=== PATIENT | female | born 1970 | race Caucasian/White ===

== ENCOUNTER → 2016-04-10 | Outpatient (REF) | payer OTHER ==
[~2016-04-10] MED LIST: ASPI81TA85 PO; BYETTA; BYSTOLIC; CELE40TA PO; GLUC1000 PO; HEARTBURN MED; IBUP600T26 PO; JANU100T PO; LISI20TA PO; LISI40TA; LORATIDINE PO; PERCOCET FT; PRAV10TA2; PRIL20TA2 PO; PRILOSEC; SYNT125T; TYLE325T5 PO; TYLENOL #3; ZETI10TA21 PO; ZOLO50TA
[2016-04-10 13:26] LABS: BASO # 0.1 K/mm3 (0.0-0.2); BASO % 0.7 % (0.0-1.0); EOS # 0.3 K/mm3 (0.0-0.50); EOS % 3.5 % (0.0-3.0); LARGE UNSTAINED CELL # 0.2 K/mm3 (0.0-0.4); LARGE UNSTAINED CELL % 1.8 % (0.0-4.0); LYMPH # 1.9 K/mm3 (1.5-4.5); LYMPH % 17.6 % (24.0-44.0); MEAN CORPUSCULAR HEMOGLOBIN 23.3 pg (27.0-33.0); MEAN CORPUSCULAR HGB CONC 31.5 g/dl (32.0-36.5); MEAN CORPUSCULAR VOLUME 73.8 fl (80.0-96.0); MONO # 0.5 K/mm3 (0.0-0.8); MONO % 5.4 % (0.0-5.0); NEUTROPHILS % 71.1 % (36.0-66.0); PLATELET COUNT, AUTOMATED 373 k/mm3 (150-450); RED CELL DISTRIBUTION WIDTH 15.5 % (11.5-14.5); WHITE BLOOD COUNT 9.8 K/mm3 (4.0-10.0)
[2016-04-10 13:52] LABS: ALBUMIN 3.5 GM/DL (3.2-5.2); ALBUMIN/GLOBULIN RATIO 0.97 (1.00-1.93); ALKALINE PHOSPHATASE 80 U/L (45-117); ALT/SGPT 24 U/L (12-78); ANION GAP 10 MEQ/L (8-16); AST/SGOT 21 U/L (15-37); BILIRUBIN,TOTAL 0.5 MG/DL (0.2-1.0); BLOOD UREA NITROGEN 15 MG/DL (7-18); CALCIUM LEVEL 9.2 MG/DL (8.5-10.1); CARBON DIOXIDE LEVEL 31 MEQ/L (21-32); CHLORIDE LEVEL 99 MEQ/L (98-107); CHOLESTEROL LEVEL 120 MG/DL (<200); CREATININE FOR GFR 0.66 MG/DL (0.55-1.02); FERRITIN 8 NG/ML (8-252); GLOMERULAR FILTRATION RATE > 60.0 (>58); GLUCOSE, FASTING 109 MG/DL (70-105); PERCENT SATURATION 9.5 % (13.2-37.4); POTASSIUM SERUM 3.6 MEQ/L (3.5-5.1); SODIUM LEVEL 140 MEQ/L (136-145); TOTAL IRON BINDING CAPACITY 401 UG/DL (250-450); TOTAL PROTEIN 7.1 GM/DL (6.4-8.2); TRIGLYCERIDES LEVEL 142 MG/DL (<150)
[2016-04-10 13:55] LABS: VITAMIN B12 LEVEL 473 PG/ML (247-911)
== END ==
LOC: M SFHCPLAZ 10:52
PROVIDERS: ATTEND Physician Assistant
DX: D50.9 Iron deficiency anemia, unspecified (principal); E11.9 Type 2 diabetes mellitus without complications; E78.4 Other hyperlipidemia; E03.9 Hypothyroidism, unspecified; E53.8 Deficiency of other specified B group vitamins

== ENCOUNTER → 2016-08-09 | Outpatient (CLI) | payer BC ==
[2016-08-09 12:13] LABS: ALBUMIN 3.5 GM/DL (3.2-5.2); ALBUMIN/GLOBULIN RATIO 0.95 (1.00-1.93); ALKALINE PHOSPHATASE 87 U/L (45-117); ALT/SGPT 31 U/L (12-78); ANION GAP 10 MEQ/L (8-16); AST/SGOT 21 U/L (15-37); BILIRUBIN,TOTAL 0.4 MG/DL (0.2-1.0); BLOOD UREA NITROGEN 17 MG/DL (7-18); CALCIUM LEVEL 9.3 MG/DL (8.5-10.1); CARBON DIOXIDE LEVEL 28 MEQ/L (21-32); CHLORIDE LEVEL 100 MEQ/L (98-107); CREATININE FOR GFR 0.78 MG/DL (0.55-1.02); GLOMERULAR FILTRATION RATE > 60.0 (>58); GLUCOSE, FASTING 238 MG/DL (70-105); POTASSIUM SERUM 3.9 MEQ/L (3.5-5.1); SODIUM LEVEL 138 MEQ/L (136-145); TOTAL PROTEIN 7.2 GM/DL (6.4-8.2)
== END ==
LOC: M WUC 08:33
PROVIDERS: ATTEND Physician Assistant
DX: E55.9 Vitamin D deficiency, unspecified (principal); E11.9 Type 2 diabetes mellitus without complications

== ENCOUNTER → 2017-02-10 | Outpatient (REF) | payer BC | LOC: M SFHCPLAZ 12:03 | PROVIDERS: ATTEND Physician Assistant Medical | DX: E11.9 Type 2 diabetes mellitus without complications (principal); D50.9 Iron deficiency anemia, unspecified; Z53.9 Procedure and treatment not carried out, unspecified reason ==

== ENCOUNTER → 2017-05-01 | Outpatient (CLI) | payer BC ==
[2017-05-01 08:48] LABS: BASO # 0.1 10^3/uL (0.0-0.2); BASO % 0.9 % (0.0-1.0); EOS # 0.3 10^3/uL (0.0-0.50); EOS % 2.7 % (0.0-3.0); HEMOGLOBIN 13.7 g/dl (12.0-16.0); IMMATURE GRANULOCYTE % 0.6 % (0-3.0); LYMPH # 2.5 10^3/uL (1.5-4.5); LYMPH % 20.9 % (24.0-44.0); MEAN CORPUSCULAR HEMOGLOBIN 26.2 pg (27.0-33.0); MEAN CORPUSCULAR HGB CONC 31.9 g/dl (32.0-36.5); MEAN CORPUSCULAR VOLUME 82.2 fl (80.0-96.0); MONO # 0.6 10^3/uL (0.0-0.8); MONO % 5.1 % (0.0-5.0); NEUTROPHILS # 8.3 10^3/uL (1.8-7.7); NEUTROPHILS % 69.8 % (36.0-66.0); PLATELET COUNT, AUTOMATED 328 10^3/uL (150-450); RED BLOOD COUNT 5.23 10^6/uL (4.00-5.40); RED CELL DISTRIBUTION WIDTH 14.6 % (11.5-14.5); WHITE BLOOD COUNT 11.8 10^3/uL (4.0-10.0)
[2017-05-01 09:23] LABS: ALKALINE PHOSPHATASE 88 U/L (45-117); ALT/SGPT 25 U/L (12-78); ANION GAP 10 MEQ/L (8-16); AST/SGOT 20 U/L (7-37); BILIRUBIN,TOTAL 0.4 MG/DL (0.2-1.0); BLOOD UREA NITROGEN 17 MG/DL (7-18); CALCIUM LEVEL 8.7 MG/DL (8.5-10.1); CARBON DIOXIDE LEVEL 26 MEQ/L (21-32); CHLORIDE LEVEL 106 MEQ/L (98-107); CHOLESTEROL LEVEL 124 MG/DL (<200); CREATININE FOR GFR 0.67 MG/DL (0.55-1.30); GLOMERULAR FILTRATION RATE > 60.0 (>58); GLUCOSE, FASTING 135 MG/DL (70-100); HDL CHOLESTEROL 50 MG/DL (>40); LDL CHOLESTEROL 51.4 MG/DL (<100); NON-HDL-C 74 MG/DL; SODIUM LEVEL 142 MEQ/L (136-145); TRIGLYCERIDES LEVEL 113 MG/DL (<150)
[2017-05-01 09:24] LABS: ALBUMIN 3.6 GM/DL (3.2-5.2); FERRITIN 20 NG/ML (8-252); FREE T4 1.23 NG/DL (0.76-1.46); IRON (FE) 84 UG/DL (50-170); PERCENT SATURATION 24.3 % (13.2-45.0); THYROID STIMULATING HORMONE 0.667 uIU/ML (0.358-3.740); TOTAL IRON BINDING CAPACITY 346 UG/DL (250-450); TOTAL PROTEIN 7.2 GM/DL (6.4-8.2)
[2017-05-01 09:25] LABS: CREATININE, URINE 88.5 MG/DL; MAU/CREAT RATIO 116.3 MCG/MG (0.0-30.0)
[2017-05-01 09:31] LABS: ESTIMATED AVERAGE GLUCOSE 212 MG/DL (60-110)
== END ==
LOC: M WUC 08:05
DX: E03.9 Hypothyroidism, unspecified (principal); D50.9 Iron deficiency anemia, unspecified; E11.22 Type 2 diabetes mellitus with diabetic chronic kidney disease; I10 Essential (primary) hypertension; E78.5 Hyperlipidemia, unspecified
CPT/HCPCS: 83550

== ENCOUNTER → 2017-05-21 | Outpatient (REF) | payer BC ==
[2017-05-21 15:19] LABS: CHLAMYDIA DNA AMPLIFICATION NEGATIVE (NEGATIVE); GC DNA AMPLIFICATION NEGATIVE (NEGATIVE)
== END ==
LOC: M LAB REF 13:03
DX: Z12.4 Encounter for screening for malignant neoplasm of cervix (principal)
CPT/HCPCS: 87186

== ENCOUNTER → 2017-05-21 | Outpatient (REF) | payer BC ==
[2017-05-26 14:13] LABS: HPV HYBRID CAPTURE II Negative (Negative)
== END ==
LOC: M LAB REF 13:33
DX: Z12.4 Encounter for screening for malignant neoplasm of cervix (principal)
CPT/HCPCS: G0123

== ENCOUNTER → 2017-09-26 | Outpatient (CLI) | payer BC ==
[2017-09-26 13:29] LABS: ANION GAP 11 MEQ/L (8-16); BLOOD UREA NITROGEN 14 MG/DL (7-18); CALCIUM LEVEL 8.7 MG/DL (8.5-10.1); CARBON DIOXIDE LEVEL 22 MEQ/L (21-32); CHLORIDE LEVEL 109 MEQ/L (98-107); CREATININE FOR GFR 0.65 MG/DL (0.55-1.30); GLOMERULAR FILTRATION RATE > 60.0 (>58); GLUCOSE, FASTING 159 MG/DL (70-100); POTASSIUM SERUM 4.2 MEQ/L (3.5-5.1); SODIUM LEVEL 142 MEQ/L (136-145)
[2017-09-26 13:39] LABS: ESTIMATED AVERAGE GLUCOSE 194 MG/DL (60-110); HEMOGLOBIN A1c 8.4 %
== END ==
LOC: M WUC 08:31
DX: E11.22 Type 2 diabetes mellitus with diabetic chronic kidney disease (principal)
CPT/HCPCS: 83036

== ENCOUNTER → 2018-05-14 | Outpatient (CLI) | payer BC ==
--- NOTE | 2018-05-18 19:52 | SLEEPHOME ---
DATE OF PROCEDURE: 05/14/2016 ORDERED BY: Carla Rosenberg Diagnostic home sleep testing was performed due to concern for the obstructive sleep apnea syndrome. For testing a nocturnal T3 respiratory monitoring device was used. Continuous record was made of pulse, oxygen saturation, airflow, chest and abdominal strain and body position. 9 hours and 59 minutes of data were reviewed. There were 7 hours and 48 minutes marked as time in bed. During the interval marked time in bed there were 178 respiratory events identified of 10 seconds in duration or greater for respiratory event index of 23.9. The events were primarily obstructive. Baseline pulse rate 70 beats per minute, pulse rate ranged 54-96. Baseline saturation 91%. Sats fell as low as 77%. Testing was performed in both the supine and nonsupine positions. IMPRESSION: Abnormal home sleep testing with repetitive respiratory events and oxygen desaturations to 77% with a respiratory event index 23.9 is consistent with the obstructive sleep apnea syndrome. RECOMMENDATIONS: The patient should be encouraged to undergo formal sleep evaluation and in laboratory pressure titration.
== END ==
LOC: M SLEEP HO 04-26 14:28
PROVIDERS: ATTEND Nurse Practitioner Family
DX: R06.83 Snoring (principal); R40.0 Somnolence

== ENCOUNTER → 2018-07-10 | Outpatient (CLI) | payer BC ==
[~2018-07-10] MED LIST changes: +OXYC1TAB23 FT; -PERCOCET FT
[2018-07-10 11:19] LABS: BLOOD UREA NITROGEN 20 MG/DL (7-18); CALCIUM LEVEL 9.8 MG/DL (8.5-10.1); CARBON DIOXIDE LEVEL 28 MEQ/L (21-32); CHLORIDE LEVEL 105 MEQ/L (98-107); CHOLESTEROL LEVEL 207 MG/DL (<200); CHOLESTEROL RISK RATIO 4.404 (<5); FREE T4 1.06 NG/DL (0.76-1.46); GLOMERULAR FILTRATION RATE > 60.0 (>58); GLUCOSE, FASTING 198 MG/DL (70-100); HDL CHOLESTEROL 47 MG/DL (>40); LDL CHOLESTEROL 116 MG/DL (<100); NON-HDL-C 160 MG/DL; POTASSIUM SERUM 4.5 MEQ/L (3.5-5.1); SODIUM LEVEL 140 MEQ/L (136-145); TRIGLYCERIDES LEVEL 218 MG/DL (<150)
[2018-07-10 11:27] LABS: HEMOGLOBIN A1c 8.2 %
[2018-07-10 11:38] LABS: MAU/CREAT RATIO 378.7 MCG/MG (0.0-30.0)
== END ==
LOC: M WUC 08:34
PROVIDERS: ATTEND Physician Assistant Medical
DX: E11.22 Type 2 diabetes mellitus with diabetic chronic kidney disease (principal); E03.9 Hypothyroidism, unspecified; E78.5 Hyperlipidemia, unspecified

== ENCOUNTER → 2019-01-15 | Outpatient (CLI) | payer OTHER ==
[2019-01-15 12:13] LABS: ALBUMIN 3.2 GM/DL (3.2-5.2); ALT/SGPT 41 U/L (12-78); BILIRUBIN,TOTAL 0.6 MG/DL (0.2-1.0); BLOOD UREA NITROGEN 21 MG/DL (7-18); CALCIUM LEVEL 8.8 MG/DL (8.5-10.1); CARBON DIOXIDE LEVEL 30 MEQ/L (21-32); CHLORIDE LEVEL 104 MEQ/L (98-107); CHOLESTEROL LEVEL 103 MG/DL (<200); CHOLESTEROL RISK RATIO 2.019 (<5); GLOMERULAR FILTRATION RATE > 60.0 (>58); GLUCOSE, FASTING 165 MG/DL (70-100); HDL CHOLESTEROL 51 MG/DL (>40); LDL CHOLESTEROL 37 MG/DL (<100); NON-HDL-C 52 MG/DL; POTASSIUM SERUM 4.2 MEQ/L (3.5-5.1); SODIUM LEVEL 140 MEQ/L (136-145); TOTAL PROTEIN 6.6 GM/DL (6.4-8.2); TRIGLYCERIDES LEVEL 75 MG/DL (<150)
[2019-01-15 12:29] LABS: HEMOGLOBIN A1c 8.1 %
[2019-01-15 12:37] LABS: MALB URINE SIEMENS 26.6 MG/L; MAU/CREAT RATIO 23.5 MCG/MG (0.0-30.0)
== END ==
LOC: M WUC 08:20
PROVIDERS: ATTEND Physician Assistant
DX: E11.22 Type 2 diabetes mellitus with diabetic chronic kidney disease (principal); I10 Essential (primary) hypertension

== ENCOUNTER → 2019-06-24 | Outpatient (CLI) | payer OTHER ==
[2019-06-24 13:43] LABS: HEMOGLOBIN A1c 8.5 %
== END ==
LOC: M WUC 09:27
PROVIDERS: ATTEND Physician Assistant Medical
DX: E11.22 Type 2 diabetes mellitus with diabetic chronic kidney disease (principal)

== ENCOUNTER → 2020-03-02 | Outpatient (CLI) | payer OTHER ==
[~2020-03-02] MED LIST changes: +ALBU8.5H; +ATOR40TA75; +CITA40TA4; +EUTH125T; +JENC0.35; +LORA-674; +LOSA50TA88; +METF-838; +OMEP-218; +TRUL10IN
[2020-03-02 12:04] LABS: HEMOGLOBIN A1c 6.9 %
[2020-03-02 12:32] LABS: MAU/CREAT RATIO 55.4 MCG/MG (0.0-30.0)
[2020-03-02 12:37] LABS: ALBUMIN 3.8 GM/DL (3.2-5.2); ALT/SGPT 23 U/L (12-78); BILIRUBIN,TOTAL 0.7 MG/DL (0.2-1.0); BLOOD UREA NITROGEN 13 MG/DL (7-18); CALCIUM LEVEL 9.3 MG/DL (8.5-10.1); CARBON DIOXIDE LEVEL 28 MEQ/L (21-32); CHLORIDE LEVEL 105 MEQ/L (98-107); CHOLESTEROL LEVEL 107 MG/DL (<200); CHOLESTEROL RISK RATIO 1.671 (<5); CREATININE FOR GFR 0.72 MG/DL (0.55-1.30); GLOMERULAR FILTRATION RATE > 60.0 (>51); GLUCOSE, FASTING 174 MG/DL (70-100); HDL CHOLESTEROL 64 MG/DL (>40); LDL CHOLESTEROL 26 MG/DL (<100); NON-HDL-C 43 MG/DL; POTASSIUM SERUM 4.1 MEQ/L (3.5-5.1); SODIUM LEVEL 140 MEQ/L (136-145); THYROID STIMULATING HORMONE 0.173 uIU/ML (0.358-3.740); TOTAL PROTEIN 6.9 GM/DL (6.4-8.2); TRIGLYCERIDES LEVEL 86 MG/DL (<150)
== END ==
LOC: M WUC 08:49
PROVIDERS: ATTEND Physician Assistant Medical
DX: E11.22 Type 2 diabetes mellitus with diabetic chronic kidney disease (principal); I12.9 Hypertensive chronic kidney disease with stage 1 through stage 4 chronic kidney disease, or unspecified chronic kidney disease; N18.9 Chronic kidney disease, unspecified

== ENCOUNTER 2020-03-17 06:36 | Emergency (ER) | payer OTHER ==
[~2020-03-17] VITALS: Ht 162.6 cm; Wt 86.4 kg
[~2020-03-17 06:36] MED LIST changes: -ALBU8.5H; -ATOR40TA75; -CITA40TA4; -EUTH125T; -JENC0.35; -LORA-674; -LOSA50TA88; -METF-838; -OMEP-218; -TRUL10IN
--- OUTSIDE RECORDS SUMMARY | 2020-03-17 06:41 | CCD | Continuity of Care Document ---
Author Author Jane ALCALA PA Organization Unknown Address [address] [place] [address] Phone [phone] Care Team Providers Care Stockroom Attendant Name Role Phone Shruthi Warren MD AUTM [phone] Alea Marin MD AUTM [phone] [facility] Surgery Practice - Surgery AUTM [phone] Problems Description No Information Available Social History Type Date Description Comments Sex Unknown Tobacco Use Start: Unknown Never Used Smokeless Tobacco ETOH Use Rarely consumes alcohol Tobacco Use Start: 02/16/86 End: 02/16/87 Patient is a forme r smoker 1 pack per week Recreational Drug Use Denies Drug Use Smoking Status Reviewed: 11/23/19 Patient is a former smoker 1 pack per week Exercise Type/Frequency Exercises regularly Tattoo/Piercing Tattoo 5 Tattoo/Piercing Pierced ears Sun Exposure Minimum amount of sun exposure Sun Exposure Uses sunscreen Sun Exposure Does not use tanning beds Sun Exposure Has experienced blistering from sunburns Sun Exposure History of sunburn Seat Belt/Car Seat Always uses seat belt Bike Helmet does not ride Smoke Alarms Yes Smoke Alarms Carbon Monoxide Detector: Yes Allergies, Adverse Reactions, Alerts Active Allergies Reaction Severity Comments Date Penicillin hives Moderate 03/25/2017 Medications Active Medications SIG Qnty Indications Ordering Provide r Date Basaglar Kwikpen 100 Unit/ML Solution Pen-Inject 8 Units sub qu twice a day Unknown 1 Jencycla 0.35mg Tablets 1 by mouth every day in the morning Unknown 12/03/2019 Metformin HCL ER (Mod) 500mg Tablets ER 24HR 2 tabs by mouth twice a day with with largest meals 360tabs Sharon Hearn M.D. 12/03/2019 Trulicity 0.75mg/0.5 ML Solution Pen-Inject inject 0.75 mg ( 0.5 milliliters ) sc once a week on thursday 2ml Sharon Hearn M.D. 12/03/2019 Bariatric Fusion Chewtabs 2 chew tabs twice a day Unknown 12/03/2019 Albuterol Sulfate HFA 108(90Base) mcg/Act Aerosol inhale 1 puff 30 minutes prior to exerci se may repeat every 4 to 6 hours as needed 17units R05 Sharon Hearn M.D. 020 Onetouch Ultra Strips use 1 strip to test BS 4 times a day , e 11.65 300units Sharon Hearn M .D. 06/30/2019 Onetouch Delica Plus Lancets Extra Fine 33G Plus 33G Misc Use To Check Glucose 4 Times Daily 100units Tammy Barraza, NAM 02/15/2019 Blood Glucose Test Strips to be used with blood glucose monitoring kit, Dx cod: ee11.65 180units E11.22 Sharon Hearn M.D. 01/04/2019 Lancets Misc to be used with glucose monitoring device, dx code e11.65 90units Brie Hearn M.D. 01/04/2019 Blood Glucose Monitoring System W/Device Kit monitor with strips and lancets use to check your bloo d sugar dx code: e11.65 1Meter E11.22 Sharon Hearn M.D. 01/04/2019 Relion Pen Needle [id number] Mis 32G X 4 mm Use With Levemir Injection Twice Daily as Directed 200units Ana Amos RPA-C 05/01/2018 Pen [place] 32G X 4 mm Misc to use with levemir injection twice a day as directed 180units Sharon Aguirre ms, M.D. 05/21/[address] 1 by mouth every day 90caps Sharon Hearn M.D. 000 Atorvastatin Calcium 40mg Tablets take 1 tablet by mouth once daily for cholesterol 30tabs Sharon Rivas ams, M.D. Citalopram Hydrobromide 40mg Table ts take 1 tablet by mouth once daily 90taSharon Leblanc M.D. Losartan Potassium 50mg Tablets take 1 tablet by mouth once daily in the morning for blood pressure 30taSharon Leblanc M.D. Levothyroxine Sodium 125mcg Tablet s take 1 tablet by mouth once daily 30tabs Sharon Hearn M .D. Loratadine 10mg Tablets take 1 tablet by mouth once daily for allergy symptoms 90tabs Sharon Hearn M.D. Multi-Vitamin Daily Tablets 1 by mouth every day Unknown Immunizations CPT Code Status Date Vaccine Lot # [id number] Given 11/23/2019 Influenza Virus Vaccine, Quadrivalent,age 3 and up,multidose vial [id number] Given 11/06/2017 Influenza Virus Vaccine, Quadrivalent,age 3 and up,multidose vial [id number] Vital Signs Date Vital Result Comment 11/23/2019 2:21pm BP Systolic 148 mmHg BP Diastolic 89 mmHg BP Systolic Recheck 145 mmHg BP Diastolic Recheck 77 mmHg Heart Rate 85 /min Body Temperature 97.8 F Respiratory Rate 18 /min Height 65 inches 5'5" Weight 180.25 lb O2 % BldC Oximetry 100 % Peak Expiratory Flow Rate 364 Estimated Peak Flow Rate [place] Body Weight 125 lb BMI (Body Mass Index) 30.0 kg/m2 08/26/2019 7:24am BP Systolic 168 mmHg BP Diastolic 111 mmHg BP Systolic Recheck 149 mmHg BP Diastolic Recheck 95 mmHg Heart Rate 83 /min Body Temperature 98.0 F Respiratory Rate 18 /min Height 65 inches 5'5" Weight 189.50 lb O2 % BldC Oximetry 99 % Peak Expiratory Flow Rate 364 Estimated Peak Flow Rate [place] Body Weight 125 lb BMI (Body Mass Index) 31.5 kg/m2 Results Description No Information Available Procedures Date Code Description Status 08/26/2019 [id number] Diabetic Foot Exam Completed Medical Devices Description No Information Available Encounters Type Date Location Provider Dx Diagnosis Office Visit 02/01/2020 3:00p Main Office Nishi Alcala PA J06.9 Acute upper respiratory infection, unspecified Office Visit 11/23/2019 2:30p Main Office Nishi Alcala PA J30.9 Allergic rhinitis, unspecified R05 Cough R59.0 Localized enlarged lymph nod es Z23 Encounter for immunization Office Visit 08/26/2019 7:10a Main Office Tammy Barraza PA-C Z00.0 0 Encntr for general adult medical exam w/o abnormal findings E11.22 Type 2 diabetes mellitus 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 iabetic chronic kidney disease Z98.84 Bariatric surgery status I10 Essential (primary) hyperten david Assessments Date Code Description Provider 02/01/2020 J06.9 Acute upper respiratory infectio n, unspecified Nishi Alcala PA 11/23/2019 J30.9 Allergic rhinitis, unspecified P homestNishi coronado PA 11/23/2019 R05 Cough Inge Alcala cia, PA 11/23/2019 R59.0 Localized enlarged lymph nodes P Nishi erickson PA 11/23/2019 Z23 Encounter for immunization Nishi Hopkins PA 08/26/2019 Z00.00 Encounter for genera l adult medical examination without abnormal findings Tammy Barraza PA-C 08/26/2019 E11.22 Type 2 diabetes mellitus with di abetic chronic kidney diseas Tammy Barraza PA-C 08/26/2019 Z98.84 Bariatric surgery status Tammy Barraza PA-C 08/26/2019 I10 Essential (primary) hypertension Tammy Barraza PA-C Plan of Treatment Future Appointment(s):* 02/29/2020 2:00 pm - Nishi Alcala PA at Main Office 02/01/2020 - Nishi Alcala PA* J06.9 Acute upper respiratory infection, unspecified* Comments:* likely viral but encouraged to seek testing for COVID 19 given community spreadyMucinex, salt water gargles, albuterol prn Functional Status Functional Condition Comment Date Status Bifocal glasses Active Independent with all ADL's Activ e Independent with all IADL's Acti ve Cpap Machine uses at least 6 hours per ni ght, wakes feeling rested, no day time fatigue Active Mental Status Mental Condition Comment Date Status None Active Can Understand Information Activ e Referrals Refer to Dr Reason for Referral Status Appt Date [facility] General Surgery Practice pt is due for screening c olonoscopy Scheduled 09/05/2019 [address] [facility], [address] [place], [place] [id number] [phone] Shruthi Warren MD needs consult regarding desiree ia repair which is reducible, but causing her some pain Closed 10/03/2019 [address], [place] [id number] [phone] Alea Marin MD uncontrolled DM Closed 09/06/2019 [facility] [address] [facility] [address] [phone]
--- OUTSIDE RECORDS SUMMARY | 2020-03-17 06:41 | CCD | Continuity of Care Document ---
Author Author Jane GIRALDO SURGICAL GARMENT FITTER Organization Unknown Address [address] [place] [address] [place] [address] Phone [phone] Care Team Providers Care First Calender Worker Name Role Phone [facility] AUTM [phone] [facility] AUTM [phone] Problems Description No Information Available Social History Type Date Description Comments Sex Unknown ETOH Use Occasionally consumes alcohol Tobacco Use Start: Unknown Patient has never smoked Smoking Status Reviewed: 02/02/20 Patient has never smoked Allergies, Adverse Reactions, Alerts Active Allergies Reaction Severity Comments Date Penicillin 02/06/2017 Medications Active Medications SIG Qnty Indications Ordering Provide r Date Doxycycline Monohydrate 100mg Caps ules 1 tab by mouth twice a day as directed for 10 days 20caps J20.9 Lalit Troy JR., M.D. 02/02/2020 Prednisone 20mg Tablets 1 tab twice a day for 4 days 8tabs J20.9 Lalit Troy JR., M.D. Albuterol Sulfate HFA 108(90Base) mcg/Act Aerosol 1-2 puffs every 4-6 hours as needed for shortness of breath 8.500gm J20.9 Lalit Troy JR., M.D. 02/02/2020 Levemir 100Unit/ML Solution Unknown Metformin HCL 1000mg Tablets Unknown Celexa Unknown Hydrochlorothiazide 25mg Tablets 1 by mouth every day Unknown Atorvastatin Calcium Unknown 00/0 Prilosec Unknown Trulicity Unknown Immunizations Description No Information Available Vital Signs Date Vital Result Comment 02/02/2020 8:16am BP Systolic 126 mmHg BP Diastolic 76 mmHg Heart Rate 92 /min Respiratory Rate 13 /min O2 % BldC Oximetry 98 % Body Temperature 98.4 F Weight 190.00 lb Height 64 inches 5'4" BMI (Body Mass Index) 32.6 kg/m2 Pain Level 3 02/06/2017 9:53am BP Systolic 132 mmHg BP Diastolic 79 mmHg Heart Rate 75 /min Respiratory Rate 15 /min O2 % BldC Oximetry 97 % Body Temperature 99.0 F Weight 230.00 lb Height 64 inches 5'4" BMI (Body Mass Index) 39.5 kg/m2 Pain Level 4 Results Description No Information Available Procedures Description No Information Available Medical Devices Description No Information Available Encounters Type Date Location Provider Dx Diagnosis Office Visit 02/02/2020 8:00a Main Office Palmira Giraldo NP J20. 9 Acute bronchitis, unspecified Z20.828 Contact w and exposure to ot h viral communicable diseases Assessments Date Code Description Provider 02/02/2020 J20.9 Acute bronchitis, unspecified Se lucille Giraldo NP 02/02/2020 Z20.828 Contact with and (wood spected) exposure to other viral communicable diseases Palmira Giraldo NP Plan of Treatment No Information Available Functional Status Description No Information Available Mental Status Description No Information Available Referrals Description No Information Available
--- OUTSIDE RECORDS SUMMARY | 2020-03-17 06:41 | CCD | Continuity of Care Document ---
Author Author Jane ALCALA PA Organization Unknown Address [address] [place] [address] Phone [phone] Care Team Providers Care Paintless Dent Repair Technician Name Role Phone Shruthi Warren MD AUTM [phone] Alea Marin MD AUTM [phone] [facility] Surgery Practice - Surgery AUTM [phone] Problems Description No Information Available Social History Type Date Description Comments Sex Unknown Tobacco Use Start: Unknown Never Used Smokeless Tobacco ETOH Use Rarely consumes alcohol Tobacco Use Start: 02/16/86 End: 02/16/87 Patient is a forme r smoker 1 pack per week Recreational Drug Use Denies Drug Use Smoking Status Reviewed: 03/01/20 Patient is a former smoker 1 pack [...] SIG Qnty Indications Ordering Provide r Date Jencycla 0.35mg Tablets 1 by mouth every day in the morning Unknown 12/03/2019 Metformin HCL ER (Mod) 500mg Tablets ER 24HR 2 tabs by mouth twice a day with with largest meals 360tabs Sharon Hearn M.D. 12/03/2019 Trulicity 0.75mg/0.5 ML Solution Pen-Inject inject 0.75 mg ( 0.5 milliliters ) sc once a week on thursday 2ml Shaorn Hearn M.D. 12/03/2019 Albuterol Sulfate HFA 108(90Base) mcg/Act Aerosol [...] Check Glucose 4 Times Daily 100units Tammy Barraza PA-C 02/15/2019 Blood Glucose Monitoring System W/Device Kit monitor with strips and lancets use to check your bloo d sugar dx code: e11.65 1Meter E11.22 Sharon Hearn M.D. 01/04/2019 Lancets Misc to be used with glucose monitoring device, dx code e11.65 90units Brie Hearn M.D. 01/04/2019 Blood Glucose Test Strips to be used with blood glucose monitoring kit, Dx cod: ee11.65 180units E11.22 Sharon Hearn M.D. 01/04/2019 Relion Pen Needle [id number] Mis 32G X 4 mm Use With Levemir Injection Twice Daily as Directed 200units Ana Amos RPA-C 05/01/2018 Pen [place] 32G X 4 mm Misc to use [...] take 1 tablet by mouth once daily 90tabs Sharon Hearn M.D. Losartan Potassium 50mg Tablets take 1 tablet by mouth once daily in the morning for blood pressure 30taSharon Leblanc M.D. Levothyroxine Sodium 125mcg Tablet s take 1 tablet by mouth once daily 30taSharon Leblanc M .D. Loratadine 10mg Tablets take 1 tablet by mouth once daily for allergy symptoms 90tabs Sharon Hearn M.D. Multi-Vitamin Daily Tablets 1 by mouth every day Unknown History Medications Basaglar Kwikpen 100 Unit/ML Solution Pen-Inject 8 Units sub qu twice a day Unknown 1 - 02/09/2020 Bariatric Fusion Chewtabs 2 chew tabs twice a day Unknown 12/03/2019 - Immunizations CPT Code Status Date Vaccine Lot # [id number] Given 03/01/2020 Pneumococcal Vaccine [id number] Given 11/23/2019 Influenza Virus Vaccine, Quadrivalent,age 3 and up,multidose vial [id number] Given 11/06/2017 Influenza Virus Vaccine, Quadrivalent,age 3 and up,multidose vial [id number] Vital Signs Date Vital Result Comment 03/01/2020 2:25pm BP Systolic 151 mmHg BP Diastolic 100 mmHg BP Systolic Recheck 137 mmHg BP Diastolic Recheck 95 mmHg Heart Rate 95 /min Body Temperature 97.4 F Respiratory Rate 16 /min Height 65 inches 5'5" Weight 193.25 lb O2 % BldC Oximetry 98 % Peak Expiratory Flow Rate 364 Estimated Peak Flow Rate [place] Body Weight 125 lb BMI (Body Mass Index) 32.2 kg/m2 02/09/2020 8:32am BP Systolic 136 mmHg BP Diastolic 81 mmHg Heart Rate 75 /min Body Temperature 96.6 F Respiratory Rate 18 /min Height 65 inches 5'5" Weight 189.50 lb O2 % BldC Oximetry 98 % Peak Expiratory Flow Rate 364 Estimated Peak Flow Rate [place] Body Weight 125 lb BMI (Body Mass Index) 31.5 kg/m2 Results Test Acquired Date Facility Test Result H/L Range Note Comprehensive Metabolic Profil 03/02/2020 [facility] [phone] Glucose, Fasting 174 mg/dL High 70-100 Blood Urea Nitrogen 13 mg/dL Normal 7-18 Creatinine For GFR 0.72 mg/dL Normal 0.55-1.30 Glomerular Filtration Rate > 60.0 Normal >51 1 Sodium Level 140 mEq/L Normal 136-145 Potassium Serum 4.1 mEq/L Normal 3.5-5.1 Chloride Level 105 mEq/L Normal 98-107 Carbon Dioxide Level 28 mEq/L Normal 21-32 Anion Gap 7 mEq/L Low 8-16 Calcium Level 9.3 mg/dL Normal 8.5-10.1 Ast/Sgot 11 U/L Normal 7-37 Alt/SGPT 23 U/L Normal 12-78 Alkaline Phosphatase 72 U/L Normal 45-117 Bilirubin,Total 0.7 mg/dL Normal 0.2-1.0 Total Protein 6.9 GM/DL Normal 6.4-8.2 Albumin 3.8 GM/DL Normal 3.2-5.2 Albumin/Globulin Ratio 1.2 Normal 1.2-2.2 Hemoglobin A1c 03/02/2020 [facility] [phone] Hemoglobin A1c 6.9 % Normal 2 Estimated Average Glucose 151 mg/dL High 60-110 Microalbumin [facility] [phone] Creatinine, Urine 220.0 mg/dL Normal Malb Urine Siemens 122.0 mg/L Normal [place]/Creat Ratio 55.4 MCG/MG High 0.0-30.0 3 Lipid Panel 03/02/2020 [facility] [phone] Triglycerides Level 86 mg/dL Normal <150 Cholesterol Level 107 mg/dL Normal <200 HDL Cholesterol 64 mg/dL Normal >40 LDL Cholesterol 26 mg/dL Normal <100 Non-HDL-C 43 mg/dL Normal Cholesterol Risk Ratio 1.671 Normal <5 Laboratory test finding 03/02/2020 [facility] [phone] Thyroid Stimulating Hormone 0.173 uIU/ML Low 0. 358-3.740 1 Units are mL/min/1.73 m2 Chronic Kidney Disease Staging per NKF: Stage I & II GFR >=60 Normal to Mildly Decreased Stage III GFR 30-59 Moderately Decreased Stage IV GFR 15-29 Severely Decreased Stage V GFR <15 Very Little GFR Left ESRD GFR <15 on FORENSIC PSYCHOLOGIST 2 REFERENCE RANGES: <=5.6% NORMAL 5.7-6.4% SUGGESTS IMPAIRED GLUCOSE META BOLISM/PREDIABETIC >= 6.5% ABNORMAL 3 THE [place] ATION STATES THAT MICROALBUMINURIA IS PRESENT IF THE MICROALBUMIN/CREATININE RATIO EXCEEDS 30 MCG/MG. THE THRESHOLD FOR CLINICAL ALBUMINURIA IS REACHED AT 300 MCG/MG. THE CLASSIFICATION OF A PATIENT SHOULD BE BASED UPON AT LEAST 2 OF 3 ABNORMAL RESULTS ON SPECIMENS COLLECTED WITHIN A 3 TO 6 MONTH TIME FRAME. Procedures Date Code Description Status 08/26/2019 [id number] Diabetic Foot Exam Completed Medical Devices Description No Information Available Encounters Type Date Location Provider Dx Diagnosis Office Visit 03/01/2020 2:15p Main Office Nishi Alcala PA E11.22 Type 2 diabetes mellitus w diabetic chronic kidney disease I10 Essential (primary) hyperten david E03.9 Hypothyroidism, unspecified F43.23 Adjustment disorder with mix ed anxiety and depressed mood Office Visit 02/09/2020 8:30a Main Office Carol Chapa FNP Z71.1 Person w feared hlth complaint in whom no diagnosis is made Office Visit 02/01/2020 3:00p Main Office Nishi Alcala PA J06.9 Acute upper respiratory infection, unspecified Office Visit 11/23/2019 2:30p Main Office Nishi Alcala PA J30.9 Allergic rhinitis, unspecified R05 Cough R59.0 Localized enlarged lymph nod es Z23 Encounter for immunization Assessments Date Code Description Provider 03/01/2020 E11.22 Type 2 diabetes mellitus with di abetic chronic kidney diseas Nishi Alcala PA 03/01/2020 I10 Essential (primary) hypertension Nishi Alcala PA 03/01/2020 E03.9 Hypothyroidism Inge Alcala cia, PA 03/01/2020 F43.23 Adjustment disorder with mixed a nxiety and depressed mood Nishi Alcala PA 02/09/2020 Z71.1 Person with feared h ealth complaint in whom no diagnosis is made Carol Chapa FNP 02/01/2020 J06.9 Acute upper respiratory infectio n, unspecified Nishi Alcala PA 11/23/2019 J30.9 Allergic rhinitis, unspecified P Nishi erickson PA 11/23/2019 R05 Cough Inge Alcala cia, PA 11/23/2019 R59.0 Localized enlarged lymph nodes P Nishi erickson PA 11/23/2019 Z23 Encounter for immunization Nishi Hopkins PA Plan of Treatment Future Appointment(s):* 09/03/2020 8:15 am - Nishi Alcala PA at Main Office Functional Status Functional Condition Comment Date Status Bifocal glasses Active Independent with all ADL's Activ e Independent with all IADL's Acti ve Cpap Machine uses at least 6 hours per ni ght, wakes feeling rested, no day time fatigue Active Mental Status Mental Condition Comment Date Status None Active Can Understand Information Activ e Referrals Refer to Reason for Referral Status Appt Date [facility] General Surgery Practice pt is due for screening c olonoscopy Scheduled 03/08/[address] [place] [address], [address] [place] [address] [phone]
--- OUTSIDE RECORDS SUMMARY | 2020-03-17 06:41 | CCD | Continuity of Care Document ---
Author Author Jane [facility] Organization Unknown Address [address] [place] [address] Phone [phone] Care Team Providers Care Gear Lapper Name Role Phone Shruthi Warren MD AUTM [phone] Alea Marin MD AUTM [phone] [facility] Surgery Practice - Surgery AUTM [phone] Problems Description No Information Available Social History Type Date Description Comments Sex Unknown Tobacco Use Start: Unknown Never Used Smokeless Tobacco ETOH Use Rarely consumes alcohol Tobacco Use Start: 02/16/86 End: 02/16/87 Patient is a forme r smoker 1 pack per week Recreational Drug Use Denies Drug Use Smoking Status Reviewed: 02/09/20 Patient is a former smoker 1 pack [...] Sharon Hearn M.D. 01/04/2019 Relion Pen Needle [id number] Mis 32G X 4 mm Use With Levemir Injection Twice Daily as Directed 200units Ana Amos RPA-C 05/01/2018 Pen [place] 32G X 4 mm Misc to use [...] tablet by mouth once daily 90tabs Sharon Hearn., M.D. Losartan Potassium 50mg Tablets take 1 tablet by mouth once daily in the morning for blood pressure 30Sharon Leblanc M.D. Levothyroxine Sodium 125mcg Tablet s take 1 tablet by mouth once daily 30Sharon Leblanc M .D. Loratadine 10mg Tablets take 1 tablet by mouth once daily for allergy symptoms 90taSharon Leblanc M.D. Multi-Vitamin Daily Tablets 1 by mouth every day Unknown History Medications Basaglar Kwikpen 100 Unit/ML Solution Pen-Inject 8 Units sub qu twice a day Unknown 1 - 02/09/2020 Immunizations CPT Code Status Date Vaccine Lot # [id number] Given 11/23/2019 Influenza Virus Vaccine, Quadrivalent,age 3 and up,multidose vial [id number] Given 11/06/2017 Influenza Virus Vaccine, Quadrivalent,age 3 and up,multidose vial [id number] Vital Signs Date Vital Result Comment 02/09/2020 8:32am BP Systolic 136 mmHg BP Diastolic 81 mmHg Heart Rate 75 /min Body Temperature 96.6 F Respiratory Rate 18 /min Height 65 inches 5'5" Weight 189.50 lb O2 % BldC Oximetry 98 % Peak Expiratory Flow Rate 364 Estimated Peak Flow Rate [place] Body Weight 125 lb BMI (Body Mass Index) 31.5 kg/m2 11/23/2019 2:21pm BP Systolic 148 mmHg BP Diastolic 89 mmHg BP Systolic Recheck 145 mmHg BP Diastolic Recheck 77 mmHg Heart Rate 85 /min Body Temperature 97.8 F Respiratory Rate 18 /min Height 65 inches 5'5" Weight 180.25 lb O2 % BldC Oximetry 100 % Peak Expiratory Flow Rate 364 Estimated Peak Flow Rate [place] Body Weight 125 lb BMI (Body Mass Index) 30.0 kg/m2 Results Description No Information Available Procedures Date Code Description Status 08/26/2019 [id number] Diabetic Foot Exam Completed Medical Devices Description No Information Available Encounters Type Date Location Provider Dx Diagnosis Office Visit 02/09/2020 8:30a Main Office Carol Chapa FNP Z71.1 Person w feared hlth complaint in whom no diagnosis is made Office Visit 02/01/2020 3:00p Main Office Nishi Palacios PA J06.9 Acute upper respiratory infection, unspecified Office Visit 11/23/2019 2:30p Main Office Nishi Palacios PA J30.9 Allergic rhinitis, unspecified R05 Cough R59.0 Localized enlarged lymph nod es Z23 Encounter for immunization Office Visit 08/26/2019 7:10a Main Office Tammy Barraza PA-C Z00.0 0 Encntr for general adult medical exam w/o abnormal findings E11.22 Type 2 diabetes mellitus w d iabetic chronic kidney disease Z98.84 Bariatric surgery status I10 Essential (primary) hyperten david Assessments Date Code Description Provider 02/09/2020 Z71.1 Person with feared h ealth complaint in whom no diagnosis is made Carol Chapa FNP 02/01/2020 J06.9 Acute upper respiratory infectio n, unspecified KathrynostaNishi PA 11/23/2019 J30.9 Allergic rhinitis, unspecified P etrancosta, Nishi Peralta, PA 11/23/2019 R05 Cough Tonyancostcliff Sta rojas Peralta, PA 11/23/2019 R59.0 Localized enlarged lymph nodes P etrancostaNishi, PA 11/23/2019 Z23 Encounter for immunization Kiara ncostaNishi, PA 08/26/2019 Z00.00 Encounter for genera l adult medical examination without abnormal findings Tammy Barraza PA-C 08/26/2019 E11.22 Type 2 diabetes mellitus with di abetic chronic kidney diseas Tammy Barraza PA-C 08/26/2019 Z98.84 Bariatric surgery status Tammy Barraza PA-C 08/26/2019 I10 Essential (primary) hypertension Tammy Barraza PA-C Plan of Treatment Future Appointment(s):* 02/29/2020 2:00 pm - Nishi Palacios PA at Main Office 02/09/2020 - Carol Chapa FNP* Z71.1 Person with feared health complaint in whom no diagnosis is made* Comments:* patient is likely feeling adhesions, incision was made over prior incision and so scarring is likely prevalent. Advised patient that if swelling becomes worse or pain increases or changes she should return Functional Status Functional Condition Comment Date Status Bifocal glasses Active Independent with all ADL's Activ e Independent with all IADL's Acti ve Cpap Machine uses at least 6 hours per ni ght, wakes feeling rested, no day time fatigue Active Mental Status Mental Condition Comment Date Status None Active Can Understand Information Activ e Referrals Refer to Reason for Referral Status Appt Date Shruthi Warren MD needs consult regarding desiree ia repair which is reducible, but causing her some pain Closed 10/03/2019 [address] [place] [address] [phone] Alea Marin MD uncontrolled DM Closed 09/06/2019 [facility] [address] [facility] [address] [phone] [facility] General Surgery Practice pt is due for screening colon oscopy Closed 09/05/2019 [address] [facility], [address] [place] [address] [phone]
--- OUTSIDE RECORDS SUMMARY | 2020-03-17 06:41 | CCD | Continuity of Care Document ---
Author Author Jane ALCALA PA Organization Unknown Address [address] [place] [address] Phone [phone] Care Team Providers Care Road Supervisor Of Engines Name Role Phone Shruthi Warren MD AUTM [phone] Alea Marin MD AUTM [phone] [facility] Surgery Practice - Surgery AUTM [phone] Problems Description No Information Available Social History [...] on thursday 2ml Sharon Hearn M.D. 12/03/2019 Albuterol Sulfate HFA 108(90Base) [...] Sharon Hearn M.D. 01/04/2019 Relion Pen Needle [id number] Mis 32G X 4 mm Use With Levemir Injection Twice Daily as Directed 200units Ana Amos RPA-C 05/01/2018 Pen [place] 32G X 4 mm Misc to use [...] CPT Code Status Date Vaccine Lot # [id number] Given 03/01/2020 Pneumococcal Vaccine [id number] Given 11/23/2019 Influenza Virus Vaccine, Quadrivalent,age 3 and up,multidose vial [id number] 88400 Given 11/06/2017 Influenza Virus Vaccine, Quadrivalent,age 3 and up,multidose vial [id number] Vital Signs Date Vital Result Comment 03/01/2020 2:25pm BP Systolic 151 mmHg BP Diastolic 100 mmHg BP Systolic Recheck 137 mmHg BP Diastolic Recheck 95 mmHg Heart Rate 95 /min Body Temperature 97.4 F Respiratory Rate 16 /min Height 65 inches 5'5" Weight 193.25 lb O2 % BldC Oximetry 98 % Peak Expiratory Flow Rate 364 Estimated Peak Flow Rate [place] Body Weight 125 lb BMI (Body Mass Index) 32.2 kg/m2 02/09/2020 8:32am BP Systolic 136 mmHg BP Diastolic 81 mmHg Heart Rate 75 /min Body Temperature 96.6 F Respiratory Rate 18 /min Height 65 inches 5'5" Weight 189.50 lb O2 % BldC Oximetry 98 % Peak Expiratory Flow Rate 364 Estimated Peak Flow Rate [place] Body Weight 125 lb BMI (Body Mass Index) 31.5 kg/m2 Results Test Acquired Date Facility Test Result H/L Range Note Comprehensive Metabolic Profil 03/02/2020 [facility] [phone] Glucose, Fasting 174 mg/dL High 70-100 Blood [...] Ratio 1.2 Normal 1.2-2.2 Hemoglobin A1c 03/02/2020 [facility] [phone] Hemoglobin A1c 6.9 % Normal 2 Estimated Average Glucose 151 mg/dL High 60-110 Microalbumin Random 03[facility] [phone] Creatinine, Urine 220.0 mg/dL Normal Malb Urine Siemens 122.0 mg/L Normal [place]/Creat Ratio 55.4 MCG/MG High 0.0-30.0 3 Lipid Panel 03/02/2020 [facility] [phone] Triglycerides Level 86 mg/dL Normal <150 Cholesterol Level 107 mg/dL Normal <200 HDL Cholesterol 64 mg/dL Normal >40 LDL Cholesterol 26 mg/dL Normal <100 Non-HDL-C 43 mg/dL Normal Cholesterol Risk Ratio 1.671 Normal <5 Laboratory test finding 03/02/2020 [facility] [phone] Thyroid Stimulating Hormone 0.173 uIU/ML Low 0. 358-3.740 1 Units are mL/min/1.73 m2 Chronic Kidney Disease Staging per NKF: Stage I & II GFR >=60 Normal to Mildly Decreased Stage III GFR 30-59 Moderately Decreased Stage IV GFR 15-29 Severely Decreased Stage V GFR <15 Very Little GFR Left ESRD GFR <15 on SKIVING MACHINE OPERATOR 2 REFERENCE RANGES: <=5.6% NORMAL 5.7-6.4% SUGGESTS IMPAIRED GLUCOSE META BOLISM/PREDIABETIC >= 6.5% ABNORMAL 3 THE CITIZ[place] [employer] ATION STATES THAT MICROALBUMINURIA IS PRESENT IF THE MICROALBUMIN/CREATININE RATIO EXCEEDS 30 MCG/MG. THE THRESHOLD FOR CLINICAL ALBUMINURIA IS REACHED AT 300 MCG/MG. THE CLASSIFICATION OF A PATIENT SHOULD BE BASED UPON AT LEAST 2 OF 3 ABNORMAL RESULTS ON SPECIMENS COLLECTED WITHIN A 3 TO 6 MONTH TIME FRAME. Procedures Date Code Description Status 08/26/2019 [id number] Diabetic Foot Exam Completed Medical Devices Description No Information Available Encounters Type Date Location Provider Dx Diagnosis Office Visit 03/01/2020 2:15p Main Office Nishi Alcala PA E11.22 Type 2 diabetes mellitus w diabetic chronic kidney disease I10 Essential (primary) hyperten david E03.9 Hypothyroidism, unspecified F43.23 Adjustment disorder with mix ed anxiety and depressed mood Z23 Encounter for immunization Office Visit 02/09/2020 8:30a Main Office Carol [...] Alcala PA 03/01/2020 E03.9 Hypothyroidism Inge Alcala cia PA 03/01/2020 F43.23 Adjustment disorder with mixed a nxiety and depressed mood Nishi Alcala PA 03/01/2020 Z23 Encounter for immunization Nishi Hopkins PA 02/09/2020 Z71.1 Person with feared h [...] to Reason for Referral Status Appt Date [facility] General Surgery Practice pt is due for screening c olonoscopy Scheduled 03/08/[address] [place] [address], [address] [place] [address] [phone]
--- OUTSIDE RECORDS SUMMARY | 2020-03-17 06:41 | CCD | Continuity of Care Document ---
Author Author Jane ALCALA PA Organization Unknown Address [address] [place] [address] Phone [phone] Care Team Providers Care Land Acquisition Manager Name Role Phone Shruthi Warren MD AUTM [phone] Alea Marin MD AUTM [phone] [facility] Surgery Practice - Surgery AUTM [phone] Problems Description No Information Available Social History [...] glucose monitoring device, dx code e11.65 90units Bire Heanr M.D. 01/04/2019 Blood Glucose Monitoring System W/Device Kit monitor with strips and lancets use to check your bloo d sugar dx code: e11.65 1Meter E11.22 Sharon Hearn M.D. 01/04/2019 Relion Pen Needle [id number] Mis 32G X 4 mm Use With Levemir Injection Twice Daily as Directed 200units Ana Amos RPA-C 05/01/2018 Pen [place] 32G X 4 mm Misc to use [...] CPT Code Status Date Vaccine Lot # [id number] Given 11/23/2019 Influenza Virus Vaccine, Quadrivalent,age 3 and up,multidose vial [id number] Given 11/06/2017 Influenza Virus Vaccine, Quadrivalent,age 3 and up,multidose vial [id number] Vital Signs Date Vital Result Comment 11/23/2019 2:21pm BP Systolic 148 mmHg BP Diastolic 89 mmHg BP Systolic Recheck 145 mmHg BP Diastolic Recheck 77 mmHg Heart Rate 85 /min Body Temperature 97.8 F Respiratory Rate 18 /min Height 65 inches 5'5" Weight 180.25 lb O2 % BldC Oximetry 100 % Peak Expiratory Flow Rate 364 Estimated Peak Flow Rate [place] Body Weight 125 lb BMI (Body Mass [...] Flow Rate 364 Estimated Peak Flow Rate [place] Body Weight 125 lb BMI (Body Mass Index) 31.5 kg/m2 Results Description No Information Available Procedures Date Code Description Status 08/26/2019 [id number] Diabetic Foot Exam Completed Medical Devices Description [...] Dr Reason for Referral Status Appt Date [facility] General Surgery Practice pt is due for screening c olonoscopy Scheduled 09/05/2019 [address] [facility], [address] [place], [place] [address] [phone] Shruthi Warren MD needs consult regarding desiree ia repair which is reducible, but causing her some pain Closed 10/03/2019 [address] [place], [place] [address] [phone] Alea Marin MD uncontrolled DM Closed 09/06/2019 [facility] [address] [facility] [address] [phone]
--- OUTSIDE RECORDS SUMMARY | 2020-03-17 06:41 | CCD ---
Continuity of Care Document (CCD) Created on: 02/09/2020 Jane Freeman External Reference #: [id number] : [id number] Sex: Female Author Author Jane [facility] Organization Unknown Address [address] [place] [address] Phone [phone] Care Team Providers Care Fire Chief Name Role Phone Srhuthi Warren MD AUTM [phone] Alea Marin MD AUTM [phone] [facility] Surgery Practice - Surgery AUTM [phone] Problems Description No Information Available Social History [...] Sharon Hearn M.D. 01/04/2019 Relion Pen Needle [id number] Mis 32G X 4 mm Use With Levemir Injection Twice Daily as Directed 200units Ana Amos RPA-C 05/01/2018 Pen [place] 32G X 4 mm Misc to use [...] CPT Code Status Date Vaccine Lot # [id number] Given 11/23/2019 Influenza Virus Vaccine, Quadrivalent,age 3 and up,multidose vial [id number] 03665 Given 11/06/2017 Influenza Virus Vaccine, Quadrivalent,age 3 and up,multidose vial [id number] Vital Signs Date Vital Result Comment 02/09/2020 8:32am BP Systolic 136 mmHg BP Diastolic 81 mmHg Heart Rate 75 /min Body Temperature 96.6 F Respiratory Rate 18 /min Height 65 inches 5'5" Weight 189.50 lb O2 % BldC Oximetry 98 % Peak Expiratory Flow Rate 364 Estimated Peak Flow Rate [place] Body Weight 125 lb BMI (Body Mass [...] Flow Rate 364 Estimated Peak Flow Rate [place] Body Weight 125 lb BMI (Body Mass Index) 30.0 kg/m2 Results Description No Information Available Procedures Date Code Description Status 08/26/2019 [id number] Diabetic Foot Exam Completed Medical Devices Description [...] Acute upper respiratory infectio n, unspecified Nishi Palacios PA 11/23/2019 J30.9 Allergic rhinitis, unspecified P etrancostNishi coronado PA 11/23/2019 R05 Cough Inge Palacios cia PA 11/23/2019 R59.0 Localized enlarged lymph nodes P etrancostNishi coronado PA 11/23/2019 Z23 Encounter for immunization Kiara ncostNishi coronado PA 08/26/2019 Z00.00 Encounter for genera l adult medical examination without abnormal findings Tammy Barraza PA-C 08/26/2019 E11.22 Type 2 diabetes mellitus with di abetic chronic kidney diseas Tammy Barraza PA-C 08/26/2019 Z98.84 Bariatric surgery status Tammy Barraza PA-C 08/26/2019 I10 Essential (primary) hypertension Tammy Barraza PA-C Plan of Treatment Future Appointment(s):* 02/29/2020 2:00 pm - Nishi Palacios PA at Main Office Functional Status Functional [...] but causing her some pain Closed 10/03/[address] [place] [address] [phone] Alea Marin MD uncontrolled DM Closed 09/06/2019 [facility] [address] [facility] [address] [address] [phone] [facility] General Surgery Practice pt is due for screening colon oscopy Closed 09/05/2019 [address] [facility], [address] [place], [place] [address] [phone]
--- OUTSIDE RECORDS SUMMARY | 2020-03-17 06:41 | CCD ---
Continuity of Care Document (CCD) Created on: 02/02/2020 Jane Freeman External Reference #: [id number] : [id number] Sex: Female Author Author Jane GIRALDO GRINDING MACHINE OPERATOR [employer] Organization Unknown Address [address] [place] [address] [place] [address] Phone [phone] Care Team Providers Care Retail Store Assistant Name Role Phone [facility] - Family Medicine AUTM [phone] [facility] AUTM [phone] Problems Description No Information Available Social History [...] diseases Palmira Giraldo NP Plan of Treatment 02/02/2020 - Palmira Giraldo NP* J20.9 Acute bronchitis, unspecified* New Medication:* Doxycycline Monohydrate 100 mg - 1 tab by mouth twice a day as directed for 10 days * Prednisone 20 mg - 1 tab twice a day for 4 days * Albuterol Sulfate HFA 108(90 Base) mcg/Act - 1-2 puffs every 4-6 hours as needed for shortness of breath * Comments:* rest/time/fluidstylenol/motrin PRN for pain/feverabx as directedf/u PRN or with PCPpatient v/u & agrees to plan * Z20.828 Contact with and (suspected) exposure to other viral communicable diseases Functional Status Description No Information Available Mental Status Description No Information Available Referrals Description No Information Available
--- OUTSIDE RECORDS SUMMARY | 2020-03-17 06:41 | CCD | Continuity of Care Document ---
Author Author Jane CAT MD Organization Unknown Address [address] [facility] [address] [place] [address] Phone [phone] Care Team Providers Care Burnisher And Bumper Name Role Phone Afia Nina MD AUTM [phone] Nishi Palacios AUTM Problems Active Problems Provider Date Type 2 diabetes mellitus Festus Cat MD Onset: 09/17 Essential hypertension Festus Cat MD Onset: 012 Social History Type Date Description Comments Sex Unknown ETOH Use Occasionally consumes wine Tobacco Use Start: Unknown End: Unknown Patient is a former smoker Tobacco Use Start: Unknown Quit 30 YRS AGO Smoking Status Reviewed: 08/03/18 Quit 30 YRS AGO Allergies, Adverse Reactions, Alerts Active Allergies Reaction Severity Comments Date Penicillin HIVES 09/18/2011 Medications Active Medications SIG Qnty Indications Ordering Provide r Date Celexa 40mg Tablets 1 by mouth every day Unknown Synthroid 125mcg Tablets 1 by mouth every day Unknown Metformin HCL 1000mg Tablets 1 by mouth twice a day 60tabs Unknown Prilosec 20mg Capsules DR 1 by mouth every day 30caps Unknown Loratadine 10mg Tablets 1 by mouth every day Unknown Losartan Potassium 50mg Tablets 1 by mouth every day Unknown Trulicity 0.75mg/0.5 ML Solution Pen-Inject 1 injection every week Unknown Atorvastatin Calcium 40mg Tablets Take 1 Tablet By Mouth Once Daily For Cholesterol Unkno wn Ortho Micronor 0.35mg Tablets every day Unknown Immunizations Description No Information Available Vital Signs Date Vital Result Comment 03/08/2020 1:16pm BP Systolic 113 mmHg BP Diastolic 73 mmHg Height 64 inches 5'4" Weight 197.00 lb BMI (Body Mass Index) 33.8 kg/m2 [place] Body Weight 120 lb Weight 89.359 kg BSA (Body Surface Area) 1.94 m2 08/03/2018 3:26pm BP Systolic 123 mmHg BP Diastolic 80 mmHg Heart Rate 80 /min O2 % BldC Oximetry 98 % Height 65 inches 5'5" Weight 222.50 lb BMI (Body Mass Index) 37.0 kg/m2 [place] Body Weight 125 lb Weight 100.926 kg BSA (Body Surface Area) 2.07 m2 Results Description No Information Available Procedures Description No Information Available Medical Devices Description No Information Available Encounters Description No Information Available Assessments Description No Information Available Plan of Treatment 08/03/2018 - Carla Rosenberg, N.P.* G47.33 Obstructive sleep apnea (adult) (pediatric) * * Comments:* 1. No changes were made to the CPAP pressure at today's visit. 2. The patient is aware to call with any problems related to CPAP use, snoring through the mask, or return of daytime sleepiness. * Follow up:* 1. Follow up in three months to reassess CPAP compliance, or sooner should problems develop. Functional Status Functional Condition Comment Date Status Independent with all ADL's Activ e Independent with all IADL's Acti ve Mental Status Mental Condition Comment Date Status Cognitive ability not impaired A ctive Referrals Description No Information Available
--- OUTSIDE RECORDS SUMMARY | 2020-03-17 06:42 | CCD | Summary of Care ---
Author Author [facility] Address Unknown Phone Unavailable Care Team Providers Care Foreign Policy Officer Name Role Phone Ana Amos PCP Reason for Visit * Reason Comments Post-op post op right flank hernia Encounter Details Care Team Description Date Type Department Leodan Warren MD [address] [place], [place] [id number] S/P abdominal surgery, follow-up exam (P rimary Dx) 01/20/2020 Office Visit [facility] [address] [place] [phone] Allergies Comments Active Allergy Reactions Severity Noted Date Keflex is okay Penicillins Hives Medium 05/19/2017 documented as of this encounter (statuses as of 01/20/2020) Medications End Date Status Medication Sig Dispensed Refills Start Date Active omeprazole (PRILOSEC) 20 Take 20 mg by 0 MG capsule mouth every morning Active citalopram (CELEXA) 40 MG Take 40 mg by 0 tablet mouth every morning Active losartan (COZAAR) 50 MG Take 50 mg by 0 tabletIndications: mouth every Hypertension morning Indications: High Blood Pressure Disorder Active levothyroxine (SYNTHROID, Take 125 mcg 0 LEVOTHROID) 125 MCG by mouth tablet Daily Active loratadine (CLARITIN) 10 Take 10 mg by 0 MG tablet mouth every morning Active atorvastatin (LIPITOR) 40 Take 40 mg by 0 MG tablet mouth every morning Active Lancets (FREESTYLE) Use as 0 lancets directed. 9 Active RELION PEN NEEDLES 32G X TO USE WITH 3 11/08 4 MM MISC LEVEMIR 9 INJECTION TWICE DAILY DIRECTED Active Multiple Take 2 0 Vitamins-Minerals tablets by (BARIATRIC FUSION PO) mouth Two Times Daily Active Basaglar KwikPen 100 Inject 8 0 UNIT/ML Subcutaneous Units into 9 Solution Pen-injector the skin Two Times Daily Active metFORMIN HCl ER 500 MG Take 1,000 mg 0 Oral Tablet Extended by mouth Two 0 Release 24 Hour Times Daily (GLUCOPHAGE-XR) Active Jencycla 0.35 MG Oral Take 1 tablet 0 07/18/19 2 Tablet by mouth 0 every morning Active MULTIPLE VITAMIN PO Take 1 tablet 0 by mouth every morning Active Trulicity 0.75 MG/0.5ML Inject 0.75 0 Subcutaneous Solution mg into the Pen-injector skin once a (dulaglutide) week On Tuesdays Active Albuterol Sulfate HFA 108 Inhale 2 0 (90 Base) MCG/ACT puffs into Inhalation Aerosol the lungs Solution (Ventolin HFA) every 6 (six) hours as needed for Wheezing Active Caffeine 200 MG Oral Take 1 tablet 150 tablet 0 Tablet by mouth 0 every 4 (four) hours Additional Information Patient not taking. Reported on 01/20/2020 9:41 AM 12/02/2020 Active Magnesium Oxide 400 Take 1 tablet 30 tablet 11 11/16 (241.3 Mg) MG Oral Tablet by mouth 0 (MAG-OX) daily Additional Information Patient not taking. Reported on 01/20/2020 9:41 AM Active Cetirizine HCl 10 MG Oral Take 10 mg by 0 Tablet (ZYRTEC) mouth daily documented as of this encounter (statuses as of 01/20/2020) Active Problems Problem Noted Date Flank hernia 10/03/2019 Overview: Added automatically from request for nina floyd [id number] Renal artery aneurysm 12/23/2017 High cholesterol 12/01/2017 Overview: Added automatically from request for nina fernandezery [id number] Diabetes mellitus type 2 in obese 12/01/2017 Overview: Added automatically from request for wood rgery [id number] Preop testing 12/01/2017 Overview: Added automatically from request for nina fernandezery [id number] Gastroesophageal reflux disease 12/01/2017 Overview: Added automatically from request for nina fernandezery [id number] Morbid obesity 11/27/2017 Essential hypertension 11/27/2017 Body mass index 38.0-38.9, adult 11/27/2017 Incisional hernia 11/27/2017 Type 2 diabetes mellitus without complication 2017 Other specified hypothyroidism 11/27/2017 documented as of this encounter (statuses as of 01/20/2020) Resolved Problems Problem Noted Date Resolved Date Incisional hernia 11/27/2017 11/27/2017 documented as of this encounter (statuses as of 01/20/2020) Social History Date Tobacco Use Types Packs/Day Years Used 1986 - 1987 Former Smoker Cigarettes 0.1 1 Smokeless Tobacco: Never Used Drinks/Week oz/Week Comments Alcohol Use rarely No Sex Assigned at Date Recorded Not on file Date Recorded COVID-19 Exposure Response 01/20/2020 9:33 AM EST In the last month, have you been in contact with No / Unsure someone who was confirmed or suspected to have Coronavirus / COVID-19? documented as of this encounter Last Filed Vital Signs Reading Time Taken Comments Vital Sign 143/81 01/20/2020 9:40 AM EST Blood Pressure 90 01/20/2020 9:40 AM EST Pulse 36.7 C (98.1 F) 01/20/2020 9:40 AM EST Temperature 18 01/20/2020 9:40 AM EST Respiratory Rate 99% 01/20/2020 9:40 AM EST Oxygen Saturation - - Inhaled Oxygen Concentration 89.8 kg (198 lb) 01/20/2020 9:40 AM EST Weight 162.6 cm (5' 4") 01/20/2020 9:40 AM EST Height 33.99 01/20/2020 9:40 AM EST Body Mass Index documented in this encounter Patient Instructions * Patient Instructions* Zakiya Salazar RN - 01/20/2020 9:45 AM EST Follow up one year from surgery Please call the [facility] direct patient line at [phone] with any questions or concerns regarding todays visit. Hernia & Abdominal Wall Reconstruction Program We participate with the [facility] (ACHQC) data base. If you wish for your surgical information to not be included or have any q uestions regarding this, please notify our office at the above number. documented in this encounter Progress Notes * Leodan Warren MD - 01/20/2020 9:45 AM EST Subjective: Jane Freeman presents to the clinic 8 weeks following repair of a massive rig ht flank hernia with mesh. She has no complaints. Eating a regular diet without difficulty. Bowel movements are Normal. The patient is not having any pain.. Objective: Visit Vitals BP 143/81 (BP Location: Right arm, Patient Position: Sitting, Cuff size: Regular ) Pulse 90 Temp 36.7 C (98.1 F) (Tympanic) Resp 18 Ht 1.626 m Wt 89.8 kg (198 lb) SpO2 99% BMI 33.99 kg/m General: alert, appears stated age and cooperative Abdomen: soft, bowel sounds active, non-tender, no hernias Incision: healing well, no drainage, no erythema, no hernia, no seroma, no swe lling, no dehiscence, incision well approximated Assessment: Doing well postoperatively. Plan: 1. Continue any current medications. 2. Wound care discussed. 3. Pt is to increase activities as tolerated. 4. Follow up: 1 year. documented in this encounter Plan of Treatment Health Maintenance Due Date Last Done Comments Lipid Disorder Screening 1969 MMR Vaccines (1 of - 1970 Standard series) Varicella Vaccines (1 of 1970 2 - 2-dose childhood series) Pneumococcal Vaccine: 06/02/1975 Pediatrics (0 to 5 Years) and At-Risk Patients (6 to 64 Years) (1 of 1 - PPSV23) DTaP,Tdap,and Td Vaccines 1976 (1 - Tdap) HIV Screening 1982 Diabetic Foot Exam 06/02/1987 Dilated Retinal Exam 06/02/1987 Urine Microalbumin 06/02/1987 Hepatitis B Vaccines (1 1988 of 3 - Risk 3-dose series) Cervical Cancer Screening 1990 5 years Hemoglobin A1c 03/19/2019 09/16/2018, 03/26/2018, 03/26/2018 Breast Cancer Screening 2 06/02/2019 years Colon Cancer Screening 10 06/02/2019 yrs Pneumococcal Vaccine: 65+ 2034 Years (1 of 1 - PPSV23) Influenza Vaccine Completed 11/23/2019, 12/13/2018, 12/23/2016 HIB Vaccines Aged Out No longer eligible based on patient's age to complete this topic Hepatitis A Vaccines Aged Out No longer eligibl e based on patient's age to complete this topic IPV Vaccines Aged Out No longer eligible based on patient's age to complete this topic documented as of this encounter Implants Device Identifier Shelf Expiration Date Model / Serial / L ot Implanted Type Area Manufactur er 03/18/2021 [id number] / / [id number] Stapler Seamguard [place] 60 - GORE, [id number] KATHE Cooper Implanted: Qty: 6 on 09/15/2018 by + Afia Nina MD at [facility] 05/13/2021 [id number] / / [id number] M[address] [id number]. - Right: Back [employer] [id number] Implanted: Qty: 1 on 11/30/2019 by Leodan Warren MD at [facility] documented as of this encounter Results Not on filedocumented in this encounter Visit Diagnoses Diagnosis S/P abdominal surgery, follow-up exam - Primary Follow-up examination, following other surgery documented in this encounter
--- OUTSIDE RECORDS SUMMARY | 2020-03-17 06:42 | CCD ---
Author Author [facility] Organization [facility] Address Unknown Phone Unavailable Care Team Providers Care Supervisor [employer] Name Role Phone ZEINAB OLSEN MOUSTAFA Unavailable Unavailable Jo CARMONA Unavailable Unavailable Scordo, M Tammy PA Unavailable Unavailable Scordo, M Tammy PA Unavailable Unavailable Scordo, M Tammy PA Unavailable Unavailable Scordo, M Tammy PA Unavailable Unavailable Scordo, M Tammy PA Unavailable Unavailable Scordo, M Tammy PA Unavailable Unavailable Scordo, M Tammy PA Unavailable Unavailable Scordo, M Tammy PA Unavailable Unavailable Scordo, M Tammy PA Unavailable Unavailable Scordo, M Tammy PA Unavailable Unavailable Scordo, M Tammy PA Unavailable Unavailable Scordo, M Tammy PA Unavailable Unavailable Scordo, M Tammy PA Unavailable Unavailable Scordo, M Tammy PA Unavailable Unavailable Scordo, M Tammy PA Unavailable Unavailable Scordo, M Tammy PA Unavailable Unavailable Scordo, M Tammy PA Unavailable Unavailable Scordo, M Tammy PA Unavailable Unavailable Scordo, M Tammy PA Unavailable Unavailable Scordo, M Tammy PA Unavailable Unavailable Scordo, M Tammy PA Unavailable Unavailable Scordo, M Tammy PA Unavailable Unavailable Scordo, M Tammy PA Unavailable Unavailable Scordo, M Tammy PA Unavailable Unavailable Scordo, M Tammy PA Unavailable Unavailable Scordo, M Tammy PA Unavailable Unavailable Scordo, M Tammy PA Unavailable Unavailable Scordo, M Tammy PA Unavailable Unavailable Scordo, M Tammy PA Unavailable Unavailable Scordo, M Tammy PA Unavailable Unavailable Scordo, M Tammy PA Unavailable Unavailable Scordo, M Tammy PA Unavailable Unavailable Scordo, M Tammy PA Unavailable Unavailable Scordo, M Tammy PA Unavailable Unavailable Scordo, M Tammy PA Unavailable Unavailable Scordo, M Tammy PA Unavailable Unavailable Scordo, M Tammy PA Unavailable Unavailable Scordo, M Tammy PA Unavailable Unavailable Scordo, M Tammy PA Unavailable Unavailable Scordo, M Tammy PA Unavailable Unavailable Scordo, M Tammy PA Unavailable Unavailable Scordo, M Tammy PA Unavailable Unavailable ALIASES , DEFAULT / GENERIC / UNKNOWN PROVIDER * Unavailable Unavailable ALIASES , DEFAULT / GENERIC / UNKNOWN PROVIDER * Unavailable Unavailable ALIASES , DEFAULT / GENERIC / UNKNOWN PROVIDER * Unavailable Unavailable ALIASES , DEFAULT / GENERIC / UNKNOWN PROVIDER * Unavailable Unavailable ALIASES , DEFAULT / GENERIC / UNKNOWN PROVIDER * Unavailable Unavailable ALIASES , DEFAULT / GENERIC / UNKNOWN PROVIDER * Unavailable Unavailable ALIASES , DEFAULT / GENERIC / UNKNOWN PROVIDER * Unavailable Unavailable ALIASES , DEFAULT / GENERIC / UNKNOWN PROVIDER * Unavailable Unavailable ALIASES , DEFAULT / GENERIC / UNKNOWN PROVIDER * Unavailable Unavailable ALIASES , DEFAULT / GENERIC / UNKNOWN PROVIDER * Unavailable Unavailable ALIASES , DEFAULT / GENERIC / UNKNOWN PROVIDER * Unavailable Unavailable ALIASES , DEFAULT / GENERIC / UNKNOWN PROVIDER * Unavailable Unavailable ALIASES , DEFAULT / GENERIC / UNKNOWN PROVIDER * Unavailable Unavailable ALIASES , DEFAULT / GENERIC / UNKNOWN PROVIDER * Unavailable Unavailable ALIASES , DEFAULT / GENERIC / UNKNOWN PROVIDER * Unavailable Unavailable ALIASES , DEFAULT / GENERIC / UNKNOWN PROVIDER * Unavailable Unavailable ALIASES , DEFAULT / GENERIC / UNKNOWN PROVIDER * Unavailable Unavailable ALIASES , DEFAULT / GENERIC / UNKNOWN PROVIDER * Unavailable Unavailable ALIASES , DEFAULT / GENERIC / UNKNOWN PROVIDER * Unavailable Unavailable ALIASES , DEFAULT / GENERIC / UNKNOWN PROVIDER * Unavailable Unavailable ALIASES , DEFAULT / GENERIC / UNKNOWN PROVIDER * Unavailable Unavailable ALIASES , DEFAULT / GENERIC / UNKNOWN PROVIDER * Unavailable Unavailable ALIASES , DEFAULT / GENERIC / UNKNOWN PROVIDER * Unavailable Unavailable ALIASES , DEFAULT / GENERIC / UNKNOWN PROVIDER * Unavailable Unavailable ALIASES , DEFAULT / GENERIC / UNKNOWN PROVIDER * Unavailable Unavailable ALIASES , DEFAULT / GENERIC / UNKNOWN PROVIDER * Unavailable Unavailable ALIASES , DEFAULT / GENERIC / UNKNOWN PROVIDER * Unavailable Unavailable ALIASES , DEFAULT / GENERIC / UNKNOWN PROVIDER * Unavailable Unavailable ALIASES , DEFAULT / GENERIC / UNKNOWN PROVIDER * Unavailable Unavailable ALIASES , DEFAULT / GENERIC / UNKNOWN PROVIDER * Unavailable Unavailable ALIASES , DEFAULT / GENERIC / UNKNOWN PROVIDER * Unavailable Unavailable ALIASES , DEFAULT / GENERIC / UNKNOWN PROVIDER * Unavailable Unavailable ALIASES , DEFAULT / GENERIC / UNKNOWN PROVIDER * Unavailable Unavailable ALIASES , DEFAULT / GENERIC / UNKNOWN PROVIDER * Unavailable Unavailable ALIASES , DEFAULT / GENERIC / UNKNOWN PROVIDER * Unavailable Unavailable ALIASES , DEFAULT / GENERIC / UNKNOWN PROVIDER * Unavailable Unavailable ALIASES , DEFAULT / GENERIC / UNKNOWN PROVIDER * Unavailable Unavailable ALIASES , DEFAULT / GENERIC / UNKNOWN PROVIDER * Unavailable Unavailable ALIASES , DEFAULT / GENERIC / UNKNOWN PROVIDER * Unavailable Unavailable ALIASES , DEFAULT / GENERIC / UNKNOWN PROVIDER * Unavailable Unavailable ALIASES , DEFAULT / GENERIC / UNKNOWN PROVIDER * Unavailable Unavailable ALIASES , DEFAULT / GENERIC / UNKNOWN PROVIDER * Unavailable Unavailable ALIASES , DEFAULT / GENERIC / UNKNOWN PROVIDER * Unavailable Unavailable Verdin, Johnna Yazmin PA-C Unavailable Unavailable Verdin, A Yazmin PA-C Unavailable Unavailable Verdin, A Yazmin PA-C Unavailable Unavailable COOK, B DOM FINISHED CLOTH EXAMINER Unavailable Unavailable COOK, B DOM FINISHED CLOTH EXAMINER Unavailable Unavailable COOK, B DOM FINISHED CLOTH EXAMINER Unavailable Unavailable COOK, B DOM FINISHED CLOTH EXAMINER Unavailable Unavailable COOK, B DOM FINISHED CLOTH EXAMINER Unavailable Unavailable COOK, B DOM FINISHED CLOTH EXAMINER Unavailable Unavailable COOK, B DOM FINISHED CLOTH EXAMINER Unavailable Unavailable COOK, B DOM FINISHED CLOTH EXAMINER Unavailable Unavailable COOK, B DOM FINISHED CLOTH EXAMINER Unavailable Unavailable COOK, B DOM FINISHED CLOTH EXAMINER Unavailable Unavailable COOK, B DOM FINISHED CLOTH EXAMINER Unavailable Unavailable COOK, B DOM FINISHED CLOTH EXAMINER Unavailable Unavailable COOK, B DOM FINISHED CLOTH EXAMINER Unavailable Unavailable COOK, B DOM FINISHED CLOTH EXAMINER Unavailable Unavailable COOK, B DOM FINISHED CLOTH EXAMINER Unavailable Unavailable COOK, B DOM FINISHED CLOTH EXAMINER Unavailable Unavailable COOK, B DOM FINISHED CLOTH EXAMINER Unavailable Unavailable COOK, B DOM FINISHED CLOTH EXAMINER Unavailable Unavailable COOK, B DOM FINISHED CLOTH EXAMINER Unavailable Unavailable COOK, B DOM FINISHED CLOTH EXAMINER Unavailable Unavailable COOK, B DOM FINISHED CLOTH EXAMINER Unavailable Unavailable COOK, B DOM FINISHED CLOTH EXAMINER Unavailable Unavailable COOK, B DOM FINISHED CLOTH EXAMINER Unavailable Unavailable COOK, B DOM FINISHED CLOTH EXAMINER Unavailable Unavailable COOK, B DOM FINISHED CLOTH EXAMINER Unavailable Unavailable COOK, B DOM FINISHED CLOTH EXAMINER Unavailable Unavailable COOK, B DOM FINISHED CLOTH EXAMINER Unavailable Unavailable COOK, B DOM FINISHED CLOTH EXAMINER Unavailable Unavailable COOK, B DOM FINISHED CLOTH EXAMINER Unavailable Unavailable COOK, B DOM FINISHED CLOTH EXAMINER Unavailable Unavailable COOK, B DOM FINISHED CLOTH EXAMINER Unavailable Unavailable COOK, B DOM FINISHED CLOTH EXAMINER Unavailable Unavailable COOK, B DOM FINISHED CLOTH EXAMINER Unavailable Unavailable COOK, B DOM FINISHED CLOTH EXAMINER Unavailable Unavailable COOK, B DOM FINISHED CLOTH EXAMINER Unavailable Unavailable COOK, B DOM FINISHED CLOTH EXAMINER Unavailable Unavailable COOK, B DOM FINISHED CLOTH EXAMINER Unavailable Unavailable COOK, B DOM FINISHED CLOTH EXAMINER Unavailable Unavailable COOK, B DOM FINISHED CLOTH EXAMINER Unavailable Unavailable COOK, B DOM FINISHED CLOTH EXAMINER Unavailable Unavailable COOK, B DOM FINISHED CLOTH EXAMINER Unavailable Unavailable COOK, B DOM FINISHED CLOTH EXAMINER Unavailable Unavailable COOK, B DOM FINISHED CLOTH EXAMINER Unavailable Unavailable COOK, B DOM FINISHED CLOTH EXAMINER Unavailable Unavailable COOK, B DOM FINISHED CLOTH EXAMINER Unavailable Unavailable COOK, B DOM FINISHED CLOTH EXAMINER Unavailable Unavailable COOK, B DMO FINISHED CLOTH EXAMINER Unavailable Unavailable COOK, B DOM FINISHED CLOTH EXAMINER Unavailable Unavailable COOK, B DOM FINISHED CLOTH EXAMINER Unavailable Unavailable COOK, B DOM FINISHED CLOTH EXAMINER Unavailable Unavailable COOK, B DOM FINISHED CLOTH EXAMINER Unavailable Unavailable COOK, B DOM FINISHED CLOTH EXAMINER Unavailable Unavailable COOK, B DOM FINISHED CLOTH EXAMINER Unavailable Unavailable COOK, B DOM FINISHED CLOTH EXAMINER Unavailable Unavailable COOK, B DOM FINISHED CLOTH EXAMINER Unavailable Unavailable COOK, B DOM FINISHED CLOTH EXAMINER Unavailable Unavailable COOK, B DOM FINISHED CLOTH EXAMINER Unavailable Unavailable COOK, B DOM FINISHED CLOTH EXAMINER Unavailable Unavailable COOK, B DOM FINISHED CLOTH EXAMINER Unavailable Unavailable COOK, B DOM FINISHED CLOTH EXAMINER Unavailable Unavailable COOK, B DOM FINISHED CLOTH EXAMINER Unavailable Unavailable COOK, B DOM FINISHED CLOTH EXAMINER Unavailable Unavailable COOK, B DOM FINISHED CLOTH EXAMINER Unavailable Unavailable COOK, B DOM FINISHED CLOTH EXAMINER Unavailable Unavailable Dalton, Palmira FINISHED CLOTH EXAMINER Unavailable Unavailable Dalton, Palmira FINISHED CLOTH EXAMINER Unavailable Unavailable Dalton, Palmira FINISHED CLOTH EXAMINER Unavailable Unavailable Dalton, Palmira FINISHED CLOTH EXAMINER Unavailable Unavailable Dalton, Palmira FINISHED CLOTH EXAMINER Unavailable Unavailable Dalton, Palmira FINISHED CLOTH EXAMINER Unavailable Unavailable Dalton, Palmira FINISHED CLOTH EXAMINER Unavailable Unavailable Dalton, Palmira FINISHED CLOTH EXAMINER Unavailable Unavailable Dalton, Palmira FINISHED CLOTH EXAMINER Unavailable Unavailable Dalton, Palmira FINISHED CLOTH EXAMINER Unavailable Unavailable Dalton, Palmira FINISHED CLOTH EXAMINER Unavailable Unavailable Lupillo Kearney PA Unavailable Unavailable Lupillo Kearney PA Unavailable Unavailable Lupillo Kearney PA Unavailable Unavailable Lupillo Kearney PA Unavailable Unavailable Lupillo Kearney PA Unavailable Unavailable Lupillo Kearney PA Unavailable Unavailable Lupillo Kearney PA Unavailable Unavailable Lupillo Kearney PA Unavailable Unavailable Lupillo Kearney PA Unavailable Unavailable [place], J Angela PA Unavailable Unavailable [place], J Angela PA Unavailable Unavailable [place], J Angela PA Unavailable Unavailable [place], J Angela PA Unavailable Unavailable [place], J Angela PA Unavailable Unavailable [place], J Angela PA Unavailable Unavailable [place], J Angela PA Unavailable Unavailable [place], J Angela PA Unavailable Unavailable [place], J Angela PA Unavailable Unavailable [place], J Angela PA Unavailable Unavailable [place], J Angela PA Unavailable Unavailable [place], J Angela PA Unavailable Unavailable [place], J Angela PA Unavailable Unavailable Dhiraj, A Sharon ROTH Unavailable Unavailable Dhiraj, A Sharon ROTH Unavailable Unavailable Dhiraj, A Sharon ROTH Unavailable Unavailable Dhiraj, A Sharon ROTH Unavailable Unavailable Dhiraj, A Sharon ROTH Unavailable Unavailable Dhiraj, A Sharon ROTH Unavailable Unavailable Dhiraj, A Sharon ROTH Unavailable Unavailable Dhiraj, A Sharon ROTH Unavailable Unavailable Dhiraj, A Sharon ROTH Unavailable Unavailable Dhiraj, A Sharon ROTH Unavailable Unavailable Dhiraj, A Sharon ROTH Unavailable Unavailable Dhiraj, A Sharon ROTH Unavailable Unavailable Dhiraj, A Sharon ROTH Unavailable Unavailable Dhiraj, A Sharon ROTH Unavailable Unavailable Dhiraj, A Sharon ROTH Unavailable Unavailable Dhiraj, A Sharon ROTH Unavailable Unavailable Dhiraj, A Sharon ROTH Unavailable Unavailable Dhiraj, A Sharon ROTH Unavailable Unavailable Dhiraj, A Sharon ROTH Unavailable Unavailable Dhiraj, A Sharon ROTH Unavailable Unavailable Dhiraj, A Sharon ROTH Unavailable Unavailable Dhiraj, A Sharon ROTH Unavailable Unavailable Dhiraj, A Sharon ROTH Unavailable Unavailable Dhiraj, A Sharon ROTH Unavailable Unavailable Dhriaj, A Sharon ROTH Unavailable Unavailable Dhiraj, A Sharon ROTH Unavailable Unavailable Dhiraj, A Sharon ROTH Unavailable Unavailable Dhiraj, A Sharon ROTH Unavailable Unavailable Dhiraj, A Sharon ROTH Unavailable Unavailable Dhiraj, A Sharon ROTH Unavailable Unavailable Dhiraj, A Sharon ROTH Unavailable Unavailable Dhiraj, A Sharon ROTH Unavailable Unavailable Dhiraj, A Sharon ROTH Unavailable Unavailable Dhiraj, A Sharon ROTH Unavailable Unavailable Dhiraj, A Sharon ROTH Unavailable Unavailable Dhiraj, A Sharon ROTH Unavailable Unavailable Dhiraj, A Sharon ROTH Unavailable Unavailable Dhiraj, A Sharon ROTH Unavailable Unavailable Dhiraj, A Sharon ROTH Unavailable Unavailable Dhiraj, A Sharon ROTH Unavailable Unavailable Dhiraj, A Sharon ROTH Unavailable Unavailable Dhiraj, A Sharon ROTH Unavailable Unavailable Dhiraj, A Sharon ROTH Unavailable Unavailable Dhiraj, A Sharon ROTH Unavailable Unavailable Dhiraj, A Sharon ROTH Unavailable Unavailable Dhiraj, A Sharon ROTH Unavailable Unavailable Dhiraj, A Sharon ROTH Unavailable Unavailable Dhiraj, A Sharon ROTH Unavailable Unavailable Dhiraj, A Sharon MD Unavailable Unavailable Dhiraj, A Sharon ROTH Unavailable Unavailable Dhiraj, A Sharon MD Unavailable Unavailable Dhiraj, A Sharon MD Unavailable Unavailable Dhiraj, A Sharon MD Unavailable Unavailable Dhiraj, A Sharon MD Unavailable Unavailable Dhiraj, A Sharon MD Unavailable Unavailable Dhiraj, A Sharon MD Unavailable Unavailable Dhiraj, A Sharon MD Unavailable Unavailable Dhiraj, A Sharon MD Unavailable Unavailable Dhiraj, A Sharon MD Unavailable Unavailable Dhiraj, A Sharon MD Unavailable Unavailable Dhiraj, A Sharon MD Unavailable Unavailable Dhiraj, A Sharon MD Unavailable Unavailable Dhiraj, A Sharon MD Unavailable Unavailable Dhiraj, A Sharon MD Unavailable Unavailable Dhiraj, A Sharon MD Unavailable Unavailable Dhiraj, A Sharon MD Unavailable Unavailable Dhiraj, A Sharon MD Unavailable Unavailable Dhiraj, A Sharon MD Unavailable Unavailable Dhiraj, A Sharon MD Unavailable Unavailable Dhiraj, A Sharon MD Unavailable Unavailable Dhiraj, A Sharon MD Unavailable Unavailable Dhiraj, A Sharon MD Unavailable Unavailable Dhiraj, A Sharon MD Unavailable Unavailable Dhiraj, A Sharon MD Unavailable Unavailable Dhiraj, A Sharon MD Unavailable Unavailable Pleskach, Carol BLOW OFF WORKER Unavailable Unavailable Pleskach, Carol BLOW OFF WORKER Unavailable Unavailable Pleskach, Carol BLOW OFF WORKER Unavailable Unavailable Pleskach, Carol BLOW OFF WORKER Unavailable Unavailable Pleskach, Carol BLOW OFF WORKER Unavailable Unavailable Pleskach, Carol BLOW OFF WORKER Unavailable Unavailable Pleskach, Carol BLOW OFF WORKER Unavailable Unavailable Pleskach, Carol BLOW OFF WORKER Unavailable Unavailable Pleskach, Carol BLOW OFF WORKER Unavailable Unavailable Pleskach, Carol BLOW OFF WORKER Unavailable Unavailable Pleskach, Carol BLOW OFF WORKER Unavailable Unavailable Pleskach, Carol BLOW OFF WORKER Unavailable Unavailable Pleskach, Carol BLOW OFF WORKER Unavailable Unavailable Pleskach, Carol BLOW OFF WORKER Unavailable Unavailable Pleskach, Carol BLOW OFF WORKER Unavailable Unavailable Pleskach, Carol BLOW OFF WORKER Unavailable Unavailable Pleskach, Carol BLOW OFF WORKER Unavailable Unavailable Pleskach, Carol BLOW OFF WORKER Unavailable Unavailable Pleskach, Carol BLOW OFF WORKER Unavailable Unavailable Pleskach, Carol BLOW OFF WORKER Unavailable Unavailable Pleskach, Carol BLOW OFF WORKER Unavailable Unavailable Pleskach, Craol BLOW OFF WORKER Unavailable Unavailable Pleskach, Carol BLOW OFF WORKER Unavailable Unavailable Pleskach, Carol BLOW OFF WORKER Unavailable Unavailable Pleskach, Carol BLOW OFF WORKER Unavailable Unavailable Pleskach, Carol BLOW OFF WORKER Unavailable Unavailable Pleskach, Carol BLOW OFF WORKER Unavailable Unavailable Pleskach, Carol BLOW OFF WORKER Unavailable Unavailable Pleskach, Carol BLOW OFF WORKER Unavailable Unavailable Petrancosta, Fulton Nishi PA-C Unavailable Unavailabl e Petrancosta, Fulton Nishi PA-C Unavailable Unavailabl e Petrancosta, Fulton Nishi PA-C Unavailable Unavailabl e Petrancosta, Fulton Nishi PA-C Unavailable Unavailabl e Petrancosta, Fulton Nishi PA-C Unavailable Unavailabl e Petrancosta, Fulton Nishi PA-C Unavailable Unavailabl e Petrancosta, Fulton Nishi PA-C Unavailable Unavailabl e Petrancosta, Fulton Nishi PA-C Unavailable Unavailabl e Petrancosta, Fulton Nishi PA-C Unavailable Unavailabl e Petrancosta, Fulton Nishi PA-C Unavailable Unavailabl e Petrancosta, Fulton Nishi PA-C Unavailable Unavailabl e Petrancosta, Fulton Nishi PA-C Unavailable Unavailabl e Petrancosta, Fulton Nishi PA-C Unavailable Unavailabl e Petrancosta, Fulton Nishi PA-C Unavailable Unavailabl e Petrancosta, Fulton Nishi PA-C Unavailable Unavailabl e Petrancosta, Fulton Nishi PA-C Unavailable Unavailabl e Petrancosta, Fulton Nishi PA-C Unavailable Unavailabl e Petrancosta, Fulton Nishi PA-C Unavailable Unavailabl e Petrancosta, Fulton Nishi PA-C Unavailable Unavailabl e Petrancosta, Fulton Nishi PA-C Unavailable Unavailabl e Petrancosta, Fulton Nishi PA-C Unavailable Unavailabl e Petrancosta, Fulton Nishi PA-C Unavailable Unavailabl e Petrancosta, Fulton Nishi PA-C Unavailable Unavailabl e NEHEMIAH, A JENNY Unavailable Unavailable Kenneth COOK Unavailable Unavailable Kenneth Ross MD Unavailable Unavailable Kenneth Ross MD Unavailable Unavailable Kenneth Ross MD Unavailable Unavailable Kenneth Ross MD Unavailable Unavailable Kenneth Ross MD Unavailable Unavailable Kenneth Ross MD Unavailable Unavailable Kennteh Ross MD Unavailable Unavailable Kenneth Ross MD Unavailable Unavailable Kenneth Ross MD Unavailable Unavailable Kenneth Ross MD Unavailable Unavailable Kenneth Ross MD Unavailable Unavailable Puentes, Lauren Unavailable Unavailable Puentes, Lauren Unavailable Unavailable Puentes, Lauren Unavailable Unavailable Puentes, Lauren Unavailable Unavailable Puentes, Lauren Unavailable Unavailable Puentes, Lauren Unavailable Unavailable Puentes, Lauren Unavailable Unavailable Puentes, Lauren Unavailable Unavailable Puentes, Lauren Unavailable Unavailable Puentes, Lauren Unavailable Unavailable Puentes, Lauren Unavailable Unavailable Puentes, Lauren Unavailable Unavailable Puentes, Lauren Unavailable Unavailable Puentes, Lauren Unavailable Unavailable Puentes, Lauren Unavailable Unavailable Puentes, Lauren Unavailable Unavailable Puentes, Lauren Unavailable Unavailable Puentes, Lauren Unavailable Unavailable Puentes, Lauren Unavailable Unavailable Puentes, Lauren Unavailable Unavailable Puentes, Aluren Unavailable Unavailable Puentes, Lauren Unavailable Unavailable Puentes, Lauren Unavailable Unavailable Puentes, Lauren Unavailable Unavailable Puentes, Lauren Unavailable Unavailable Puentes, Lauren Unavailable Unavailable Puentes, Lauren Unavailable Unavailable Puentes, Lauren Unavailable Unavailable Puentes, Lauren Unavailable Unavailable Puentes, Lauren Unavailable Unavailable Puentes, Lauren Unavailable Unavailable Puentes, Lauren Unavailable Unavailable Puentes, Lauren Unavailable Unavailable Zaki-Escalante, Eloina CNM Unavailable Unavailab le Zaki-Escalante, Eloina CNM Unavailable Unavailab le Hymera-Escalante, Eloina CNM Unavailable Unavailab le Hymera-Escalante, Eloina CNM Unavailable Unavailab le Hymera-Escalante, Eloina CNM Unavailable Unavailab le Zaki-Escalante, Eloina CNM Unavailable Unavailab le Re-disclosure Warning The records that you are about to access may contain information from federally-assisted alcohol or drug abuse programs. If such information is present, then the following federally mandated warning applies: This information has been disclosed to you from records protected by federal confidentiality rules (42 CFR part 2). The federal rules prohibit you from making any further disclosure of this information unless further disclosure is expressly permitted by the written consent of the person to whom it pertains or as otherwise permitted by 42 CFR part 2. A general authorization for the release of medical or other information is NOT sufficient for this purpose. The Federal rules restrict any use of the information to criminally investigate or prosecute any alcohol or drug abuse patient.The records that you are about to access may contain highly sensitive health information, the redisclosure of which is protected by Article 27-F of the [facility] Public Health law. If you continue you may have access to information: Regarding HIV / AIDS; Provided by facilities licensed or operated by the [facility] Office of Mental Health; or Provided by the [facility] Office for People With Developmental Disabilities. If such information is present, then the following [facility] mandated warning applies: This information has been disclosed to you from confidential records which are protected by state law. State law prohibits you from making any further disclosure of this information without the specific written consent of the person to whom it pertains, or as otherwise permitted by law. Any unauthorized further disclosure in violation of state law may result in a fine or detention sentence or both. A general authorization for the release of medical or other information is NOT sufficient authorization for further disc losure. Allergies and Adverse Reactions Type Description Substance Reaction Status Data Source(s ) No known allergies (situation) Substance with penicill in structure and antibacterial mechanism of action (substance) Penicillins Ac tive [facility] ([facility]) Family History Family Member Name Family Member Gender Family Member Status Date o f Status Description Data Source(s) Unknown Male Problem [facility] ([facility] Unknown Unknown Problem [facility] ([facility], [facility]) Encounters Encounter Providers Location Date Indications Data Source(s ) Outpatient Attender: SARAHI OLSEN 01/18/2021 12:00:00 A [facility] Outpatient Attender: Nishi Palacios PA-C Main Office 03/01/2020 01:15:00 PM EST [facility] ([facility] Outpatient Attender: Carol Chapa [facility] Main Office 02/09/2020 0 7:30:00 AM EST [facility] ([facility] Outpatient Attender: Palmira wooten 02/02/2020 07:00:00 AM EST [facility] ([facility], [facility]) Outpatient Attender: Nishi Palacios PA-C Main Office 02/01/2020 02:00:00 PM EST [facility] ([facility] Outpatient Attender: SARAHI OLSEN [address] [place], [place] [address]SUR 01/20/2020 12:00:00 AM [facility] Outpatient Attender: KEYONAJohnna OLSEN 01/06/2020 12:00:00 A [facility] Outpatient Attender: KEYONAJohnna RAÚL 01/02/2020 12:00:00 A [facility] Outpatient Attender: SARAHI OLSEN 12/26/2019 12:00:00 A [facility] Outpatient Attender: EPIFANIO COOKAttender: GEORGEALICEFER OLSEN [id number] 12/07/2019 12:00:00 AM EDT - 12/07/2019 12:49:23 PM EDT Encounter for follow-up examination after completed treatment for conditions other than malignant neoplasm [facility] Encounter for follow-up examination afte r completed treatment for conditions other than malignant neoplasm Outpatient Attender: SARAHI OLSEN 12/06/2019 12:00:[address] [facility] Outpatient Attender: SARAHI MCCARTYdmitter: SARAHI PAGE [id number] 11/30/2019 12:00:00 AM EDT - 12/03/2019 12:00:00 AM EDT Other specified abdominal hernia without obstruction or gangrene [facility] Other specified abdominal hernia without obstruction or gangrene Patient discharged. Outpatient Attender: Candace Junior nder: Yazmin BRITTCReferrer: SARAHI OLSEN [id number] 11/29/2019 12:00:00 AM EDT pretest [facility] pretest Outpatient Attender: DEFAULT / GENE JOANN / UNKNOWN PROVIDER ALIASES Referrer: SARAHI OLSEN 11/25/2019 12:00:00 AM ED T - 11/26/2019 12:00:00 AM EDT [facility] Outpatient Attender: Nishi Palacios PA-C Main Office 11/23/2019 02:30:00 PM EDT [facility] ([facility] Attender: Eloina Dougherty CNM [facility] [facility] 11/02/2019 01:50:00 PM EDT - 11/02/2019 01:50:00 PM EDT [facility] ([facility] Outpatient Attender: SARAHI OLSEN [id number] 10/03/2019 12:0 0:00 AM EDT Other specified abdominal hernia without obstruction or gangrene [facility] Other specified abdominal hernia without obstruction or gangrene Outpatient 008 09/17/2019 03:42:00 PM EDT - 09/17/2019 03:42:00 PM EDT Lab test [facility] Lab test Attender: Sharon Main 10:33:00 AM EDT - 09/08/2019 10:33:00 AM EDT [facility] ([facility]) Outpatient Attender: DOM MATTHEWS NP Physical Therapy 09/06/2019 1 0:00:00 AM EDT [facility] ([facility]) Outpatient Attender: Lauren Puentes 09/02/2019 12:00:00 AM ED T [facility] Outpatient Attender: JENNY CERNA 09/02/2019 12:00:00 AM EDT [facility] Outpatient Attender: ADRIANNE CARMONA 09/02/2019 12:00:00 AM EDT [facility] Outpatient Attender: Tammy PARRA Main Office 08/26/2019 07:10:00 AM EDT [facility] ([facility] Outpatient Attender: Lauren Puentes 05/31/2019 12:00:00 AM ED T [facility] Outpatient Attender: ADRIANNE CARMONA 05/31/2019 12:00:00 AM EDT [facility] OutpatientPREV VISIT, NEW, AGE [id number] Attender: Angela Main 05/04/2019 04:15:00 PM EDT - 05/04/2019 04:15:00 PM ED T Body mass index (BMI) 30.0-30.9, adultEncounter for oth screening for malignant neoplasm of breastEncntr for director imaging exam (general) (routine) w/o abn findingsEncounter for initial prescription of contraceptive pillsEncounter for oth general cnsl and advice on contraceptionOther sex counselingHigh risk heterosexual behaviorEncntr screen for infections w sexl mode of transmissEncounter for screening for human immunodeficiency virusHuman immunodeficiency virus [HIV] counseling [facility] ([facility]) Body mass index (BMI) 30.0-30.9, adult Encounter for oth screening for malignan t neoplasm of breast Encntr for director imaging exam (general) (routine) w/o abn findings Encounter for initial prescription of co ntraceptive pills Encounter for oth general cnsl and advic e on contraception Other sex counseling High risk heterosexual behavior Encntr screen for infections w sexl mode of transmiss Encounter for screening for human immuno deficiency virus Human immunodeficiency virus [HIV] couns eli Outpatient Attender: ADRIANNE CARMONA 04/15/2019 12:00:00 AM [facility] Outpatient Attender: Lauren Puentes 04/15/2019 12:00:00 AM [facility] Outpatient Attender: Lauren Puentes [id number] 03/08/2019 12:00:00 AM EST - 03/08/2019 11:43:[address] [facility] Overweight Outpatient Attender: Nishi Palacios PA-C Main Office 01/20/2019 10:15:00 AM EST [facility] ([facility] Immunizations Vaccine Date Status Description Data Source(s) pneumococcal polysaccharide PPV23 03/01/2020 01:33:00 PM EST comple laurie [facility] ([facility] New in 2012. IIV4 11/23/2019 02:26:00 PM EDT completed [facility] ([facility] Medications Medication Brand Name Start Date Product Form Dose Route Admi nistrative Instructions Pharmacy Instructions Status Indications Reaction Description Data Source(s) 60 ACTUAT Albuterol 0.09 MG/ACTUAT Metered Dose Inhaler Albu terol Sulfate HFA 02/02/2020 12:00:00 AM EST RESPIRATORY active [facility] ([facility]) Prednisone 20 MG Oral Tablet Prednisone 02/02/2020 12:00:00 AM EST active [facility] ([facility]) Doxycycline Monohydrate 100 MG Oral Capsule Doxycycline [place] hydrate 02/02/2020 12:00:00 AM EST ORAL active M [facility] ([facility]) Magnesium Oxide 400 MG Oral Tablet Magne sium Oxide 400 (241.3 Mg) MG Oral Tablet (MAG-OX) Magnesium Oxide 400 (241.3 Mg) MG Oral Tablet (MAG-OX) 12/04/2019 12:00:00 AM EDT 400 mg Oral active Take 1 t ablet by mouth daily [facility] Caffeine 200 MG Oral Tablet caffeine tablet 200 mg caffeine tablet 200 mg 12/03/2019 09:30:00 AM EDT 200 mg Oral active 200 mg, Oral, Every 4 hours, First dose on 12/03/19 at 0930, For 5 days [facility] Medication administered onsite Caffeine 200 MG Oral Tablet Caffeine 200 MG Oral Tablet 11/16 12:00:00 AM EDT 200 mg Oral active Take 1 tablet by mouth every 4 (four) hours [facility] Bariatric Fusion 12/03/2019 12:00:00 AM EDT c ompleted [facility] ([facility] Jencycla Jencycla 12/03/2019 12:00:00 AM EDT ORAL activ e [facility] ([facility] Metformin HCL ER (Mod) Metformin HCL ER (Mod) 12/03/2019 12:00:00 AM EDT ORAL active [facility] ([facility] Ibuprofen 200 MG Oral Tablet Ibuprofen 200 MG Oral Tab let (Motrin IB) Ibuprofen 200 MG Oral Tablet (Motrin IB) 12/03/2019 12:00:00 AM EDT 200 mg Or al active Take 1 tablet by mouth every 6 ( six) hours for 10 days [facility] 0.5 ML dulaglutide 1.5 MG/ML Auto-Injector [Trulicity] [facility] 12/03/2019 12:00:00 AM EDT active M [facility] ([facility] Basaglar Kwikpen Basaglar Kwikpen 12/03/2019 12:00:00 AM EDT completed [facility] ([facility] Acetaminophen 325 MG Oral Tablet Acetaminophen 325 MG Oral T ablet 12/03/2019 12:00:00 AM EDT 650 mg Oral active Take 2 tablets by mouth every 6 (six) hours for 10 days [facility] Oxycodone Hydrochloride 5 MG Oral Tablet oxyCODONE HCl 5 MG Oral Tablet (ROXICODONE) oxyCODONE HCl 5 MG Oral Tablet (ROXICODONE) 12/03/2019 12:00:00 AM EDT 5 mg Oral active Take 1 t ablet by mouth every 4 (four) hours as needed for Pain for up to 3 days, Max Daily Dose: 30 mg [facility] 0.4 ML Enoxaparin sodium 100 MG/ML Prefi lled Syringe enoxaparin sodium (LOVENOX) injection 40 mg enoxaparin sodium (LOVENOX) injection 40 mg 12/02/2019 09:00:00 PM EDT 40 mg Subcutaneous active 40 mg, Subcutaneous, Daily Standard, First dose on Thu12/02/19 at 2100, For 30 days [facility] Medication administered onsite magnesium sulfate in dextrose 5 % infusion (premix) 1 g [id number] -[id number] 12/02/2019 08:30:00 AM EDT 1 g Intravenous completed 1 g, Intravenous, Administer over 60 Minutes, Every 1 hour, First dose on Thu12/02/19 at 0830, For 3 doses [facility] Medication administered onsite Oxycodone Hydrochloride 5 MG Oral Tablet oxyCODONE (ROXICODONE) immediate release tablet 10 mg oxyCODONE (ROXICODONE) immediate release tablet 10 mg 12/02/2019 08:11:30 AM EDT 10 mg Oral active 10 mg, Oral, Every 6 hours PRN, Severe Pain (Pain Scale Score 7-10), Starting Thu12/02/19 at 0811, For 3 days
Oxycodone immediate release is limited to 10 mg per dose. Higher doses ( only) require Pain Service consultation and approval.
[facility] Medication administered onsite Oxycodone Hydrochloride 5 MG Oral Tablet oxyCODONE (ROXICODONE) immediate release tablet 5 mg oxyCODONE (ROXICODONE) immediate release tablet 5 mg 12/02/2019 07:31:27 AM EDT 5 mg Oral active 5 mg, Oral, Every 6 hours PRN, Moderate Pain (Pain Scale Score 4-6), Starting Thu12/02/19 at 0731, For 3 days
Oxycodone immediate release is limited to 10 mg per dose. Higher doses ( only) require Pain Service consultation and approval.
[facility] Medication administered onsite magnesium sulfate in dextrose 5 % infusion (premix) 1 g [id number] -[id number] 12/01/2019 01:15:00 PM EDT 1 g Intravenous completed 1 g, Intravenous, Administer over 60 Minutes, Every 1 hour, First dose on Stacey 12/01/19 at 1315, For 3 doses [facility] Medication administered onsite potassium phosphate 155 MG / Sodium Phos phate, Dibasic 852 MG / Sodium Phosphate, Monobasic 130 MG Oral Tablet phosphorus (K PHOS NEUTRAL) tablet 250 mg phosphorus (K PHOS NEUTRAL) tablet 250 mg 12/01/2019 09:15:00 AM EDT 250 mg Oral active 250 mg, Or al, 2 Times Daily, First dose on Stacey 12/01/19 at 0915, For 9 doses
Each 250 mg tablet contains: elemental phosphorous 250 mg (8 mmol), sodium 298 mg (12.9 mEq), and potassium 45 mg (1.1 mEq)
[facility] Medication administered onsite Magnesium Oxide 400 MG Oral Tablet Magnesium Oxide (MA G-OX) tablet 400 mg Magnesium Oxide (MAG-OX) tablet 400 mg 12/01/2019 09:15:00 AM EDT 4 00 mg Oral active 400 mg, Oral, D aily Standard, First dose on Stacey 12/01/19 at 0915, For 5 doses [facility] Medication administered onsite potassium chloride (K-DUR) dissolvable tablet 20 mEq [id number] 12/01/2019 09:15:00 AM EDT 20 meq Oral active 20 mEq, Oral, 2 Times Daily, First dose on Stacey 12/01/19 at 0915, For 3 days
May be dissolved in water for patients with a G-Tube or unable to swallow. If concern for clogging G-Tube, may contact Pharmacy to switch formulation to a powder packet.
[facility] Medication administered onsite 0.4 ML Enoxaparin sodium 100 MG/ML Prefi lled Syringe enoxaparin sodium (LOVENOX) injection 40 mg enoxaparin sodium (LOVENOX) injection 40 mg 12/01/2019 09:00:00 AM EDT 40 mg Subcutaneous aborted 40 mg, Subcutaneous, Daily Standard, First dose on Stacey 12/01/19 at 0900, For 30 days
Non Patients: body weight < 150 kg, CrCl > 30 mL/min. Guidelines for Lovenox:MUST wait 24 hours before starting Enoxaparin if patient has epidural catheter.D/C Enoxaparin 10-12 hours prior to removing epidural catheter.
[facility] Medication administered onsite Loratadine 10 MG Oral Tablet loratadine (CLARITIN) tab let 10 mg loratadine (CLARITIN) tablet 10 mg 12/01/2019 09:00:00 AM EDT 10 mg Oral active 10 mg, Oral, Every morning, First dose on Stacey 12/01/19 at 0900, For 30 days [facility] Medication administered onsite Losartan Potassium 50 MG Oral Tablet losartan (COZAAR) tablet 50 mg losartan (COZAAR) tablet 50 mg 12/01/2019 09:00:00 AM EDT 50 mg Oral active Hypertension 50 mg, Oral, Every morning, First dose on Stacey 12/01/19 at 0900, For 30 days
Check vital signs before administering
[facility] Hypertension Medication administered onsite pantoprazole 40 MG Delayed Release Oral Tablet pantoprazole (PROTONIX) EC tablet 40 mg pantoprazole (PROTONIX) EC tablet 40 mg 12/01/2019 09:00:00 AM E DT 40 mg Oral active 40 mg, Ora l, Daily Standard, First dose on Stacey 12/01/19 at 0900, For 30 days
Do not crush or chew
[facility] Medication administered onsite atorvastatin 40 MG Oral Tablet atorvastatin (LIPITOR) tablet 40 mg atorvastatin (LIPITOR) tablet 40 mg 12/01/2019 09:00:00 AM EDT 40 mg Oral active 40 mg, Oral, Every morning, First dose on Stacey 12/01/19 at 0900, For 30 days [facility] Medication administered onsite Citalopram 20 MG Oral Tablet citalopram (CELEXA) table t 40 mg citalopram (CELEXA) tablet 40 mg 12/01/2019 09:00:00 AM EDT 40 mg Oral active 40 mg, Oral, Every morning, First dose on Stacey 12/01/19 at 0900, For 30 days [facility] Medication administered onsite Levothyroxine Sodium 0.125 MG Oral Table t levothyroxine (SYNTHROID) tablet 125 mcg levothyroxine (SYNTHROID) tablet 125 mcg 12/01/2019 06:00:00 AM EDT 125 ug Oral active 125 mcg, O ral, Daily at 0600, First dose on Thu12/01/19 at 0600, For 30 days [facility] Medication administered onsite Calcium Chloride 0.0014 MEQ/ML / Potassi um Chloride 0.004 MEQ/ML / Sodium Chloride 0.103 MEQ/ML / Sodium Lactate 0.028 MEQ/ML Injectable Solution lactated ringers infusion lactated ringers infusion 12/01/2019 01:45:00 AM EDT 75 mL/h Intravenous aborted at 75 mL /hr, Intravenous, Continuous, Starting Thu12/01/19 at 0145, For 30 days [facility] Medication administered onsite Acetaminophen 325 MG Oral Tablet acetaminophen (TYLENO L) tablet 650 mg acetaminophen (TYLENOL) tablet 650 mg 11/30/2019 06:45:00 PM EDT 65 0 mg Oral active 650 mg, Oral, E very 6 hours, First dose on Thu11/30/19 at 1845, For 30 days
Maximum daily dose of acetaminophen is 3,000 mg from all sources in 24 hours.
[facility] Medication administered onsite ondansetron (ZOFRAN) injection 4 mg [id number] 11/30/2019 06:32:3 9 PM EDT 4 mg Intravenous active 4 mg, In travenous, Every 8 hours PRN, Nausea, Vomiting, Starting Thu11/30/19 at 1832, For 30 days [facility] Medication administered onsite albuterol (PROVENTIL HFA) inhaler 2 puff [id number] 11/30/2019 06:32:39 PM EDT 2 {puff} Inhalation active 2 pu ff, Inhalation, Every 6 hours PRN, Wheezing, Starting Thu11/30/19 at 1832, For 4 days
Shake the inhaler well before each spray.
[facility] Medication administered onsite insulin lispro (HumaLOG) injection MEDIU M DOSE EATING INSULIN patients 1-16 Units [id number] 11/30/2019 06:00:00 PM EDT U Subcutaneous active 1-16 Units, Subcutaneous, Three Times Daily-With Meals, First dose on Thu11/30/19 at 1800, For 30 days
Nursing MUST open the 'SQ Insulin Dosing Charts' Sidebar Report, or, the Patient Summary or Summary Report within the ED.
[facility] Medication administered onsite Acetaminophen 10 MG/ML Injectable Soluti on acetaminophen (OFIRMEV) infusion 1,000 mg acetaminophen (OFIRMEV) infusion 1,000 mg 11/30/2019 03:00:00 PM EDT 1000 mg Intravenous completed 1,000 mg , Intravenous, Once, Thu11/30/19 at 1500, For 1 dose
If NPO and has not yet received an acetaminophen product in prior 4 hours.
[facility] Medication administered onsite dextrose 5 %-0.9 % sodium chloride infusion [id number] 11/30/2019 03:00:00 PM EDT Intravenous aborted at 7 5 mL/hr, Intravenous, Continuous, Starting Thu11/30/19 at 1500, For 30 days [facility] Medication administered onsite HYDROmorphone PF (DILAUDID) 10 mcg/mL, b upivacaine (PF) 0.125 % in sodium chloride 0.9 % 250 mL epidural infusion 11/30/2019 03:00:00 PM EDT Epidural aborted at 6 mL/hr, Ep idural, Continuous, Starting Thu11/30/19 at 1500, For 7 days [facility] Medication administered onsite fentaNYL (SUBLIMAZE) (PF) injection 25 mcg [id number] 11/30/2019 02:48:40 PM EDT 25 ug Intravenous aborted 25 m cg, Intravenous, Every 5 min PRN, Severe Pain (Pain Scale Score 7-10), Starting Thu11/30/19 at 1448, For 10 doses, Recovery [facility] Medication administered onsite Glucose 0.417 MG/MG Oral Gel glucose (GLUTOSE) 40 % or al gel 15 g glucose (GLUTOSE) 40 % oral gel 15 g 11/30/2019 02:35:32 PM EDT 15 g Oral active 15 g, Oral, PRN, Low blood s ugar, for gluose 55-69 mg/dl and able to take PO, Starting Thu11/30/19 at 1435, For 30 days [facility] Medication administered onsite Glucagon 1 MG Injection glucagon (human recombinant) ( GLUCAGEN) injection 1 mg glucagon (human recombinant) (GLUCAGEN) injection 1 mg 11/30/2019 02:35:32 PM EDT 1 mg Intramuscular active 1 mg, Intramuscular, PRN, for glucose <55 without IV access, Starting Thu11/30/19 at 1435, For 30 days [facility] Medication administered onsite dextrose 50 % IV solution 25 mL [id number] 11/30/2019 02:35:32 PM E DT 25 mL Intravenous active 25 mL, Intrav enous, PRN, Other, blood glucose <55, Starting Thu11/30/19 at 1435, For 30 days
Not for midline administration.
[facility] Medication administered onsite 60 ACTUAT Albuterol 0.09 MG/ACTUAT Metered Dose Inhaler Albu terol Sulfate HFA 11/23/2019 12:00:00 AM EDT RESPIRATORY active [facility] ([facility] 24 HR Metformin hydrochloride 500 MG Extended Release Oral Tablet Metformin HCL ER 09/07/2019 12:00:00 AM EDT ORAL active [facility] ([facility]) 0.5 ML dulaglutide 1.5 MG/ML Auto-Injector [Trulicity] [facility] 09/07/2019 12:00:00 AM EDT active M [facility]ENT ([facility]) 24 HR Metformin hydrochloride 500 MG Ext ended Release Oral Tablet metFORMIN HCl ER 500 MG Oral Tablet Extended Release 24 Hour (GLUCOPHAGE-XR) metFORMIN HCl ER 500 MG Oral Tablet Extended Release 24 Hour (GLUCOPHAGE-XR) 09/07/2019 12:00:00 AM EDT 1000 mg Oral active Take 1,000 mg by mouth Two Times Daily [facility] Norethindrone 0.35 MG Oral Tablet Jencycla 0.35 MG Ora l Tablet Jencycla 0.35 MG Oral Tablet 07/18/2019 12:00:00 AM EDT 1 {tbl} Oral activ e Take 1 tablet by mouth every morning [facility] Onetouch Ultra 06/30/2019 12:00:00 AM EDT act ping [facility] ([facility] Ortho Micronor 0.35 mg tablet {28 (norethindrone 0.35 MG Ora l Tablet) } Pack 05/04/2019 12:00:00 AM EDT active Ortho Micronor 28 Day Pack [facility] ([facility]) Onetouch Delica Plus Lancets Extra Fine 33G 02/15/2019 12:00 :00 AM EST active [facility] ([facility] Onetouch Ultra Blue 02/15/2019 12:00:00 AM EST active [facility] ([facility] Docusate Sodium 100 MG Oral Capsule [DOK] DOK 100 MG capsule DOK 100 MG capsule 12/03/2018 12:00:00 AM EDT 100 mg Oral aborted Take 100 mg by mouth daily with breakfast [facility] Nystatin 100 UNT/MG Topical Powder nystatin (MYCOSTATI N) powder nystatin (MYCOSTATIN) powder 10/11/2018 12:00:00 AM EDT aborted Apply to affected area three times daily as needed. [facility] 3 ML insulin detemir 100 UNT/ML Pen Inje ctor [Levemir] LEVEMIR FLEXTOUCH 100 UNIT/ML pen LEVEMIR FLEXTOUCH 100 UNIT/ML pen 09/17/2018 12:00:00 AM EDT 8 U Subcutaneous aborted Inject 8 Uni ts into the skin Two Times Daily Indications: has at home [facility] tizanidine 4 MG Oral Capsule tizanidine (ZANAFLEX) 4 M G capsule tizanidine (ZANAFLEX) 4 MG capsule 09/17/2018 12:00:00 AM EDT 4 mg Oral aborted Take 4 mg by mouth daily [facility] Insurance Providers Payer name Policy type / Coverage type Policy ID Covered libertarian ID Covered libertarian's relationship to dowd Policy Dowd Plan Information FORMERLY [facility], [facility] COMMUNITY PLAN [facility] [id number] SP [id number] [facility] I [id number] Self [id number] [facility] I [id number] Self [id number] EXCELLUS C [id number] Self [id number] BS Of Merged With [facility] Maintenance Organization ([facility] [id number] Self [id number] BCBS [facility] [id number] SP [id number] BS Of Merged [facility] Maintenance Organization (O) [id number] Self [id number] BCBS [place] P[place] 302/307 [id number] SP [id number] [place] PPO 302/307 [id number] SP [id number] BS Of [facility] Organization ([facility] [id number] Self [id number] BS Of [facility] Organization ([facility] [id number] Self [id number] BS Of [facility] Organization ([facility] [id number] Self [id number] EXCELLUS BCBS B [id number] S [id number] BS Of [facility] Organization ([facility] [id number] Self [id number] [place] [place] O [id number] S [id number] BCBS/[employer] Commercial [id number] Self [id number] BCBS [place] PPO 302/307 [id number] SP [id number] ANIRUDH [id number] SP [id number] ANIRUDH [id number] SP [id number] [place] [facility] Commercial Self FORMERLY [facility], [facility] COMMUNITY PLAN [facility] [id number] SP [id number] [employer] SP BL[employer] [id number] SP [id number] EX[employer]LL[employer] BCBS P [id number] S [id number] [facility] BLUE [id number] SP [id number] Problems, Conditions, and Diagnoses Code Display Name Description Problem Type Effective Dates Data Source(s) 22443355 Essential hypertension Essential hypertension Problem 09/02/2019 12:00:00 AM EDT [facility] ([facility] [id number] Pure hypercholesterolemia Pure hypercholesterolemia Pr oblem 09/02/2019 12:00:00 AM EDT [facility] ([facility] ) [id number] Type 2 diabetes mellitus Type 2 diabetes mellitus Prob kris 09/02/2019 12:00:00 AM EDT [facility] ([facility] ) Z09 Encounter for follow-up exam ination after completed treatment for conditions other than malignant neoplasm Encounter for follow-up examination afte r completed treatment for conditions other than malignant neoplasm Diagnosis 12/07/2019 12:19:15 PM [facility] K45.8 Other specified abdominal hernia without obstruction or gangrene Other specified abdominal hernia without obstruction or gangrene Diagnosis 11/30/2019 09:24:00 AM [facility] Flank hernia Flank hernia Diagnosis 11/30/2019 09:24:00 A M [facility] right flank incisional hernia right flank incisional h ernia Diagnosis 11/30/2019 09:24:00 AM [facility] pretest pretest Diagnosis 11/29/2019 02:49:46 PM [facility] fol fol Diagnosis 10/03/2019 02:36:19 PM [facility] Z5189 Encounter for other specified aftercare Encounter for other specified aftercare Diagnosis 09/17/2019 03:42:00 PM [facility] E66.3 Overweight Overweight Diagnosis 03/08/2019 10:40:35 AM [facility] Surgeries/Procedures Procedure Description Date Indications Data Source(s) POCT GLUCOSE, DOCKED POCT GLUCOSE, DOCKED Routine 12/03/2019 11:48 AM EDT 12/03/2019 11:48:00 AM [facility] POCT GLUCOSE, DOCKED POCT GLUCOSE, DOCKED Routine 12/03/2019 7:36 AM EDT 12/03/2019 07:36:00 AM [facility] BLOOD COUNT COMPLETE AUTOMATED CBC Routine 12/03/2019 5:06 A M EDT 12/03/2019 05:06:00 AM [facility] PHOSPHORUS INORGANIC PHOSPHORUS LEVEL Routine 12/03/2019 5:06 AM E DT 12/03/2019 05:06:00 AM [facility] MAGNESIUM MAGNESIUM LEVEL Routine 12/03/2019 5:06 AM EDT 12/03/2019 05:06:00 AM [facility] BASIC METABOLIC PANEL CALCIUM TOTAL BASIC METABOLIC PANEL Routi ne 12/03/2019 5:06 AM EDT 12/03/2019 05:06:00 AM EDT U [facility] GLUCOSE QUANTITATIVE BLOOD XCPT REAGENT STRIP POCT GLUCOSE, DOC KED Routine 12/02/2019 8:10 PM EDT 12/02/2019 08:10:00 PM [facility] GLUCOSE QUANTITATIVE BLOOD XCPT REAGENT STRIP POCT GLUCOSE, EVIN MORENO Routine 12/02/2019 5:39 PM EDT 12/02/2019 05:39:00 PM [facility] GLUCOSE QUANTITATIVE BLOOD XCPT REAGENT STRIP POCT GLUCOSE, EVIN MORENO Routine 12/02/2019 11:53 AM EDT 12/02/2019 11:53:00 AM [facility] GLUCOSE QUANTITATIVE BLOOD XCPT REAGENT STRIP POCT GLUCOSE, EVIN MORENO Routine 12/02/2019 7:43 AM EDT 12/02/2019 07:43:00 AM [facility] BLOOD COUNT COMPLETE AUTOMATED CBC Routine 12/02/2019 4:13 A M EDT 12/02/2019 04:13:00 AM [facility] PHOSPHORUS INORGANIC PHOSPHORUS LEVEL Routine 12/02/2019 4:13 AM E DT 12/02/2019 04:13:00 AM [facility] MAGNESIUM MAGNESIUM LEVEL Routine 12/02/2019 4:13 AM EDT 12/02/2019 04:13:00 AM [facility] BASIC METABOLIC PANEL CALCIUM TOTAL BASIC METABOLIC PANEL Routi ne 12/02/2019 4:13 AM EDT 12/02/2019 04:13:00 AM [facility] GLUCOSE QUANTITATIVE BLOOD XCPT REAGENT STRIP POCT GLUCOSE, EVIN MORENO Routine 12/02/2019 12:22 AM EDT 12/02/2019 12:22:00 AM [facility] GLUCOSE QUANTITATIVE BLOOD XCPT REAGENT STRIP POCT GLUCOSE, EVIN MORENO Routine 12/01/2019 4:40 PM EDT 12/01/2019 04:40:00 PM [facility] GLUCOSE QUANTITATIVE BLOOD XCPT REAGENT STRIP POCT GLUCOSE, EVIN MORENO Routine 12/01/2019 11:51 AM EDT 12/01/2019 11:51:00 AM [facility] GLUCOSE QUANTITATIVE BLOOD XCPT REAGENT STRIP POCT GLUCOSE, EVIN MORENO Routine 12/01/2019 7:44 AM EDT 12/01/2019 07:44:00 AM [facility] BLOOD COUNT COMPLETE AUTOMATED CBC Routine 12/01/2019 4:51 A M EDT 12/01/2019 04:51:00 AM [facility] PHOSPHORUS INORGANIC PHOSPHORUS LEVEL Routine 12/01/2019 4:51 AM E DT 12/01/2019 04:51:00 AM [facility] MAGNESIUM MAGNESIUM LEVEL Routine 12/01/2019 4:51 AM EDT 12/01/2019 04:51:00 AM EDT [facility] BASIC METABOLIC PANEL CALCIUM TOTAL BASIC METABOLIC PANEL Routi ne 12/01/2019 4:51 AM EDT 12/01/2019 04:51:00 AM EDT [facility] GLUCOSE QUANTITATIVE BLOOD XCPT REAGENT STRIP POCT GLUCOSE, DOC FLEXD Routine 11/30/2019 9:31 PM EDT 11/30/2019 09:31:00 PM EDT [facility] GLUCOSE QUANTITATIVE BLOOD XCPT REAGENT STRIP POCT GLUCOSE, DOC FLEXD Routine 11/30/2019 6:08 PM EDT 11/30/2019 06:08:00 PM EDT [facility] GLUCOSE QUANTITATIVE BLOOD XCPT REAGENT STRIP POCT GLUCOSE, DOC FLEXD Routine 11/30/2019 3:46 PM EDT 11/30/2019 03:46:00 PM T [facility] BLOOD TYPING ABO TYPE AND SCREEN Routine 11/30/2019 12:58 PM EDT 11/30/2019 12:58:00 PM T [facility] REPAIR, INITIAL INCISIONAL/VENTRAL HERNIA REDUCIBLE R EPAIR, INITIAL INCISIONAL/VENTRAL HERNIA REDUCIBLE 11/30/2019 12:07 PM EDT Flank hernia 11/30/2019 12:07:00 PM EDT - 11/30/2019 02:56:00 PM EDT Flank hernia [facility] Flank hernia GLUCOSE QUANTITATIVE BLOOD XCPT REAGENT STRIP POCT GLUCOSE, DOC FLEXD Routine 11/30/2019 9:56 AM EDT 11/30/2019 09:56:00 AM EDT [facility] BLOOD COUNT COMPLETE AUTOMATED CBC Routine 0 3:19 PM EDT Preop testing 11/29/2019 03:19:00 PM EDT Preop testing [facility] Preop testing BASIC METABOLIC PANEL CALCIUM TOTAL BASIC METABOLIC PANEL Routi ne 11/29/2019 3:19 PM EDT Preop testing 11/29/2019 03:19:00 PM EDT Preop testing [facility] Preop testing EKG 12-LEAD - CMAXX REPORT EKG 12-LEAD - CMAXX REPORT 11/29/2019 2:26 PM EDT 11/29/2019 02:26:29 PM EDT [facility] EKG 12-LEAD EKG 12-LEAD Routine 11/29/2019 2:26 PM EDT 11/29/2019 02:26:29 PM EDT [facility] EKG 12-LEAD EKG 12-LEAD Routine 11/29/2019 2:26 PM EDT Preop testing 11/29/2019 02:26:29 PM EDT Preop testing [facility] Preop testing Diabetic Foot Exam 09/06/2019 12:00:00 AM EDT [facility] ([facility]) Diabetic Foot Exam 08/26/2019 12:00:00 AM EDT [facility] ([facility] Diabetic Foot Exam 08/26/2019 12:00:00 AM EDT [facility] ([facility] Ana, 2017 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 STI / H 05/04/2019 12:00:00 AM EDT - 05/04/2019 12:00:00 AM EDT [facility] ([facility]) [facility] Other 05/04/2019 12:00:00 AM EDT - 2019 12:00:00 AM EDT [facility] ([facility]) [facility] [employer] Contraceptive 05/04/2019 12 :00:00 AM EDT - 05/04/2019 12:00:00 AM EDT [facility] ([facility]) CVR Med.Svc. Height/Weight 05/04/2019 12 :00:00 AM EDT - 05/04/2019 12:00:00 AM EDT [facility] ([facility]) CVR Blood Pressure 05/04/2019 12:00:00 AM EDT - 2019 12:00:00 AM EDT [facility] ([facility]) CVR Med.Svc. Other 05/04/2019 12:00:00 AM EDT - 2019 12:00:00 AM EDT [facility] ([facility]) HCS Without Test 05/04/2019 12:00:00 AM EDT - 05/04/19 20 12:00:00 AM EDT [facility] ([facility]) CYTOPATH, C/V, THIN LAYER 05/04/2019 12: 00:00 AM EDT - 05/04/2019 12:00:00 AM EDT [facility] ([facility]) PREV VISIT, NEW, AGE 40-64 05/04/2019 12 :00:00 AM EDT - 05/04/2019 12:00:00 AM EDT [facility] ([facility]) N.GONORRHOEAE, Pharyngeal 05/04/2019 12: 00:00 AM EDT - 05/04/2019 12:00:00 AM EDT [facility] ([facility]) CHYLMD TRACH, Pharyngeal 05/04/2019 12:0 0:00 AM EDT - 05/04/2019 12:00:00 AM EDT [facility] ([facility]) SYPHILLIS BLOOD SEROLOGY, QUALITATIVE 12:00:00 AM EDT - 05/04/2019 12:00:00 AM EDT [facility] ([facility]) HTLV/HIV CONFIRMATORY TEST 05/04/2019 12 :00:00 AM EDT - 05/04/2019 12:00:00 AM EDT [facility] ([facility]) HEPATITIS C AB TEST 05/04/2019 12:00:00 AM EDT - 05/03 12:00:00 AM EDT [facility] ([facility]) N.GONORRHOEAE, SWAB 05/04/2019 12:00:00 AM EDT - 05/03 12:00:00 AM EDT [facility] ([facility]) CHYLMD TRACH, SWAB 05/04/2019 12:00:00 AM EDT - 2019 12:00:00 AM EDT [facility] ([facility]) ROUTINE VENIPUNCTURE 05/04/2019 12:00:00 AM EDT - 05/04/2019 12:00:00 AM EDT [facility] ([facility]) Results ID Date Data Source [id number] 03/02/2020 08:51:00 AM EST [facility] ([facility] Name Value Range Interpretation Code Description Data Roxy rce(s) Supporting Document(s) Thyrotropin [Units/volume] in Serum or Plasma 0.173 uIU/ML 0.358-3.74 0 [facility] ([facility] ID Date Data Source [id number] 03/02/2020 08:51:00 AM EST [facility] ([facility] Name Value Range Interpretation Code Description Data Roxy rce(s) Supporting Document(s) Cholesterol Level 107 mg/dL [facility] ([facility] HDL Cholesterol 64 mg/dL [facility] ([facility] Triglycerides Level 86 mg/dL [facility] ([facility] LDL Cholesterol 26 mg/dL [facility] ([facility] Non-HDL-C 43 mg/dL [facility] Cholesterol Risk Ratio 1.671 [facility] ([facility] ID Date Data Source [id number] 03/02/2020 08:51:00 AM EST [facility] ([facility] Name Value Range Interpretation Code Description Data [facility](s) Supporting Document(s) Creatinine, Urine 220.0 mg/dL [facility] ([facility] Edilson/Creat Ratio 55.4 MCG/MG 0.0-30.0 [facility] ([facility] THE [employer] STATES THAT MICROALBUMINURIA IS PRESENT IF THE MICROALBUMIN/CREATININE RATIO EXCEEDS 30 MCG/MG. THE THRESHOLD FOR CLINICAL ALBUMINURIA IS REACHED AT 300 MCG/MG. THE CLASSIFICATION OF A PATIENT SHOULD BE BASED UPON AT LEAST 2 OF 3 ABNORMAL RESULTS ON SPECIMENS COLLECTED WITHIN A 3 TO 6 MONTH TIME FRAME. Malb Urine Siemens 122.0 mg/L [facility] ([facility] ID Date Data Source [id number] 03/02/2020 08:51:00 AM EST [facility] ([facility] Name Value Range Interpretation Code Description Data [facility](s) Supporting Document(s) Estimated Average Glucose 151 mg/dL 60-110 [facility] ([facility] Hemoglobin A1c/Hemoglobin.total in Blood 6.9 % [facility] ([facility] <content>REFERENCE RANGES:</content><br/ ><content></content>
<content><=5.6% NORMAL</content>
<content>5.7-6.4% SUGGESTS IMPAIRED GLUCOSE METABOLISM/PREDIABETIC</content>
<content>>= 6.5% ABNORMAL</content>
<content></content> ID Date Data Source [id number] 03/02/2020 08:51:00 AM EST [facility] ([facility] Name Value Range Interpretation Code Description Data [facility](s) Supporting Document(s) Blood Urea Nitrogen 13 mg/dL 7-18 [facility] ([facility] Glucose, Fasting 174 mg/dL 70-100 [facility] ([facility] Creatinine For GFR 0.72 mg/dL 0.55-1.30 [facility] ([facility] Glomerular Filtration Rate Laboratory test result [facility] ([facility] <content>Units are mL/min/1.73 m2</content>
<content></content>
<content>Chronic Kidney Disease Staging per NKF:</content>
<content></content>
<content>Stage I & II GFR >=60 Normal to Mildly Decreased</content>
<content>Stage III GFR 30- 59 Moderately Decreased</content>
<content>Stage IV GFR 15-29 Severely Decreased</content>
<content>Stage V GFR <15 Very Little GFR Left</content>
<content>ESRD GFR <15 on MESSAGING ARCHITECT</content>
<content></content> Sodium Level 140 meq/L 136-145 [facility] ([facility] Potassium Serum 4.1 meq/L 3.5-5.1 [facility] ([facility] Chloride Level 105 meq/L 98-107 [facility] Anion Gap 7 meq/L 8-16 [facility] Carbon Dioxide Level 28 meq/L 21-32 [facility] ([facility] Alt/SGPT 23 U/L 12-78 [facility] Ast/Sgot 11 U/L 7-37 [facility] Calcium Level 9.3 mg/dL 8.5-10.1 [facility] ([facility] Bilirubin,Total 0.7 mg/dL 0.2-1.0 [facility] ([facility] Alkaline Phosphatase 72 U/L 45-117 [facility] ([facility] Total Protein 6.9 GM/DL 6.4-8.2 [facility] ([facility] Albumin/Globulin Ratio 1.2 1.2-2.2 [facility] ([facility] Albumin 3.8 GM/DL 3.2-5.2 [facility] ID Date Data Source [id number] 02/02/2020 12:00:00 AM EST [facility] Name Value Range Interpretation Code Description Data Roxy rce(s) Supporting Document(s) SARS coronavirus 2 Ag [facility] This lab was ordered by [facility] and reported by [facility]. ID Date Data Source [id number] 01/20/2020 10:21:25 AM EST [facility] Name Value Range Interpretation Code Description Data Roxy rce(s) Supporting Document(s) Progress Note [facility] CZURIw6xLbOFXeKg82/RXTxbZHUib6OmOAxiLJt0BRqlQBSiT4PdALA0qY2lBTQ1JBqNUrJfQrLqSvZ5 lbm [file] AgICAgICAgICAgICAgICAgICAgICAgICAgICAgICAgICAgICAgICAgICAgICAgICAgICAgICAgICAgIC QwVCBpJXVxGMWfMADkPUDvDFJzCY3LIUVyKVQgQYLsWJDtJJJsRTOwICStZIWpGAQnOECoIQMhVBEdHS AgICAgICAgICAgICAgICAgICAgICAgICAgICAgICAg QTBsWZUrMTJpFCCnHBAoRCTeOSAoAOSmTBLdPHIjZZ5ZHADsWUHdYVGeOGNoZCJjKEOnITDmAOQxDWYp ICAgICAgICAgICAgICAgICAgICAgICAgICAgICAgICAgICAgICAgICAgICAgICAgICAgICAgICAgICAg IYAkVONbPJKpJSQkUP4RSMNzNNTvDTXtUGKgXINeTZ AgICAgICAgICAgICAgICAgICAgICAgICAgICAgICAgICAgICAgICAgICAgICAgICAgICAgICAgICAgIC WoFXAzXDEtGAJgVIHeTGZvOJOkUAZsBM6ESYPvIEUsLWSjHPJdGIAtEYLzYWQvTATiKNQsVVZxIMEuJN AgICAgICAgICAgICAgICAgICAgICAgICAgICAgICAg XSUnIXAzLWTeKAInDJHtZBLzSWRbUUVlKJMxWIIrHATwWI5MQTVxNZWuATCuJGOtMVPzPUXvZWCbAXXv ICAgICAgICAgICAgICAgICAgICAgICAgICAgICAgICAgICAgICAgICAgICAgICAgICAgICAgICAgICAg JQRrPGIzTUTkZYFvAIYkDP4VNNUcHXLyUDNwVRMxNK AgICAgICAgICAgICAgICAgICAgICAgICAgICAgICAgICAgICAgICAgICAgICAgICAgICAgICAgICAgIC AbAKIcYPZbWYUrWLQyGZKdKAZrIIZiXMQzWS9LGIRqGZRtLZPrFQCnKRAwWYZcYJDaPFVwKOHfOXBdIC AgICAgICAgICAgICAgICAgICAgICAgICAgICAgICAg GGUdHCXsITJnVLWvCXZsSTRbPJLoUTXzCZOuJCLdZBGeOATaNV2HFCKiUWRaXVUbQEMsMYDyCOHvSUJg ICAgICAgICAgICAgICAgICAgICAgICAgICAgICAgICAgICAgICAgICAgICAgICAgICAgICAgICAgICAg RRTzVONeVJDyACCyIGAtYQCiXL4VYYNkSRJzDUTrVH AgICAgICAgICAgICAgICAgICAgICAgICAgICAgICAgICAgICAgICAgICAgICAgICAgICAgICAgICAgIC YhVSWdSQCwUZElLYScGURqJZLuEWPlYPUpYQEsJX3BBL32tAOkt8L0CLFjXV4jjtl/Wu4CGCbrucTrnX WoKW6RInIgBG3ixg9ZQdMzAD4kme1ZXUnFNzMgE7O9 xKQoJYNsAKLAJbVkW22fTXuiGr59TYkkGADiZpHuTGb2Li6ZKeSsV5owICKiBvN2HXIcPaPoJExwTJ8G q9UlcONwUCf+Rj8MZH2du6KzSYkzXkEwYI0lax2LLKdSQwMvU4RsldI2HKIpYNCqEv0MHIPuFBTwlRCl CjCbPYIRXcBcN6NghQ67UDBWDq7+DQplbmRvYmoNCj GgBFDqi7KtODh1ML2YVBTsIZu5tYDeXVKtE5Kea2VzYd70QOGgLrmbNM91a1StDkAnOJ5wKVqws5Qokd gqFFMjAIKfETZlYV1gZZSjNNR5MmE5KCGYPH1GOLFuQXZngEVgVTPvSYVYKV7MDMnzSFZ8JLYmmyTybR TyVOhaXK2SUFMiilSfZtKzEUJFUKm+Vi6WSD1vn1Mw UVptUVWcJD1cis1GNVqSJtKfC3C8zCKjK1T6RZpiDb9KGVVvDQVgQoViHFHIRJuvKO9LGS5tmgA6ZS5I cTVhDMYhVARfvCEgEHh1P13hcGFeNLsmEF4AGCE+Elisabeth+Vw2UZDXjNFHbHOCmSdRvFCYKVkGwF5XhM9OP v8WtL4RvAT57zIscyxQuUSggAX5HWO1uTYOpHJLLIC 9HjGGlsK9tzmGqCrKsSPVPPdEmA36eiPThMNXvCKBgOEXyLs7MOMSwB7AmoaNimDvkvxUzPLAqIDTSSZ 7OQAknfoMusBTdeVghGI88bYctYN1OVp3HDcBwVV9dsx0XjOQnEd6OXQYoGF2GTAObKMBqOTSxKBK7JT RyKoIwBEvwGCLvEXKpMQB0JXGbOZSwQM0WBsUnNHHs GYe6JIifYKMcKPIwjk8KCKPsTHYfJFC3LrHlZNNnABVdJJsxOOOlBJRjSCW2OUHlGHJtBV3ZKfTjGAZc GZN4QfThIMLuOFOdzs6EMOIxUQKzOyA0YzCsABRhDGKaQCipBFLbTVK9OOY4PDTrZFTzIQ6WFnSvFMOq GKIpDzJuHETbFUEzal0HYFWaTLLbLNBvKMReTVDiNM KrGQtkWELbWFK1IFQ7PNLdMVJrUL4RUsVsPYYzFES0AeKlCZIwJJTenz5BELPsPZHfFQx0LSLkICPgBB XvQRatXEKxKNQ8MjCkAFQfNAJuIF3GQqDrOFRwVPz1NahsIAKgMGPxpo4SYYUhWEYiVrqtXGWyLAMkSA EkAEugGMIqRMA1UWc5NGHhPFLaVH4VUsLhWSJqOAbs NbRrPBHaGXXfxs1QOIUmYGQpKBE0FyEdUGGqGVHpLQseCYPpWOZ1WaV2PUDzMWSxIO8DRzFuXELrAUe0 NxCxSQWhMJHcto6ISZCpQCHoMMz9EhBuRXItXYYvIFdvRHHkGBDnFkoyNZXzGOXzED2TDyViLVInPsWh WeVwOHFqOLTdmx8TYIYhLDMgTIJdJJLfVZFpXWEmQQ f8gdYgsJNbGMs6VW2QK5AtzhTrOfUJPb7Km028UML3UXNdMe8UC2grBb4jQRFtCFBTTb6YWZc4CwEzCo D6VlVmUKi5GkD6VWK4PIHlUFOpOGK5MTF5S9H+UDh0PIFmWDz7KRO2YGKcLqh4GPIrWoLiPzVgOrK8AB fhQH3nNEVQNq1+GPstnDKarJgzJXIGUfCtJmJ1OMbzWAZXLm4V ID Date Data Source [id number] 12/07/2019 04:23:10 PM EDT [facility] Name Value Range Interpretation Code Description Data Roxy rce(s) Supporting Document(s) Progress Note [facility] JYAIUd8sRfLHXhCv39/PEAlbLGSrj0JuOGqyEHt6VAvvCZAgS1WxQJW8bV9zQBR6PGfDNkUoEzNiHADr lbm [file] ICAgICAgICAgICAgICAgICAgICAgICAgICAgICAgICAgICAgICAgICAgICAgICAgICAgICAgICAgICAg ICAgICAgICAgICAgICANCiAgICAgICAgICAgICAgICAgICAgICAgICAgICAgICAgICAgICAgICAgICAg ICAgICAgICAgICAgICAgICAgICAgICAgICAgICAgIC AgICAgICAgICAgICAgICAgICAgICAgICANCiAgICAgICAgICAgICAgICAgICAgICAgICAgICAgICAgIC AgICAgICAgICAgICAgICAgICAgICAgICAgICAgICAgICAgICAgICAgICAgICAgICAgICAgICAgICAgIC AgICAgICANCiAgICAgICAgICAgICAgICAgICAgICAg ICAgICAgICAgICAgICAgICAgICAgICAgICAgICAgICAgICAgICAgICAgICAgICAgICAgICAgICAgICAg ICAgICAgICAgICAgICAgICANCiAgICAgICAgICAgICAgICAgICAgICAgICAgICAgICAgICAgICAgICAg ICAgICAgICAgICAgICAgICAgICAgICAgICAgICAgIC AgICAgICAgICAgICAgICAgICAgICAgICAgICANCiAgICAgICAgICAgICAgICAgICAgICAgICAgICAgIC AgICAgICAgICAgICAgICAgICAgICAgICAgICAgICAgICAgICAgICAgICAgICAgICAgICAgICAgICAgIC AgICAgICAgICANCiAgICAgICAgICAgICAgICAgICAg ICAgICAgICAgICAgICAgICAgICAgICAgICAgICAgICAgICAgICAgICAgICAgICAgICAgICAgICAgICAg ICAgICAgICAgICAgICAgICAgICANCiAgICAgICAgICAgICAgICAgICAgICAgICAgICAgICAgICAgICAg ICAgICAgICAgICAgICAgICAgICAgICAgICAgICAgIC AgICAgICAgICAgICAgICAgICAgICAgICAgICAgICANCiAgICAgICAgICAgICAgICAgICAgICAgICAgIC AgICAgICAgICAgICAgICAgICAgICAgICAgICAgICAgICAgICAgICAgICAgICAgICAgICAgICAgICAgIC AgICAgICAgICAgICANCiAgICAgICAgICAgICAgICAg ICAgICAgICAgICAgICAgICAgICAgICAgICAgICAgICAgICAgICAgICAgICAgICAgICAgICAgICAgICAg ICAgICAgICAgICAgICAgICAgICAgICANCjw/qDPpX0tepCBhadQ9Q4qdCa5TFa3DCB2th9XoHNLiOCes miFfWbsWKhYsOBHwJjtUCcu1ZHuuRQ1UuFEnG0ZuP8 RfPHvoGC4SFCByRCTkpBOwSJSiDMLhMoE3DYFcGJwxME4TzQYhGUnqZGWjBBJlNO8NYGJuZ654zkIlGU 7OOx7MVuKgIB8ruo2CIYiuHWSqXemPKgi2SRqiVF8AkUJxfKIkIZMwXWKDQsKlK2ham1UxXkUgXZAPGR znGX6Re5SbjJTnKYx+Sn7HSP1yc8SuFCddDSQpHJ4f lo7FFDmBAjDnA2NrgQcvIHOkh9zzHDVeNY0afNAuVUC6YAUwDNdaKBGJLVmcpDJuGTGTHaYdvDBoYL1g VY0xOECbLZSfTlGiYYFLZG7SVNAwRWJbnSZtIICaONVOJS5ZDGbbPAA9EUVjfyEcjVAbMAywGZ3TUCUc bnQgMTkgMCBSDQo+Sj6UTT1gh9UwSVwwDLLhJY0jkj 8DCQlKMrLbS0G2wFAgO6B6VPvwQp2GHPYuZRVfDUbwEIQGOPdtGE9CYN6teyF8II2YyDXkVLGvSBXwrF OrSAg9P45bfYXaRNzsDO9JDFU+Elisabeth+Mj4ODIMlYHHvFGHaUePqEARKRdQiW8JoA5CXv5AwM2CsCW69tZ aifdUnENxlIU6NJG2pYDKySWTOUB8YdOCheB9wodUy ZILmMHKFPgZdW24uaTTtGZOlNFE6FFQkWl8YVALvN5DokgUqqPtmqwQhCAQxMXKETC1OZIwrvcVwgVBy tOvkYZ93bPhdWD3EFz3WZkEkOK0pnk2SpFWxAh2VDEHhZv6UYSMqBHAhYOSrLYY3NRXkEeAfTWgvXQRl LRBaRTG3TTTxVBFtWJ1EZwOqKDTxMBh5QMlmKLCyMY Agcr8XTBRfDNKtUCFlNaPnHIZuRQUpWInoMBMoPINfNAN4FHEgUDXkZN4AObIgRSVrGOYhVgRlKAEfCY Jkng4YWPBnBCHtKeIqGJStPPRdWESgNYucOJYrWZMmWLu1MDMaECMhWL4NQvDjPUJgRYB6TJXwHXGaVN Phnc4ZWJJqEAZdCdz8DqEyEFJmELEtTIooLWHqOFC0 BRShRYIjGFZgKD8OXeYwPBGqPYDfExXwRKYgWTDgfs2NCSXoLOCpEAArKTAzBBDdIIXqOClyBZZnFUH6 CKM1VYLkUKNzJX6CMsCbIYHqROE8FNWnIBNhCPDlbu3KYPTkZGYfUyD9KAKvCMJuSPZoZDngVTFmBEP2 FnJzOWYkZHRtEX6RToCeAOLcVEa4XtStOVBkDSCcfa 9KIXCgMOTjEed4KwUtGIJvVJLuACspBXNhJBW3HuN2UCYxAYOgNK8WJbKdUQOsRAbzEXQwSRRdWDFayf 5TVFYwTLGcUUGqCVFyNTWsNUUxWGy8yoYvqNIqROa4HX6FO8HuviAbAcBRNe9Td061KDMeUCWtLn2MZ6 xvQq9aLOBhMSTOTi4ZSIb5Y9L9GtV4RWh4ROMeRhJ2 DmCqOxG3EMQ6VEV4MwuyIBt+PLyrHkAaEiF9EAbwTTTfEchfMPYtXPPjHMQxLQAtCCQ2Kr9bRRDWXk6+ ANknzDJneNwqRHRJRbE4Mri7AKsjSNMFWp0H ID Date Data Source [id number] 12/03/2019 08:43:53 PM EDT [facility] Name Value Range Interpretation Code Description Data Roxy rce(s) Supporting Document(s) Discharge Summary [facility] VYUYNt4rOkHMOmHj20/PEMudLMLdr5LhBIteZOr3VIfbBGHgL8RoXRK7aS0xUAW3PTbVPhXpUuXyEEM1 lbm [file] AgICAgICAgICAgICAgICAgICAgICAgICAgICAgICAg ICAgICAgICAgICAgICAgICAgICAgICAgICAgICAgICAgICAgICAgICAgICAgICAgICAgICAgICAgICAg ICAgICAgDQogICAgICAgICAgICAgICAgICAgICAgICAgICAgICAgICAgICAgICAgICAgICAgICAgICAg ICAgICAgICAgICAgICAgICAgICAgICAgICAgICAgIC AgICAgICAgICAgICAgICAgDQogICAgICAgICAgICAgICAgICAgICAgICAgICAgICAgICAgICAgICAgIC AgICAgICAgICAgICAgICAgICAgICAgICAgICAgICAgICAgICAgICAgICAgICAgICAgICAgICAgICAgDQ ogICAgICAgICAgICAgICAgICAgICAgICAgICAgICAg ICAgICAgICAgICAgICAgICAgICAgICAgICAgICAgICAgICAgICAgICAgICAgICAgICAgICAgICAgICAg ICAgICAgICAgDQogICAgICAgICAgICAgICAgICAgICAgICAgICAgICAgICAgICAgICAgICAgICAgICAg ICAgICAgICAgICAgICAgICAgICAgICAgICAgICAgIC AgICAgICAgICAgICAgICAgICAgDQogICAgICAgICAgICAgICAgICAgICAgICAgICAgICAgICAgICAgIC AgICAgICAgICAgICAgICAgICAgICAgICAgICAgICAgICAgICAgICAgICAgICAgICAgICAgICAgICAgIC AgDQogICAgICAgICAgICAgICAgICAgICAgICAgICAg ICAgICAgICAgICAgICAgICAgICAgICAgICAgICAgICAgICAgICAgICAgICAgICAgICAgICAgICAgICAg ICAgICAgICAgICAgDQogICAgICAgICAgICAgICAgICAgICAgICAgICAgICAgICAgICAgICAgICAgICAg ICAgICAgICAgICAgICAgICAgICAgICAgICAgICAgIC AgICAgICAgICAgICAgICAgICAgICAgDQogICAgICAgICAgICAgICAgICAgICAgICAgICAgICAgICAgIC AgICAgICAgICAgICAgICAgICAgICAgICAgICAgICAgICAgICAgICAgICAgICAgICAgICAgICAgICAgIC AgICAgDQogICAgICAgICAgICAgICAgICAgICAgICAg ICAgICAgICAgICAgICAgICAgICAgICAgICAgICAgICAgICAgICAgICAgICAgICAgICAgICAgICAgICAg IUEzACZaLCKjDJLqVQHwRRg8G1stGBNgDGJoFD7nHDo1Pj3+SWgGUtEgIDO5wlNviM4NXB1oh5PjGIsw OTOke4DaDUb4AD6BEAMqBBteTW4RRLypqw5JGXSkFF LxcOYTj7esOeXnOEM3PZJzWfioTS8AQNFfF1uxzcScVQGySOPOQVdxEMJCDKikNXOUMZ7EGfMvB0PdgP 94RSHNQu9+DUnemgGrCwoUUcO9IRXpe2RbUKk7YF6AETNyIagkm6QrSlAqFJLVGDxvXD9TAWE6OMZqTK WxBc9WIHAkI277oyNdGB4SCg8NTuViBF7hhb2JXcWf DPBvSfhDLeq6FBmaGE9OfBSiDZzMaOYcnRNjY0XqQ5BjfQOalRAobNTGkSPjSJGrvwB3QZGrCU9RFUV8 ONApLfJ9GxUvWxLkJCH9OYkoHQ8pGCzzPX7PHMZ4QXwoSJXiOZZrO5qNXsNtBGQwUOVagOnlAE4KNvPj H5CwogZfqNTcWJMvHNLZBs0+DQplbmRvYmoNCjMxID Kle6MrKBy2MC5SYMRrJNtnSS4WCNVfiK8tEKpfCO9UYgPhXoLeRWKFLwXfO43rsVNaYCi4R2SqPxUuJG VkRmlsZXMgPDwvTmFtZXMgWyBdDQogID4+ID4+UCjbBL1DIOllahMuLXCfGn8KFXUeIRDfDF4iTHCwJK OrG6B0dQtaUBNSUqSyC9gxackvDH2aEITuG923rYvq ziYfPZR9DGNbYb4DDZOtBOD4QOPpsYMxQnquBJGATLhjVK3DkKFgGGW0xU4lLUtqFLQlRZQnH5vVHtBk pVdyBU26pQpszuCvbEPxOCw+Vk6DTU4wl7CwIGq9pbKiROsoJMNhNArwEBVlTPXtRWDjGPX1IZK3UVKX MtUmMPAyZHIyNFcbMGPrGANons2NGWFvMAZnSNp5WS JqDLIcPZYtUDsbQEPvBEKrLsCjXGEiRZEyVV1FYsLgQXEiXDPbWTfmVLOwKNVoxk1QVXJsRFIaWoDnMc TjPZNyXPPgHIvnCUTtTGAaEMY7MIOcIWAlTT6ERrWaFXLmPHnyUPWkQQFiCDYulu1DBFZjCYLcOfA4BB ZxXNSeIIEpDDhaWOQnRZHdCUE4BODjNYWdXH9XOcLj OHBcUQHcDPKbLCKySMRkco1LLEInPWLqNfJ4UbHiPBMcJSJiUPljVSQqRSGdKLgjMXPxZGWsRP3VYzAo HPKxGPT9ZHBmHWDgGIWezq5OQXSkGHZxRvPhEyFqTTFyJWOzHXkzYKCyBFCzWFM0UZQfIOPjFE6OXmEy DHXuFAOcULObCNOnSJQnbt7IRBRiOGJvOQs9ZkTaCT WdEWBvIZyvAAIuDEW0HMC6WMVaMHDvIW4VZqBdNZVpFULwREXnIHQkTXKacp1WLHIuZMMzIzkrOfJqYV XeMGEpKDvfQJXbBMY6KDG9FRBhBNNjOS9LFyVsAYIjLghgDGCpNXKpKRPqtc7RGTYpKUJeVoN6FjYuYB MkPYKaRBuaYCDkENV9FaI6YQYfLYIrHV5JUkIqRNAt Qfe6UGGhIACdFDRlbd7GAVHbCMGtDQj2WDYlTYWcRNPuZHelBKCcPRA5VJR5NHTvDPQdQR1QJvLcHNMn KcnuOVUcCBSxNBWkud6SVCRsRUBtRStrSgYbFLQyOZDwHYbuFKKlKAVqLXBjFOHwCQTfFI5ZGlMnDDPs HiSaSLPyUDWlEPQxkd6XuTVnjDtsyz7IERzEGa2UpU eaXCFiFCmaFx1niLKyNRFuOQERLw3RjfFmKGQzWFZRWBaeLODiNYA4TXg2ZDO0JFDlURqyMdYmWbLqQV A7NtBqSZd4NVOhFdF6HtN9UWb7XKd7FLOsGQNuHiFyTRBsYMLpC3W1MRv9NtQ+GQ2cVJg+Tw8Lc6Dbmo O3sxThUVpkIUV8MJ2JWPVSC8EKEr== ID Date Data Source [id number] [facility] Interpretation Code Description Data Roxy rce(s) Supporting Document(s) Glucose [Mass/volume] in Capillary blood by Glucometer 133 mg/dL 70- 140 [facility] ID Date Data Source [id number] 12/03/2019 07:55:15 AM [facility] Value Range Interpretation Code Description Data Roxy rce(s) Supporting Document(s) Glucose [Mass/volume] in Capillary blood by Glucometer 127 mg/dL 70- 140 [facility] ID Date Data Source [id number] 12/03/2019 06:28:42 AM [facility] Value Range Interpretation Code Description Data Roxy rce(s) Supporting Document(s) Leukocytes [#/volume] in Blood by Automated count 8.5 10*3/uL 4-10 [facility] Erythrocytes [#/volume] in Blood by Automated count 3.82 10*6/uL 4.1- 5.3 L [facility] Hemoglobin [Mass/volume] in Blood 8.5 g/dL 11.5-15.5 L [facility] Hematocrit [Volume Fraction] of Blood by Automated count 26.7 % 3 6-45 L [facility] Erythrocyte mean corpuscular volume [Entitic volume] by Auto mated count 70.1 fL 80-96 L [facility] Erythrocyte mean corpuscular hemoglobin [Entitic mass] by Automated count 22.1 pg 27-33 L [facility] Erythrocyte mean corpuscular hemoglobin concentration [Mass/volume] by Automated count 31.6 g/dL [facility].0-[facility] width [Ratio] by Automated count 16.7 % 11.5-14.5 H [facility] Platelets [#/volume] in Blood by Automated count 361 10*3/uL 150-400 [facility] ID Date Data Source [id number] 12/03/2019 06:46:28 AM EDT [facility] Name Value Range Interpretation Code Description Data Roxy rce(s) Supporting Document(s) Bicarbonate [Moles/volume] in Serum 27 mmol/L 22-29 [facility] Chloride [Moles/volume] in Serum or Plasma 103 mmol/L 98-107 [facility] Creatinine [Mass/volume] in Serum or Plasma 0.48 mg/dL 0.50-0.90 [facility] Glucose [Mass/volume] in Serum or Plasma 118 mg/dL 70-140 [facility] Potassium [Moles/volume] in Serum or Plasma 4.6 mmol/L 3.4-5.1 [facility] Sodium [Moles/volume] in Serum or Plasma 137 mmol/L 136-145 [facility] Urea nitrogen [Mass/volume] in Serum or Plasma 6 mg/dL 6-20 [facility] Anion gap 3 in Serum or Plasma 7 mmol/L 8-15 [facility] Osmolality of Serum or Plasma by calculation 283 mosm/kg 275-300 [facility] Creatinine/Urea nitrogen [Mass Ratio] in Serum or Plasma 13 [facility] Calcium [Mass/volume] in Serum or Plasma 8.5 mg/dL 8.6-10.0 [facility] Glomerular filtration rate/1.73 sq M pre dicted among non-blacks [Volume Rate/Area] in Serum or Plasma by Creatinine-based formula (MDRD) >6 0 [facility] Glomerular filtration rate/1.73 sq M pre dicted among blacks [Volume Rate/Area] in Serum or Plasma by Creatinine-based formula (MDRD) >60 [facility] ID Date Data Source [id number] 12/03/2019 06:46:28 AM [facility] Value Range Interpretation Code Description Data Roxy rce(s) Supporting Document(s) Magnesium [Mass/volume] in Serum or Plasma 1.6 mg/dL 1.6-2.6 [facility] ID Date Data Source [id number] 12/03/2019 06:46:28 AM [facility] Value Range Interpretation Code Description Data Roxy rce(s) Supporting Document(s) Phosphate [Mass/volume] in Serum or Plasma 3.4 mg/dL 2.5-4.5 [facility] ID Date Data Source [id number] 12/02/2019 08:28:12 PM [facility] Value Range Interpretation Code Description Data Roxy rce(s) Supporting Document(s) Glucose [Mass/volume] in Capillary blood by Glucometer 173 mg/dL 70- 140 H [facility] ID Date Data Source [id number] 12/02/2019 05:41:47 PM [facility] Value Range Interpretation Code Description Data Roxy rce(s) Supporting Document(s) Glucose [Mass/volume] in Capillary blood by Glucometer 179 mg/dL 70- 140 H [facility] ID Date Data Source [id number] 12/02/2019 12:05:42 PM [facility] Value Range Interpretation Code Description Data Roxy rce(s) Supporting Document(s) Glucose [Mass/volume] in Capillary blood by Glucometer 151 mg/dL 70- 140 H [facility] ID Date Data Source [id number] 12/02/2019 07:53:56 AM [facility] Value Range Interpretation Code Description Data Roxy rce(s) Supporting Document(s) Glucose [Mass/volume] in Capillary blood by Glucometer 112 mg/dL 70- 140 [facility] ID Date Data Source [id number] 12/02/2019 05:27:51 AM [facility] Value Range Interpretation Code Description Data Roxy rce(s) Supporting Document(s) Bicarbonate [Moles/volume] in Serum 25 mmol/L 22-29 [facility] Chloride [Moles/volume] in Serum or Plasma 105 mmol/L 98-107 [facility] Creatinine [Mass/volume] in Serum or Plasma 0.53 mg/dL 0.50-0.90 [facility] Glucose [Mass/volume] in Serum or Plasma 139 mg/dL 70-140 [facility] Potassium [Moles/volume] in Serum or Plasma 4.1 mmol/L 3.4-5.1 [facility] Sodium [Moles/volume] in Serum or Plasma 135 mmol/L 136-145 L [facility] Urea nitrogen [Mass/volume] in Serum or Plasma 7 mg/dL 6-20 [facility] Anion gap 3 in Serum or Plasma 5 mmol/L 8-15 L [facility] Osmolality of Serum or Plasma by calculation 280 mosm/kg 275-300 [facility] Creatinine/Urea nitrogen [Mass Ratio] in Serum or Plasma 13 [facility] Calcium [Mass/volume] in Serum or Plasma 7.9 mg/dL 8.6-10.0 L [facility] Glomerular filtration rate/1.73 sq M pre dicted among non-blacks [Volume Rate/Area] in Serum or Plasma by Creatinine-based formula (MDRD) >6 0 [facility] Glomerular filtration rate/1.73 sq M pre dicted among blacks [Volume Rate/Area] in Serum or Plasma by Creatinine-based formula (MDRD) >60 [facility] ID Date Data Source [id number] 12/02/2019 05:27:[address] [facility] Name Value Range Interpretation Code Description Data Roxy rce(s) Supporting Document(s) Magnesium [Mass/volume] in Serum or Plasma 1.5 mg/dL 1.6-2.6 [facility] ID Date Data Source [id number] 12/02/2019 05:27:[address] [facility] Name Value Range Interpretation Code Description Data Roxy rce(s) Supporting Document(s) Phosphate [Mass/volume] in Serum or Plasma 3.1 mg/dL 2.5-4.5 [facility] ID Date Data Source [id number] 12/02/2019 05:37:[address] [facility] Name Value Range Interpretation Code Description Data Roxy rce(s) Supporting Document(s) Leukocytes [#/volume] in Blood by Automated count 8.7 10*3/uL 4-10 [facility] Erythrocytes [#/volume] in Blood by Automated count 3.53 10*6/uL 4.1- 5.3 [facility] Hemoglobin [Mass/volume] in Blood 7.9 g/dL 11.5-15.5 [facility] Hematocrit [Volume Fraction] of Blood by Automated count 24.8 % 3 6-45 [facility] Erythrocyte mean corpuscular volume [Entitic volume] by Auto mated count 70.4 fL 80-96 [facility] Erythrocyte mean corpuscular hemoglobin [Entitic mass] by Automated count 22.4 pg 27-33 [facility] Erythrocyte mean corpuscular hemoglobin concentration [Mass/volume] by Automated count 31.9 g/dL 32.0-[facility] width [Ratio] by Automated count 17.0 % 11.5-14.5 [facility] Platelets [#/volume] in Blood by Automated count 312 10*3/uL 150-400 [facility] ID Date Data Source [id number] 12/02/2019 12:23:44 AM [facility] Value Range Interpretation Code Description Data Roxy rce(s) Supporting Document(s) Glucose [Mass/volume] in Capillary blood by Glucometer 144 mg/dL 70- 140 [facility] ID Date Data Source [id number] 12/01/2019 04:42:08 PM [facility] Value Range Interpretation Code Description Data Roxy rce(s) Supporting Document(s) Glucose [Mass/volume] in Capillary blood by Glucometer 109 mg/dL 70- 140 [facility] ID Date Data Source [id number] 12/01/2019 11:57:59 AM [facility] Value Range Interpretation Code Description Data Roxy rce(s) Supporting Document(s) Glucose [Mass/volume] in Capillary blood by Glucometer 162 mg/dL 70- 140 [facility] ID Date Data Source [id number] 12/01/2019 07:55:25 AM [facility] Value Range Interpretation Code Description Data Roxy rce(s) Supporting Document(s) Glucose [Mass/volume] in Capillary blood by Glucometer 159 mg/dL 70- 140 [facility] ID Date Data Source [id number] 12/01/2019 06:14:54 AM EDT [facility] Name Value Range Interpretation Code Description Data Roxy rce(s) Supporting Document(s) Leukocytes [#/volume] in Blood by Automated count 12.6 10*3/uL 4-10 H [facility] Erythrocytes [#/volume] in Blood by Automated count 3.78 10*6/uL 4.1- 5.3 L [facility] Hemoglobin [Mass/volume] in Blood 8.3 g/dL 11.5-15.5 [facility] Hematocrit [Volume Fraction] of Blood by Automated count 26.5 % 3 6-45 L [facility] Erythrocyte mean corpuscular volume [Entitic volume] by Auto mated count 70.0 fL 80-96 [facility] Erythrocyte mean corpuscular hemoglobin [Entitic mass] by Automated count 21.9 pg 27-33 [facility] Erythrocyte mean corpuscular hemoglobin concentration [Mass/volume] by Automated count 31.2 g/dL 32.0-[facility] width [Ratio] by Automated count 16.6 % 11.5-14.5 H [facility] Platelets [#/volume] in Blood by Automated count 364 10*3/uL 150-400 [facility] ID Date Data Source [id number] 12/01/2019 06:34:[address] [facility] Name Value Range Interpretation Code Description Data Roxy rce(s) Supporting Document(s) Bicarbonate [Moles/volume] in Serum 26 mmol/L 22-29 [facility] Chloride [Moles/volume] in Serum or Plasma 105 mmol/L 98-107 [facility] Creatinine [Mass/volume] in Serum or Plasma 0.55 mg/dL 0.50-0.90 [facility] Glucose [Mass/volume] in Serum or Plasma 173 mg/dL 70-140 H [facility] Potassium [Moles/volume] in Serum or Plasma 3.8 mmol/L 3.4-5.1 [facility] Sodium [Moles/volume] in Serum or Plasma 137 mmol/L 136-145 [facility] Urea nitrogen [Mass/volume] in Serum or Plasma 10 mg/dL 6-20 [facility] Anion gap 3 in Serum or Plasma 6 mmol/L 8-15 L [facility] Osmolality of Serum or Plasma by calculation 287 mosm/kg 275-300 [facility] Creatinine/Urea nitrogen [Mass Ratio] in Serum or Plasma 18 [facility] Calcium [Mass/volume] in Serum or Plasma 7.9 mg/dL 8.6-10.0 L [facility] Glomerular filtration rate/1.73 sq M pre dicted among non-blacks [Volume Rate/Area] in Serum or Plasma by Creatinine-based formula (MDRD) >6 0 [facility] Glomerular filtration rate/1.73 sq M pre dicted among blacks [Volume Rate/Area] in Serum or Plasma by Creatinine-based formula (MDRD) >60 [facility] ID Date Data Source [id number] 12/01/2019 06:34:45 AM [facility] Value Range Interpretation Code Description Data Roxy rce(s) Supporting Document(s) Phosphate [Mass/volume] in Serum or Plasma 2.8 mg/dL 2.5-4.5 [facility] ID Date Data Source [id number] 12/01/2019 06:34:45 AM [facility] Value Range Interpretation Code Description Data Roxy rce(s) Supporting Document(s) Magnesium [Mass/volume] in Serum or Plasma 1.4 mg/dL 1.6-2.6 [facility] ID Date Data Source [id number] 11/30/2019 09:35:26 PM [facility] Value Range Interpretation Code Description Data Roxy rce(s) Supporting Document(s) Glucose [Mass/volume] in Capillary blood by Glucometer 342 mg/dL 70- 140 H [facility] ID Date Data Source [id number] 11/30/2019 06:50:23 PM [facility] Value Range Interpretation Code Description Data Roxy rce(s) Supporting Document(s) Glucose [Mass/volume] in Capillary blood by Glucometer 195 mg/dL 70- 140 H [facility] ID Date Data Source [id number] 11/30/2019 04:06:29 PM [facility] Value Range Interpretation Code Description Data Roxy rce(s) Supporting Document(s) Glucose [Mass/volume] in Capillary blood by Glucometer 172 mg/dL 70- 140 H [facility] ID Date Data Source [id number] 11/30/2019 02:28:53 PM [facility] Value Range Interpretation Code Description Data Roxy rce(s) Supporting Document(s) Operative Note [facility] LCOVPk7pKmKSXfKa18/XVTguMKGfy7VgMUlqSCu4RMajHDRqX2ZkTIH9yF3uETF1LRtZHtGeMwBhYPP9 lbm [file] AgICAgICAgICAgICAgICAgICAgICAgICAgICAgICAgICAgICAgICAgICAgICAgICAgICAgICAgICAgIC AgICAgICAgICAgICAgICAgICAgICAgICAgICAgDQog ICAgICAgICAgICAgICAgICAgICAgICAgICAgICAgICAgICAgICAgICAgICAgICAgICAgICAgICAgICAg ICAgICAgICAgICAgICAgICAgICAgICAgICAgICAgICAgICAgICAgDQogICAgICAgICAgICAgICAgICAg ICAgICAgICAgICAgICAgICAgICAgICAgICAgICAgIC AgICAgICAgICAgICAgICAgICAgICAgICAgICAgICAgICAgICAgICAgICAgICAgICAgDQogICAgICAgIC AgICAgICAgICAgICAgICAgICAgICAgICAgICAgICAgICAgICAgICAgICAgICAgICAgICAgICAgICAgIC AgICAgICAgICAgICAgICAgICAgICAgICAgICAgICAg DQogICAgICAgICAgICAgICAgICAgICAgICAgICAgICAgICAgICAgICAgICAgICAgICAgICAgICAgICAg ICAgICAgICAgICAgICAgICAgICAgICAgICAgICAgICAgICAgICAgICAgDQogICAgICAgICAgICAgICAg ICAgICAgICAgICAgICAgICAgICAgICAgICAgICAgIC AgICAgICAgICAgICAgICAgICAgICAgICAgICAgICAgICAgICAgICAgICAgICAgICAgICAgDQogICAgIC AgICAgICAgICAgICAgICAgICAgICAgICAgICAgICAgICAgICAgICAgICAgICAgICAgICAgICAgICAgIC AgICAgICAgICAgICAgICAgICAgICAgICAgICAgICAg ICAgDQogICAgICAgICAgICAgICAgICAgICAgICAgICAgICAgICAgICAgICAgICAgICAgICAgICAgICAg ICAgICAgICAgICAgICAgICAgICAgICAgICAgICAgICAgICAgICAgICAgICAgDQogICAgICAgICAgICAg ICAgICAgICAgICAgICAgICAgICAgICAgICAgICAgIC AgICAgICAgICAgICAgICAgICAgICAgICAgICAgICAgICAgICAgICAgICAgICAgICAgICAgICAgDQogIC AgICAgICAgICAgICAgICAgICAgICAgICAgICAgICAgICAgICAgICAgICAgICAgICAgICAgICAgICAgIC AgICAgICAgICAgICAgICAgICAgICAgICAgICAgICAg KUCsKYPyPHf3I8qzRIXzUPPvDK8jEPm5Iw3+PAvQRbJhLFD1mlKcsU8BLR1gn9PgIIatRUBaa0LbUGf0 EO5XRIJuBZjrNI6BLJzqbv1GIVDhMUKncBEIf6upPmTuYLM9RLWwLxihKZ6FHMIgX7qjdiGjPQXfQVEZ ISuhBKFYDMaqJWMDGH2LCdEdC4UraF27BJHQMm7+DQ fzdkHkEtcZOmJpTNWlv5UnALu1HT6EMRVxNuztg1EpEbAaFMPLYBtxGV5AFCJ0ZPBaRLYvGn6UHXGbB7 25tsGaRU0YOd9OVrKdSI8ywi2EKfJvSYIfTacSQyx5VWaxRN0MjBHsOHcDkHKoSANfrzUiJs18YSAjgL KQi3PoqNIzNSOHz03cRUEpd6VkKCFWBUGgbHSnIP3y LM3vZHQwFMTcVaFcPFBZYY6KQBGiCAMbjGBkOPNaQVRLSH4TYPwcWAV7AEYzsuNktPEcIXvoRP8VQYRy bnQgMjEgMCBSDQo+Ux6XFI7bw4GiYFiaOrEzQP5fjr1HAUcAUhDcS8W4gQPlO2U3VUmpAo3IRZViWOMo WSzzDUOCWSrrCJ4QVK6wfcI1MM0TtNLqUBBhNQXrtQ MjCZb2O40rrIPnBAwvFU0FVEL+Elisabeth+If3SKLTpZCMcBAWjLmMqTEEWApWvJ8BjP2WHs2SvD9EqER25zU vhcxJgSUioDU4GSP9cGOUzQONZZA3LiMXvrX4jilRmGKDzSNTRWdEeG36dxBCgRWPiPCBbAWMaPv5LDV QwE0BzzeUxbZczjsEuXJWmIXDUQE6AUKplfeVnkUYn iAydSR66jYuvXA5CKr1DWiYyKU2dgv1DkYPxCh4RFENjXU8EWBPrNBKeZANqUQK2FMArYfNkZXiuVSBd TGRhKST8CSDmSOZySZ2HYeRqQQFjMNO3EkFeNXOyMTPfjx6ZEMDjAAEaQDEcAEJcYFQoZMEiTTmqFFOn XVAqWRS8YJMqHDVbPU1KZaDdQYKiQFG0NKmzIREsBF Dxvz7EEXAxGFXnIsL6KiUlCTMbFUHyZCffUPPmFHN0KnI4EDNpUHOjTH1CCpItQVYsHYk8RydpNPFdPB Sfja5DJZYsUZOoSTT3GAZfCTTqVCCxIAgpJVEbEXT7Lvl2KFLlVCQcLH6THeKwZABhKEOlAYFoAEEvSJ Awio4UDVReOPLvCPP9JPCvUUVeDJHmZIluUDDqTFBj YuE5BIGuGAPeBF1RGlBlAXArGIU2ZARfZGXbDCSbnf3WPWKxZIJgUFw6MULxPJJfJUOuTYoaZXDiAJTj QLlsFOPwFUWzHB7ZRuZnRCDfTGTuLJCsCJRfZMKohb3ZGGMhYVJiNhU9ZdZaNACyXARxNFmqFKSjPDUk JKU9IEKxITZjQF2UNwQoWCBvUYY8RpYfDYChDAJkmt 4NXUBfFIInKHTqIVPnGLKjBQUvTWffGNLaUMZ4NzwsWJTdIVIiEQ1YHgQvIPXkWNS4CkUgBNQzQKMnbc 4TrJJtuSjprn0EFJpEJc1BqUxvFLG9ULgwWz1lyEIrHyOwGSFCKa7UgpJwIFToUGBCUIdfXAUnOIRbDB W8RELfQCHvAhkmUQSnXTU0UWJrULFaO6EzYLClXyR1 EyDvFMm7JXO9CaN0Q2YxPOOnAKa5LlA7OMWaRSGkSCT+YN3rAOv+Gi7Lc9VdnbG2krJmBJauUAz1ED4V IXLTU0PMRd== ID Date Data Source [id number] 11/30/2019 01:51:16 PM EDT [facility] Name Value Range Interpretation Code Description Data Roxy rce(s) Supporting Document(s) ABO and Rh group [Type] in Blood [facility] Blood group antibody screen [Presence] in Serum or Plasma [facility] Performed at [facility] Type Confirmed ID Date Data Source [id number] 11/30/2019 10:56:24 AM EDT [facility] Name Value Range Interpretation Code Description Data Roxy rce(s) Supporting Document(s) History and Physical [facility] [place] SWAWYn4nTtMGDgEn09/BLCfyLKIty7PgWZgvPKy9VNjgKYUbP7WsOLH7oA5qAFP5PEaQEwRhQgUwTDA7 lbm [file] ICAgICAgICAgICAgICAgICAgICAgICAgICAgICAgIC AgICAgICAgICAgICANCiAgICAgICAgICAgICAgICAgICAgICAgICAgICAgICAgICAgICAgICAgICAgIC AgICAgICAgICAgICAgICAgICAgICAgICAgICAgICAgICAgICAgICAgICAgICAgICAgICAgICANCiAgIC AgICAgICAgICAgICAgICAgICAgICAgICAgICAgICAg ICAgICAgICAgICAgICAgICAgICAgICAgICAgICAgICAgICAgICAgICAgICAgICAgICAgICAgICAgICAg ICAgICANCiAgICAgICAgICAgICAgICAgICAgICAgICAgICAgICAgICAgICAgICAgICAgICAgICAgICAg ICAgICAgICAgICAgICAgICAgICAgICAgICAgICAgIC AgICAgICAgICAgICAgICANCiAgICAgICAgICAgICAgICAgICAgICAgICAgICAgICAgICAgICAgICAgIC AgICAgICAgICAgICAgICAgICAgICAgICAgICAgICAgICAgICAgICAgICAgICAgICAgICAgICAgICANCi AgICAgICAgICAgICAgICAgICAgICAgICAgICAgICAg ICAgICAgICAgICAgICAgICAgICAgICAgICAgICAgICAgICAgICAgICAgICAgICAgICAgICAgICAgICAg ICAgICAgICANCiAgICAgICAgICAgICAgICAgICAgICAgICAgICAgICAgICAgICAgICAgICAgICAgICAg ICAgICAgICAgICAgICAgICAgICAgICAgICAgICAgIC AgICAgICAgICAgICAgICAgICANCiAgICAgICAgICAgICAgICAgICAgICAgICAgICAgICAgICAgICAgIC AgICAgICAgICAgICAgICAgICAgICAgICAgICAgICAgICAgICAgICAgICAgICAgICAgICAgICAgICAgIC ANCiAgICAgICAgICAgICAgICAgICAgICAgICAgICAg ICAgICAgICAgICAgICAgICAgICAgICAgICAgICAgICAgICAgICAgICAgICAgICAgICAgICAgICAgICAg ICAgICAgICAgICANCiAgICAgICAgICAgICAgICAgICAgICAgICAgICAgICAgICAgICAgICAgICAgICAg ICAgICAgICAgICAgICAgICAgICAgICAgICAgICAgIC AgICAgICAgICAgICAgICAgICAgICANCjw/yAOuP4hbaOVzuqC7J0yvLl0VFg9NBS1ir7BaIYXpLFdcpf ThHokWBrGdVUKrEbxNEmd0VXdzND2VbABvJ0CcC0MpHGfuZK7VJNRuKHQwhNPrGFPdZMBtEkC4CZDmEY rdDH1FyZMdANslAJLkFEOiYlEpZDCpLJJvVHGkBBSz JSCQCD5HLeJoF3ZjhL05EKJULr0+OTiipvYdBsmLAaOjKDTsd9DrSAt2UD1QFREoDpcvh6GeVkTyDXEH GVxkMX3WZWO6AFT4BNGtXi2TRWRxF124pbQiNT3NDu2OAeNgXZ2yxg4BRmTyPZJbImnEHyd2MNffFQ6V tUCaWDpSHjNqZgblBP68m2WkYvGwGT3dZOpbz0Yxjt fsDXOlETPuPBGdUMYlJvQoPCHoQZp0ZQWGCRgUKmEqH5Nxg4CpJrM4LESpTxCoBVntUXKcLqS6EG55oZ qlVX6QJZVgTVIjYN06RMSxLOXlTi3FHy4XTrKjPS2byv2TNvFjXENgMsjSLmi5TFbfOO1KaMBnO0ElnH Mhz8gLWxCkU4AYGORcHKDuPu8DCURyLiJyZHIyERbt JH4iUPRdSGKFwZnzmpI6JP7OJT5zxjGzCL2YLgCuAd7lKq1LYaNlD8DwB9DoPFSbOQEOXQaiDL9XTHyx AF7vDA2Au0UZfZHthB6bkt8RZQMyHOSeGawmjh8XGjqwG9K0ySxlKUSuQlFuWNVXABvkER7HJSMcKHA7 LYSxJzLmIQXDCnIyP24yEY1DX8Jej06oJmN3PQWoRg RgEYwnBU77bZcrwfMmpQDfkBysUQ7YAn4+DQplbmRvYmoNCnhyZWYNCjAgMzYNCjAwMDAwMDAwMDAgNj W0IpOxGp7JLXGkNQEbNQYrYjKiDPReRBEgHQpiOKBzVJMvCJj1KFHlHAMsBS9BZuBqRQPqKRH0YAxoIM YhPJZopk5VGUXiDRMnUJT7LvHcDMUdWIXuASqcPAXs IZYnXIg0AATgGBXoEQ5GEdIqYLQgSPVvDLObNORrNZZlae8ZBWUjQHTtHhr8FCXuOBMeATWlPIunVVUp AZS3CTO9FKMiRWXmGN9OGhFjANHuCUVgZpEuKEBtDGFcjq7VFBWxFTImPZUgYCChFWYhZCEiAJseYCLl IMXaYQA8ORFsTSQhTN8MHiBfEMSbYTH2ALPqLJTaHN Akbv7TWCAhINFpRkP1MPRjDLWvWDAnHXoyARHeMVQjZhS0ISBxTYUjWH5TCgYxLHMqBMR9RXQbAWKnHI Fguu2TPJZdPFNmNDshVZSyYLNlRTRlUZspNHMgKZM0OQScBIMhULWmRB4PKaSfFKVoRSGmRYgmWGNuBK Purs5KJUBmNQRoPvE6QAGoPKQcLICrQJinYFPgTIE9 NKE0OPBsOBBaWF5YIiEuWYPkBDS8GvdsWQDzXHGbrf0NCOTwRDKwMHa0XTWgPYRxRHOzOBkxJSDpZZX0 YDibSIFiBOWrHZ7YJaMjHJMzMqpvKRRjCKHaZLUvme7PXDEvDPWzXGTdBKNcOFBqAFBtYErtFMIuHNT4 See2ZRNbEBSpXR7ZBqVtEALxGLBqBsAvJSZbGRAxrc 0MHBIfWJL6DHK5RpKzOZJpIFLuYCytEDBfBHUcCnlmCYDrQJRxOI8OTlOrZDOnZHP2ApRgDYIcONSbnq 8KPTWgSFF5IqE6UaSuRCQnAOAiHYkfDIYeNCBxVVY0FITmRJErMQ5AEbNuQSIlQFN5CiStRWNzLSUstf 7YRHOeWUX2ZXGvLxBhZNToFHDuYWgkCTFaFJN8UJqz HESjZZYzUV4XHgFzCUzwXONHYkh0SJvvG8w5QBVyQh4ZW6Swh6FiEbVgZIOZNSfiSZ9fvsYgCUWsPc2E D8sTDbnaTuRiEERyYSGdVCMdRqP0SDCfTKv5LQEgWzI4YIOkTz7bRJDyOmM1FBCtYoBjYXAhPCugIiC0 XZj6CsA8Nom6OIQlJnCuWI5XJt7NKsJ8YYP9kSSrAg8QIOO8XiOALzQlFP4EPTf= ID Date Data Source [id number] 11/30/2019 09:57:25 AM EDT [facility] Name Value Range Interpretation Code Description Data Roxy rce(s) Supporting Document(s) Glucose [Mass/volume] in Capillary blood by Glucometer 130 mg/dL 70- 140 [facility] ID Date Data Source [id number] 12/05/2019 04:57:00 PM EDT [facility] Surgical Pathology ReportName: Aundrea FREEMANMRN: [id number] Number: [id number] Date: 11/30/2019 00:00Received Date: 12/01/2019 09:05Physician(s): SARAHI OLSEN MD HASSAN, MOUSTAFA AOM, MDSpecimen(s) ReceivedA: Hernial sacClinical HistoryRight flank incisional hernia. DiagnosisSKIN AND SOFT TISSUE, HERNIA SAC, EXCISION: SKIN WITH UNDERLYING DENSEFIBROUS TISSUE CONSISTENT WITH HERNIA./pmw Electronically Signed By Maximiliano Walls M.D., Attending Bllmtorqhac67/19/2020 16:57:09 Unless 'gross-only' is specified, the final diagnosis is based on amicroscopic examination of door to door sales representative sections of tissue.Gross DescriptionThe specimen is received in formalin labeled with the patient's name"Johanna Freeman" and "hernia sac". It consists of a skin ellipse djtucpewj41.1 x 6.0 cm overlying 0.5 cm of fat and fibrous hernia sac. Alsoincluded in the specimen are two fragments of the fibrous hernia sactissue measuring 2.5 x 8.9 x 4.6 cm in aggregate. The hernia sac tissueis pink-white, firm and rubbery. There are no apparent lesions or defectsnoted in the specimen. Political Aide sections are submitted as follows:A1 -includes cross section of skinA2 -cross section of fibrous hernia sac tissueJB/pmwThis report may include one or more immunohistochemical stain results thatuse analyte specific reagents. All positive and negative controls havebeen reviewed by the attending pathologist and are satisfactory. The testswere developed and their performance characteristics determined by [facility] Pathology department. They have not been cleared or approved by the [facility] od and Drug Administration. The FDA has determined that such clearanceor approval is not necessary. Name Value Range Interpretation Code Description Data Roxy rce(s) Supporting Document(s) ID Date Data Source [id number] 11/29/2019 03:42:[address] [facility] Name Value Range Interpretation Code Description Data [facility](s) Supporting Document(s) [facility] KAOZDu3tHvZNFrKea6DoZpQuNUAcBM8rrln2C5Y4eXVoG7HshKNxk0lmG8NsP7XzNDRoJAFFJS7XmEYh jb2 [file] 7V9/RP4p82qpY+2hi/4Fd9G+o30YwrcdV8Ye9r16t5 qCMk5YmfmVe6Gc2rQYLiGIybC5K52oeAR6RT1y8t4e1O8s68aAL/vjdT8Yf9sjJO8D60z3+F4M6nXha/ T6yk0iv+HVI2ylw4K+87o8kOoun4EA7Pww3JSUR2O3py9KW+1/jYij6dhAB8FcxA+vVfDb3+jaHXvzFU zD1VF8Uy9nuyFevDD3n//aetr10r7p/II7y5z5fFoi p0y02w6ry/YY5n75d32RmbH3/o5ej7u4q95XkV/tzv+W3eq7MDz/x5hP/K4zdH3+d7ollQh/n7qUE8q5 x3BL/Y63p7ttXYhfuj5ll45/VBD4MldslFXxDe8kfki59/fe5YpcSi19oZzmOz5ihX7lcNC1myd0k6fW Fa9RgH5y9sQuOj3sbo6EjRH4T+Bn0N+jl1KU0V9Nl+ lc8dv+8oH+/I8mzfYG00hl776r8FmjmzE+lW36Au6qPeoTp/L5H19Pu/dGHJk2tzlq2vb/2O9+vQN/xX Z501wn+Vz3c/dDjeb/Is1safB+r1ax+rvGi6YjoUjlEUxun0q80g9i39eiDPxEmcv/xrgrucIfoCC1K/ D6kp3TtLsiOodI+D9ffsjxkp94X6xAt/E/15Qt/gV9 OtjttAq8E/Xnc/kGf86pR6L42i7MbLi7/0Hb+568ETCpzrxBMJfJ+V6xw3kG+zQ5XmfH+tz4Xyz74sid cJ/41x3lSFF/g3efuJ/t621Ki2fJTyvomZGwhA/O975Ru8xo59d5JFD/r2SI/3uf9kyBZ1qxmsr3NkgX 3QN/aLmdcW57+k0QtZTOskW0e0/Ykzx2UDJT8bS13v 8CsDvzLwKwO/AxrrOY6gt//T1J1b6AzJcnROTa4+g96v363Kf8d52KkT/6coibD0sqc+R8IclfItGBhs AaGsrnHJgvN4FdwQ6/gUkf90dbdTHrUVqsAbrJG0uQtd84m2dHrQ96zolT5WuW2QzV1DlG6U9I3syRnn SIFF0MyLmhM364UV0R5w+71Nqu2NQ5Am9vnlsQ4pr5 +G7Zjcp4ay+2zvbw6/uorPS6X2/iIoTlO3uv7h/yyyDVhX1Yh3pgt9NiNhOW/7laG5i121oLEAfOTn26 3XXLA964ihe421wBfn7Jaftf2j8kgTIz9Gn+dsZE4mK5g/7CQaLlA0/CptcvhV+XWRTL78Rn7R7ge5/B mNr3sfjYjti8Wgya9z4+5OnCNnFCUb7qeH/ivD+ +++Misha/8rgvzKcvzLD+WNSQ3P5YBztY3RjryCAY4t1qzK+CcPIVN0G39AmsmHDHokIsiNJgeEr TPdJPXa21OHj88y/qXNoAbCg2TS3D9kZ+mS3WKltKkK4nD7Lr3GRfBAk0T8c0dyA+4OG/UHD/oEtq6Qu B2i1i0OX+s8yR5Zw3ruvYo53RU60jv1pUZ/MwB8p01 73baI/S8xRvdTq4/PE/LwwPy+834X3i/1Bw/6gLfRn+W8hKZ9n966o196CvWIXZ6z22qjuFsBl5DCxF+ xD8TjjZ+pRS2s5dfzv4A/kbmDtfP90+xL+q3zuSL/+J8bKI6quF3e+/gzwaePv7qznC8hjrI6+DP+V7c ufDfuDFvzqcCTH/qDn/uA6z5c/O/cGv9efso4mxkrY 5U92iSEP4nVLz8h4jNtPA6Rn5k51ajeoB7evs+e7nudaW9sp/NNBoc2bPuCb0jKSMG+5dPz+jl/H/qDL LU1BiAEuwa9AZ4Z+An2xP+dy5O3U4+I0Vp3zKo+Jcnt2UUNgWZu+2pF+5yvXOz+7IpNauzvCpl2FQ8G+ iverC+nQV+/97buog26XK4UH0lSn2Dvp01/e0Z/Df/ U8I93w+7ve9+4Is4QOdG+Us1D+QvpG+l3/OvxXDv+Vw3/l8F/2zZlsQX1M66aB20K9U54+y7r8nNi+D3 3hv/LgVyuff+cMbHIpsF1bH+mXT/a66956+NXzbM+v6FNt6dpqZ5WL2IUP1/R19wYqK5qj59JBvAiy3J S5axbVM3XoEGaEgZ4BU+l3/KqkYx8y8igJ946Y1+3P M9Lv+ViP8+6zqeSj7I04xki26tx0w+2M8+1ho2BrMT9qmtJ83+3Br1Y+3/cV/Ql3Mluol+E62jg8sBs4 a7p341lcYtqUMd4q7FwKykEearpbuvkxe7ckClvhCEcrSVlFji4n/Mpx/spx/spx/spx/spx/srn5ZO+ Be233TgRi8VxGcd/cpy/cvArx/6gY3/Qcf7KF/TF/q Thx8KyL+gL+bR9ovG5zR/ou/D9Xfj+7ssnPfnV+L22bCTw+k01Lg1wcgkPn2riN6p8Xd6m69O8r0JL1+ 2W4N0e80tSqM385ftYsTk4P84C0/y8ge1AePr/yPf1b/jG92jf/fcmR7DznpDHgQGgZ9WCG55WDTrFWR esNMfjiSrNcXqCSt/nOJ+Edatslw2J/qvZLn+sofia/a Y20vzceKuYn+PrGkebb/hJL+PUddx7+OkzTBe6XL2fpTJKgjN+557yn3/c70X/V/Jhw0qIpXF52RU73E D04ZSB/4/eUbE/olmlMvOa9TXTSeD+hT7Sacl/sGqcU3bsO6EI4MctyHuh48fkpcD38rm6lJ8h01KD9Z odo7wN9+Azalea/1jdyijR/+FKZt5eNp/zV8b/00+wI5 [file] [facility]iMlrCdwhC7fRLmWZVHYvtwXLKf6PHhFaI6lJz0J9pI1G7dBPpcE8gzgGz3hmcHl0BJV9JUl+Fi Pir6XWZvpMvoInRnRfSQzMxUugYe5CGU+Hsk8Ezqmx 3BQO4nCo+HsEtNsjeUoAHJQ6UYsksJQaPXE6BFstnIUbTuz1OSD6QUp+Fi0+rbkNiJ1kuFGhV+Sx6OZj 5OWzeQrzO8gIzSBTCXQJVJZXz5JHYGJ1YXg+FiUfixYfS/0bhn16Gf9Cja1Om8ZKm9+oDfUTtfhYHoGI ELUlGrHSMQBOdc3rXnIGMIdJgO2FC8dHP2MBFLsEsI nUtTnzjcJj9LF2Gw6ck87MwOSXY3oSw4TdxhSC/fSzMOVXeuoscL0qecU7UkX7clxEPoZEfaA2yZNn4K wLkkI8QnOYcjRMdfzvZ19smElwF7W7H7DDwd1KioicJUlzsUmeU7iikiOUb9owPgkg6gygFVaAGxzRMl QfSwVHko/wIQE5uV3PiHnGcq85onIcph2xSLYcM8vI bkRLwLex+SzPVmtdjP03yxBrmhcLK6sZSqAtTb939Ztw2suJHaYgg23pA04F122QUuMcjmd2tG0+YqOf rUsQ7lKEL2FZUCirpvhNmA6gOxBA5Bg6bDg8HEpr2TPZq3Myr6UR+LgtD5OX+tplfN1EGtZeRQseAIrn XHduXHduXHduXHduXHduXHduXHduXHduXHcuPpYySO [file] 5LfMdzXKO1Ob3ZouEoTQUxCVXIDg0Ta294JLFuAERIRcx+WzqfpPLvjQcxSVBGByK3IGTOETEHB2N= ID Date Data Source [id number] 11/29/2019 06:55:38 PM EDT [facility] Name Value Range Interpretation Code Description Data Roxy rce(s) Supporting Document(s) Leukocytes [#/volume] in Blood by Automated count 10.7 10*3/uL 4-10 H [facility] Erythrocytes [#/volume] in Blood by Automated count 4.45 10*6/uL 4.1- 5.3 [facility] Hemoglobin [Mass/volume] in Blood 10.0 g/dL 11.5-15.5 L [facility] Hematocrit [Volume Fraction] of Blood by Automated count 31.3 % 3 6-45 L [facility] Erythrocyte mean corpuscular volume [Entitic volume] by Auto mated count 70.5 fL 80-96 L [facility] Erythrocyte mean corpuscular hemoglobin [Entitic mass] by Automated count 22.5 pg 27-33 L [facility] Erythrocyte mean corpuscular hemoglobin concentration [Mass/volume] by Automated count 31.9 g/dL [facility].0-[facility] width [Ratio] by Automated count 17.1 % 11.5-14.5 H [facility] Platelets [#/volume] in Blood by Automated count 381 10*3/uL 150-400 [facility] ID Date Data Source [id number] 11/29/2019 07:20:26 PM EDT [facility] Name Value Range Interpretation Code Description Data Roxy rce(s) Supporting Document(s) Bicarbonate [Moles/volume] in Serum 21 mmol/L 22-29 L [facility] Chloride [Moles/volume] in Serum or Plasma 105 mmol/L 98-107 [facility] Creatinine [Mass/volume] in Serum or Plasma 0.62 mg/dL 0.50-0.90 [facility] Glucose [Mass/volume] in Serum or Plasma 186 mg/dL 70-140 H [facility] Potassium [Moles/volume] in Serum or Plasma 3.7 mmol/L 3.4-5.1 [facility] Sodium [Moles/volume] in Serum or Plasma 137 mmol/L 136-145 [facility] Urea nitrogen [Mass/volume] in Serum or Plasma 12 mg/dL 6-20 [facility] Anion gap 3 in Serum or Plasma 11 mmol/L 8-15 [facility] Osmolality of Serum or Plasma by calculation 289 mosm/kg 275-300 [facility] Creatinine/Urea nitrogen [Mass Ratio] in Serum or Plasma 19 [facility] Calcium [Mass/volume] in Serum or Plasma 8.4 mg/dL 8.6-10.0 L [facility] Glomerular filtration rate/1.73 sq M pre dicted among non-blacks [Volume Rate/Area] in Serum or Plasma by Creatinine-based formula (MDRD) >6 0 [facility] Glomerular filtration rate/1.73 sq M pre dicted among blacks [Volume Rate/Area] in Serum or Plasma by Creatinine-based formula (MDRD) >60 [facility] ID Date Data Source [id number] 11/26/2019 11:08:54 AM T [facility] Name Value Range Interpretation Code Description Data Roxy rce(s) Supporting Document(s) Specimen source [Identifier] of Unspecified specimen [facility] SARS-CoV-2 RNA 2018 nCoV Real-Time RT-PCR: NOT DETECTED [facility] Assay Performed [facility] Patients first test for condition [facility] Patient employed in healthcare setting [facility] Patient has symptoms related to [facility] When did you start to experience these symptoms [Date and time] [Phen X] [facility] Patient was hospitalized because of this condition [facility] patient was admitted to ICU for condition [facility] Patient resides in a congregate care setting [facility] status [facility] ID Date Data Source [id number] 11/25/2019 03:10:00 PM EDT [facility] Name Value Range Interpretation Code Description Data Roxy rce(s) Supporting Document(s) SARS-CoV-2 RNA [facility] This lab was ordered by [facility] and reported by [facility] [facility] ID Date Data Source [id number] 10/03/2019 03:40:55 PM EDT [facility] Name Value Range Interpretation Code Description Data Roxy rce(s) Supporting Document(s) Progress Note [facility] [id number]/TQDemIQWje7VfBNhsAAa7SJlnFRFwK2CeVRE4nG4jDVX7HHuMSuUxHbWdESJ1 lbm ObZtzPSdMoKWKqHtqIGlZwBDmkJrhwsPMgED8OwHT8ACXkV37bTFQcLYKsM8AhEOX3EIF+Si5ESZUbkG YhHO6YBqeS0K7gi9nVVq5+tD9MRU78wUSjb8g5jKEJ0Xwr0KJe84P1p8f7YwMgu91vjQUfPdih9ocnlR iVZ5Ldc1rwhEWUpPG3iDoCeQ07jN0sEsf0We6PrsM6 kouf7x6t4ul8uT68Y3V6C0vShc3AlVEnsQfwizRA2E/jvv/ZScW470nVXTQ8xPzqUbdp6MSM0BYpGMe3 8nZ2c/QmxMxsv4egigUgJz3Th4BNmNa57j1DT5iSB+aKNL8oWifiUE50OfarmXsTCkIcO5sIxUzgLE0G gZFQO0oK8z031SCg8P9IgEnkJ7RptIMnn4wWBm1AlG 7SgAw60MLSuxCcR5biwzf6boSfAgNAreG+VvhCowv+GtIODPQGepP1bpk8lLhX9/ZWRsehX+OxqMJ2B1 V24Ss9MWNsOHuzJpwzZynEcXUP4YBx5vWGlC/XK4X0shJ1Ubv/1IjAJxsd8bAtFWm7NIMIBeZDajibjP Grb+vPutSvHhqjz4H2O7VJ0nhf9XYAW918W9im7u6E wDmCDczhZw1vfs9M95YDu0fo2uP7iExt4FEW+5bgqzZ7Ya6JtzPk3XLlChXJzxbhcffLgIv95VnV5EgI zq+Ipw4PWAbbxV5kIYXzN6g1L3tP5k9zL6Dtx5cwhJE5Tss8GCs/vFLwjwqNWJQIjHCAC5wYR0Hmew7E RmbHdTMl/+Chloe+c4ovafqZsZwuRQXd5X8ahAyFUjfg [file] [id number]== ID Date Data Source [id number] 09/16/2019 10:00:00 AM EDT [facility] ([facility] ) Name Value Range Interpretation Code Description Data Roxy rce(s) Supporting Document(s) Blood Urea Nitrogen Laboratory test result 7-18 [facility] ([facility] ) Glucose, Fasting Laboratory test result [facility] ([facility]) SEE SEPARATE REPORT Testing performed at reference lab . Report copy to follow on a separate form. 12/05/19 REF LAB#:[id number] Glomerular Filtration Rate Laboratory test result [facility] ([facility] ) Sodium Level Laboratory test result 136-145 [facility] ([facility] ) Creatinine For GFR Laboratory test result 0.55-1.30 [facility] ([facility] ) Potassium Serum Laboratory test result 3.5-5.1 [facility] ([facility] ) Chloride Level Laboratory test result 98-107 [facility] ([facility] ) Carbon Dioxide Level Laboratory test result 20-29 [facility] ([facility] ) Calcium Level Laboratory test result 8.5-10.1 [facility] ([facility]) Anion Gap Laboratory test result 8-16 [facility] ([facility]) Ast/Sgot Laboratory test result [facility] ([facility]) Alt/SGPT Laboratory test result 0-32 [facility] ([facility]) Alkaline Phosphatase Laboratory test result 45-117 [facility] ([facility]) Bilirubin,Total Laboratory test result 0.2-1.0 [facility] ([facility]) Albumin Laboratory test result 3.2-5.2 [facility] ([facility]) Albumin/Globulin Ratio Laboratory test result 1.2-2.2 [facility] ([facility]) Total Protein Laboratory test result 6.4-8.2 [facility] ([facility]) ID Date Data Source [id number] 09/16/2019 10:00:00 AM EDT [facility] ([facility]) Name Value Range Interpretation Code Description Data Roxy rce(s) Supporting Document(s) Triglycerides Level Laboratory test result [facility] ([facility]) LDL Cholesterol Laboratory test result [facility] ([facility]) Cholesterol Level Laboratory test result [facility] ([facility]) HDL Cholesterol [facility] Cholesterol Risk Ratio Laboratory test result [facility] Non-HDL-C Laboratory test result [facility] ([facility]) ID Date Data Source [id number] 09/16/2019 10:00:00 AM EDT [facility] Name Value Range Interpretation Code Description Data Roxy rce(s) Supporting Document(s) Cholesterol [Mass/volume] in Serum or Plasma 93 mg/dL [facility] Triglyceride [Mass/volume] in Serum or Plasma 80 mg/dL [facility] Cholesterol in HDL [Mass/volume] in Serum or Plasma 54 mg/dL [facility] Cholesterol in LDL [Mass/volume] in Serum or Plasma by calculation 23 mg/dL [facility] CHOL/HDL 1.72 [facility] l \\BLDo\\INTERPRE TATION\\BLDx\\ REFERENCE RANGES (NATIONAL CHOLESTEROL EDUCATION PROGRAM) CHOLESTEROL < 200 mg/dL DESIREABLE 200 - 239 mg/dL BORDERLINE HIGH > 240 mg/dL HIGH TRIGLYCERIDES < 150 mg/dL DESIREABLE 150 - 199 mg/dL BORDERLINE HIGH 200 - 499 mg/dL HIGH > or = 500 mg/dL VERY HIGH HDL > or = 60 mg/dL HIGH < 40 mg/dL LOW LDL < 100 mg/dL DESIREABLE 100 - 129 mg/dL LOW RISK 130 - 159 mg/dL BORDERLINE HIGH 160 - 189 mg/dL HIGH > or = 190 mg/dL VERY HIGH ID Date Data Source [id number] 09/16/2019 10:00:00 AM EDT [facility] Name Value Range Interpretation Code Description Data Roxy rce(s) Supporting Document(s) COMPREHENSIVE CHEM PROFILE i [facility] COMPREHENSIVE METABOLIC PANEL Sodium [Moles/volume] in Serum or Plasma 138 mEq/L 136 - 145 [facility] Potassium [Moles/volume] in Serum or Plasma 4.7 mEq/L 3.5 - 5.1 [facility] Chloride [Moles/volume] in Serum or Plasma 103 mEq/L 98 - 107 [facility] Carbon dioxide, total [Moles/volume] in Serum or Plasma 25.3 mEq /L 21.0 - 32.0 [facility] Glucose [Mass/volume] in Serum or Plasma 218 mg/dL 70 - 100 Above high normal [facility] Urea nitrogen [Mass/volume] in Serum or Plasma 19 mg/dL 7 - 18 Above high normal [facility] CREATININE SERUM 0.86 mg/dL 0.70 - 1.30 [facility] AGE [address] [facility] HEIGHT NA [facility] l eGFR NON-AFR AMR >60 [facility] eGFR AFR AMR >60 [facility] BUN/CREAT 22 6 - 25 [facility] Protein [Mass/volume] in Serum or Plasma 6.7 g/dL 6.0 - 8.3 [facility] Albumin [Mass/volume] in Serum or Plasma 3.6 g/dL 3.8 - 5.4 Below low normal [facility] GLOBULIN 3.1 g/dL 2.0 - 4.0 [facility] A/G RATIO 1.2 0.8 - 2.0 [facility] Calcium [Mass/volume] in Serum or Plasma 8.7 mg/dL 8.8 - 10.2 Below low normal [facility] Bilirubin.total [Mass/volume] in Serum or Plasma 0.2 mg/dL 0.2 - 1.0 [facility] Bilirubin.direct [Mass/volume] in Serum or Plasma 0.1 mg/dL 0.0 - 0. 2 [facility] INDIRECT BILI 0.1 mg/dL 0.0 - 1.1 [facility] pital ALK PHOSPHATASE 72 U/L 40 - 129 [facility]spital Aspartate aminotransferase [Enzymatic ac tivity/volume] in Serum or Plasma by With P-5'-P 13 IU/L 7 - 37 [facility] Alanine aminotransferase [Enzymatic acti vity/volume] in Serum or Plasma by With P-5'-P 11 IU/L 12 - 78 [facility] AN[facility] GAP 10 7 - 15 [facility] Estimated GFR referenc e range: >60ml/min/1.73m >18 years: Calculated using IDMS traceable Study Equation <18 years: Calculated using IDMS tracable Bedside Schartz Equation ID Date Data Source [id number] 09/06/2019 10:13:00 AM EDT [facility] ([facility]) Name Value Range Interpretation Code Description Data Roxy rce(s) Supporting Document(s) Hemoglobin A1c/Hemoglobin.total in Blood 8.0 [facility] ([facility]) Glucose [Mass/volume] in Serum or Plasma 268 [facility] ([facility]) ID Date Data Source [id number] 06/24/2019 09:30:00 AM EDT [facility] ([facility]) Name Value Range Interpretation Code Description Data Roxy rce(s) Supporting Document(s) Hemoglobin A1c/Hemoglobin.total in Blood 8.5 % [facility] ([facility]) REFERENCE RANGES: 4.5-5.6% NORMAL 5.7-6.4% SUGGESTS IMPAIRED GLUCOSE META BOLISM >= 6.5% ABNORMAL Estimated Average Glucose 197 mg/dL 60-110 [facility] ([facility]) ID Date Data Source [id number] 06/24/2019 09:30:00 AM EDT [facility] ([facility] Name Value Range Interpretation Code Description Data Roxy rce(s) Supporting Document(s) Hemoglobin A1c 8.5 % [facility] ([facility] REFERENCE RANGES: 4.5-5.6% NORMAL 5.7-6.4% SUGGESTS IMPAIRED GLUCOSE META BOLISM >= 6.5% ABNORMAL Estimated Average Glucose 197 mg/dL 60-110 [facility] ([facility] ID Date Data Source [id number] 03/18/2019 03:51:54 PM [facility] Name Value Range Interpretation Code Description Data Roxy rce(s) Supporting Document(s) Progress Note [facility] DPNYOq5xTaXHYkJj29/TDAcfGNAej1IbDHrjAYl2CVtvWSWqY2BmXJL0mF3cJDR7FDcDHoYnSfOlBKFu lbm [file] 04qX+Process Improvement [file] AgICAgICAgICAgICAgICAgICAgICAgICAgICAgICAg ICAgICAgICAgICAgICAgICAgICAgICAgICAgICAgICAgICAgICAgICAgICAgICAgICAgICAgICAgICAg ICANCiAgICAgICAgICAgICAgICAgICAgICAgICAgICAgICAgICAgICAgICAgICAgICAgICAgICAgICAg ICAgICAgICAgICAgICAgICAgICAgICAgICAgICAgIC AgICAgICAgICAgICANCiAgICAgICAgICAgICAgICAgICAgICAgICAgICAgICAgICAgICAgICAgICAgIC AgICAgICAgICAgICAgICAgICAgICAgICAgICAgICAgICAgICAgICAgICAgICAgICAgICAgICANCiAgIC AgICAgICAgICAgICAgICAgICAgICAgICAgICAgICAg ICAgICAgICAgICAgICAgICAgICAgICAgICAgICAgICAgICAgICAgICAgICAgICAgICAgICAgICAgICAg ICAgICANCiAgICAgICAgICAgICAgICAgICAgICAgICAgICAgICAgICAgICAgICAgICAgICAgICAgICAg ICAgICAgICAgICAgICAgICAgICAgICAgICAgICAgIC AgICAgICAgICAgICAgICANCiAgICAgICAgICAgICAgICAgICAgICAgICAgICAgICAgICAgICAgICAgIC AgICAgICAgICAgICAgICAgICAgICAgICAgICAgICAgICAgICAgICAgICAgICAgICAgICAgICAgICANCi AgICAgICAgICAgICAgICAgICAgICAgICAgICAgICAg ICAgICAgICAgICAgICAgICAgICAgICAgICAgICAgICAgICAgICAgICAgICAgICAgICAgICAgICAgICAg ICAgICAgICANCiAgICAgICAgICAgICAgICAgICAgICAgICAgICAgICAgICAgICAgICAgICAgICAgICAg ICAgICAgICAgICAgICAgICAgICAgICAgICAgICAgIC AgICAgICAgICAgICAgICAgICANCiAgICAgICAgICAgICAgICAgICAgICAgICAgICAgICAgICAgICAgIC AgICAgICAgICAgICAgICAgICAgICAgICAgICAgICAgICAgICAgICAgICAgICAgICAgICAgICAgICAgIC ANCiAgICAgICAgICAgICAgICAgICAgICAgICAgICAg ICAgICAgICAgICAgICAgICAgICAgICAgICAgICAgICAgICAgICAgICAgICAgICAgICAgICAgICAgICAg ICAgICAgICAgICANCjw/cPVbL9skfGDwonI4T7ozOe7ZSf6ZIT5jx6ZuUHWpDQzlhqFcFdlYLsBjBLOc ZpbSDyz1SZptRL6LlCAkS7MyH6RmBMwnWM3QVGWoHY PduBIbGXPmZZZiOaW1DXBbCMtkUJ0XkYGnSZiiSEPvVLLyZfMvTQFyLRXkQXCdXDIxOUQBNHBbAMIhYf YlFNyjUS7Vi8BybKI6MTf+Gc5NGL0xu9RbMLdpJbEpIA0gse8BITiIYkJfW5KhxsB1YEK5RATzQi0VDH HmTZUjpWEnHVQkXVQWHxFfC5RhrI72HDXJUk0+DQpl nkAjKfzBVbX6HULoh6FuRGv8FA7KTFSePJf3qRMlPSCmU9Amw2NpQe04NAFyNwzkQfnihhijXPAhE268 uxoxVERyZFCnJK1sNM3dUKGvWIHtUtVqCUYVSO6OLNMrAIDrjFRzGJGvNJECWJ8LZEczBXD6BTLhtwKz qVIeTStmWO4GRPCltfOiNzAfALOFHFz+Zd6MVU7zg4 BkOTkhXKNxBL7ssc2HDOpLXlLfE4L7uJBjR1C0EDijBx9TCBSkQROxBwEnTSPLWOvrCJ4TEH0rkwH8WJ 8HuBEuSNBaPDAkxGFxNPb4Y29vvSEmYLebYO9GUQP+Elisabeth+Rh2WXLHuAIHiSLFhFgYkPHEVHvSmU9RxO4 DZk6AmZ2DrGL34dHlxzxIvKGllOF2RZD3vSLTzHFUH GY1EoZHczM6rqxFsMgFaKNKJZkReL60wbRCiGRLsIMTbUGUyOr5SKZBbA4InjaDjvDvfrgWzXYPsXDNH TA9KDUlnqyCeoCPxpXgrNZ15bUbdKI4SFg1WSlGwKB5vtt1WaLNuQq9YRPMqHx4HAGBwEUVmCASrLMV2 VAXtUuMxOMjpHGVkMHMjOYB4KRQuGDFcES1ZYjBnFX UaBZXbHiTrDQTrNBKuvf0RUMGvTSB6Ktg8OrWdCVWpYBGoVZdvJNKgQXGtMVD1UPGdIOAhVE6DDpOdRO QnNTE8ALqeOGRmFNRmpq4LMWNmFETmLOPhUtHyNDNiUAUjTCqtJSOpQRY8MYBoPZBeESHuLC3EHfDbCA NwHAb5DZlrIZWxTSGaiq3GIHJxEWIrRWWxONWoTAIc QCSkJEclSSSbZSKjWiI9UPWrGPZlMC9XDaZlVXIyBPM1CThvXCNuGOOwvc7GDGFlLXFuJrMvErBzGVRp SHVaHDdtTTPjHNJ5Gxw0ERHjGWHjIG1YFpVuFNKvIRB0EOPyIDQpUMFbwl6DNWPvOXLbLrB7HJOyVMId TEWvTYzgAVXfQXR5LrT6OPLeAKBlHI7MKtKuXTPmMU Z2OyTcVWUkHKKony0GRWIlGNWjAsk9ODJjEYOmHCJmORrgDGFgFDB6BMntWCCdDFJfJE0MBgBsCVOtZT xaFcwyCGNfXGBdeq5DOJDvUOF7TYP1BPToFUNpOGOeCFpsDZOiTHStFTm1MDWhJDMxYU1EZpWsRBYaIF PlTGogKZRiRVXyxy8CTVYrFMU8WxQ8BBDlBNAfDSMi AFmcCNTeGPOpMoy9NRQfSCXnZC1QKqNlTPYuQKBrYKRyAEEyKQOxhd9KIRMjGKJ9ApVvAcFkXIFrMRVk COhyHBDjIHSqJloyBXZyQQZfVF2SBvCjPEBhTMV5UpjpMEHwPUZxut5UISTrCXG6WVvbHJFhTRGyAGOx TIdwXBPeAYL3EZFhWIPlRJFvHQ1EOyCeMCIkRMZ6Mu GuVINkFMOudo2LSXHvYNQ7EdiyUWUpHHRdBMWxXBbzYDFqFYD2RTapNSNrIIMgBI9GNqGqZIZiDJhkQY qcIATnZVBjxh8NiYEvqEtpbg5IEFrVDz2YzFkiYZN7GOjnVk7nvQEiTJYoFCGWRe9NvsOiFFHfLSGTJH fvCCUtKYFsWHN1FJEoUEWxHVA8PqM2AHHaCkBpRtK8 WEp2LMSaBvZ4M1StHpX5CkC8ACB1WzjwFcPdLaMfJAGsXxy6SQZ8EEA+HA6jAXd+Bd9Jw1TmcjP1daDr TXh6IdL2Ra6VEGOWJ6VQEx== Procedure Social History Code Duration Value Status Description Data Source(s ) Smoking 03/01/2020 12:00:00 AM EST - 02/16/1987 12:00:00 AM EST Patient is a former smoker completed Patient is a former smoker [facility] ([facility] Smoking 02/02/2020 12:00:00 AM EST Patient has never smoked co mpleted Patient has never smoked [facility] ([facility], [facility]) Alcohol intake 01/20/2020 12:00:00 AM EST Current non-d mary of alcohol (finding) completed Current non-drinker of alcohol (finding) [facility] Tobacco use and exposure 01/20/2020 12:00:00 AM EST Never used co mpleted Never used [facility] Cigarette pack-years 01/20/2020 12:00:00 AM EST UNK completed [facility] Cigarettes smoked current (pack per day) - Reported 01/20/20 12:00:00 AM EST UNK completed [facility] Smoking 01/20/2020 12:00:00 AM EST Former smoker completed Former smoker [facility] Alcohol intake 12/07/2019 12:00:00 AM EDT Current non-d mary of alcohol (finding) completed Current non-drinker of alcohol (finding) [facility] Alcohol intake 11/30/2019 12:00:00 AM EDT Current non-d mary of alcohol (finding) completed Current non-drinker of alcohol (finding) [facility] Alcohol intake 11/25/2019 12:00:00 AM EDT Current non-d mary of alcohol (finding) completed Current non-drinker of alcohol (finding) [facility] Alcohol intake 10/03/2019 12:00:00 AM EDT Current non-d mary of alcohol (finding) completed Current non-drinker of alcohol (finding) [facility] Smoking 09/08/2019 12:00:00 AM EDT Never smoker completed Never s moker [facility] ([facility]) Alcohol intake 03/08/2019 12:00:00 AM EST Current non-d mary of alcohol (finding) completed Current non-drinker of alcohol (finding) [facility] Cigarette pack-years 03/08/2019 12:00:00 AM EST UNK completed [facility] Cigarettes smoked current (pack per day) - Reported 03/08/19 12:00:00 AM EST UNK completed [facility] Smoking 03/08/2019 12:00:00 AM EST Former smoker completed Former smoker [facility] Vital Signs ID Date Data Source UNK Name Value Range Interpretation Code Description Data Source(s) Body surface area Derived from formula 1.94 m2 1.94 m2 [facility] ([facility]) Body weight 89.359 kg 89.359 kg [facility] [place] body weight 120 [lb_av] 120 [lb_av] [facility] T ([facility]) Body mass index (BMI) [Ratio] 33.8 kg/m2 33.8 k g/m2 [facility] ([facility]) Body weight 197.00 [lb_av] 197.00 [lb_av] [facility] ([facility]) Body height 64 [in_i] 64 [in_i] [facility] ([facility]) 5'4" Diastolic blood pressure 73 mm[Hg] 73 mm[Hg] [facility] Systolic blood pressure 113 mm[Hg] 113 mm[Hg] [facility] ([facility]) Body mass index (BMI) [Ratio] 32.2 kg/m2 32.2 k g/m2 [facility] ([facility] [place] body weight 125 [lb_av] 125 [lb_av] [facility] ([facility] Oxygen saturation in Arterial blood by Pulse oximetry 98 % 98 % [facility] ([facility] Body weight 193.25 [lb_av] 193.25 [lb_av] [facility] ([facility] Body height 65 [in_i] 65 [in_i] [facility] ([facility] 5'5" Respiratory rate 16 /min 16 /min [facility] ( [facility] Body temperature 97.4 [degF] 97.4 [degF] [facility] ([facility] Heart rate 95 /min 95 /min [facility] ([facility] Diastolic blood pressure 95 mm[Hg] 95 mm[Hg] [facility] ([facility] Systolic blood pressure 137 mm[Hg] 137 mm[Hg] [facility] ([facility] Diastolic blood pressure 100 mm[Hg] 100 mm[Hg] [facility] ([facility] Systolic blood pressure 151 mm[Hg] 151 mm[Hg] [facility] ([facility] Body mass index (BMI) [Ratio] 31.5 kg/m2 31.5 k g/m2 [facility] ([facility] [place] body weight 125 [lb_av] 125 [lb_av] [facility] ([facility] Oxygen saturation in Arterial blood by Pulse oximetry 98 % 98 % [facility] ([facility] Body weight 189.50 [lb_av] 189.50 [lb_av] [facility] ([facility] Body height 65 [in_i] 65 [in_i] [facility] ([facility] 5'5" Respiratory rate 18 /min 18 /min [facility] ( [facility] Body temperature 96.6 [degF] 96.6 [degF] [facility] ([facility] Heart rate 75 /min 75 /min [facility] ([facility] Diastolic blood pressure 81 mm[Hg] 81 mm[Hg] [facility] ([facility] Systolic blood pressure 136 mm[Hg] 136 mm[Hg] [facility] ([facility] Oxygen saturation in Arterial blood by Pulse oximetry 98 % 98 % [facility] ([facility]) Respiratory rate 13 /min 13 /min [facility] ( [facility], [facility]) Heart rate 92 /min 92 /min [facility] ([facility]) Diastolic blood pressure 76 mm[Hg] 76 mm[Hg] [facility] ([facility]) Systolic blood pressure 126 mm[Hg] 126 mm[Hg] M [facility] ([facility]) Body mass index (BMI) [Ratio] 32.6 kg/m2 32.6 k g/m2 [facility] ([facility]) Body height 64 [in_i] 64 [in_i] [facility] ([facility]) 5'4" Body weight 190.00 [lb_av] 190.00 [lb_av] [facility] ([facility]) Body temperature 98.4 [degF] 98.4 [degF] [facility] ([facility]) Body mass index (BMI) [Ratio] 30.0 kg/m2 30.0 k g/m2 [facility] ([facility] [place] body weight 125 [lb_av] 125 [lb_av] [facility] ([facility] Oxygen saturation in Arterial blood by Pulse oximetry 100 % 100 % [facility] ([facility] Body weight 180.25 [lb_av] 180.25 [lb_av] [facility] ([facility] Body height 65 [in_i] 65 [in_i] [facility] ([facility] 5'5" Respiratory rate 18 /min 18 /min [facility] ( [facility] Body temperature 97.8 [degF] 97.8 [degF] [facility] ([facility] Heart rate 85 /min 85 /min [facility] ([facility] Diastolic blood pressure 77 mm[Hg] 77 mm[Hg] [facility] ([facility] Systolic blood pressure 145 mm[Hg] 145 mm[Hg] [facility] ([facility] Diastolic blood pressure 89 mm[Hg] 89 mm[Hg] [facility] ([facility] Systolic blood pressure 148 mm[Hg] 148 mm[Hg] [facility] ([facility] Oxygen saturation in Arterial blood by Pulse oximetry 98 % 98 % [facility] ([facility]) Body mass index (BMI) [Ratio] 32.8 kg/m2 32.8 k g/m2 [facility] ([facility]) Body weight 197.12 [lb_av] 197.12 [lb_av] [facility] ([facility]) Body height 65 [in_i] 65 [in_i] [facility] ([facility]) 5'5" Heart rate 78 /min 78 /min [facility] ([facility]) Diastolic blood pressure 76 mm[Hg] 76 mm[Hg] [facility] ([facility]) Systolic blood pressure 122 mm[Hg] 122 mm[Hg] [facility] ([facility]) Body mass index (BMI) [Ratio] 31.5 kg/m2 31.5 k g/m2 [facility] ([facility] [place] body weight 125 [lb_av] 125 [lb_av] [facility] ([facility] Oxygen saturation in Arterial blood by Pulse oximetry 99 % 99 % [facility] ([facility] Body weight 189.50 [lb_av] 189.50 [lb_av] [facility] ([facility] Body height 65 [in_i] 65 [in_i] [facility] ([facility] 5'5" Respiratory rate 18 /min 18 /min [facility] ( [facility] Body temperature 98.0 [degF] 98.0 [degF] [facility] ([facility] Heart rate 83 /min 83 /min [facility] ([facility] Diastolic blood pressure 95 mm[Hg] 95 mm[Hg] [facility] ([facility] Systolic blood pressure 149 mm[Hg] 149 mm[Hg] [facility] ([facility] Diastolic blood pressure 111 mm[Hg] 111 mm[Hg] [facility] ([facility] Systolic blood pressure 168 mm[Hg] 168 mm[Hg] [facility] ([facility] Body mass index (BMI) [Ratio] 30.38 kg/m2 Overweight 30.38 kg/m2 [facility] ([facility]) Diastolic blood pressure 85 mm[Hg] 85 mm[Hg] [facility] ([facility]) Systolic blood pressure 137 mm[Hg] 137 mm[Hg] N [facility] ([facility]) Body weight 80.286 kg 80.286 kg [facility] ([facility]) Body height 162.56 cm 162.56 cm [facility] ([facility]) Body mass index (BMI) [Ratio] 30.1 kg/m2 30.1 k g/m2 [facility] ([facility] Oxygen saturation in Arterial blood by Pulse oximetry 98 % 98 % [facility] ([facility] Body weight 181.12 [lb_av] 181.12 [lb_av] [facility] ([facility] Body height 65 [in_i] 65 [in_i] [facility] ([facility] 5'5" Respiratory rate 18 /min 18 /min [facility] ( [facility] Body temperature 98.3 [degF] 98.3 [degF] [facility] ([facility] Heart rate 62 /min 62 /min [facility] ([facility] Diastolic blood pressure 68 mm[Hg] 68 mm[Hg] [facility] ([facility] Systolic blood pressure 112 mm[Hg] 112 mm[Hg] [facility] ID Date Data Source [id number] 12/05/2019 04:58:[address] [facility] Name Value Range Interpretation Code Description Data Source(s) WEIGHT RECORDED [address] [facility] [place] Body height Measured 64 in 64 in [facility] WEIGHT RECORDED 184.[address] [facility] [place] ID Date Data Source [id number] 11/29/2019 07:20:[address] [facility] Name Value Range Interpretation Code Description Data Source(s) WEIGHT RECORDED 184.[address] [facility] [place] Body height Measured 63.39 in 63.39 in [facility] ID Date Data Source [id number] 10/03/2019 03:27:[address] [facility] Name Value Range Interpretation Code Description Data Source(s) WEIGHT RECORDED 191.[address] [facility] [place] Body height Measured 64 in 64 in [facility] ID Date Data Source [id number] 03/18/2019 03:51:54 PM [facility] Name Value Range Interpretation Code Description Data Source(s) WEIGHT RECORDED 178.[address] [facility] [place] Body height Measured 64 in 64 in [facility] Patient Treatment Plan of Care Planned Activity Planned Date Details Description Data Source (s) Magnesium Oxide 400 MG Oral Tablet 12/04/2019 12:00:00 AM [facility] Caffeine 200 MG Oral Tablet 12/03/2019 12:00:00 AM [facility] Ibuprofen 200 MG Oral Tablet 12/03/2019 12:00:00 AM [facility] Acetaminophen 325 MG Oral Tablet 12/03/2019 12:00:00 AM [facility] Oxycodone Hydrochloride 5 MG Oral Tablet 12/03/2019 12:00:00 AM [facility] albuterol (PROVENTIL HFA) inhaler 2 puff 11/30/2019 06:32:39 PM [facility] dextrose 50 % IV solution 25 mL 11/30/2019 02:35:32 PM [facility] Glucagon 1 MG Injection 11/30/2019 02:35:32 PM [facility] Glucose 0.417 MG/MG Oral Gel 11/30/2019 02:35:32 PM [facility] 24 HR Metformin hydrochloride 500 MG Extended Release Oral Tablet 09/07/2019 12:00:00 AM [facility] Norethindrone 0.35 MG Oral Tablet 07/18/2019 12:00:00 AM [facility] Ortho Micronor 0.35 mg tablet 05/04/2019 12:00:00 AM [facility] Docusate Sodium 100 MG Oral Capsule [DOK] 12/03/2018 12:00:00 AM [facility] Nystatin 100 UNT/MG Topical Powder 10/11/2018 12:00:00 AM [facility] tizanidine 4 MG Oral Capsule 09/17/2018 12:00:00 AM [facility] 3 ML insulin detemir 100 UNT/ML Pen Injector [Levemir] 09/17/2018 12:00:00 AM [facility] ospital
[2020-03-17] MEDS ORDERED: JENC0.35 (06:50)
[2020-03-17] MEDS ORDERED: CITA40TA4 (06:50)
[2020-03-17] MEDS ORDERED: ATOR40TA75 (06:50)
[2020-03-17] MEDS ORDERED: METF-838 (06:50)
[2020-03-17] MEDS ORDERED: ALBU8.5H (06:50)
[2020-03-17] MEDS ORDERED: LOSA50TA88 (06:50)
[2020-03-17] MEDS ORDERED: TRUL10IN (06:50)
[2020-03-17] MEDS ORDERED: LORA-674 (06:50)
[2020-03-17] MEDS ORDERED: OMEP-218 (06:50)
[2020-03-17] MEDS ORDERED: EUTH125T (06:50)
--- OUTSIDE RECORDS SUMMARY | 2020-03-17 07:34 | CCD ---
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 [employer] Name Role Phone ZEINAB OLSEN Unavailable Unavailable Jo CARMONA Unavailable Unavailable Scordo, [...] Verdin, Johnna Yazmin PA-C Unavailable Unavailable Verdin, Johnna Yazmin PA-C Unavailable Unavailable Verdin, A Yazmin PA-C Unavailable Unavailable COOK, B DOM LACQUER SHADER Unavailable Unavailable COOK, B DOM LACQUER SHADER Unavailable Unavailable COOK, B DOM LACQUER SHADER Unavailable Unavailable COOK, B DOM LACQUER SHADER Unavailable Unavailable COOK, B DOM LACQUER SHADER Unavailable Unavailable COOK, B DOM LACQUER SHADER Unavailable Unavailable COOK, B DOM LACQUER SHADER Unavailable Unavailable COOK, B DOM LACQUER SHADER Unavailable Unavailable COOK, B DOM LACQUER SHADER Unavailable Unavailable COOK, B DOM LACQUER SHADER Unavailable Unavailable COOK, B DOM LACQUER SHADER Unavailable Unavailable COOK, B DOM LACQUER SHADER Unavailable Unavailable COOK, B DOM LACQUER SHADER Unavailable Unavailable COOK, B DOM LACQUER SHADER Unavailable Unavailable COOK, B DOM LACQUER SHADER Unavailable Unavailable COOK, B DOM LACQUER SHADER Unavailable Unavailable COOK, B DOM LACQUER SHADER Unavailable Unavailable COOK, B DOM LACQUER SHADER Unavailable Unavailable COOK, B DOM LACQUER SHADER Unavailable Unavailable COOK, B DOM LACQUER SHADER Unavailable Unavailable COOK, B DOM LACQUER SHADER Unavailable Unavailable COOK, B DOM LACQUER SHADER Unavailable Unavailable COOK, B DOM LACQUER SHADER Unavailable Unavailable COOK, B DOM LACQUER SHADER Unavailable Unavailable COOK, B DOM LACQUER SHADER Unavailable Unavailable COOK, B DOM LACQUER SHADER Unavailable Unavailable COOK, B DOM LACQUER SHADER Unavailable Unavailable COOK, B DOM LACQUER SHADER Unavailable Unavailable COOK, B DOM LACQUER SHADER Unavailable Unavailable COOK, B DOM LACQUER SHADER Unavailable Unavailable COOK, B DOM LACQUER SHADER Unavailable Unavailable COOK, B DOM LACQUER SHADER Unavailable Unavailable COOK, B DOM LACQUER SHADER Unavailable Unavailable COOK, B DOM LACQUER SHADER Unavailable Unavailable COOK, B DOM LACQUER SHADER Unavailable Unavailable COOK, B DMO LACQUER SHADER Unavailable Unavailable COOK, B DOM LACQUER SHADER Unavailable Unavailable COOK, B DOM LACQUER SHADER Unavailable Unavailable COOK, B DOM LACQUER SHADER Unavailable Unavailable COOK, B DOM LACQUER SHADER Unavailable Unavailable COOK, B DOM LACQUER SHADER Unavailable Unavailable COOK, B DOM LACQUER SHADER Unavailable Unavailable COOK, B DOM LACQUER SHADER Unavailable Unavailable COOK, B DOM LACQUER SHADER Unavailable Unavailable COOK, B DOM LACQUER SHADER Unavailable Unavailable COOK, B DOM LACQUER SHADER Unavailable Unavailable COOK, B DOM LACQUER SHADER Unavailable Unavailable COOK, B DOM LACQUER SHADER Unavailable Unavailable COOK, B DOM LACQUER SHADER Unavailable Unavailable COOK, B DOM LACQUER SHADER Unavailable Unavailable COOK, B DOM LACQUER SHADER Unavailable Unavailable COOK, B DOM LACQUER SHADER Unavailable Unavailable COOK, B DOM LACQUER SHADER Unavailable Unavailable COOK, B DOM LACQUER SHADER Unavailable Unavailable COOK, B DOM LACQUER SHADER Unavailable Unavailable COOK, B DOM LACQUER SHADER Unavailable Unavailable COOK, B DOM LACQUER SHADER Unavailable Unavailable COOK, B DOM LACQUER SHADER Unavailable Unavailable COOK, B DOM LACQUER SHADER Unavailable Unavailable COOK, B DOM LACQUER SHADER Unavailable Unavailable COOK, B DOM LACQUER SHADER Unavailable Unavailable COOK, B DOM LACQUER SHADER Unavailable Unavailable COOK, B DOM LACQUER SHADER Unavailable Unavailable COOK, B DOM LACQUER SHADER Unavailable Unavailable Dalton, Palmira LACQUER SHADER Unavailable Unavailable Dalton, Palmira LACQUER SHADER Unavailable Unavailable Dalton, Palmira LACQUER SHADER Unavailable Unavailable Dalton, Palmira LACQUER SHADER Unavailable Unavailable Dalton, Palmira LACQUER SHADER Unavailable Unavailable Dalton, Palmira LACQUER SHADER Unavailable Unavailable Dalton, Palmira LACQUER SHADER Unavailable Unavailable Dalton, Palmira LACQUER SHADER Unavailable Unavailable Dalton, Palmira LACQUER SHADER Unavailable Unavailable Dalton, Palmira LACQUER SHADER Unavailable Unavailable Dalton, Palmira LACQUER SHADER Unavailable Unavailable Lupillo Kearney PA Unavailable Unavailable Lupillo Kearney PA Unavailable Unavailable Lupillo Kearney PA Unavailable Unavailable Lupillo Kearney PA Unavailable Unavailable Lupillo Kearney PA Unavailable Unavailable Lupillo Kearney PA Unavailable Unavailable Lupillo Kearney PA Unavailable Unavailable Firebaugh, J Angela PA Unavailable Unavailable Firebaugh, J Angela PA Unavailable Unavailable Firebaugh, J Angela PA Unavailable Unavailable Firebaugh, J Angela PA Unavailable Unavailable Firebaugh, J Angela PA Unavailable Unavailable Firebaugh, J Angela PA Unavailable Unavailable Firebaugh, J Angela PA Unavailable Unavailable Firebaugh, J Angela PA Unavailable Unavailable Firebaugh, J Angela PA Unavailable Unavailable Firebaugh, J Angela PA Unavailable Unavailable Firebaugh, J Angela PA Unavailable Unavailable Firebaugh, J Angela PA Unavailable Unavailable Firebaugh, J Angela PA Unavailable Unavailable Firebaugh, J Angela PA Unavailable Unavailable Firebaugh, J Angela PA Unavailable Unavailable Dhiraj, A Sharon MD Unavailable [...] Unavailable Dhiraj, A Sharon ROTH Unavailable Unavailable Pleskach, Carol BACTERIOLOGY PROFESSOR Unavailable Unavailable Pleskach, Carol BACTERIOLOGY PROFESSOR Unavailable Unavailable Pleskach, Carol BACTERIOLOGY PROFESSOR Unavailable Unavailable Pleskach, Carol BACTERIOLOGY PROFESSOR Unavailable Unavailable Pleskach, Carol BACTERIOLOGY PROFESSOR Unavailable Unavailable Pleskach, Carol BACTERIOLOGY PROFESSOR Unavailable Unavailable Pleskach, Carol BACTERIOLOGY PROFESSOR Unavailable Unavailable Pleskach, Carol BACTERIOLOGY PROFESSOR Unavailable Unavailable Pleskach, Carol BACTERIOLOGY PROFESSOR Unavailable Unavailable Pleskach, Carol BACTERIOLOGY PROFESSOR Unavailable Unavailable Pleskach, Carol BACTERIOLOGY PROFESSOR Unavailable Unavailable Pleskach, Carol BACTERIOLOGY PROFESSOR Unavailable Unavailable Pleskach, Carol BACTERIOLOGY PROFESSOR Unavailable Unavailable Pleskach, Carol BACTERIOLOGY PROFESSOR Unavailable Unavailable Pleskach, Carol BACTERIOLOGY PROFESSOR Unavailable Unavailable Pleskach, Carol BACTERIOLOGY PROFESSOR Unavailable Unavailable Pleskach, Carol BACTERIOLOGY PROFESSOR Unavailable Unavailable Pleskach, Carol BACTERIOLOGY PROFESSOR Unavailable Unavailable Pleskach, Carol BACTERIOLOGY PROFESSOR Unavailable Unavailable Pleskach, Carol BACTERIOLOGY PROFESSOR Unavailable Unavailable Pleskach, Carol BACTERIOLOGY PROFESSOR Unavailable Unavailable Pleskach, Carol BACTERIOLOGY PROFESSOR Unavailable Unavailable Pleskach, Carol BACTERIOLOGY PROFESSOR Unavailable Unavailable Pleskach, Carol BACTERIOLOGY PROFESSOR Unavailable Unavailable Pleskach, Carol BACTERIOLOGY PROFESSOR Unavailable Unavailable Pleskach, Carol BACTERIOLOGY PROFESSOR Unavailable Unavailable Pleskach, Carol BACTERIOLOGY PROFESSOR Unavailable Unavailable Pleskach, Carol BACTERIOLOGY PROFESSOR Unavailable Unavailable Pleskach, Carol BACTERIOLOGY PROFESSOR Unavailable Unavailable Petrancosta, Cataño Nishi PA-C Unavailable Unavailabl e Petrancosta, Cataño Nishi PA-C Unavailable Unavailabl e Petrancosta, Cataño Nishi PA-C Unavailable Unavailabl e Petrancosta, Cataño Nishi PA-C Unavailable Unavailabl e Petrancosta, Cataño Nishi PA-C Unavailable Unavailabl e Petrancosta, Cataño Nishi PA-C Unavailable Unavailabl e Petrancosta, Cataño Nishi PA-C Unavailable Unavailabl e Petrancosta, Cataño Nishi PA-C Unavailable Unavailabl e Petrancosta, Cataño Nishi PA-C Unavailable Unavailabl e Petrancosta, Cataño Nishi PA-C Unavailable Unavailabl e Petrancosta, Cataño Nishi PA-C Unavailable Unavailabl e Petrancosta, Cataño Nishi PA-C Unavailable Unavailabl e Petrancosta, Cataño Nishi PA-C Unavailable Unavailabl e Petrancosta, Cataño Nishi PA-C Unavailable Unavailabl e Petrancosta, Cataño Nishi PA-C Unavailable Unavailabl e Petrancosta, Cataño Nishi PA-C Unavailable Unavailabl e Petrancosta, Cataño Nishi PA-C Unavailable Unavailabl e Petrancosta, Cataño Nishi PA-C Unavailable Unavailabl e Petrancosta, Cataño Nishi PA-C Unavailable Unavailabl e Petrancosta, Cataño Nishi PA-C Unavailable Unavailabl e Petrancosta, Cataño Nishi PA-C Unavailable Unavailabl e Petrancosta, Cataño Nishi PA-C Unavailable Unavailabl e Petrancosta, Cataño Nishi PA-C Unavailable Unavailabl e Johnna CERNAE Unavailable Unavailable Kenneth COOK Unavailable Unavailable Kenneth Ross MD Unavailable Unavailable Kenneth Ross MD Unavailable Unavailable Kenneth Ross MD Unavailable Unavailable Kenneth Ross MD Unavailable Unavailable Kenneth Ross MD Unavailable Unavailable Kenneth Ross MD Unavailable Unavailable Kenneth Ross MD Unavailable Unavailable Kenneth Ross MD Unavailable Unavailable Kenneth Ross MD Unavailable Unavailable Kenneth Rosski MD Unavailable Unavailable Cody, Kenneth Maria MD Unavailable Unavailable Puentes, Lauren Unavailable Unavailable [...] Lauren Unavailable Unavailable Puentes, Lauren Unavailable Unavailable Punetes, Lauren Unavailable Unavailable Puentes, Lauren Unavailable Unavailable Puentes, Lauren Unavailable Unavailable Puentes, Lauren Unavailable Unavailable Puentes, Lauren Unavailable Unavailable Puentes, Lauren Unavailable Unavailable Puentes, Lauren Unavailable Unavailable Puentes, Lauren Unavailable Unavailable Puentes, Lauren Unavailable Unavailable Puentes, Lauren Unavailable Unavailable [place]-Escalante, Eloina CNM Unavailable Unavailab le [place]-Escalante, Eloina CNM Unavailable Unavailab le Zaki-Escalante, Eloina CNM Unavailable Unavailab le Zaki-Escalante, Eloina CNM Unavailable Unavailab le [place]-Escalante, Eloina CNM Unavailable Unavailab le Zaki-Escalante, Eloina [...] is protected by Article 27-F of the [facility] Public Health law. If you continue you may have access to information: Regarding HIV / AIDS; Provided by facilities licensed or operated by the [facility] Office of Mental Health; or Provided by the [facility] Office for People With Developmental Disabilities. If such information is present, then the following [facility] mandated warning applies: This information has [...] law may result in a fine or usp sentence or both. A general authorization for the release of medical or other information is NOT sufficient authorization for further disc losure. Allergies and Adverse Reactions Type Description Substance Reaction Status Data Source(s ) No known allergies (situation) Substance with penicill in structure and antibacterial mechanism of action (substance) Penicillins Ac tive [facility] ([facility]) Family History Family Member Name Family Member Gender Family Member Status Date o f Status Description Data Source(s) Unknown Male Problem [facility] ([facility] Unknown Unknown Problem [facility] ([facility], [facility]) Encounters Encounter Providers Location Date Indications Data Source(s ) Outpatient Attender: SARAHI OLSEN 01/18/2021 12:00:00 A [facility] Outpatient Attender: Nishi Palacios PA-C Main Office 03/01/2020 01:15:00 PM EST [facility] ([facility] Outpatient Attender: Carol PLATTP Main Office 02/09/2020 0 7:30:00 AM EST [facility] ([facility] Outpatient Attender: Palmira wooten 02/02/2020 07:00:00 AM EST [facility] ([facility], [facility]) Outpatient Attender: Nishi Palacios PA-C Main Office 02/01/2020 02:00:00 PM EST [facility] ([facility] Outpatient Attender: ADRIANAFER OLSEN [id number] 01/20/2020 12:00:00 AM [facility] Outpatient Attender: ADRIANAFER OLSEN 01/06/2020 12:00:00 A [facility] Outpatient Attender: SARAHI OLSEN 01/02/2020 12:00:00 A [facility] Outpatient Attender: SARAHI OLSEN 12/26/2019 12:00:00 A [facility] Outpatient Attender: EPIFANIO COOKAttender: SARAHI OLSEN [id number] 12/07/2019 12:00:00 AM EDT - 12/07/2019 12:49:23 PM EDT Encounter for follow-up examination after completed treatment for conditions other than malignant neoplasm [facility] Encounter for follow-up examination afte r completed treatment for conditions other than malignant neoplasm Outpatient Attender: SARAHI OLSEN 12/06/2019 12:00:00 A [facility] Outpatient Attender: GEORGEALICEFER LATIFKIANAdmitter: SARAHI PAGE [id number] 11/30/2019 12:00:00 AM EDT - 12/03/2019 12:00:00 AM EDT Other specified abdominal hernia without obstruction or gangrene [facility] Other specified abdominal hernia without obstruction or gangrene Patient discharged. Outpatient Attender: Candace Mauricee nder: Yazmin BRITTCReferrer: SARAHI OLSEN [id number] 11/29/2019 12:00:00 AM EDT pretest [facility] pretest Outpatient Attender: DEFAULT / GENE JOANN / UNKNOWN PROVIDER ALIASES Referrer: SARAHI OLSEN 11/25/2019 12:00:00 AM ED T - 11/26/2019 12:00:00 AM EDT [facility] Outpatient Attender: Nishi Palacios PA-C Main Office 11/23/2019 02:30:00 PM EDT [facility] ([facility] Attender: Eloina ESTEBANM PPNCNY [facility] 11/02/2019 01:50:00 PM EDT - 11/02/2019 01:50:00 PM EDT [facility] ([facility] Outpatient Attender: SARAHI OLSEN [id number] 10/03/2019 12:0 0:00 AM EDT Other specified abdominal hernia without obstruction or gangrene [facility] Other specified abdominal hernia without obstruction or gangrene Outpatient 008 09/17/2019 03:42:00 PM EDT - 09/17/2019 03:42:00 PM EDT Lab test [facility] Lab test Attender: Sharon Main 10:33:00 AM EDT - 09/08/2019 10:33:00 AM EDT [facility] ([facility]) Outpatient Attender: DOM MATTHEWS NP Physical Therapy 09/06/2019 1 0:00:00 AM EDT [facility] ([facility]) Outpatient Attender: Lauren Puentes 09/02/2019 12:00:00 AM [facility] Attender: JENNY CERNA [facility]: ADRIANNE CARMONA 09/02/2019 12:00:00 AM [facility] Outpatient Attender: Tammy PARRA Main Office 08/26/2019 07:10:00 AM EDT [facility] ([facility] Outpatient Attender: Lauren Puentes 05/31/2019 12:00:00 AM [facility] Outpatient Attender: ADRIANNE CARMONA 05/31/2019 12:00:00 AM [facility] OutpatientPREV VISIT, NEW, AGE 40-64 Attender: Angela Main 05/04/2019 04:15:00 PM EDT - 05/04/2019 04:15:00 PM ED T Body mass index (BMI) 30.0-30.9, adultEncounter for oth screening for malignant neoplasm of breastEncntr for flavorer exam (general) (routine) w/o abn findingsEncounter for initial prescription of contraceptive pillsEncounter for oth general cnsl and advice on contraceptionOther sex counselingHigh risk heterosexual behaviorEncntr screen for infections w sexl mode of transmissEncounter for screening for human immunodeficiency virusHuman immunodeficiency virus [HIV] counseling [facility] ([facility]) Body mass index (BMI) 30.0-30.9, adult Encounter for oth screening for malignan t neoplasm of breast Encntr for flavorer exam (general) (routine) w/o abn findings Encounter for initial prescription of co ntraceptive pills Encounter for oth general cnsl and advic e on contraception Other sex counseling High risk heterosexual behavior Encntr screen for infections w sexl mode of transmiss Encounter for screening for human immuno deficiency virus Human immunodeficiency virus [HIV] couns eling Outpatient Attender: ADRIANNE CARMONA 04/15/2019 12:00:00 AM [facility] Outpatient Attender: Lauren Puentes 04/15/2019 12:00:00 AM [facility] Outpatient Attender: Lauren Puentes [id number] 03/08/2019 12:00:00 AM EST - 03/08/2019 11:43:36 AM [facility] Outpatient Attender: Nishi Palacios PA-C Main Office 01/20/2019 10:15:00 AM EST [facility] ([facility] Immunizations Vaccine Date Status Description Data Source(s) pneumococcal polysaccharide PPV23 03/01/2020 01:33:00 PM EST comple laurie [facility] ([facility] New in 2012. IIV4 11/23/2019 02:26:00 PM EDT completed [facility] ([facility] Medications Medication Brand Name Start Date Product Form Dose Route Admi nistrative Instructions Pharmacy Instructions Status Indications Reaction Description Data Source(s) 60 ACTUAT Albuterol 0.09 MG/ACTUAT Metered Dose Inhaler Albu terol Sulfate HFA 02/02/2020 12:00:00 AM EST RESPIRATORY active [facility] ([facility]) Prednisone 20 MG Oral Tablet Prednisone 02/02/2020 12:00:00 AM EST active [facility] ([facility]) Doxycycline Monohydrate 100 MG Oral Capsule Doxycycline [place] hydrate 02/02/2020 12:00:00 AM EST ORAL active M [facility] ([facility], [facility]) Magnesium Oxide 400 MG Oral Tablet Magne sium Oxide 400 (241.3 Mg) MG Oral Tablet (MAG-OX) Magnesium Oxide 400 (241.3 Mg) MG Oral Tablet (MAG-OX) 12/04/2019 12:00:00 AM EDT 400 mg Oral active Take 1 t ablet by mouth daily [facility] Caffeine 200 MG Oral Tablet caffeine tablet 200 mg caffeine tablet 200 mg 12/03/2019 09:30:00 AM EDT 200 mg Oral active 200 mg, Oral, Every 4 hours, First dose on 12/03/19 at 0930, For 5 days [facility] Medication administered onsite Caffeine 200 MG Oral Tablet Caffeine 200 MG Oral Tablet 11/16 12:00:00 AM EDT 200 mg Oral active Take 1 tablet by mouth every 4 (four) hours [facility] Bariatric Fusion 12/03/2019 12:00:00 AM EDT c [...] 6 ( six) hours for 10 days [facility] 0.5 ML dulaglutide 1.5 MG/ML [facility] 12/03/2019 12:00:00 AM EDT active M [facility] ([facility] Basaglar Kwikpen Basaglar Kwikpen 12/03/2019 12:00:00 AM EDT completed [facility] ([facility] Acetaminophen 325 MG Oral Tablet Acetaminophen 325 MG Oral T ablet 12/03/2019 12:00:00 AM EDT 650 mg Oral active Take 2 tablets by mouth every 6 (six) hours for 10 days [facility] Oxycodone Hydrochloride 5 MG Oral Tablet oxyCODONE HCl 5 MG Oral Tablet (ROXICODONE) oxyCODONE HCl 5 MG Oral Tablet (ROXICODONE) 12/03/2019 12:00:00 AM EDT 5 mg Oral active Take 1 t ablet by mouth every 4 (four) hours as needed for Pain for up to 3 days, Max Daily Dose: 30 mg [facility] 0.4 ML Enoxaparin sodium 100 MG/ML Prefi lled Syringe enoxaparin sodium (LOVENOX) injection 40 mg enoxaparin sodium (LOVENOX) injection 40 mg 12/02/2019 09:00:00 PM EDT 40 mg Subcutaneous active 40 mg, Subcutaneous, Daily Standard, First dose on Thu12/02/19 at 2100, For 30 days [facility] Medication administered onsite magnesium sulfate in dextrose 5 % infusion (premix) 1 g [id number] 12/02/2019 08:30:00 AM EDT 1 g Intravenous completed 1 g, Intravenous, Administer over 60 Minutes, Every 1 hour, First dose on Thu12/02/19 at 0830, For 3 doses [facility] Medication administered onsite Oxycodone Hydrochloride 5 MG [...] only) require Pain Service consultation and approval.
[facility] Medication administered onsite Oxycodone Hydrochloride 5 MG [...] only) require Pain Service consultation and approval.
[facility] Medication administered onsite magnesium sulfate in dextrose 5 % infusion (premix) 1 g [id number] 12/01/2019 01:15:00 PM EDT 1 g Intravenous completed 1 g, Intravenous, Administer over 60 Minutes, Every 1 hour, First dose on Stacey 12/01/19 at 1315, For 3 doses [facility] Medication administered onsite potassium phosphate 155 MG [...] mEq), and potassium 45 mg (1.1 mEq)
[facility] Medication administered onsite Magnesium Oxide 400 MG Oral Tablet Magnesium Oxide (MA G-OX) tablet 400 mg Magnesium Oxide (MAG-OX) tablet 400 mg 12/01/2019 09:15:00 AM EDT 4 00 mg Oral active 400 mg, Oral, D aily Standard, First dose on Stacey 12/01/19 at 0915, For 5 doses [facility] Medication administered onsite potassium chloride (K-DUR) dissolvable tablet 20 mEq [id number] 12/01/2019 09:15:00 AM EDT 20 meq Oral active 20 mEq, Oral, 2 Times Daily, First dose on Stacey 12/01/19 at 0915, For 3 days
May be dissolved in water for patients with a G-Tube or unable to swallow. If concern for clogging G-Tube, may contact Pharmacy to switch formulation to a powder packet.
[facility] Medication administered onsite 0.4 ML Enoxaparin sodium [...] 10-12 hours prior to removing epidural catheter.
[facility] Medication administered onsite Loratadine 10 MG Oral Tablet loratadine (CLARITIN) tab let 10 mg loratadine (CLARITIN) tablet 10 mg 12/01/2019 09:00:00 AM EDT 10 mg Oral active 10 mg, Oral, Every morning, First dose on Stacey 12/01/19 at 0900, For 30 days [facility] Medication administered onsite Losartan Potassium 50 MG Oral Tablet losartan (COZAAR) tablet 50 mg losartan (COZAAR) tablet 50 mg 12/01/2019 09:00:00 AM EDT 50 mg Oral active Hypertension 50 mg, Oral, Every morning, First dose on Stacey 12/01/19 at 0900, For 30 days
Check vital signs before administering
[facility] Hypertension Medication administered onsite pantoprazole 40 MG Delayed Release Oral Tablet pantoprazole (PROTONIX) EC tablet 40 mg pantoprazole (PROTONIX) EC tablet 40 mg 12/01/2019 09:00:00 AM E DT 40 mg Oral active 40 mg, Ora l, Daily Standard, First dose on Stacey 12/01/19 at 0900, For 30 days
Do not crush or chew
[facility] Medication administered onsite atorvastatin 40 MG Oral Tablet atorvastatin (LIPITOR) tablet 40 mg atorvastatin (LIPITOR) tablet 40 mg 12/01/2019 09:00:00 AM EDT 40 mg Oral active 40 mg, Oral, Every morning, First dose on Stacey 12/01/19 at 0900, For 30 days [facility] Medication administered onsite Citalopram 20 MG Oral Tablet citalopram (CELEXA) table t 40 mg citalopram (CELEXA) tablet 40 mg 12/01/2019 09:00:00 AM EDT 40 mg Oral active 40 mg, Oral, Every morning, First dose on Thu12/01/19 at 0900, For 30 days [facility] Medication administered onsite Levothyroxine Sodium 0.125 MG Oral Table t levothyroxine (SYNTHROID) tablet 125 mcg levothyroxine (SYNTHROID) tablet 125 mcg 12/01/2019 06:00:00 AM EDT 125 ug Oral active 125 mcg, O ral, Daily at 0600, First dose on Thu12/01/19 at 0600, For 30 days [facility] Medication administered onsite Calcium Chloride 0.0014 MEQ/ML / Potassi um Chloride 0.004 MEQ/ML / Sodium Chloride 0.103 MEQ/ML / Sodium Lactate 0.028 MEQ/ML Injectable Solution lactated ringers infusion lactated ringers infusion 12/01/2019 01:45:00 AM EDT 75 mL/h Intravenous aborted at 75 mL /hr, Intravenous, Continuous, Starting Thu12/01/19 at 0145, For 30 days [facility] Medication administered onsite Acetaminophen 325 MG Oral Tablet acetaminophen (TYLENO L) tablet 650 mg acetaminophen (TYLENOL) tablet 650 mg 11/30/2019 06:45:00 PM EDT 65 0 mg Oral active 650 mg, Oral, E very 6 hours, First dose on Thu11/30/19 at 1845, For 30 days
Maximum daily dose of acetaminophen is 3,000 mg from all sources in 24 hours.
[facility] Medication administered onsite ondansetron (ZOFRAN) injection 4 mg [id number] 11/30/2019 06:32:3 9 PM EDT 4 mg Intravenous active 4 mg, In travenous, Every 8 hours PRN, Nausea, Vomiting, Starting Thu11/30/19 at 1832, For 30 days [facility] Medication administered onsite albuterol (PROVENTIL HFA) inhaler 2 puff [id number] 11/30/2019 06:32:39 PM EDT 2 {puff} Inhalation active 2 pu ff, Inhalation, Every 6 hours PRN, Wheezing, Starting Thu11/30/19 at 1832, For 4 days
Shake the inhaler well before each spray.
[facility] Medication administered onsite insulin lispro (HumaLOG) injection MEDIU M DOSE EATING INSULIN patients 1-16 Units [id number] 11/30/2019 06:00:00 PM EDT U Subcutaneous active 1-16 Units, Subcutaneous, Three Times Daily-With Meals, First dose on Thu11/30/19 at 1800, For 30 days
Nursing MUST open the 'SQ Insulin Dosing Charts' Sidebar Report, or, the Patient Summary or Summary Report within the ED.
[facility] Medication administered onsite Acetaminophen 10 MG/ML Injectable Soluti on acetaminophen (OFIRMEV) infusion 1,000 mg acetaminophen (OFIRMEV) infusion 1,000 mg 11/30/2019 03:00:00 PM EDT 1000 mg Intravenous completed 1,000 mg , Intravenous, Once, Thu11/30/19 at 1500, For 1 dose
If NPO and has not yet received an acetaminophen product in prior 4 hours.
[facility] Medication administered onsite dextrose 5 %-0.9 % sodium chloride infusion [id number] 11/30/2019 03:00:00 PM EDT Intravenous aborted at 7 5 mL/hr, Intravenous, Continuous, Starting Thu11/30/19 at 1500, For 30 days [facility] Medication administered onsite HYDROmorphone PF (DILAUDID) 10 mcg/mL, b upivacaine (PF) 0.125 % in sodium chloride 0.9 % 250 mL epidural infusion 11/30/2019 03:00:00 PM EDT Epidural aborted at 6 mL/hr, Ep idural, Continuous, Starting Thu11/30/19 at 1500, For 7 days [facility] Medication administered onsite fentaNYL (SUBLIMAZE) (PF) injection 25 mcg [id number] 11/30/2019 02:48:40 PM EDT 25 ug Intravenous aborted 25 m cg, Intravenous, Every 5 min PRN, Severe Pain (Pain Scale Score 7-10), Starting Thu11/30/19 at 1448, For 10 doses, [facility] Medication administered onsite Glucose 0.417 MG/MG Oral Gel glucose (GLUTOSE) 40 % or al gel 15 g glucose (GLUTOSE) 40 % oral gel 15 g 11/30/2019 02:35:32 PM EDT 15 g Oral active 15 g, Oral, PRN, Low blood s ugar, for gluose 55-69 mg/dl and able to take PO, Starting Thu11/30/19 at 1435, For 30 days [facility] Medication administered onsite Glucagon 1 MG Injection glucagon (human recombinant) ( GLUCAGEN) injection 1 mg glucagon (human recombinant) (GLUCAGEN) injection 1 mg 11/30/2019 02:35:32 PM EDT 1 mg Intramuscular active 1 mg, Intramuscular, PRN, for glucose <55 without IV access, Starting Thu11/30/19 at 1435, For 30 days [facility] Medication administered onsite dextrose 50 % IV solution 25 mL [id number] 11/30/2019 02:35:32 PM E DT 25 mL Intravenous active 25 mL, Intrav enous, PRN, Other, blood glucose <55, Starting Thu11/30/19 at 1435, For 30 days
Not for midline administration.
[facility] Medication administered onsite 60 ACTUAT Albuterol 0.09 MG/ACTUAT Metered Dose Inhaler Albu terol Sulfate HFA 11/23/2019 12:00:00 AM EDT RESPIRATORY active [facility] ([facility] 24 HR Metformin hydrochloride 500 MG Extended Release Oral Tablet Metformin HCL ER 09/07/2019 12:00:00 AM EDT ORAL active [facility] ([facility]) 0.5 ML dulaglutide 1.5 MG/ML Auto-Injector [Trulicity] [facility] 09/07/2019 12:00:00 AM EDT active M [facility]ENT ([facility]) 24 HR Metformin hydrochloride 500 MG Ext ended Release Oral Tablet metFORMIN HCl ER 500 MG Oral Tablet Extended Release 24 Hour (GLUCOPHAGE-XR) metFORMIN HCl ER 500 MG Oral Tablet Extended Release 24 Hour (GLUCOPHAGE-XR) 09/07/2019 12:00:00 AM EDT 1000 mg Oral active Take 1,000 mg by mouth Two Times Daily [facility] Norethindrone 0.35 MG Oral Tablet Jencycla 0.35 MG Ora l Tablet Jencycla 0.35 MG Oral Tablet 07/18/2019 12:00:00 AM EDT 1 {tbl} Oral activ e Take 1 tablet by mouth every morning [facility] Onetouch Ultra 06/30/2019 12:00:00 AM EDT act ping [facility] ([facility] Ortho Micronor 0.35 mg tablet {28 (norethindrone 0.35 MG Ora l Tablet) } Pack 05/04/2019 12:00:00 AM EDT active Ortho Micronor 28 Day Pack [facility] ([facility]) Onetouch Delica Plus Lancets Extra Fine 33G 02/15/2019 12:00 :00 AM EST active [facility] ([facility] Onetouch Ultra Blue 02/15/2019 12:00:00 AM EST active [facility] ([facility] Docusate Sodium 100 MG Oral Capsule [DOK] DOK 100 MG capsule DOK 100 MG capsule 12/03/2018 12:00:00 AM EDT 100 mg Oral aborted Take 100 mg by mouth daily with breakfast [facility] Nystatin 100 UNT/MG Topical Powder nystatin (MYCOSTATI N) powder nystatin (MYCOSTATIN) powder 10/11/2018 12:00:00 AM EDT aborted Apply to affected area three times daily as needed. [facility] 3 ML insulin detemir 100 UNT/ML Pen Inje ctor [Levemir] LEVEMIR FLEXTOUCH 100 UNIT/ML pen LEVEMIR FLEXTOUCH 100 UNIT/ML pen 09/17/2018 12:00:00 AM EDT 8 U Subcutaneous aborted Inject 8 Uni ts into the skin Two Times Daily Indications: has at home [facility] tizanidine 4 MG Oral Capsule tizanidine (ZANAFLEX) 4 M G capsule tizanidine (ZANAFLEX) 4 MG capsule 09/17/2018 12:00:00 AM EDT 4 mg Oral aborted Take 4 mg by mouth daily [facility] Insurance Providers Payer name Policy type / Coverage type Policy ID Covered alliance party ID Covered alliance party's relationship to dowd Policy Dowd Plan Information [facility] [id number] SP [id number] [facility] [id number] SP [id number] [facility] I [id number] Self [id number] [facility] I [id number] Self [id number] [facility] C [id number] Self [id number] BS Of [place] [facility] (HMO) [id number] Self [id number] BCBS PATRICE HMO [id number] SP [id number] [facility]) [id number] Self [id number] [place] 302/307 [id number] SP [id number] [place] 302/307 [id number] SP [id number] [facility] (O) [id number] Self [id number] [facility] (O) [id number] Self [id number] BS Of [facility] Organization (O) [id number] Self [id number] EXCELLUS BCBS B [id number] S [id number] BS Of [facility] Health Maintenance Organization (O) [id number] Self [id number] [place] O [id number] S [id number] BCBS/[employer]cell[employer] Commercial [id number] Self [id number] [place]BS [place] PPO 302/307 [id number] SP [id number] NAKUL [id number] SP [id number] [id number] SP [id number] [employer] Commercial Self BLUE CROSS KINNEY PLAN SP BLUE [employer] PLAN [id number] SP [id number] EXCELLUS BCBS P [id number] S VYT [facility] BLUE [id number] SP [id number] Problems, Conditions, and Diagnoses Code Display Name Description Problem Type Effective Dates Data Source(s) 15777175 Essential hypertension Essential hypertension Problem 09/02/2019 12:00:00 AM EDT [facility] ([facility]) [id number] Pure hypercholesterolemia Pure hypercholesterolemia Pr oblem 09/02/2019 12:00:00 AM EDT [facility] ([facility]) [id number] Type 2 diabetes mellitus Type 2 diabetes mellitus Prob kris 09/02/2019 12:00:00 AM EDT [facility] ([facility]) Z09 Encounter for follow-up exam ination after completed treatment for conditions other than malignant neoplasm Encounter for follow-up examination afte r completed treatment for conditions other than malignant neoplasm Diagnosis 12/07/2019 12:19:15 PM [facility] K45.8 Other specified abdominal hernia without obstruction or gangrene Other specified abdominal hernia without obstruction or gangrene Diagnosis 11/30/2019 09:24:00 AM [facility] Flank hernia Flank hernia Diagnosis 11/30/2019 09:24:00 A M [facility] right flank incisional hernia right flank incisional h ernia Diagnosis 11/30/2019 09:24:00 AM [facility] pretest pretest Diagnosis 11/29/2019 02:49:46 PM [facility] fol Diagnosis 10/03/2019 02:36:19 PM [facility] Z5189 Encounter for other specified aftercare Encounter for other specified aftercare Diagnosis 09/17/2019 03:42:00 PM EDT [facility] E66.3 Overweight Overweight Diagnosis 03/08/2019 10:40:35 AM [facility] Surgeries/Procedures Procedure Description Date Indications Data Source(s) POCT GLUCOSE, DOCKED POCT GLUCOSE, DOCKED Routine 12/03/2019 11:48 AM EDT 12/03/2019 11:48:00 AM [facility] POCT GLUCOSE, DOCKED POCT GLUCOSE, DOCKED Routine 12/03/2019 7:36 AM EDT 12/03/2019 07:36:00 AM [facility] BLOOD COUNT COMPLETE AUTOMATED CBC Routine 12/03/2019 5:06 A M EDT 12/03/2019 05:06:00 AM [facility] PHOSPHORUS INORGANIC PHOSPHORUS LEVEL Routine 12/03/2019 5:06 AM E DT 12/03/2019 05:06:00 AM [facility] MAGNESIUM MAGNESIUM LEVEL Routine 12/03/2019 5:06 AM EDT 12/03/2019 05:06:00 AM [facility] BASIC METABOLIC PANEL CALCIUM TOTAL BASIC METABOLIC PANEL Routi ne 12/03/2019 5:06 AM EDT 12/03/2019 05:06:00 AM EDT [facility] GLUCOSE QUANTITATIVE BLOOD XCPT REAGENT STRIP POCT GLUCOSE, DOC KED Routine 12/02/2019 8:10 PM EDT 12/02/2019 08:10:00 PM [facility] GLUCOSE QUANTITATIVE BLOOD XCPT REAGENT STRIP POCT GLUCOSE, EVIN MORENO Routine 12/02/2019 5:39 PM EDT 12/02/2019 05:39:00 PM [facility] GLUCOSE QUANTITATIVE BLOOD XCPT REAGENT STRIP POCT GLUCOSE, EVIN MORENO Routine 12/02/2019 11:53 AM EDT 12/02/2019 11:53:00 AM [facility] GLUCOSE QUANTITATIVE BLOOD XCPT REAGENT STRIP POCT GLUCOSE, EVIN MORENO Routine 12/02/2019 7:43 AM EDT 12/02/2019 07:43:00 AM [facility] BLOOD COUNT COMPLETE AUTOMATED CBC Routine 12/02/2019 4:13 A M EDT 12/02/2019 04:13:00 AM [facility] PHOSPHORUS INORGANIC PHOSPHORUS LEVEL Routine 12/02/2019 4:13 AM E DT 12/02/2019 04:13:00 AM [facility] MAGNESIUM MAGNESIUM LEVEL Routine 12/02/2019 4:13 AM EDT 12/02/2019 04:13:00 AM [facility] BASIC METABOLIC PANEL CALCIUM TOTAL BASIC METABOLIC PANEL Routi ne 12/02/2019 4:13 AM EDT 12/02/2019 04:13:00 AM [facility] GLUCOSE QUANTITATIVE BLOOD XCPT REAGENT STRIP POCT GLUCOSE, EVIN MORENO Routine 12/02/2019 12:22 AM EDT 12/02/2019 12:22:00 AM [facility] GLUCOSE QUANTITATIVE BLOOD XCPT REAGENT STRIP POCT GLUCOSE, EVIN MORENO Routine 12/01/2019 4:40 PM EDT 12/01/2019 04:40:00 PM [facility] GLUCOSE QUANTITATIVE BLOOD XCPT REAGENT STRIP POCT GLUCOSE, EVIN MORENO Routine 12/01/2019 11:51 AM EDT 12/01/2019 11:51:00 AM [facility] GLUCOSE QUANTITATIVE BLOOD XCPT REAGENT STRIP POCT GLUCOSE, EVIN MORENO Routine 12/01/2019 7:44 AM EDT 12/01/2019 07:44:00 AM [facility] BLOOD COUNT COMPLETE AUTOMATED CBC Routine 12/01/2019 4:51 A M EDT 12/01/2019 04:51:00 AM [facility] PHOSPHORUS INORGANIC PHOSPHORUS LEVEL Routine 12/01/2019 4:51 AM E DT 12/01/2019 04:51:00 AM EDT [facility] MAGNESIUM MAGNESIUM LEVEL Routine 12/01/2019 4:51 AM EDT 12/01/2019 04:51:00 AM EDT [facility] BASIC METABOLIC PANEL CALCIUM TOTAL BASIC METABOLIC PANEL Routi ne 12/01/2019 4:51 AM EDT 12/01/2019 04:51:[address] [facility] GLUCOSE QUANTITATIVE BLOOD XCPT REAGENT STRIP POCT GLUCOSE, DOC KED Routine 11/30/2019 9:31 PM EDT 11/30/2019 09:31:00 PM EDT [facility] GLUCOSE QUANTITATIVE BLOOD XCPT REAGENT STRIP POCT GLUCOSE, DOC KED Routine 11/30/2019 6:08 PM EDT 11/30/2019 06:08:00 PM EDT [facility] GLUCOSE QUANTITATIVE BLOOD XCPT REAGENT STRIP POCT GLUCOSE, DOC KED Routine 11/30/2019 3:46 PM EDT 11/30/2019 03:46:00 PM [facility] BLOOD TYPING ABO TYPE AND SCREEN Routine 11/30/2019 12:58 PM EDT 11/30/2019 12:58:00 PM [facility] REPAIR, INITIAL INCISIONAL/VENTRAL HERNIA REDUCIBLE R EPAIR, INITIAL INCISIONAL/VENTRAL HERNIA REDUCIBLE 11/30/2019 12:07 PM EDT Flank hernia 11/30/2019 12:07:00 PM EDT - 11/30/2019 02:56:00 PM EDT Flank hernia [facility] Flank hernia GLUCOSE QUANTITATIVE BLOOD XCPT REAGENT STRIP POCT GLUCOSE, DOC KED Routine 11/30/2019 9:56 AM EDT 11/30/2019 09:56:00 AM EDT [facility] BLOOD COUNT COMPLETE AUTOMATED CBC Routine 0 3:19 PM EDT Preop testing 11/29/2019 03:19:00 PM EDT Preop testing [facility] Preop testing BASIC METABOLIC PANEL CALCIUM TOTAL BASIC METABOLIC PANEL Routi ne 11/29/2019 3:19 PM EDT Preop testing 11/29/2019 03:19:00 PM EDT Preop testing [facility] Preop testing EKG 12-LEAD - CMAXX REPORT EKG 12-LEAD - CMAXX REPORT 11/29/2019 2:26 PM EDT 11/29/2019 02:26:[address] 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 Other 05/04/2019 12:00:00 AM EDT - 2019 12:00:00 AM EDT [facility] ([facility]) CVR Manufacturing Automation Engineer.Svc. Contraceptive 05/04/2019 12 :00:00 AM EDT - 05/04/2019 12:00:00 AM EDT [facility] ([facility]) CVR Med.Svc. Height/Weight 05/04/2019 12 :00:00 AM EDT - 05/04/2019 12:00:00 AM EDT [facility] ([facility]) CVR Blood Pressure 05/04/2019 12:00:00 AM EDT - 2019 12:00:00 AM EDT [facility] ([facility]) CVR Med.Svc. Other 05/04/2019 12:00:00 AM EDT - 2019 12:00:00 AM EDT [facility] ([facility]) HCS Without Test 05/04/2019 12:00:00 AM EDT - 05/04/19 20 12:00:00 AM EDT [facility] ([facility]) CYTOPATH, C/V, THIN LAYER 05/04/2019 12: 00:00 AM EDT - 05/04/2019 12:00:00 AM EDT [facility] ([facility]) PREV VISIT, NEW, AGE 40-64 05/04/2019 12 :00:00 AM EDT - 05/04/2019 12:00:00 AM EDT [facility] ([facility]) N.GONORRHOEAE, Pharyngeal 05/04/2019 12: 00:00 AM EDT - 05/04/2019 12:00:00 AM EDT [facility] ([facility]) CHYLMD TRACH, Pharyngeal 05/04/2019 12:0 0:00 AM EDT - 05/04/2019 12:00:00 AM EDT [facility] ([facility]) SYPHILLIS BLOOD SEROLOGY, QUALITATIVE 12:00:00 AM EDT - 05/04/2019 12:00:00 AM EDT [facility] ([facility]) HTLV/HIV CONFIRMATORY TEST 05/04/2019 12 :00:00 AM EDT - 05/04/2019 12:00:00 AM EDT [facility] ([facility]) HEPATITIS C AB TEST 05/04/2019 12:00:00 AM EDT - 05/03 12:00:00 AM EDT [facility] ([facility]) N.GONORRHOEAE, SWAB 05/04/2019 12:00:00 AM EDT - 05/03 12:00:00 AM EDT [facility] ([facility]) CHYLMD TRACH, SWAB 05/04/2019 12:00:00 AM EDT - 2019 12:00:00 AM EDT [facility] ([facility]) ROUTINE VENIPUNCTURE 05/04/2019 12:00:00 AM EDT - 05/04/2019 12:00:00 AM EDT [facility] ([facility]) Results ID Date Data Source [id number] 03/02/2020 08:51:00 AM EST [facility] ([facility] Name Value Range Interpretation Code Description Data Roxy rce(s) Supporting Document(s) Thyrotropin [Units/volume] in Serum or Plasma 0.173 uIU/ML 0.358-3.74 0 [facility] ([facility] ID Date Data Source [id number] 03/02/2020 08:51:00 AM EST [facility] ([facility] Name Value Range Interpretation Code Description Data [facility] Supporting Document(s) Cholesterol Level 107 mg/dL [facility] ([facility] HDL Cholesterol 64 mg/dL [facility] ([facility] Triglycerides Level 86 mg/dL [facility] ([facility] LDL Cholesterol 26 mg/dL [facility] Non-HDL-C 43 mg/dL [facility] ([facility] Cholesterol Risk Ratio 1.671 [facility] ([facility] ID Date Data Source [id number] 03/02/2020 08:51:00 AM EST [facility] ([facility] Name Value Range Interpretation Code Description Data [facility](s) Supporting Document(s) Creatinine, Urine 220.0 mg/dL [facility] ([facility] Edilson/Creat Ratio 55.4 MCG/MG 0.0-30.0 [facility] ([facility] [employer] STATES THAT MICROALBUMINURIA IS PRESENT [...] [facility] ID Date Data Source [id number] 03/02/2020 08:51:00 AM EST [facility] ([facility] Name Value Range Interpretation Code Description Data Roxy e(s) Supporting Document(s) Estimated Average Glucose 151 mg/dL 60-110 [facility] ([facility] Hemoglobin A1c/Hemoglobin.total in Blood 6.9 % [facility] ([facility] <content>REFERENCE RANGES:</content><br/ ><content></content>
<content><=5.6% NORMAL</content>
<content>5.7-6.4% SUGGESTS IMPAIRED GLUCOSE METABOLISM/PREDIABETIC</content>
<content>>= 6.5% ABNORMAL</content>
<content></content> ID Date Data Source [id number] 03/02/2020 08:51:00 AM EST [facility] ([facility] Name Value Range Interpretation Code Description Data [facility](s) Supporting Document(s) Blood Urea Nitrogen 13 mg/dL [...] Little GFR Left</content>
<content>ESRD GFR <15 on INFORMATICS MANAGER</content>
<content></content> Sodium Level 140 meq/L 136-145 [facility] [...] [facility] ID Date Data Source [id number] 02/02/2020 12:00:00 AM EST [facility] Name Value Range Interpretation Code Description Data Roxy rce(s) Supporting Document(s) SARS coronavirus 2 Ag [facility] This lab was ordered by [facility] and reported by [facility]. ID Date Data Source [id number] 01/20/2020 10:21:25 AM EST [facility] Name Value Range Interpretation Code Description Data Roxy rce(s) Supporting Document(s) Progress Note [facility] TAGPRz5rQuJAQiPf25/FMXrfBYWic2SyIVrbJQk4KUznTOFvQ0UiSUD2oS9jCML8NHpWLfOnLpHqYcE5 lbm AwIjsAJiXtMQDhUzlEMbPsTXaaEapadEWtMT9YbON5OBLuW96oTAMkVKNmK7EeJFN7LpT+Bh8USZWzvG EoVT2KDobRoUrhr0k03TtF/deCOQrtIU6wtZmnFRKkd8cqSUtRvt2ldBbD8eVaNtfm8+4m5/6qor+wkk qcfibg1Qkn23gUcQ7IkFkrMMAbmoi/r0BSJNJOInpk /CsrDZcJ3g5/y3eeFp8oJe+qMFUN3UbXdpNsgcLiUldhYBrmfHOK6QOqOYpxTomXcqWEL94oab/yx4en 15mZ5xrXoyqCp/ZlM3HlFvvU1Sy2ORw+mK0N9kqhNHYRDgCop1cvm7dgxnYyqGBepTQQtgKpLr/zynQY pwV4IBSwY/Tng2gD2FComyB3ZAxlckS9o/iB5HDwSA TbrzFtRwDjCiU91Sx3PWOMmpO5q3vS5MJgvVQ3aB53DnHmvs+ovLHIY7updyxFHp6FB/HTAPPZbzh0FM vYRTJNfZpaRUOqNp/fsUvRL6DbtioQa/AnvOAzbLvPx0lLj71gZwaLhU0JBrn3zs4nJdFCOseQ6nFo7c EHU+7jiSVwfPFjR9IP6t9gSqgjy8NngoQT2DDlhw [file] AgICAgICAgICAgICAgICAgICAgICAgICAgICAgICAgICAgICAgICAgICAgICAgICAgICAgICAgICAgIC WdJCXqZSGxLHDsWUUeHDWdDHEhSZ8FWWHyTOIoKPClMIAsOVQeUWVeSIGxPJIjCDYzNUNkULXlGJZdPG AgICAgICAgICAgICAgICAgICAgICAgICAgICAgICAg LCHgOICfKLBlXQCvYDLbULGrLNAhODCfROYcWWIgFI0OYMHdHIHgSOJoOZHmJLGhXSAkCEXcVEFcPHBh ICAgICAgICAgICAgICAgICAgICAgICAgICAgICAgICAgICAgICAgICAgICAgICAgICAgICAgICAgICAg BULuXTFrZBTrTDPzYD0WWVPvMBZoXPAaLHPqUIYiJN AgICAgICAgICAgICAgICAgICAgICAgICAgICAgICAgICAgICAgICAgICAgICAgICAgICAgICAgICAgIC GeWZQhYSMzRJFqNXIkGCPtBWMyREMbHA8KQFOdYKSsPNPjHBLbNDJuIJWgMYOjNYQdNMDgSEOgLIXgPS AgICAgICAgICAgICAgICAgICAgICAgICAgICAgICAg WLRaDADlDUTbOLWvQXCpQHYmNEIcJYLzDXIpPPMzIRMuSZ2BYGLzXUJlLZGdOIXoMNJmFFGlDLFeCWCz ICAgICAgICAgICAgICAgICAgICAgICAgICAgICAgICAgICAgICAgICAgICAgICAgICAgICAgICAgICAg IOIhTEMiDVKmQVIhJZYfBT5EAAYiZYPpEJBwTMNoEN AgICAgICAgICAgICAgICAgICAgICAgICAgICAgICAgICAgICAgICAgICAgICAgICAgICAgICAgICAgIC KfJASaKIRjAOLhPMDdAJCqWLXlICEaWXLmUK6CYOOcBZXoEICtKTHbQZDrQWFwOVQqWCZkWEAgBIJnOE AgICAgICAgICAgICAgICAgICAgICAgICAgICAgICAg MVBnIGSmIEPuONHkHVXjFSAcMGFbLMHxCYUxOXOhLURyCRJpCV3JICAdBVQcNEJeXWTeNRCdORKvRWZa ICAgICAgICAgICAgICAgICAgICAgICAgICAgICAgICAgICAgICAgICAgICAgICAgICAgICAgICAgICAg FKGhCEJeUBHrTMByHFXqNAOfZX4XKCDjGMVlIGAyME AgICAgICAgICAgICAgICAgICAgICAgICAgICAgICAgICAgICAgICAgICAgICAgICAgICAgICAgICAgIC VxVIKvEGZcARNdOFOzLJBqNBTvUISvXVNqHIZzXH2SZS43qZUsr3R9MQVnTG8kejn/Db9UYKtgzpUbvX SuYT5YPtTcQS1aip8AGbPkAN7rcc6TUDzIDrCzV7N5 vNTvFJHjTVKUAgSdT94cSAtlNm01IBivKELjRqEtJIn6Do8ADtIlN7fjTHEzIbV1HFOqEmDpZIviBF8W o2QhyJOgGHp+Xd7GZA7bh4RxSFlzVuKeWN4irq9YGVsLFkQaV5OskcC6VPWiDVDkQi7YBUXhRCEvmIHg CuBnVXHCEoQcI8GahD98PRRXRl5+DQplbmRvYmoNCj XnBLOir7NtUCs3BF5GEMYjTGq9eTVcOAVtN3Bvl9GiSe64VPAdByfwFT83v0VsLsIoRT1wDZxnf1Nmlq khQQRyFIJaEDHaGW8aNNIsRNQ8KoY0AXOKJJ5GNHGuOJAwzMGfSQOvUZYTIV0GMVcqUCS5WQCnfvPelD ZgPUiqHH3RYTGhwiPhLeOfMVAMVRu+Od8ZWW2hx0Su ODloFRDiHH1qzw3HJHrQPsAfJ3F8kNGbH1C5OWabIg0YTUXyDKDaAcDuFBIYCUhyIT2DQU6hslR7JX6A lPMpDMWnQPHurNYaLNj1A60kxNZwFNuqLW0NKSR+Elisabeth+Is2TDMDkHPDsAPXuTiUgCDVQNqAkI0PxL8RV g1QkP6VuRN96jSwjmtDvRRjwTK2RCB4bXUNcUMUKEN 7BpOXlcX0xcbBuUlQwUHBXJzPmE64awFZwFBOtJISoXENpPh3GXPWlW0PmkiObfPiswlVfQNGcSFPPWK 3BYMnqjvMrmBIohKzyFC96hAdiHM0MXx4NUyFtBS3puj5VdHMvTx7XBHWqSB8YWHTpZZGzPYRrJWL5YT UxLfVaOMkkUXStKEBbZVS4WQSaCMZdGV2VGmIaBTGy NWr1ZOcxIYIaCYMagd8CTRBaSTMhGMQ3UoMfMBLoJJEnRFjhZODnZBHcECT7TSItZRClPN8WCvNyZSHr PBP8FfWvTKHtIMQzct8QMWWzOBTtYxO2MbXyTQWqERWaLGrbQNPjCGN3KSH3FVYtTTBzTQ5ZJuNySVNq NKTiQlEcANVaTLPyke0PJLXsHHExBSXpDKRnBSUvNL EaYPjrVFOaVYU1RSE1KKOtQAJwXD3TZzHxFTTpNYP0KgHoHCJfZKMjxa7HNXEpSZFfHQj0LBOuMHIpQN BbGUfhEZPiIND3WcEnIBXfUAYoGN8WPxPaYLCeVFc6OarzZBXxTCHazu3XGDXnEOIdEhghGAInSSHyNB IfENvzVBPcXYG5LZj9FWNoPMSwRC4AClGnDBNnMQsr SrXlQHKjKKUfvs9XGGVqTFErKDG2XtXfLJCfCULnFGzvUSCmKTQ2OjZ8IHRhNDNnGJ7MWuUzHCDtHFn4 NyZzXYXyDDWqpv8KZUPtCQHtRMm2IxZqGEPiJMOpMDgvKLNdRQFqMitdQWBvMFGuUC1MShZzOJLdLkNr XdLvDDRdVHRqgw7HGBLvXYLdWHBrHGZdPFQaECMxPR d4dcZieJPkLZu3JH7YE9XensTeBhWNRh1Go107ALL6OSDyPq6JT0npCw8mMGQnEMFQXq6JFMi7EaRmVe K3WzXoYJo3MgR9OOH1ACKtRHEzRLE6TIU4Y0S+SMu3WVSqBLj2OCI8XCVvKhh3GUPxJrVdQcYeEwT8QK yvYY1nHHDZEy3+JYerdBNexCofHCUDLsPoDyX3LWdzWBGCQa8O ID Date Data Source [id number] 12/07/2019 04:23:10 PM EDT [facility] Name Value Range Interpretation Code Description Data Roxy rce(s) Supporting Document(s) Progress Note [facility] ZKYSRp3wHgMNJaEx05/IOYoyRNLep0ZxEEdeLEi0PNhbTHArB2SqHYZ9sU8pONM2ICrWIfWxPdNxVMVb lbm [file] ICAgICAgICAgICAgICAgICAgICAgICAgICAgICAgICAgICAgICAgICAgICAgICAgICAgICAgICAgICAg ICAgICAgICAgICAgICANCiAgICAgICAgICAgICAgICAgICAgICAgICAgICAgICAgICAgICAgICAgICAg ICAgICAgICAgICAgICAgICAgICAgICAgICAgICAgIC AgICAgICAgICAgICAgICAgICAgICAgICANCiAgICAgICAgICAgICAgICAgICAgICAgICAgICAgICAgIC AgICAgICAgICAgICAgICAgICAgICAgICAgICAgICAgICAgICAgICAgICAgICAgICAgICAgICAgICAgIC AgICAgICANCiAgICAgICAgICAgICAgICAgICAgICAg ICAgICAgICAgICAgICAgICAgICAgICAgICAgICAgICAgICAgICAgICAgICAgICAgICAgICAgICAgICAg ICAgICAgICAgICAgICAgICANCiAgICAgICAgICAgICAgICAgICAgICAgICAgICAgICAgICAgICAgICAg ICAgICAgICAgICAgICAgICAgICAgICAgICAgICAgIC AgICAgICAgICAgICAgICAgICAgICAgICAgICANCiAgICAgICAgICAgICAgICAgICAgICAgICAgICAgIC AgICAgICAgICAgICAgICAgICAgICAgICAgICAgICAgICAgICAgICAgICAgICAgICAgICAgICAgICAgIC AgICAgICAgICANCiAgICAgICAgICAgICAgICAgICAg ICAgICAgICAgICAgICAgICAgICAgICAgICAgICAgICAgICAgICAgICAgICAgICAgICAgICAgICAgICAg ICAgICAgICAgICAgICAgICAgICANCiAgICAgICAgICAgICAgICAgICAgICAgICAgICAgICAgICAgICAg ICAgICAgICAgICAgICAgICAgICAgICAgICAgICAgIC AgICAgICAgICAgICAgICAgICAgICAgICAgICAgICANCiAgICAgICAgICAgICAgICAgICAgICAgICAgIC AgICAgICAgICAgICAgICAgICAgICAgICAgICAgICAgICAgICAgICAgICAgICAgICAgICAgICAgICAgIC AgICAgICAgICAgICANCiAgICAgICAgICAgICAgICAg ICAgICAgICAgICAgICAgICAgICAgICAgICAgICAgICAgICAgICAgICAgICAgICAgICAgICAgICAgICAg ICAgICAgICAgICAgICAgICAgICAgICANCjw/zZTxM3mzuSOhhfG6W9lxPu8RSj2RNH6hz3CyXYYzLKug oaOcXsjWQyNcNIUwGzvUBwg0NEweOJ5FrHYeC9EgI3 TqHIqxOM2YVBEhHUDpoGCvPXGvXFCiQwP8QRNyCIbdQQ5JqTFgUXqdCUHrIVKeOP1GAZWrH532psQbYO 8RWu8RLkFwCY2ibe1PVUrnCKUlJpwMHww5DBmqKE3FoUHfcZUhYACqENAVGrYuX4sir2AoUhQwHTNGUG cnLC3Zv3QfzSWeINx+Uc0EGA5th5EoRIkrZZTxOQ8w ob3LCOsJYyByN2XpfWvpHTCwd6aeQSEqHJ8snPJtPCG8EOIiLAdkCJKXXGskfLDeGMDBMpOocWHuUM6t CU4rMPGwRUEaXoVwDLAKAY0BJHYaXMMsfGOeHYVeIITOZU8NTMsjQYW8EFEugrQxpCJuNEnpEI1NTVXu bnQgMTkgMCBSDQo+Ut0ZAM6pa3OoCHrbSJKbGB8stz 6LJWgAUuKpW8O4uZSiQ8K1TDvyZd8CXJSoJLGzWBliDVMKSOvoAD3YEY9srqJ4RL9MxDXpIDVsRZYxxN CdLOo0D74djQPxRBfdUY1JYRV+Elisabeth+Kz2VGOSbWLMjOHYsLbCmXMLBOdPfW3ZzE1CKx3GvX6AxOM30iV zrszEpMGrwIQ5XGC1bDSCpPTKHVH7HxQVpsS4nmeEe NRCfCBGRRfMvP84roJSjWFHzYDO3TXOjFs7IOCDiE9XwgjDbqRfbwhRsAIQtTNFAEE3HGHaspbVtmVVt jFqxIU02fGsvVQ1TPd1UXcXtQY9uuy8IqVFuCv4ITCGkTw8XBEPwZISiRHKqGKU8RBTfCmSpKRsuYCNa GOUiQPS7RXXcLNZwBH1GSuFjAPLnENy2DEcmWJZyYR Lttl8QRRKtMXQzMHCjWcFnXYHwXOUpOTabNBBwVCZdRAC0ZDTfOKBvPU7WYdXrCUUsAORmNdKsFZUhOB Rmvp0HXRSgZEGrYsNlOZWxLTFdTXAmFLlnLHTcDNCaOSg6JYLpQBHmRJ6WXxHuBZZnRKX0XIEpINOpOK Oylh7MPDZmLOPmStl2PbAkPQLpKFUrGYbrCLNkMYG9 VCXlPCBhVOKtPE9IUdEjETLzFNGwHuDaDLShNICqmh6ITCLgWXWkXDLhXTIzRAMcSLNuPLukDFVvKAS4 IMN7ZQAlBCOlYN1HOxGeLMOqGPW5ZCKeEXEsNCJgmj0VVFMmEZUaSsO9QWYvFIGlOCCiIQkiFZUrAYU9 JmVnZMOkTZAfVC6PZlOvPXGyAYf5QaTbGSWfNGNrxr 3URYTpUXCiQuf1OnZuHPGfQIZlTAruRAQoIUU0GtV4VUFuSSLsPG0PSaCeEBFdWEkmFAGlXYKhMCSkvt 2MZZFkBFMqYUSfXHXwHOEyKTWwRFq0ayMjzEQxPEv4BV7SD2KnjtVfSqUSWx1Tn558XOIqKPLbMo3PI8 woNj5mKAZqZCXHIs1FOHe5U8E7AoS7VBm0BKEwVpP9 IrMwDlC5JSC7LLW8JuhnXBc+ZGvqNqEaNhH5GYbzXBEhJcwdXYTlDKBoBQUkYEAaXPU2Kv1hQZETHg3+ GHourXQncCyjGQYPQxR6Pjj3XSitYFRLBe6D ID Date Data Source [id number] 12/03/2019 08:43:53 PM EDT [facility] Name Value Range Interpretation Code Description Data Roxy rce(s) Supporting Document(s) Discharge Summary [facility] MVHIWw2rPaTXPkAm43/SAQcqCBDob7MwFFhvAYy9LGvyTIDiX2EeVOH6gY7gJTH7ROsXGuBiKfTrGTH7 lbm [file] AgICAgICAgICAgICAgICAgICAgICAgICAgICAgICAg ICAgICAgICAgICAgICAgICAgICAgICAgICAgICAgICAgICAgICAgICAgICAgICAgICAgICAgICAgICAg ICAgICAgDQogICAgICAgICAgICAgICAgICAgICAgICAgICAgICAgICAgICAgICAgICAgICAgICAgICAg ICAgICAgICAgICAgICAgICAgICAgICAgICAgICAgIC AgICAgICAgICAgICAgICAgDQogICAgICAgICAgICAgICAgICAgICAgICAgICAgICAgICAgICAgICAgIC AgICAgICAgICAgICAgICAgICAgICAgICAgICAgICAgICAgICAgICAgICAgICAgICAgICAgICAgICAgDQ ogICAgICAgICAgICAgICAgICAgICAgICAgICAgICAg ICAgICAgICAgICAgICAgICAgICAgICAgICAgICAgICAgICAgICAgICAgICAgICAgICAgICAgICAgICAg ICAgICAgICAgDQogICAgICAgICAgICAgICAgICAgICAgICAgICAgICAgICAgICAgICAgICAgICAgICAg ICAgICAgICAgICAgICAgICAgICAgICAgICAgICAgIC AgICAgICAgICAgICAgICAgICAgDQogICAgICAgICAgICAgICAgICAgICAgICAgICAgICAgICAgICAgIC AgICAgICAgICAgICAgICAgICAgICAgICAgICAgICAgICAgICAgICAgICAgICAgICAgICAgICAgICAgIC AgDQogICAgICAgICAgICAgICAgICAgICAgICAgICAg ICAgICAgICAgICAgICAgICAgICAgICAgICAgICAgICAgICAgICAgICAgICAgICAgICAgICAgICAgICAg ICAgICAgICAgICAgDQogICAgICAgICAgICAgICAgICAgICAgICAgICAgICAgICAgICAgICAgICAgICAg ICAgICAgICAgICAgICAgICAgICAgICAgICAgICAgIC AgICAgICAgICAgICAgICAgICAgICAgDQogICAgICAgICAgICAgICAgICAgICAgICAgICAgICAgICAgIC AgICAgICAgICAgICAgICAgICAgICAgICAgICAgICAgICAgICAgICAgICAgICAgICAgICAgICAgICAgIC AgICAgDQogICAgICAgICAgICAgICAgICAgICAgICAg ICAgICAgICAgICAgICAgICAgICAgICAgICAgICAgICAgICAgICAgICAgICAgICAgICAgICAgICAgICAg MZSnMKGiAYWpURVrQOZnDJc3X9vaPZLiINIrMT6eDZg8Ki5+LYuIWeEsFAR1zuSexC8DEW9nm3SrHLnk RDXir8WvOQm1VZ8PMSKvDHzlWI3CWBhqpo8GFBAxFE VotFAFy7qdVbEoZAZ3OCPfSdauES6PTFPoZ0pgxbZvNWMpAJYDDBchUKQOQUigSGZOCY7KFrRvM1PgxT 22YCPUTs7+EMcfahIsTzbVVvE7XCXiz0AbBPu2XW5ULNZpPswhw5HcCeCjINPLDYofWD5CZKU6MKJxNF XyWh1BMUQuC728fbTnUE2MMf9YGyZkYS0evx8LNzRb GOGzNqmKWyu9VWfeDC8VlMStZXzGoALozNYlY0JzX6BbaMAjpLVlxJOHsPGzWDXozzS4CCXaCY0YVOQ3 HWZsRcC6QgQqQhVmWMG4KOuzMJ0xOLhaXJ3JHRY8MPjnTPLjZRHsG1wCZrJzJNWfJZTbaNmtVX8MNwBf J4WsghAqzQAxYTWiPVGWPy1+DQplbmRvYmoNCjMxID Gjr8ZrTDq3IT7AAHDmLFugBB4YIZMctT2hDLqzPX1RJsTwTlDbSGRPGcBrN73ryHImYWd9E2HjExJgAX VkRmlsZXMgPDwvTmFtZXMgWyBdDQogID4+ID4+WPvzFI7SXQsnscHbRUCnAr5VFEZmFRPeLW1mAHZeNP MlB4K3dLzrWNEGQyQlL6ktqbevXZ7mFBSlR634oJxu inTfTGY3NDHeNx7EUGLhKBN1TGLxmGTdElscZMGKBTzqKK3FbFYfVWA2fD4oSLpsSJReYAHhL5aRFrQw oFpgQN61vFpgekYoyFLuEVd+Ut3QJM7ng5OcILx9njHaKOfxLFBcEMhzLMFyMHFmFPPaSHB5SDZ8DXUR DmIcNYXaJRJgEKmeYKVpSBEpry0TXVOuFQSqSUy7FG CeUOLkZOPfALlcFMVsBGNwGcPyHGDfHVNlDB3UYhWaTXIePTOzIPygIPEzUHSqli4VVFPxMYLhFeMnAa LbXLXoFNTbUWyjBXXjXPYoTWI5MTAyDFRnSZ3TYrGsXYIjOHlqIFKfHOKvHJAofy5NQGVjTNJdWqU7GX YyYKEqCQHxMVlcMPQsRWGcVWS2KNLoICHbNR2BRjHe QERiKZZsHYXhOEFmUMGqqk9AVYKqFOAkEtO8UoRjVTKiUVPmKMdvXLLqLFJfMKihNXZpUEIeBK4OLsFy GASpURV1ATNwENGuGXCxqa8MIPCnQQZcBlVbFcOuLGXcKWOpUTozEOJjBQXvMEN8YXJaEYAbET4YXfWx WYNlOMUhHHOpUIRkOJYnkd1KZEYkXTNfTFk8HuRoYH TqDQJbEAfwWWUqBKB1YZN6AUAlVRZxRK4AQmRnUHUqDNCyLJSyXDLkSKKkxu9LEEEzVJNzXapsTuMiVY OqAKZuKBxxMBLnURK7XBV6VVNoVSEjFM0EVeMhHHLlZkgpCFSoZQCiMOZyks6QMIYaHHYnLaU9IeNgLZ ZvLTStLDbrVMIdBIM5UyY2WXEzFYSgPL1PWjChOETy Phw4RTRtHUDkHNFzww0CTYPbJIEfGDr1SBCwZBZsSLZpXCwoLZJfXOB7WJA5SUIzFWYgVN9BUpXbDEUo IfkvXROmARSsARPafi3UOHOfMCVlVGatDaJbCZRjJMIqAZxhTHFySLYzEFSlMYShCTYjQZ8FHjXxUESl ZzKdQQUfDLTtKJZeom1AfUKvbRhmhb8CRKrTLm5PvD jhYDHuBIzeSi9srAJhTFGbGAMBZf4KqxWqXIBqDMXRBSkxAFBbNCO1JTk8KUV1QXLhXNsyPcHzXnGhGY O1JzMbPMx7BQUfGjG6KuF3KUz2DMw5GKNbCOGrExDrMAEmNDEqW3K2VGg3LsX+UL0jKFk+Qr7Ds5Qrbb I9bpLkPZahPZQ1SD3WRGUOP2ADPp== ID Date Data Source [id number] [facility]/03[facility]2019 [facility]:10[facility] Interpretation Code Description Data Roxy rce(s) Supporting Document(s) Glucose [Mass/volume] in Capillary blood by Glucometer 133 mg/dL 70- 140 [facility] ID Date Data Source [id number] 12/03/2019 07:55:15 AM [facility] Value Range Interpretation Code Description Data Roxy rce(s) Supporting Document(s) Glucose [Mass/volume] in Capillary blood by Glucometer 127 mg/dL 70- 140 [facility] ID Date Data Source [id number] 12/03/2019 06:28:42 AM [facility] Value Range Interpretation Code Description Data Roxy rce(s) Supporting Document(s) Leukocytes [#/volume] in Blood by Automated count 8.5 10*3/uL 4-10 [facility] Erythrocytes [#/volume] in Blood by Automated count 3.82 10*6/uL 4.1- 5.3 L [facility] Hemoglobin [Mass/volume] in Blood 8.5 g/dL 11.5-15.5 L [facility] Hematocrit [Volume Fraction] of Blood by Automated count 26.7 % 3 6-45 L [facility] Erythrocyte mean corpuscular volume [Entitic volume] by Auto mated count 70.1 fL 80-96 L [facility] Erythrocyte mean corpuscular hemoglobin [Entitic mass] by Automated count 22.1 pg 27-33 L [facility] Erythrocyte mean corpuscular hemoglobin concentration [Mass/volume] by Automated count 31.6 g/dL 32.0-36.0 [facility] distribution width [Ratio] by Automated count 16.7 % 11.5-14.5 H [facility] Platelets [#/volume] in Blood by Automated count 361 10*3/uL 150-400 [facility] ID Date Data Source [id number] 12/03/2019 06:46:28 AM EDT [facility] Name Value Range Interpretation Code Description Data Roxy rce(s) Supporting Document(s) Bicarbonate [Moles/volume] in Serum 27 mmol/L 22-29 [facility] Chloride [Moles/volume] in Serum or Plasma 103 mmol/L 98-107 [facility] Creatinine [Mass/volume] in Serum or Plasma 0.48 mg/dL 0.50-0.90 [facility] Glucose [Mass/volume] in Serum or Plasma 118 mg/dL 70-140 [facility] Potassium [Moles/volume] in Serum or Plasma 4.6 mmol/L 3.4-5.1 [facility] Sodium [Moles/volume] in Serum or Plasma 137 mmol/L 136-145 [facility] Urea nitrogen [Mass/volume] in Serum or Plasma 6 mg/dL 6-20 [facility] Anion gap 3 in Serum or Plasma 7 mmol/L 8-15 [facility] Osmolality of Serum or Plasma by calculation 283 mosm/kg 275-300 [facility] Creatinine/Urea nitrogen [Mass Ratio] in Serum or Plasma 13 [facility] Calcium [Mass/volume] in Serum or Plasma 8.5 mg/dL 8.6-10.0 [facility] Glomerular filtration rate/1.73 sq M pre dicted among non-blacks [Volume Rate/Area] in Serum or Plasma by Creatinine-based formula (MDRD) >6 0 [facility] Glomerular filtration rate/1.73 sq M pre dicted among blacks [Volume Rate/Area] in Serum or Plasma by Creatinine-based formula (MDRD) >60 [facility] ID Date Data Source [id number] 12/03/2019 06:46:28 AM [facility] Value Range Interpretation Code Description Data Roxy rce(s) Supporting Document(s) Magnesium [Mass/volume] in Serum or Plasma 1.6 mg/dL 1.6-2.6 [facility] ID Date Data Source [id number] 12/03/2019 06:46:28 AM [facility] Value Range Interpretation Code Description Data Roxy rce(s) Supporting Document(s) Phosphate [Mass/volume] in Serum or Plasma 3.4 mg/dL 2.5-4.5 [facility] ID Date Data Source [id number] 12/02/2019 08:28:12 PM [facility] Value Range Interpretation Code Description Data Roxy rce(s) Supporting Document(s) Glucose [Mass/volume] in Capillary blood by Glucometer 173 mg/dL 70- 140 [facility] ID Date Data Source [id number] 12/02/2019 05:41:47 PM [facility] Value Range Interpretation Code Description Data Roxy rce(s) Supporting Document(s) Glucose [Mass/volume] in Capillary blood by Glucometer 179 mg/dL 70- 140 [facility] ID Date Data Source [id number] 12/02/2019 12:05:42 PM [facility] Value Range Interpretation Code Description Data Roxy rce(s) Supporting Document(s) Glucose [Mass/volume] in Capillary blood by Glucometer 151 mg/dL 70- 140 [facility] ID Date Data Source [id number] 12/02/2019 07:53:56 AM [facility] Value Range Interpretation Code Description Data Roxy rce(s) Supporting Document(s) Glucose [Mass/volume] in Capillary blood by Glucometer 112 mg/dL 70- 140 [facility] ID Date Data Source [id number] 12/02/2019 05:27:51 AM [facility] Value Range Interpretation Code Description Data Roxy rce(s) Supporting Document(s) Bicarbonate [Moles/volume] in Serum 25 mmol/L 22-29 [facility] Chloride [Moles/volume] in Serum or Plasma 105 mmol/L 98-107 [facility] Creatinine [Mass/volume] in Serum or Plasma 0.53 mg/dL 0.50-0.90 [facility] Glucose [Mass/volume] in Serum or Plasma 139 mg/dL 70-140 [facility] Potassium [Moles/volume] in Serum or Plasma 4.1 mmol/L 3.4-5.1 [facility] Sodium [Moles/volume] in Serum or Plasma 135 mmol/L 136-145 [facility] Urea nitrogen [Mass/volume] in Serum or Plasma 7 mg/dL 6-20 [facility] Anion gap 3 in Serum or Plasma 5 mmol/L 8-15 L [facility] Osmolality of Serum or Plasma by calculation 280 mosm/kg 275-300 [facility] Creatinine/Urea nitrogen [Mass Ratio] in Serum or Plasma 13 [facility] Calcium [Mass/volume] in Serum or Plasma 7.9 mg/dL 8.6-10.0 L [facility] Glomerular filtration rate/1.73 sq M pre dicted among non-blacks [Volume Rate/Area] in Serum or Plasma by Creatinine-based formula (MDRD) >6 0 [facility] Glomerular filtration rate/1.73 sq M pre dicted among blacks [Volume Rate/Area] in Serum or Plasma by Creatinine-based formula (MDRD) >60 [facility] ID Date Data Source [id number] 12/02/2019 05:27:51 AM [facility] Value Range Interpretation Code Description Data Roxy rce(s) Supporting Document(s) Magnesium [Mass/volume] in Serum or Plasma 1.5 mg/dL 1.6-2.6 [facility] ID Date Data Source [id number] 12/02/2019 05:27:51 AM [facility] Value Range Interpretation Code Description Data Roxy rce(s) Supporting Document(s) Phosphate [Mass/volume] in Serum or Plasma 3.1 mg/dL 2.5-4.5 [facility] ID Date Data Source [id number] 12/02/2019 05:37:06 AM [facility] Value Range Interpretation Code Description Data Roxy rce(s) Supporting Document(s) Leukocytes [#/volume] in Blood by Automated count 8.7 10*3/uL 4-10 [facility] Erythrocytes [#/volume] in Blood by Automated count 3.53 10*6/uL 4.1- 5.3 [facility] Hemoglobin [Mass/volume] in Blood 7.9 g/dL 11.5-15.5 [facility] Hematocrit [Volume Fraction] of Blood by Automated count 24.8 % 3 6-45 [facility] Erythrocyte mean corpuscular volume [Entitic volume] by Auto mated count 70.4 fL 80-96 [facility] Erythrocyte mean corpuscular hemoglobin [Entitic mass] by Automated count 22.4 pg 27-33 [facility] Erythrocyte mean corpuscular hemoglobin concentration [Mass/volume] by Automated count 31.9 g/dL 32.0-36.0 [facility] E[facility]throcyte distribution width [Ratio] by Automated count 17.0 % 11.5-14.5 [facility] Platelets [#/volume] in Blood by Automated count 312 10*3/uL 150-400 [facility] ID Date Data Source [id number] 12/02/2019 12:23:44 AM [facility] Value Range Interpretation Code Description Data Roxy rce(s) Supporting Document(s) Glucose [Mass/volume] in Capillary blood by Glucometer 144 mg/dL 70- 140 [facility] ID Date Data Source [id number] 12/01/2019 04:42:08 PM [facility] Value Range Interpretation Code Description Data Roxy rce(s) Supporting Document(s) Glucose [Mass/volume] in Capillary blood by Glucometer 109 mg/dL 70- 140 [facility] ID Date Data Source [id number] 12/01/2019 11:57:59 AM [facility] Value Range Interpretation Code Description Data Roxy rce(s) Supporting Document(s) Glucose [Mass/volume] in Capillary blood by Glucometer 162 mg/dL 70- 140 [facility] ID Date Data Source [id number] 12/01/2019 07:55:25 AM [facility] Value Range Interpretation Code Description Data Roxy rce(s) Supporting Document(s) Glucose [Mass/volume] in Capillary blood by Glucometer 159 mg/dL 70- 140 [facility] ID Date Data Source [id number] 12/01/2019 06:14:54 AM [facility] Name Value Range Interpretation Code Description Data Roxy rce(s) Supporting Document(s) Leukocytes [#/volume] in Blood by Automated count 12.6 10*3/uL 4-10 H [facility] Erythrocytes [#/volume] in Blood by Automated count 3.78 10*6/uL 4.1- 5.3 L [facility] Hemoglobin [Mass/volume] in Blood 8.3 g/dL 11.5-15.5 [facility] Hematocrit [Volume Fraction] of Blood by Automated count 26.5 % 3 6-45 L [facility] Erythrocyte mean corpuscular volume [Entitic volume] by Auto mated count 70.0 fL 80-96 [facility] Erythrocyte mean corpuscular hemoglobin [Entitic mass] by Automated count 21.9 pg 27-33 [facility] Erythrocyte mean corpuscular hemoglobin concentration [Mass/volume] by Automated count 31.2 g/dL 32.0-36.0 [facility] Erythrocyte distribution width [Ratio] by Automated count 16.6 % 11.5-14.5 H [facility] Platelets [#/volume] in Blood by Automated count 364 10*3/uL 150-400 [facility] ID Date Data Source [id number] 12/01/2019 06:34:45 AM [facility] Name Value Range Interpretation Code Description Data Roxy rce(s) Supporting Document(s) Bicarbonate [Moles/volume] in Serum 26 mmol/L 22-29 [facility] Chloride [Moles/volume] in Serum or Plasma 105 mmol/L 98-107 [facility] Creatinine [Mass/volume] in Serum or Plasma 0.55 mg/dL 0.50-0.90 [facility] Glucose [Mass/volume] in Serum or Plasma 173 mg/dL 70-140 [facility] Potassium [Moles/volume] in Serum or Plasma 3.8 mmol/L 3.4-5.1 [facility] Sodium [Moles/volume] in Serum or Plasma 137 mmol/L 136-145 [facility] Urea nitrogen [Mass/volume] in Serum or Plasma 10 mg/dL 6-20 [facility] Anion gap 3 in Serum or Plasma 6 mmol/L 8-15 L [facility] Osmolality of Serum or Plasma by calculation 287 mosm/kg 275-300 [facility] Creatinine/Urea nitrogen [Mass Ratio] in Serum or Plasma 18 [facility] Calcium [Mass/volume] in Serum or Plasma 7.9 mg/dL 8.6-10.0 L [facility] Glomerular filtration rate/1.73 sq M pre dicted among non-blacks [Volume Rate/Area] in Serum or Plasma by Creatinine-based formula (MDRD) >6 0 [facility] Glomerular filtration rate/1.73 sq M pre dicted among blacks [Volume Rate/Area] in Serum or Plasma by Creatinine-based formula (MDRD) >60 [facility] ID Date Data Source [id number] 12/01/2019 06:34:45 AM [facility] Value Range Interpretation Code Description Data Roxy rce(s) Supporting Document(s) Phosphate [Mass/volume] in Serum or Plasma 2.8 mg/dL 2.5-4.5 [facility] ID Date Data Source [id number] 12/01/2019 06:34:45 AM [facility] Value Range Interpretation Code Description Data Roxy rce(s) Supporting Document(s) Magnesium [Mass/volume] in Serum or Plasma 1.4 mg/dL 1.6-2.6 L [facility] ID Date Data Source [id number] 11/30/2019 09:35:26 PM [facility] Value Range Interpretation Code Description Data Roxy rce(s) Supporting Document(s) Glucose [Mass/volume] in Capillary blood by Glucometer 342 mg/dL 70- 140 [facility] ID Date Data Source [id number] 11/30/2019 06:50:23 PM [facility] Value Range Interpretation Code Description Data Roxy rce(s) Supporting Document(s) Glucose [Mass/volume] in Capillary blood by Glucometer 195 mg/dL 70- 140 [facility] ID Date Data Source [id number] 11/30/2019 04:06:29 PM [facility] Value Range Interpretation Code Description Data Roxy rce(s) Supporting Document(s) Glucose [Mass/volume] in Capillary blood by Glucometer 172 mg/dL 70- 140 [facility] ID Date Data Source [id number] 11/30/2019 02:28:53 PM EDT [facility] Name Value Range Interpretation Code Description Data Roxy rce(s) Supporting Document(s) Operative Note [facility] QNBDCs2vHbAKUpUb31/IJGtiXCVzu3QxFQluDLu7ASfjYDKaI4EjTTC2qO3nPCS0LYnUYkSjEiSyOIC0 lbm [file] AgICAgICAgICAgICAgICAgICAgICAgICAgICAgICAgICAgICAgICAgICAgICAgICAgICAgICAgICAgIC AgICAgICAgICAgICAgICAgICAgICAgICAgICAgDQog ICAgICAgICAgICAgICAgICAgICAgICAgICAgICAgICAgICAgICAgICAgICAgICAgICAgICAgICAgICAg ICAgICAgICAgICAgICAgICAgICAgICAgICAgICAgICAgICAgICAgDQogICAgICAgICAgICAgICAgICAg ICAgICAgICAgICAgICAgICAgICAgICAgICAgICAgIC AgICAgICAgICAgICAgICAgICAgICAgICAgICAgICAgICAgICAgICAgICAgICAgICAgDQogICAgICAgIC AgICAgICAgICAgICAgICAgICAgICAgICAgICAgICAgICAgICAgICAgICAgICAgICAgICAgICAgICAgIC AgICAgICAgICAgICAgICAgICAgICAgICAgICAgICAg DQogICAgICAgICAgICAgICAgICAgICAgICAgICAgICAgICAgICAgICAgICAgICAgICAgICAgICAgICAg ICAgICAgICAgICAgICAgICAgICAgICAgICAgICAgICAgICAgICAgICAgDQogICAgICAgICAgICAgICAg ICAgICAgICAgICAgICAgICAgICAgICAgICAgICAgIC AgICAgICAgICAgICAgICAgICAgICAgICAgICAgICAgICAgICAgICAgICAgICAgICAgICAgDQogICAgIC AgICAgICAgICAgICAgICAgICAgICAgICAgICAgICAgICAgICAgICAgICAgICAgICAgICAgICAgICAgIC AgICAgICAgICAgICAgICAgICAgICAgICAgICAgICAg ICAgDQogICAgICAgICAgICAgICAgICAgICAgICAgICAgICAgICAgICAgICAgICAgICAgICAgICAgICAg ICAgICAgICAgICAgICAgICAgICAgICAgICAgICAgICAgICAgICAgICAgICAgDQogICAgICAgICAgICAg ICAgICAgICAgICAgICAgICAgICAgICAgICAgICAgIC AgICAgICAgICAgICAgICAgICAgICAgICAgICAgICAgICAgICAgICAgICAgICAgICAgICAgICAgDQogIC AgICAgICAgICAgICAgICAgICAgICAgICAgICAgICAgICAgICAgICAgICAgICAgICAgICAgICAgICAgIC AgICAgICAgICAgICAgICAgICAgICAgICAgICAgICAg WUXxFEOiESy3K4gjZIPvROWjBI1uYAn0Rp4+MDvESbUdOTE4sdBwdB0FOV3up2XdNIrwXBAlx8OqRQx2 QI2RKOJaHFwtIH6EKGgxoi0GWSCwCDCyhIONo4ngZxGzKWQ1PKErGsuzKJ5WQGHtE9zewbYwOLLyEXUY MMxmERLYIIsfJKIPHT1XPpHlD6DcdY89BTPUBu6+DQ pwwkTrJmiXHyAuXKRfd9YlBGc9UC1JVUCpYypdc1GmCrDfWXLRMWwnGW5YCEU1YMNmURMtGf3WXVUnT5 34rsAzCJ1OMp1KJeEoAR2eyi4CSwYrCEKjHfvYEhk6QIyyXY1GoQCsRJeIxWVtDBBgddIgDz54GFDnfD EAv4AcdAUtRCBBo86zFQNbf1LrTZDBZROmzUQxWO9f WR6cZPGoKXVkEpPyGVYDUB1BZYJnUCUvsIQtCASyGZDNVH2ZGWtsZFG7WDJpaiMceYIyMOdlIH0RHBXk bnQgMjEgMCBSDQo+Lg9GZW6cn4PiZKyiGzZtAM3bmd9JTWfDHvIlM0I2iPUlQ5E8TBjsUe0LPAGsRGKs CIpgFLHJLJlyJG4AYR6dwhN1RB0PyEEpQDWnEVJwvM FnOMg6F11aaLReCSgfXI1BLUI+Elisabeth+Ia7UEOHtNYFvJZCkNbShXXOBUzJhV5NeE5ZRk0DwJ3IfGN30mK bdkwFzUUkqHH5LVJ6lUZJuVDVKTH6EaFWjqK4iqmKwIUZmZVHIPjLwX03thVAhSCNdYSNhRIOiGs7QTY SrT7YvvaUbtUfwyxLpDKQcZCZSRA9NCUhjzuCltDDp xDhwYJ01qQsrGZ5ZRh0TBiVuMG7mjk8ZzHIhNs4LLQGhVL5LKELsWKEiRNXpTMR8YHElQoBqEUxaULIw KXBsEOR0XJXgLPLrCC2MAlRkCPHzYZY8TxLeURRmURMkwv5SXZWkKSJeBEHmTJIpPMXyFBTnCYuyZTCb IKQmNIT8VMWrMSBrKU4LNrDrZPYzJRL6XXemJPLnZN Wmif8CKMCnLQEbJiA7YvVnWGDuYQXyLKqhSNHfMED0XdH4VHLbJEPrQB0QVbZfMMMrVYp2ZiozYGNsBG Zsoh1PXLMrACYnKLY1DJYgDHQrJYWgNXsfKFRaBJI2Geu1KZQuUOXyQE9HOpUhAGVgUYXhZCCeUOUaLP Otev2JNQElORYrVBK0UXPaIAVpNNHwQMctSOJbOLTk UpZ4SDHhQUIoGW6BQiLcLYBoASJ8OWSaEPSfANQkol3EVRPbZZOxDUj6SPWoNFNmLVJoVNriPAKqDCGm CTbhGBEzJZVyKS8GIeGqLTJuOOLeUTStTOKfLXEolb9QOIOcKXPyTxL4XnCdNGCePPCrCMuhRPPmUUFd WEE9HYWsMWWkZY4LBaDvEIYnWWA4MdMwRLYdZMKtpx 7AZVMkTLQoFKLyLEKtIISrLACbPPhiRRReQCB1BfrcSGTvXWWyZM2ZHoAzDIRlQZL6ZkVxASZmZZOhve 2LbMLtsNkrpy1HVKmVOf5HvErlFDL4YIpjHb3lnUNcZrQfAHZRVj3YklAdMKLlZEENPZhqJYZjYDCmOX R7XZAwUXEaEawyPEPpBKR4XPWnAFEnY4JiNCCuIfU1 KiTqWWb8QYB0QbQ1T8DkCCUjGFd7SsO9SMVkDCRvRCH+FO3pFLt+Qh8Gb7TsdzM5nrJoLNxsFWg3DH6J LSRCP3KRCi== ID Date Data Source [id number] 11/30/2019 01:51:16 PM EDT [facility] Name Value Range Interpretation Code Description Data Roxy rce(s) Supporting Document(s) ABO and Rh group [Type] in Blood [facility] Blood group antibody screen [Presence] in Serum or Plasma [facility] Performed at [facility] Type Confirmed ID Date Data Source [id number] 11/30/2019 10:56:24 AM EDT [facility] Name Value Range Interpretation Code Description Data Roxy rce(s) Supporting Document(s) History and Physical [facility] NGJNJl5dCdLIBsOj32/UCEtdGLRlu2NyNEjhXBa3EKwzJDLsI4AaCTM1nP8uLVM9AYjEJfOaYyXrZGM9 lbm [file] KAp1AqY2Gko5YJJbKwPuKB4GTt1SMbX0BTU6iGIdZj9QYCV8ZpBQJgJbEK4ETOo= ID Date Data Source [id number] 11/30/2019 09:57:25 AM EDT [facility] Name Value Range Interpretation Code Description Data Roxy rce(s) Supporting Document(s) Glucose [Mass/volume] in Capillary blood by Glucometer 130 mg/dL 70- 140 [facility] ID Date Data Source [id number] 12/05/2019 04:57:00 PM EDT [facility] Surgical Pathology ReportName: Aundrea FREEMANHebertMRN: [id number] Number: [id number] Date: 11/30/2019 00:00Received Date: 12/01/2019 09:05Physician(s): SARAHI OLSEN MD HASSAN, MOUSTAFA AOM, MDSpecimen(s) ReceivedA: Hernial sacClinical HistoryRight flank incisional hernia. DiagnosisSKIN AND SOFT TISSUE, HERNIA SAC, EXCISION: SKIN WITH UNDERLYING DENSEFIBROUS TISSUE CONSISTENT WITH HERNIA./pmw Electronically Signed By Maximiliano Walls M.D., Attending Kzokmurcqny38/19/2020 16:57:09 Unless 'gross-only' is specified, the final diagnosis is based on amicroscopic examination of sales service representative sections of tissue.Gross DescriptionThe specimen is received in formalin labeled with the patient's name"Johanna Freeman" and "hernia sac". It consists of a skin ellipse .1 x 6.0 cm overlying 0.5 cm of fat and fibrous hernia sac. Alsoincluded in the specimen are two fragments of the fibrous hernia sactissue measuring 2.5 x 8.9 x 4.6 cm in aggregate. The hernia sac tissueis pink-white, firm and rubbery. There are no apparent lesions or defectsnoted in the specimen. Circuit Clerk sections are submitted as follows:A1 -includes cross section of skinA2 -cross section of fibrous hernia sac tissueJB/pmwThis report may include one or more immunohistochemical stain results thatuse analyte specific reagents. All positive and negative controls havebeen reviewed by the attending pathologist and are satisfactory. The testswere developed and their performance characteristics determined by [facility] Pathology department. They have not been cleared or approved by the [facility] od and Drug Administration. The FDA has determined that such clearanceor approval is not necessary. Name Value Range Interpretation Code Description Data Roxy rce(s) Supporting Document(s) ID Date Data Source [id number] 11/29/2019 03:42:18 PM [facility] Name Value Range Interpretation Code Description Data [facility] Supporting Document(s) [facility] RSPPKa6bUhLZKbRlm7FpOeSfCVEfVY4aliz1A3C7aXJlJ1WkcHNyy5aoI4IaB8NbTKGxLKVEDM6ZoINw jb2 [file] 7V9/XU8w69hnU+2hi/4Fd9G+a14HeqtnA2Qg9n65w9 zFEz3FptmJz6Mk9nILBmKTsnL0Q84peJA3FZ2w2z5e6T8m34lNO/oyeS1Kf5kxAF1W13v6+R7J5nIxh/ N6br0cn+CGY3uyd8X+65m2rEkea6LE8Vta5QEWD1S6hx0TT+1/zBmi5qgXE4PppJ+vVfDb3+jaHXvzFU pQ3KR5Br5sizFwvUK7h//rtug21q0g/AX6a3f6fDuy x0o30t6rw/OX3e76z21YfjL6/a6cw7g5p92UbP/tzv+R7fo2VAk/x5hP/K4zdH3+x7stoAr/u0tAO5z3 x3BL/D03k2diMBuipa1jl51/TYE8NvvwkGTcAc2cyde60/zg4AbyCm99rPnwSx4ntA8smBS3wly7c1iA Sr1AdI0i5fWrPm3ynq6TuIR1E+Bn0N+rz5II3W6Mn+ lc8dv+8oH+/W8vaqWF33yn621f6PfkmwY+pE57Nu8wXzjAm/W9F26Fu/zSLFb6yoov2st/2O9+vQN/xX Z501wn+Vz3c/dDjeb/Mk3gjtJ+r1ax+rpMt7WyfQmkIHqwe8v30s4y87dkDIwTysi/qxmzczBlcFE2U/ D7pt7DkChbPsjG+E5acbatgh64A5fNl/E/15Qt/gV9 OparfDa9E/Xnc/gJv54nS1X37o0QqOc2/0Hb+568ETCpzrxBMJfJ+Y3sa5xV+pV6RzlJ+uz9Wnu81jwc cJ/82n2dGIW/g3efuJ/g670Xq3eBDwavdNXwnO/P301Gn4pk93b5KLE/r2SI/7et6xzBN8ckqpl4DseA 3QN/yRdypO37+q0GoJAMomB4a1/Ftjh9BWNI4qC79x 8CsDvzLwKwO/QmroIW1ec//Z4Z1k6VkAxwYHFa1+h37x269Dx9r16BgI/0kelzC4iky+N8CvfmUpQUol WoTdpkIVgtC6YwmB9/pLnm65nfrFQfAIawSihZO1iPtu39o4mGtM54cglN0EvW0AaI0GoV8N3R4mmMkx DEXL9WjBpnA229HQ0J1w+10Yfh8YE3Hj4xcaxV3ky4 +Y9Yiow3pp+2zvbw6/gcaZH1U3/vGiQuO1rc5t/eneINtJ2Qm8gpl9CeZrMC/1jxS1l926nVEZcWGt77 1NZYM452haa405jSwv8Jxrux8s0ckXDb7Wm+laPT0uC8k/8VGbJcR0/CptcvhV+CUPOB30Pz7N3sl4/B wEz5wslDerl6Xvpp8w0+5XcJPvNGUx8ckQ/ivD+ +++Misha/8rgvzKcvzLD+ICRN6E2WCyxH0GgjvZVS2y4aiW+ImSXIR3X97LzxxWRPynPbvTCifQh LUzIZXu26FQn50r/gCUwCjHu6UG1D6uH+bO4XWmmDnL0pB7Zf1UHtIDl4Q6z2zdZ+4OG/UHD/vMao7Ut O9z0f9FI+f1gH8Gs8jjsMe46VZ47ex1mNZ/RlW5r16 73baI/P2cBldSz9/PE/LwwPy+834X3i/1Bw/6gLfRn+H0yOU8b918y508FzORLJ8m61uklXxGs5TDtO+ gG9TcfY+lSL1r2czht1L/lngTmbI14+xL+q3zuSL/+K3rAX6kqJ7m+/hxvggEm8wkbW6momE3+DP+V7c ufDfuDFvzqcCTH/qDn/uA6z5c/O/tLo7okay6rlsfK 9H49xRDW0iVGd2k3vDwZP1Zw5d60bgevH8czg+o3xhedA5vj/KTDtd6yTtJo7kJUQP+5dPz+jl/H/qDL OO7HeNJyya3RN1U+An2xP+cj6K0H1+W8Vm9bXq+Wqsa2GEOaIJw+2pF+5yvXOz+1MqZqfokJmt7DD3N+ iverC+nQV+/33zhxb71VU8OD2uMt4Fet99/e0Z/Df/ U8I93w+7ve9+2Ap6YOvH+Us1D+QvpG+l3/OvxXDv+Vw3/l8F/7rOjjWX5K68gP37H1B07+d8g2wIq+D3 3hv/LgVyuff+sSrNQsfK6lG+mXT/x77714+NXzbM+n8NZc6zjbT0WD3YMT0/W02eWgJ8iv57ZWhUal0M D5antBY8XzTAqJuK2LN+l3/CmuAy3x9zbI411I6+3P M9Lv+ViP8+4kgvAh9I61wxf35bi8f+2M8+3mv6DkZL2yldQ79+3Br1Y+3/cV/Ni4Ohsde+H61ll1kIv2 y1x855hqKgpCEp0z7VbQduUytbaqmxufb8mmGxncWIwyCGnEdf6f/Mpx/spx/spx/spx/spx/srn5ZO+ Pr337NcUy0DyXng/cpy/cvArx/6gY3/Qcf7KF/TF/q Cjp7ZnO+gL+iE7riJ3jT/ou/D9Xfj+7ssnPfnV+V39lJKl+k38Pj0eyhtSr8zkL3c7Nl4j66P2d6AA3+ 9I3O0r93lTmY888twLkIo7F89I0/o7vq5PbWm/yPf1b/jG92jf/hjjB3CpftHOeTUoJ5YUM89XNXbGKI esNMfjiSrNcXqCSt/nOJ+Urripkz7E/qvZLn+sofia/a X85xtvvQxIi+PrGkebb/hJL+PUddx7+EvvQAj6GH3vqJVMxfZ+557yn3/c70X/V/Hgj6dEcCP68DR27F D04ZSB/4/eUbE/mqriEgLo6VHIIoU+mR0Qzai/cRxlR5mhX7EN6NzxsDxx77ewpgX91py4cA3y43HU9V wdn1fP9+Azalea/1jdyijR/+NNQo7mLr/zV8b/00+wI5 [file] [facility]/aIpiChdjU1jKLvNMPRLcczLMNr5VBxLsZ3vBh4V8bD6C1dBYlaI8pkpOl2aeeQz4RQV3WRo+Fi Qsz5OVOzkNoyIlSaHhWZdQwKlhXt6WZN+Tsw5Aewen 3AEZ0fGz+GzTjUcsxLgMBYW2CUmsnBEbKYD8EBeklAAcDer9LXX5KVy+Fi0+zbyMoP9blHHrO+Sx6OZj 0KOnsMocP6qRsCAITFVCVYUEk1UEZUR8USi+FiUfixYfS/5fjj69Ye1Caj6Ia4JZj1+oDfUTtfhYHoGI LCJdBfCLPFLEwb1oBoOHDTiCwB5QQ7sDY5KFXMfDkD aYfRhbqzRi6UE3Ub6ab51RzAMHM5lMy4IxubXW/dOeBDPQxohjsV8wcbI6GeS0bknPZxFXeuH9aJDj4L yBfqZ8XzRIstKKoecgA61ppTmwZ6Y1R8WHzn6LuczyHZtnnMpwF0attfNJn2rgJzuu5fqyVMcNFudUTj QfSwVHko/oAWQ7hQ3DyJgXmf46ueDrkt6oLYHqA0dK bkRLwLex+JmUXeaaaK44sjVccphHV0tQJsWeJl090Esa5wcIHnIjj48aU27K097RSyKynhj9vT1+YqOf nKxV9hNSC8TTIQqifbzFxZ7vHvFA0Uk1dDg2HXpw9NJAm2Axe4CF+QdxR0QA+wbaaK5XQiMvQXsvSTaw XHduXHduXHduXHduXHduXHduXHduXHduXHcuPpYySO [file] 4VvJmjCZZ9Nc6ZrdRrBYXmJWENIa3Cc041VURtMAHVIja+PicupRPxqAijKRCISfH8DQBSMDYVN6K= ID Date Data Source [id number] 11/29/2019 06:55:38 PM EDT [facility] Name Value Range Interpretation Code Description Data Roxy e(s) Supporting Document(s) Leukocytes [#/volume] in Blood by Automated count 10.7 10*3/uL 4-10 H [facility] Erythrocytes [#/volume] in Blood by Automated count 4.45 10*6/uL 4.1- 5.3 [facility] Hemoglobin [Mass/volume] in Blood 10.0 g/dL 11.5-15.5 L [facility] Hematocrit [Volume Fraction] of Blood by Automated count 31.3 % 3 6-45 L [facility] Erythrocyte mean corpuscular volume [Entitic volume] by Auto mated count 70.5 fL 80-96 L [facility] Erythrocyte mean corpuscular hemoglobin [Entitic mass] by Automated count 22.5 pg 27-33 L [facility] Erythrocyte mean corpuscular hemoglobin concentration [Mass/volume] by Automated count 31.9 g/dL 32.0-36.0 [facility] distribution width [Ratio] by Automated count 17.1 % 11.5-14.5 H [facility] Platelets [#/volume] in Blood by Automated count 381 10*3/uL 150-400 [facility] ID Date Data Source [id number] 11/29/2019 07:20:26 PM EDT [facility] Name Value Range Interpretation Code Description Data Roxy rce(s) Supporting Document(s) Bicarbonate [Moles/volume] in Serum 21 mmol/L 22-29 L [facility] Chloride [Moles/volume] in Serum or Plasma 105 mmol/L 98-107 [facility] Creatinine [Mass/volume] in Serum or Plasma 0.62 mg/dL 0.50-0.90 [facility] Glucose [Mass/volume] in Serum or Plasma 186 mg/dL 70-140 H [facility] Potassium [Moles/volume] in Serum or Plasma 3.7 mmol/L 3.4-5.1 [facility] Sodium [Moles/volume] in Serum or Plasma 137 mmol/L 136-145 [facility] Urea nitrogen [Mass/volume] in Serum or Plasma 12 mg/dL 6-20 [facility] Anion gap 3 in Serum or Plasma 11 mmol/L 8-15 [facility] Osmolality of Serum or Plasma by calculation 289 mosm/kg 275-300 [facility] Creatinine/Urea nitrogen [Mass Ratio] in Serum or Plasma 19 [facility] Calcium [Mass/volume] in Serum or Plasma 8.4 mg/dL 8.6-10.0 L [facility] Glomerular filtration rate/1.73 sq M pre dicted among non-blacks [Volume Rate/Area] in Serum or Plasma by Creatinine-based formula (MDRD) >6 0 [facility] Glomerular filtration rate/1.73 sq M pre dicted among blacks [Volume Rate/Area] in Serum or Plasma by Creatinine-based formula (MDRD) >60 [facility] ID Date Data Source [id number] 11/26/2019 11:08:54 AM EDT [facility] Name Value Range Interpretation Code Description Data Roxy rce(s) Supporting Document(s) Specimen source [Identifier] of Unspecified specimen [facility] SARS-CoV-2 RNA 2019 nCoV Real-Time RT-PCR: NOT DETECTED [facility] Assay Performed [facility] Patients first test for [facility] Patient employed in healthcare setting [facility] Patient has symptoms related to condition [facility] When did you start to experience these symptoms [Date and time] [Phen X] [facility] Patient was hospitalized because of this condition [facility] patient was admitted to ICU for condition [facility] Patient resides in a congregate care setting [facility] status [facility] ID Date Data Source [id number] 11/25/2019 03:10:00 PM EDT [facility] Name Value Range Interpretation Code Description Data Roxy rce(s) Supporting Document(s) SARS-CoV-2 RNA [facility] This lab was ordered by [facility] and reported by [facility]. ID Date Data Source [id number] 10/03/2019 03:40:55 PM EDT [facility] Name Value Range Interpretation Code Description Data Roxy rce(s) Supporting Document(s) Progress Note [facility] BIMNFv0nXoDKAlGo27/ZAYfcWCXjh6XjUKoqCVb0HLzpPRHaO5YaVNC5sC6fYVV6RTnBKmEyWaItFJD4 lbm BbKqwRDlNjJAExBomPKbZrQMfnLssdjLRkQI6SpNY7LZYoH43nOHDmUKJwX6QhFNG5RYS+Ut1KCZBngU VdPC8SImiE7W5nc5eRHc6+eB8OED07cLXkb7w0lWON1Xho1OUy73V6x0l8AkUjg61wyOWeIkry1nfefF mAY2Lsg7ilfIMIxBE0sBgZuM81qT3hEtb4Qd2TmsM7 njns5h3m9dy5mS75X0K0W5iZsv9PbAEjmDfyieXD5S/jvv/RWgL975hBSQT7dHkwRcfb1WWF3RSkORu2 8nZ2c/YhnXtdj0lfnqRlJc6Tt6VMhYx43k3FO5dEV+vDZA1yVopbKU69SuyycMeIYxLtN7qVmGlzVK9D tBBRX3aC5u288FDf4C2KuZnnL1HhfADpn1cEPh8EeZ 1KiVc74LVQemSsU8ozlec6stPbOoCOztL+VvhCowv+BhDBBAUEvlS0mck0gOxP4/ZWRsehX+IfbVE6V5 M27Zc9IIFkXCrnJgdoHeaFtYVS2BDx8pECkT/BI7U3veW1Rxn/5FuRBlef6rHsBXm2IMVGEeZEpbujwJ Grb+bBqmHvUcwky5Y9D8ED7bys7APPV436V5jh3f8M iUpWTyfkOg5dxf1B71ZXb2jj4wM4rCgz9XNM+0mqjoY8Ub2ZfsPj5QYeBtLByvcxxkyKfZr34LmS8NgP zq+Vtx2OKIxveC7rXSZlQ5h5A0vM4q3bV4Vcq3kclYS1Gqh2THl/wNTnrdaVSYMDzHGYR3gDZ7Ptck6Y RmbHdTMl/+Chloe+c1iqjbfTaAcsNVBd6S0yrZlSOckh [file] 7BHCEVZ3YIKf== ID Date Data Source [id number] 09/16/2019 10:00:00 AM EDT [facility] ([facility] ) Name Value Range Interpretation Code Description Data Roxy rce(s) Supporting Document(s) Blood Urea Nitrogen Laboratory test result 7-18 [facility] ([facility] ) Glucose, Fasting Laboratory test result [facility] ([facility]) SEE SEPARATE REPORT Testing performed at reference lab . Report copy to follow on a separate form. 12/05/19 REF LAB#:[id number] Glomerular Filtration Rate Laboratory test result [facility] ([facility] ) Sodium Level Laboratory test result 136-145 [facility] ([facility] ) Creatinine For GFR Laboratory test result 0.55-1.30 [facility] ([facility]) Potassium Serum Laboratory test result 3.5-5.1 [facility] ([facility] ) Chloride Level Laboratory test result 98-107 [facility] ([facility] ) Carbon Dioxide Level Laboratory test result 20-29 [facility] ([facility]) Calcium Level Laboratory test result 8.5-10.1 [facility] ([facility]) Anion Gap Laboratory test result 8-16 [facility] ([facility]) Ast/Sgot Laboratory test result [facility] ([facility]) Alt/SGPT Laboratory test result 0-32 [facility] ([facility]) Alkaline Phosphatase Laboratory test result 45-117 [facility] ([facility]) Bilirubin,Total Laboratory test result 0.2-1.0 [facility] ([facility]) Albumin Laboratory test result 3.2-5.2 [facility] ([facility]) Albumin/Globulin Ratio Laboratory test result 1.2-2.2 [facility] ([facility]) Total Protein Laboratory test result 6.4-8.2 [facility] ([facility]) ID Date Data Source [id number] 09/16/2019 10:00:00 AM EDT [facility] ([facility]) Name Value Range Interpretation Code Description Data Roxy rce(s) Supporting Document(s) Triglycerides Level Laboratory test result [facility] ([facility]) LDL Cholesterol Laboratory test result [facility] ([facility]) Cholesterol Level Laboratory test result [facility] ([facility]) HDL Ch[facility] Cholesterol Risk Ratio Laboratory test result [facility] ([facility]) Non-HDL-C Laboratory test result [facility] ([facility]) ID Date Data Source [id number] 09/16/2019 10:00:00 AM EDT [facility] Name Value Range Interpretation Code Description Data Roxy rce(s) Supporting Document(s) Cholesterol [Mass/volume] in Serum or Plasma 93 mg/dL [facility] Triglyceride [Mass/volume] in Serum or Plasma 80 mg/dL [facility] Cholesterol in HDL [Mass/volume] in Serum or Plasma 54 mg/dL [facility] Cholesterol in LDL [Mass/volume] in Serum or Plasma by calculation 23 mg/dL [facility] CHOL/HDL 1.72 [facility] l \\BLDo\\INTERPRE TATION\\BLDx\\ REFERENCE RANGES [...] mg/dL VERY HIGH ID Date Data Source [id number] 09/16/2019 10:00:00 AM EDT [facility] Name Value Range Interpretation Code Description Data Roxy rce(s) Supporting Document(s) COMPREHENSIVE CHEM PROFILE i [facility] COMPREHENSIVE METABOLIC PANEL Sodium [Moles/volume] in Serum or Plasma 138 mEq/L 136 - 145 [facility] Potassium [Moles/volume] in Serum or Plasma 4.7 mEq/L 3.5 - 5.1 [facility] Chloride [Moles/volume] in Serum or Plasma 103 mEq/L 98 - 107 [facility] Carbon dioxide, total [Moles/volume] in Serum or Plasma 25.3 mEq /L 21.0 - 32.0 [facility] Glucose [Mass/volume] in Serum or Plasma 218 mg/dL 70 - 100 Above high normal [facility] Urea nitrogen [Mass/volume] in Serum or Plasma 19 mg/dL 7 - 18 Above high normal [facility] CREATININE SERUM 0.86 mg/dL 0.70 - 1.30 [facility] AGE [address] [facility] HEIGHT NA [facility] eGFR NON-AFR AMR >60 [facility] eGFR AFR AMR >60 [facility] BUN/CREAT 22 6 - 25 [facility] Protein [Mass/volume] in Serum or Plasma 6.7 g/dL 6.0 - 8.3 [facility] Albumin [Mass/volume] in Serum or Plasma 3.6 g/dL 3.8 - 5.4 Below low normal [facility] GLOBULIN 3.1 g/dL 2.0 - 4.0 [facility] A/G RATIO 1.2 0.8 - 2.0 [facility] Calcium [Mass/volume] in Serum or Plasma 8.7 mg/dL 8.8 - 10.2 Below low normal [facility] Bilirubin.total [Mass/volume] in Serum or Plasma 0.2 mg/dL 0.2 - 1.0 [facility] Bilirubin.direct [Mass/volume] in Serum or Plasma 0.1 mg/dL 0.0 - 0. 2 [facility] INDIRECT BILI 0.1 mg/dL 0.0 - 1.1 [facility] pital ALK PHOSPHATASE 72 U/L 40 - 129 [facility] ospital Aspartate aminotransferase [Enzymatic ac tivity/volume] in Serum or Plasma by With P-5'-P 13 IU/L 7 - 37 [facility] Alanine aminotransferase [Enzymatic acti vity/volume] in Serum or Plasma by With P-5'-P 11 IU/L 12 - 78 [facility] low [facility] ANION GAP 10 7 - 15 [facility] Estimated GFR referenc e range: >60ml/min/1.73m >18 years: Calculated using IDMS traceable Study Equation <18 years: Calculated using IDMS tracable Bedside Schartz Equation ID Date Data Source [id number] 09/06/2019 10:13:00 AM EDT [facility] ([facility]) Name Value Range Interpretation Code Description Data Roxy rce(s) Supporting Document(s) Hemoglobin A1c/Hemoglobin.total in Blood 8.0 [facility] ([facility]) Glucose [Mass/volume] in Serum or Plasma 268 [facility] ([facility]) ID Date Data Source [id number] 06/24/2019 09:30:00 AM EDT [facility] ([facility]) Name Value Range Interpretation Code Description Data Roxy rce(s) Supporting Document(s) Hemoglobin A1c/Hemoglobin.total in Blood 8.5 % [facility] ([facility]) REFERENCE RANGES: 4.5-5.6% NORMAL 5.7-6.4% SUGGESTS IMPAIRED GLUCOSE META BOLISM >= 6.5% ABNORMAL Estimated Average Glucose 197 mg/dL 60-110 [facility] ([facility]) ID Date Data Source [id number] 06/24/2019 09:30:00 AM EDT [facility] ([facility] Name Value Range Interpretation Code Description Data Roxy rce(s) Supporting Document(s) Hemoglobin A1c 8.5 % [facility] ([facility] REFERENCE RANGES: 4.5-5.6% NORMAL 5.7-6.4% SUGGESTS IMPAIRED GLUCOSE META BOLISM >= 6.5% ABNORMAL Estimated Average Glucose 197 mg/dL 60-110 [facility] ([facility] ID Date Data Source [id number] 03/18/2019 03:51:54 PM [facility] Name Value Range Interpretation Code Description Data Roxy rce(s) Supporting Document(s) Progress Note [facility] BSNOUr8cNsZICqKq42/FWSgmFDXvq9EmMNzbXAa6KNfyMKUbZ5DfNUA1mX7tSVZ4SHhXTnGwXcWaRHLj lbm [file] 04qX+Hand Rigger/DXbjujF87q3rahJOtOjbH8bxWd23h+6jmoPgmgL3AKj6Rakg5u3vhrvuhJfKR5l2MpV7PAR [file] AgICAgICAgICAgICAgICAgICAgICAgICAgICAgICAg ICAgICAgICAgICAgICAgICAgICAgICAgICAgICAgICAgICAgICAgICAgICAgICAgICAgICAgICAgICAg ICANCiAgICAgICAgICAgICAgICAgICAgICAgICAgICAgICAgICAgICAgICAgICAgICAgICAgICAgICAg ICAgICAgICAgICAgICAgICAgICAgICAgICAgICAgIC AgICAgICAgICAgICANCiAgICAgICAgICAgICAgICAgICAgICAgICAgICAgICAgICAgICAgICAgICAgIC AgICAgICAgICAgICAgICAgICAgICAgICAgICAgICAgICAgICAgICAgICAgICAgICAgICAgICANCiAgIC AgICAgICAgICAgICAgICAgICAgICAgICAgICAgICAg ICAgICAgICAgICAgICAgICAgICAgICAgICAgICAgICAgICAgICAgICAgICAgICAgICAgICAgICAgICAg ICAgICANCiAgICAgICAgICAgICAgICAgICAgICAgICAgICAgICAgICAgICAgICAgICAgICAgICAgICAg ICAgICAgICAgICAgICAgICAgICAgICAgICAgICAgIC AgICAgICAgICAgICAgICANCiAgICAgICAgICAgICAgICAgICAgICAgICAgICAgICAgICAgICAgICAgIC AgICAgICAgICAgICAgICAgICAgICAgICAgICAgICAgICAgICAgICAgICAgICAgICAgICAgICAgICANCi AgICAgICAgICAgICAgICAgICAgICAgICAgICAgICAg ICAgICAgICAgICAgICAgICAgICAgICAgICAgICAgICAgICAgICAgICAgICAgICAgICAgICAgICAgICAg ICAgICAgICANCiAgICAgICAgICAgICAgICAgICAgICAgICAgICAgICAgICAgICAgICAgICAgICAgICAg ICAgICAgICAgICAgICAgICAgICAgICAgICAgICAgIC AgICAgICAgICAgICAgICAgICANCiAgICAgICAgICAgICAgICAgICAgICAgICAgICAgICAgICAgICAgIC AgICAgICAgICAgICAgICAgICAgICAgICAgICAgICAgICAgICAgICAgICAgICAgICAgICAgICAgICAgIC ANCiAgICAgICAgICAgICAgICAgICAgICAgICAgICAg ICAgICAgICAgICAgICAgICAgICAgICAgICAgICAgICAgICAgICAgICAgICAgICAgICAgICAgICAgICAg ICAgICAgICAgICANCjw/ePEdX9jfcZPcoyI4S0ugGw1LLh6HTP6il9FcAPAnCWgngaQjGxePDmIrAREw WmlPVdq2OUrfNA0MgXFrM4LqP2HmCAnfRH0ZWCIoIE XfxHScPGPbUVTaCqK7TUCkDXzbON3IeUPjQWocWHAeGWTaUjTtTGFsCFIuRFMzQJCpWANDLEQmSTRoCl BxBGtxYS3Zq8TnfFV9MJw+Hl8GFQ0jw1NuRVquMzCwLJ1try5MNLcLWzKmI6GekrO8LHY5SHCjQm5DWX WdUOFbvFClIABfCZFOToGkS9VqfA17EHETRt2+DQpl hfAyItyLIgE3OJGei6CjJQc8OJ3PEZMiSUn8eEPoPBFlM0Olm2QhUm57UAGeOtsuWermmqknXEBiG927 hcroTKWbLYEiVH1tSC2bQYJcSWBkNpNgABAGDQ1LKUVzLBLlbUYiKXGgPHJIET4ZIOmkLVV7LASjdvXh wQKcSRtpZE5ECKXdlvXeRcNpENEYQXa+Xt2ZWY5sl0 DxYMugSGLnUB7fst2FXKuEBzVoO1I1iTMnF6I2SHjmFy8MOXVgHDGeRuBuTGJVIFnvOD4SZI2bkpK3IF 2ZxOOrAMExBMIutGAdONe3V20saTEiCFlhYM3MXSR+Elisabeth+Qu2TSIMdCXPyLDHoWtKdCWFPYjAgN7LpQ4 UBn5WwT8QzEA60tGprqfBeLXxjXX9FSN2eVUEwLTMP GD2KgXLhzP1omkXcPyIfGXQQXaCfI79jvJBvNESbHSErPHDbGa2BVZYrP6RynxSutOvwspJjFCXaHGKY JX3CDAjlkfMekVItuZbuXA53oXikKP8YLm2TCzSxCG5rku7MpRRaOk3BKAGvFk0NTDEaRLKxSDYsAJN7 MHTlNeOaGRfkEZQmSXLuCKD9EYKcLEWyAD0NOzJkYH ZzQVKlZhXaTEOtRNMmrn7SBDZqBPS5Cdt5WwBbWAJjRGVvXOasPYRqNOTeIWT3LNObPLVoSY0VMeIlRM QyTCI9CQyiNMToJPOgzu3KUCDcMURcKJXvIpFgPQHcEBXmLZqlUNUnHWP6KAYkHAScPCUnNX3PJjNiDP BsICs2YGceWFUjKRXkqp9VXAXfMRXlXEPyBCEkZLEl JTLnXHugLVTfRHAbNvT2YPRbSXAxBE7LTeIoRYTxDGO1STdhUTElSUQhyn2ZCFGiBQRiQgJsUlKiVCJu AZQtGHztHOCqBZR1Poi9OOXaKPIoQT7DDoJlDGLrFKC5MZItAFCqJIMwzs6FJXWtVETrAvO2GNZtISNm LNSlHXgcKXXuICO6PuV8HHQiZVTvZH3ZQfFmONPsCS R1StJlXQVuKCJxll3YDHHwNJBjShg9XPTbSFRzURXkUJncIFSwNGR8EPvmAIPjWPTsEG3BPkLbACBlRN yvHeyaYMXvOPLson6CZHWyPEH3PDH3HCInMDRlUCEpZIwzBWHdLDRpUFc3RZCkWSUeLN2JQuTpPNWcOU BtKNkaAXZfFTWnun2ILSSkCPO4PqS7YIJbDMVoNGPt RMxtOCGoUPSvXaw4NOHbDXQfBR0ZZpTuWHCqVDJfYWTqQAJjINHfun8MIKLaYUC4HfMlGlUgIQOzIDNm VYkfPUXnSATqFepyEDKmTHHhQM9MKpMwQTHgYUQ2XqboQTIlCLRbem2KNVMqEUN2XOvmQRBkGNAsWRFk AQypGSMhPTV2TZSgNSTkXZHwKG2VReAaZMYgXHA9Hk MkVSXuTMEnjp4DGPVwDJJ5PznsMZLoFXFxPJMcBGzpDZBwAFH0FXeaKYSrQDOuRP0ZYjRvKFStRYpgLW fmNVVmPZPhsj1RdULvhYprse0ZZRgSJy7ZuLjaSEX8RMngEk0ehBSzKPQgLWTKDq1PxsXmTQBuZBVMKX aiWWGlXVAvFUH4RKJjASGwIZG1JpP3LFXkObKxLdR2 STs3KRDiUwU2L6EuCjK7YiL2XNT6XwdwKcDrRoGxQSSpLnd9QAT1BVX+FW2dSJa+Iq3Hd5XpdaK5ftOy APb3XoT3Xf3YXFBDX6NPCf== Procedure Social History Code Duration Value Status Description Data Source(s ) Smoking 03/01/2020 12:00:00 AM EST - 02/16/1987 12:00:00 AM EST Patient is a former smoker completed Patient is a former smoker [facility] ([facility] Smoking 02/02/2020 12:00:00 AM EST Patient has never smoked co mpleted Patient has never smoked [facility] ([facility], [facility]) Alcohol intake 01/20/2020 12:00:00 AM EST Current non-d mary of alcohol (finding) completed Current non-drinker of alcohol (finding) [facility] Tobacco use and exposure 01/20/2020 12:00:00 AM EST Never used co mpleted Never used [facility] Cigarette pack-years 01/20/2020 12:00:00 AM EST UNK completed [facility] Cigarettes smoked current (pack per day) - Reported 01/20/20 12:00:00 AM EST UNK completed [facility] Smoking 01/20/2020 12:00:00 AM EST Former smoker completed Former smoker [facility] Alcohol intake 12/07/2019 12:00:00 AM EDT Current non-d mary of alcohol (finding) completed Current non-drinker of alcohol (finding) [facility] Alcohol intake 11/30/2019 12:00:00 AM EDT Current non-d mary of alcohol (finding) completed Current non-drinker of alcohol (finding) [facility] Alcohol intake 11/25/2019 12:00:00 AM EDT Current non-d mary of alcohol (finding) completed Current non-drinker of alcohol (finding) [facility] Alcohol intake 10/03/2019 12:00:00 AM EDT Current non-d mary of alcohol (finding) completed Current non-drinker of alcohol (finding) [facility] Smoking 09/08/2019 12:00:00 AM EDT Never smoker completed Never s moker [facility] ([facility]) Alcohol intake 03/08/2019 12:00:00 AM EST Current non-d mary of alcohol (finding) completed Current non-drinker of alcohol (finding) [facility] Cigarette pack-years 03/08/2019 12:00:00 AM EST UNK completed [facility] Cigarettes smoked current (pack per day) - Reported 03/08/19 12:00:00 AM EST UNK completed [facility] Smoking 03/08/2019 12:00:00 AM EST Former smoker completed Former smoker [facility] Vital Signs ID Date Data Source UNK Name Value Range Interpretation Code Description Data Source(s) Body surface area Derived from formula 1.94 m2 1.94 m2 [facility] ([facility]) Body weight 89.359 kg 89.359 kg [facility] [place] body weight 120 [lb_av] 120 [lb_av] [facility] T ([facility]) Body mass index (BMI) [Ratio] 33.8 kg/m2 33.8 k g/m2 [facility] ([facility]) Body weight 197.00 [lb_av] 197.00 [lb_av] [facility] ([facility]) Body height 64 [in_i] 64 [in_i] [facility] ([facility]) 5'4" Diastolic blood pressure 73 mm[Hg] 73 mm[Hg] [facility] ([facility]) Systolic blood pressure 113 mm[Hg] 113 mm[Hg] [facility] ([facility]) Body mass index (BMI) [Ratio] 32.2 kg/m2 32.2 k g/m2 [facility] ([facility] [place] body weight 125 [lb_av] 125 [lb_av] [facility] [...] k g/m2 [facility] ([facility] [place] body weight 125 [lb_av] 125 [lb_av] [facility] [...] Pulse oximetry 98 % 98 % [facility] ([facility]) Respiratory rate 13 /min 13 /min [facility] ( [facility]) Heart rate 92 /min 92 /min [facility] ([facility]) Diastolic blood pressure 76 mm[Hg] 76 mm[Hg] [facility] [place] [facility] [place] Systolic blood pressure 126 mm[Hg] 126 mm[Hg] M EDENT ([facility] Body mass index (BMI) [Ratio] 32.6 kg/m2 32.6 k g/m2 MEDENT ([facility] Body height 64 [in_i] 64 [in_i] MEDENT ([facility]) 5'4" Body weight 190.00 [lb_av] 190.00 [lb_av] MEDEN T ([facility] Body temperature 98.4 [degF] 98.4 [degF] MEDENT ([facility] Body mass index (BMI) [Ratio] 30.0 kg/m2 30.0 k g/m2 MEDENT ([facility] [place] body weight 125 [lb_av] 125 [lb_av] MEDEN [...] Pulse oximetry 98 % 98 % MEDENT ([facility]) Body mass index (BMI) [Ratio] 32.8 kg/m2 32.8 k g/m2 MEDENT ([facility]) Body weight 197.12 [lb_av] 197.12 [lb_av] MEDEN T ([facility]) Body height 65 [in_i] 65 [in_i] MEDENT ([facility]) 5'5" Heart rate 78 /min 78 /min MEDENT ([facility]) Diastolic blood pressure 76 mm[Hg] 76 mm[Hg] MEDENT ([facility]) Systolic blood pressure 122 mm[Hg] 122 mm[Hg] M EDENT ([facility]) Body mass index (BMI) [Ratio] 31.5 kg/m2 31.5 k g/m2 MEDENT ([facility] [place] body weight 125 [lb_av] 125 [lb_av] MEDEN [...] 30.38 kg/m2 NextGen ([facility]) Diastolic blood pressure 85 mm[Hg] 85 mm[Hg] NextGen ([facility]) Systolic blood pressure 137 mm[Hg] 137 mm[Hg] N extGen ([facility]) Body weight 80.286 kg 80.286 kg [facility] ([facility]) Body height 162.56 cm 162.56 cm [facility] ([facility]) Body mass index (BMI) [Ratio] 30.1 [...] blood pressure 112 mm[Hg] 112 mm[Hg] M EDENT ([facility] ID Date Data Source [id number] 12/05/2019 04:58:58 PM [facility] Name Value Range Interpretation Code Description Data Source(s) WEIGHT RECORDED 184 lb 184 lb [facility] Body height Measured 64 in 64 in [facility] WEIGHT RECORDED 184.56 lb 184.56 lb [facility] ID Date Data Source [id number] 11/29/2019 07:20:34 PM [facility] Name Value Range Interpretation Code Description Data Source(s) WEIGHT RECORDED 184.08 lb 184.08 lb [facility] Body height Measured 63.39 in 63.39 in [facility] ID Date Data Source [id number] 10/03/2019 03:27:38 PM [facility] Name Value Range Interpretation Code Description Data Source(s) WEIGHT RECORDED 191.8 lb 191.8 lb [facility] Body height Measured 64 in 64 in [facility] ID Date Data Source [id number] 03/18/2019 03:51:54 PM [facility] Name Value Range Interpretation Code Description Data Source(s) WEIGHT RECORDED 178.1 lb 178.1 lb [facility] Body height Measured 64 in 64 in [facility] Patient Treatment Plan of Care Planned Activity Planned Date Details Description Data Source (s) Magnesium Oxide 400 MG Oral Tablet 12/04/2019 12:00:00 AM [facility] Caffeine 200 MG Oral Tablet 12/03/2019 12:00:00 AM [facility] Ibuprofen 200 MG Oral Tablet 12/03/2019 12:00:00 AM [facility] Acetaminophen 325 MG Oral Tablet 12/03/2019 12:00:00 AM [facility] Oxycodone Hydrochloride 5 MG Oral Tablet 12/03/2019 12:00:00 AM [facility] albuterol (PROVENTIL HFA) inhaler 2 puff 11/30/2019 06:32:39 PM [facility] dextrose 50 % IV solution 25 mL 11/30/2019 02:35:32 PM [facility] Glucagon 1 MG Injection 11/30/2019 02:35:32 PM [facility] Glucose 0.417 MG/MG Oral Gel 11/30/2019 02:35:32 PM [facility] 24 HR Metformin hydrochloride 500 MG Extended Release Oral Tablet 09/07/2019 12:00:00 AM [facility] ospital Norethindrone 0.35 MG Oral Tablet 07/18/2019 12:00:00 AM [facility] Ortho Micronor 0.35 mg tablet 05/04/2019 12:00:[address] [facility] ([facility]) Docusate Sodium 100 MG Oral Capsule [DOK] 12/03/2018 12:00:00 AM [facility] Nystatin 100 UNT/MG Topical Powder 10/11/2018 12:00:00 AM [facility] tizanidine 4 MG Oral Capsule 09/17/2018 12:00:00 AM [facility] 3 ML insulin detemir 100 UNT/ML Pen Injector [Levemir] 09/17/2018 12:00:00 AM [facility] ospital
[2020-03-17 07:50] LABS: BASO # 0.1 10^3/uL (0.0-0.2); EOS # 0.4 10^3/uL (0.0-0.5); EOS % 9.5 % (0.0-3.0); HEMATOCRIT 40.6 % (36.0-47.0); HEMOGLOBIN 12.3 g/dl (12.0-15.5); LYMPH # 0.9 10^3/uL (1.5-5.0); LYMPH % 23.8 % (24.0-44.0); MEAN CORPUSCULAR HEMOGLOBIN 23.4 pg (27.0-33.0); MEAN CORPUSCULAR HGB CONC 30.3 g/dl (32.0-36.5); MEAN CORPUSCULAR VOLUME 77.2 fl (80.0-96.0); MONO # 0.4 10^3/uL (0.0-0.8); NEUTROPHILS # 2.1 10^3/uL (1.5-8.5); NEUTROPHILS % 54.4 % (36.0-66.0); PLATELET COUNT, AUTOMATED 219 10^3/uL (150-450); RED BLOOD COUNT 5.26 10^6/uL (4.00-5.40); WHITE BLOOD COUNT 3.9 10^3/uL (4.0-10.0)
[2020-03-17 08:01] LABS: BLOOD UREA NITROGEN 17 MG/DL (7-18); C REACTIVE PROTEIN QUANTITATIV 3.96 MG/DL (0.00-0.30); CALCIUM LEVEL 9.2 MG/DL (8.5-10.1); CARBON DIOXIDE LEVEL 23 MEQ/L (21-32); CHLORIDE LEVEL 104 MEQ/L (98-107); CREATININE FOR GFR 0.82 MG/DL (0.55-1.30); GLOMERULAR FILTRATION RATE > 60.0 (>51); GLUCOSE, FASTING 234 MG/DL (70-100); POTASSIUM SERUM 3.9 MEQ/L (3.5-5.1); RHEUMATOID FACTOR QUANT < 10.0 IU/ML (<15.0); SODIUM LEVEL 137 MEQ/L (136-145)
[2020-03-17 08:15] LABS: RSV AMPLIFICATION NEGATIVE (NEGATIVE)
[2020-03-17 08:23] LABS: ERYTHROCYTE SEDIMENTATION RATE 28 mm/hr (0-30)
[2020-03-17 08:25] VITALS: BP 171/87
== END 2020-03-17 08:27 | disposition home or self-care (01) ==
LOC: M ED 06:36
DX: M25.50 Pain in unspecified joint (principal); E11.9 Type 2 diabetes mellitus without complications; I10 Essential (primary) hypertension; E78.5 Hyperlipidemia, unspecified; Z87.442 Personal history of urinary calculi; Z98.84 Bariatric surgery status; F12.10 Cannabis abuse, uncomplicated; Z79.84 Long term (current) use of oral hypoglycemic drugs; Z79.899 Other long term (current) drug therapy; Z88.0 Allergy status to penicillin

== ENCOUNTER → 2020-04-06 | Outpatient (CLI) | payer OTHER ==
[~2020-04-06] MED LIST changes: +ALBU8.5H; +ATOR40TA75 PO; +CITA40TA4 PO; +EUTH125T PO; +JENC0.35 PO; +LORA-674 PO; +LOSA50TA88 PO; +METF-838 PO; +OMEP-218 PO; +TRUL10IN INJ; +WOMETAB9 PO
== END ==
LOC: M LABSMTC 10:15
PROVIDERS: ATTEND Anesthesiology
DX: Z01.812 Encounter for preprocedural laboratory examination (principal); Z20.822 Contact with and (suspected) exposure to COVID-19

== ENCOUNTER 2020-04-11 06:53 | Day surgery (SDC) | payer OTHER ==
[~2020-04-11] VITALS: Ht 162.6 cm; Wt 86.5 kg
[~2020-04-11 06:53] MED LIST changes: +LIDOCAINE 2% 100MG/5ML SDV (FOR ANES.) As Ordered ONE; +propofoL 200 MG/20 ML VIAL As Ordered ONE
--- OUTSIDE RECORDS SUMMARY | 2020-04-11 06:58 | CCD | Continuity of Care Document ---
Author Author Jane ALCALA PA Organization Unknown Address [address] [place] [address] Phone [phone] Care Team Providers Care Welding Machine Assembler Name Role Phone Shruthi Warren MD AUTM [phone] Alea Marin MD AUTM [phone] [facility] Surgery [facility] - Surgery AUTM [phone] Problems Description No Information Available Social History [...] Sharon Hearn M.D. 01/04/2019 Relion Pen Needle [id number] Mis 32G X 4 mm Use With Levemir Injection Twice Daily as Directed 200units Ana Amos RPA-C 05/01/2018 Pen [place] 32G X 4 mm Misc to use [...] mouth once daily for allergy symptoms 90tabs Sharno Hearn M.D. Multi-Vitamin Daily Tablets 1 by mouth every day Unknown History Medications Basaglar Kwikpen 100 Unit/ML Solution Pen-Inject 8 Units sub qu twice a day Unknown 1 - 02/09/2020 Bariatric Fusion Chewtabs 2 chew tabs twice a day Unknown 12/03/2019 - Immunizations CPT Code Status Date Vaccine Lot # [id number] Given 03/01/2020 Pneumococcal Vaccine [id number] Given 11/23/2019 Influenza Virus Vaccine, Quadrivalent,age 3 and up,multidose vial [id number] Given 11/06/2017 Influenza Virus Vaccine, Quadrivalent,age 3 and up,multidose vial [id number] Vital Signs Date Vital Result Comment 03/01/2020 2:25pm BP Systolic 151 mmHg BP Diastolic 100 mmHg BP Systolic Recheck 137 mmHg BP Diastolic Recheck 95 mmHg Heart Rate 95 /min Body Temperature 97.4 F Respiratory Rate 16 /min Height 65 inches 5'5" Weight 193.25 lb O2 % BldC Oximetry 98 % Peak Expiratory Flow Rate 364 Estimated Peak Flow Rate [place] Body Weight 125 lb BMI (Body Mass Index) 32.2 kg/m2 02/09/2020 8:32am BP Systolic 136 mmHg BP Diastolic 81 mmHg Heart Rate 75 /min Body Temperature 96.6 F Respiratory Rate 18 /min Height 65 inches 5'5" Weight 189.50 lb O2 % BldC Oximetry 98 % Peak Expiratory Flow Rate 364 Estimated Peak Flow Rate [place] Body Weight 125 lb BMI (Body Mass Index) 31.5 kg/m2 Results Test Acquired Date Facility Test Result H/L Range Note Basic Metabolic Profile 03/17/2020 [facility] [place] [address] [phone] Glucose, Fasting 234 mg/dL High 70-100 Blood Urea Nitrogen 17 mg/dL Normal 7-18 Creatinine For GFR 0.82 mg/dL Normal 0.55-1.30 Glomerular Filtration Rate > 60.0 Normal >51 1 Sodium Level 137 mEq/L Normal 136-145 Potassium Serum 3.9 mEq/L Normal 3.5-5.1 Chloride Level 104 mEq/L Normal 98-107 Carbon Dioxide Level 23 mEq/L Normal 21-32 Anion Gap 10 mEq/L Normal 8-16 Calcium Level 9.2 mg/dL Normal 8.5-10.1 Laboratory test finding 03/17/2020 [place] [address] [phone] Rheumatoid Factor Quant < 10.0 IU/mL Normal <15.0 C Reactive Protein Quantitativ 3.96 mg/dL High 0.00-0.30 CBC With Differential 03/17/2020 [place] [address] [phone] White Blood Count 3.9 10 Low 4.0-10.0 Red Blood Count 5.26 10 Normal 4.00-5.40 Hemoglobin 12.3 g/dL Normal 12.0-15.5 Hematocrit 40.6 % Normal 36.0-47.0 Mean Corpuscular Volume 77.2 fl Low 80.0-96.0 Mean Corpuscular Hemoglobin 23.4 pg Low 27.0-33.0 Mean Corpuscular HGB Conc 30.3 g/dL Low 32.0-36.5 Red Cell Distribution Width 18.8 % High 11.5-14.5 Platelet Count, Automated 219 10 Normal 150-450 Neutrophils % 54.4 % Normal 36.0-66.0 Lymph % 23.8 % Low 24.0-44.0 [place] % 9.0 % High 0.0-5.0 Eos % 9.5 % High 0.0-3.0 Baso % 2.0 % High 0.0-1.0 Immature Granulocyte % 1.3 % Normal 0-3.0 Nucleated Red Blood Cell % 0.0 % Normal 0-0 Neutrophils # 2.1 10 Normal 1.5-8.5 Lymph # 0.9 10 Low 1.5-5.0 [place] # 0.4 10 Normal 0.0-0.8 Eos # 0.4 10 Normal 0.0-0.5 Baso # 0.1 10 Normal 0.0-0.2 Laboratory test finding 03/17/2020 [place] [address] [phone] Erythrocyte Sedimentation Rate 28 mm/hr Normal 0 -30 Anti-Neutrophil Cytoplasmic AB 03/17/2020 [address] [place] [id number] [phone] Cytoplasmic Neutrop AB Anca-C <1:20 titer Normal N eg:<1:20 Perinuclear AB Anca-P <1:20 titer Normal Neg:<1:20 2 Anca-Atypical <1:20 titer Normal Neg:<1:20 3 Laboratory test finding 03/17/2020 [place] [address] [phone] Cyclic Citrullinated Peptide 5 units Normal 0-1 9 4 Lyme Disease SCRN With Confirm 03/17/2020 [place] [address] [phone] Lyme Disease IgG/IgM Antibodie <0.91 ISR Normal 0 .00-0.90 5 Lyme Disease IgM Ab Quantitati <0.80 index Normal 0.00-0.79 6 [place] Titer & Pattern 03/17/2020 [place] [address] [phone] [place] (Hep2) Negative Normal . 7 Comprehensive Metabolic Profil 03/02/2020 [facility] [phone] Glucose, Fasting 174 mg/dL High 70-100 Blood Urea Nitrogen 13 mg/dL Normal 7-18 Creatinine For GFR 0.72 mg/dL Normal 0.55-1.30 Glomerular Filtration Rate > 60.0 Normal >51 8 Sodium Level 140 mEq/L Normal 136-145 Potassium [...] Ratio 1.2 Normal 1.2-2.2 Hemoglobin A1c 03/02/2020 [facility] [phone] Hemoglobin A1c 6.9 % Normal 9 Estimated Average Glucose 151 mg/dL High 60-110 Microalbumin Random 03/02/2020 [facility] [phone] Creatinine, Urine 220.0 mg/dL Normal Malb Urine Siemens 122.0 mg/L Normal [place]/Creat Ratio 55.4 MCG/MG High 0.0-30.0 10 Lipid Panel 03/02/2020 [facility] [phone] Triglycerides Level 86 mg/dL Normal <150 Cholesterol Level 107 mg/dL Normal <200 HDL Cholesterol 64 mg/dL Normal >40 LDL Cholesterol 26 mg/dL Normal <100 Non-HDL-C 43 mg/dL Normal Cholesterol Risk Ratio 1.671 Normal <5 Laboratory test finding 03/02/2020 [facility] [phone] Thyroid Stimulating Hormone 0.173 uIU/ML Low 0. 358-3.740 1 Units are mL/min/1.73 m2 Chronic Kidney Disease Staging per NKF: Stage I & II GFR >=60 Normal to Mildly Decreased Stage III GFR 30-59 Moderately Decreased Stage IV GFR 15-29 Severely Decreased Stage V GFR <15 Very Little GFR Left ESRD GFR <15 on HOSPITALITY AMBASSADOR 2 The presence of positive flu orescence exhibiting P-ANCA or C-ANCA patterns alone is not specific for the diagnosis of Carlito's Granulomatosis (WG) or microscopic polyangiitis. Decisions about treatment should not be based solely on ANCA IFA results. The International ANCA Group Consensus recommends follow up testing of positive sera with both CA- 3 and MPO-ANCA enzyme immunoassays. As m any as 5% serum samples are positive only by EIA. Ref. AM J Clin Pathol 1999;111:507-513. 3 The atypical pANCA pattern h as been observed in a significant percentage of patients with ulcerative colitis, primary sclerosing cholangitis and autoimmune hepatitis. 4 Negative <20 Weak positive 20 - 39 Moderate positive 40 - 59 Strong positive >59 5 Negative <0.91 Equivocal 0.91 - 1.09 Positive >1.09 6 Negative <0.80 Equivocal 0.80 - 1.19 Positive >1.19 . IgM levels may peak at 3-6 weeks post infection, then gradually decline. 7 Negative <1:80 Borderline 1:80 Positive >1:80 Performed at: - [facility] [address] [id number] Director Of Religious Life: Ruddy Anguiano MD, Phone: [phone] Performed at: - [facility] [address] [id number] Director Of Religious Life: Mihaela Madden MD, Phone: [phone] Units are mL/min/1.73 m2 Chronic Kidney Disease Staging per NKF: Stage I & II GFR >=60 Normal to Mildly Decreased Stage III GFR 30-59 Moderately Decreased Stage IV GFR 15-29 Severely Decreased Stage V GFR <15 Very Little GFR Left ESRD GFR <15 on HOSPITALITY AMBASSADOR 9 REFERENCE RANGES: <=5.6% NORMAL 5.7-6.4% SUGGESTS IMPAIRED GLUCOSE META BOLISM/PREDIABETIC >= 6.5% ABNORMAL 10 THE [place] DIABET[employer] ASSOC[employer] ATION STATES THAT MICROALBUMINURIA IS PRESENT IF THE MICROALBUMIN/CREATININE RATIO EXCEEDS 30 MCG/MG. THE THRESHOLD FOR CLINICAL ALBUMINURIA IS REACHED AT 300 MCG/MG. THE CLASSIFICATION OF A PATIENT SHOULD BE BASED UPON AT LEAST 2 OF 3 ABNORMAL RESULTS ON SPECIMENS COLLECTED WITHIN A 3 TO 6 MONTH TIME FRAME. Procedures Date Code Description Status 08/26/2019 [id number] Diabetic Foot Exam Completed Medical Devices Description No Information Available Encounters Type Date Location Provider Dx Diagnosis Office Visit 03/26/2020 9:00a Main Office Nishi Alcala PA M25.50 Pain in unspecified joint Office Visit 03/01/2020 2:15p Main Office Nishi [...] for immunization Assessments Date Code Description Provider 03/26/2020 M25.50 Multiple joint pain Nishi Alcala PA 03/01/2020 E11.22 Type 2 diabetes mellitus with [...] in whom no diagnosis is made Carol Chapa, SHARITA 02/01/2020 J06.9 Acute upper respiratory infectio n, unspecified Nishi Alcala PA 11/23/2019 J30.9 Allergic rhinitis, unspecified P Nishi erickson PA 11/23/2019 R05 Cough Inge Alcala cia, PA 11/23/2019 R59.0 Localized enlarged lymph nodes P Nishi erickson PA 11/23/2019 Z23 Encounter for immunization Nishi Hopkins PA Plan of Treatment Future Appointment(s):* 09/03/2020 8:15 am - Nishi Alcala PA at Main Office 03/26/2020 - Nishi Alcala PA* M25.50 Multiple joint pain* Comments: * ER notes and labs reviewed. normal ALAINA, RF, ESR and lyme titer. She is unable to take oral NSAIDs due to history of gastric bypass.She will try voltaren gel and tylenol arthritis for the next 10 days. Functional Status Functional Condition Comment Date Status Bifocal glasses Active Independent with all ADL's Activ e Independent with all IADL's Acti ve Cpap Machine uses at least 6 hours per ni ght, wakes feeling rested, no day time fatigue Active Mental Status Mental Condition Comment Date Status None Active Can Understand Information Activ e Referrals Refer to Reason for Referral Status Appt Date [facility] General Surgery Practice pt is due for screening c olonoscopy Scheduled 03/08/[address] [place] [address], [address] [place] [address] [phone]
--- OUTSIDE RECORDS SUMMARY | 2020-04-11 06:58 | CCD | Continuity of Care Document ---
Author Author Jane ALCALA PA Organization Unknown Address [address] [place] [address] Phone [phone] Care Team Providers Care Coding Manager Name Role Phone Shruthi Warren MD AUTM [phone] Alea Marin MD AUTM [phone] [facility] Surgery Practice - Surgery AUTM [phone] Problems Description No Information Available Social History [...] Sharon Hearn M.D. 01/04/2019 Relion Pen Needle [id number] Mis 32G X 4 mm Use With Levemir Injection Twice Daily as Directed 200units Ana Amos RPA-C 05/01/2018 Pen [place] 32G X 4 mm Misc to use [...] CPT Code Status Date Vaccine Lot # [id number] Given 03/01/2020 Pneumococcal Vaccine [id number] Given 11/23/2019 Influenza Virus Vaccine, Quadrivalent,age 3 and up,multidose vial [id number] Given 11/06/2017 Influenza Virus Vaccine, Quadrivalent,age 3 and up,multidose vial [id number] Vital Signs Date Vital Result Comment 03/01/2020 2:25pm BP Systolic 151 mmHg BP Diastolic 100 mmHg BP Systolic Recheck 137 mmHg BP Diastolic Recheck 95 mmHg Heart Rate 95 /min Body Temperature 97.4 F Respiratory Rate 16 /min Height 65 inches 5'5" Weight 193.25 lb O2 % BldC Oximetry 98 % Peak Expiratory Flow Rate 364 Estimated Peak Flow Rate [place] Body Weight 125 lb BMI (Body Mass Index) 32.2 kg/m2 02/09/2020 8:32am BP Systolic 136 mmHg BP Diastolic 81 mmHg Heart Rate 75 /min Body Temperature 96.6 F Respiratory Rate 18 /min Height 65 inches 5'5" Weight 189.50 lb O2 % BldC Oximetry 98 % Peak Expiratory Flow Rate 364 Estimated Peak Flow Rate [place] Body Weight 125 lb BMI (Body Mass Index) 31.5 kg/m2 Results Test Acquired Date Facility Test Result H/L Range Note Basic Metabolic Profile 03/17/2020 [place] [address] [phone] Glucose, Fasting 234 mg/dL High 70-100 Blood [...] Laboratory test finding 03/17/2020 [place] [address] [phone] Rheumatoid Factor Quant < 10.0 IU/mL Normal <15.0 C Reactive Protein Quantitativ 3.96 mg/dL High 0.00-0.30 CBC With Differential 03/17/2020 [place] [address] [phone] White Blood Count 3.9 10 Low 4.0-10.0 [...] 36.0-66.0 Lymph % 23.8 % Low 24.0-44.0 [place] % 9.0 % High 0.0-5.0 Eos % 9.5 % High 0.0-3.0 Baso % 2.0 % High 0.0-1.0 Immature Granulocyte % 1.3 % Normal 0-3.0 Nucleated Red Blood Cell % 0.0 % Normal 0-0 Neutrophils # 2.1 10 Normal 1.5-8.5 Lymph # 0.9 10 Low 1.5-5.0 [place] # 0.4 10 Normal 0.0-0.8 Eos # 0.4 10 Normal 0.0-0.5 Baso # 0.1 10 Normal 0.0-0.2 Laboratory test finding 03/17/2020 [place] [address] [phone] Erythrocyte Sedimentation Rate 28 mm/hr Normal 0 -30 Anti-Neutrophil Cytoplasmic AB 03/17/2020 Patient [facility] [place] [id number] [phone] Cytoplasmic Neutrop AB Anca-C <1:20 titer Normal N eg:<1:20 Perinuclear AB Anca-P <1:20 titer Normal Neg:<1:20 2 Anca-Atypical <1:20 titer Normal Neg:<1:20 3 Laboratory test finding 03/17/2020 [place] [address] [phone] Cyclic Citrullinated Peptide 5 units Normal 0-1 9 4 Lyme Disease SCRN With Confirm 03/17/2020 [place] [address] [phone] Lyme Disease IgG/IgM Antibodie <0.91 ISR Normal 0 .00-0.90 5 Lyme Disease IgM Ab Quantitati <0.80 index Normal 0.00-0.79 6 [place] Titer & Pattern 03/17/2020 [place] [address] [phone] [place] (Hep2) Negative Normal . 7 Comprehensive Metabolic Profil 03/02/2020 [facility] [phone] Glucose, Fasting 174 mg/dL High 70-100 Blood [...] Ratio 1.2 Normal 1.2-2.2 Hemoglobin A1c 03/02/2020 [facility] [phone] Hemoglobin A1c 6.9 % Normal 9 Estimated Average Glucose 151 mg/dL High 60-110 Microalbumin Random 03/02/2020 [facility] [phone] Creatinine, Urine 220.0 mg/dL Normal Malb Urine Siemens 122.0 mg/L Normal [place]/Creat Ratio 55.4 MCG/MG High 0.0-30.0 10 Lipid Panel 03/02/2020 [facility] [phone] Triglycerides Level 86 mg/dL Normal <150 Cholesterol Level 107 mg/dL Normal <200 HDL Cholesterol 64 mg/dL Normal >40 LDL Cholesterol 26 mg/dL Normal <100 Non-HDL-C 43 mg/dL Normal Cholesterol Risk Ratio 1.671 Normal <5 Laboratory test finding 03/02/2020 [facility] [phone] Thyroid Stimulating Hormone 0.173 uIU/ML Low 0. 358-3.740 1 Units are mL/min/1.73 m2 Chronic Kidney Disease Staging per NKF: Stage I & II GFR >=60 Normal to Mildly Decreased Stage III GFR 30-59 Moderately Decreased Stage IV GFR 15-29 Severely Decreased Stage V GFR <15 Very Little GFR Left ESRD GFR <15 on SUPERVISOR GENERAL 2 The presence of positive flu orescence exhibiting P-ANCA or C-ANCA patterns alone is not specific for the diagnosis of Carlito's Granulomatosis (WG) or microscopic polyangiitis. Decisions about treatment should not be based solely on ANCA IFA results. The International ANCA Group Consensus recommends follow up testing of positive sera with both [place]- 3 and MPO-ANCA enzyme immunoassays. As m [...] 1:80 Positive >1:80 Performed at: - [facility] [address] [id number] Railroad Wheels And Axle Inspector: Ruddy Anguiano MD, Phone: [phone] Performed at: - [facility] [address] [id number] Railroad Wheels And Axle Inspector: Mihaela Madden MD, Phone: [phone] Units are mL/min/1.73 m2 Chronic Kidney Disease Staging per NKF: Stage I & II GFR >=60 Normal to Mildly Decreased Stage III GFR 30-59 Moderately Decreased Stage IV GFR 15-29 Severely Decreased Stage V GFR <15 Very Little GFR Left ESRD GFR <15 on SUPERVISOR GENERAL 9 REFERENCE RANGES: <=5.6% NORMAL 5.7-6.4% SUGGESTS IMPAIRED GLUCOSE META BOLISM/PREDIABETIC >= 6.5% ABNORMAL 10 THE [place] DI[employer] ASSOC[employer] ATION STATES THAT MICROALBUMINURIA IS PRESENT IF THE MICROALBUMIN/CREATININE RATIO EXCEEDS 30 MCG/MG. THE THRESHOLD FOR CLINICAL ALBUMINURIA IS REACHED AT 300 MCG/MG. THE CLASSIFICATION OF A PATIENT SHOULD BE BASED UPON AT LEAST 2 OF 3 ABNORMAL RESULTS ON SPECIMENS COLLECTED WITHIN A 3 TO 6 MONTH TIME FRAME. Procedures Date Code Description Status 08/26/2019 [id number] Diabetic Foot Exam Completed Medical Devices Description No Information Available Encounters Type Date Location Provider Dx Diagnosis Office Visit 03/01/2020 2:15p Main Office Nishi Alcaal PA E11.22 Type 2 diabetes mellitus w [...] to Reason for Referral Status Appt Date [facility] Surgery Practice pt is due for screening c olonoscopy Scheduled 03/08/[address] [place] [address], [address] [place] [address] [phone]
--- OUTSIDE RECORDS SUMMARY | 2020-04-11 06:59 | CCD | Continuity of Care Document ---
Author Author Jane ALCALA PA Organization Unknown Address [address] [place] [address] Phone [phone] Care Team Providers Care Manager Convention Name Role Phone Shruthi Warren MD AUTM [phone] Alea Marin MD AUTM [phone] [facility] - Surgery AUTM [phone] Problems Description No Information Available Social History [...] Sharon Hearn M.D. 01/04/2019 Relion Pen Needle [id number] Mis 32G X 4 mm Use With Levemir Injection Twice Daily as Directed 200units Ana Amos RPA-C 05/01/2018 Pen [place] 32G X 4 mm Misc to use [...] CPT Code Status Date Vaccine Lot # [id number] Given 03/01/2020 Pneumococcal Vaccine [id number] Given 11/23/2019 Influenza Virus Vaccine, Quadrivalent,age 3 and up,multidose vial [id number] Given 11/06/2017 Influenza Virus Vaccine, Quadrivalent,age 3 and up,multidose vial [id number] Vital Signs Date Vital Result Comment 03/01/2020 2:25pm BP Systolic 151 mmHg BP Diastolic 100 mmHg BP Systolic Recheck 137 mmHg BP Diastolic Recheck 95 mmHg Heart Rate 95 /min Body Temperature 97.4 F Respiratory Rate 16 /min Height 65 inches 5'5" Weight 193.25 lb O2 % BldC Oximetry 98 % Peak Expiratory Flow Rate 364 Estimated Peak Flow Rate [place] Body Weight 125 lb BMI (Body Mass Index) 32.2 kg/m2 02/09/2020 8:32am BP Systolic 136 mmHg BP Diastolic 81 mmHg Heart Rate 75 /min Body Temperature 96.6 F Respiratory Rate 18 /min Height 65 inches 5'5" Weight 189.50 lb O2 % BldC Oximetry 98 % Peak Expiratory Flow Rate 364 Estimated Peak Flow Rate [place] Body Weight 125 lb BMI (Body Mass Index) 31.5 kg/m2 Results Test Acquired Date Facility Test Result H/L Range Note Basic Metabolic Profile 03/17/2020 [place] [address] [phone] Glucose, Fasting 234 mg/dL High 70-100 Blood [...] Laboratory test finding 03/17/2020 [place] [address] [phone] Rheumatoid Factor Quant < 10.0 IU/mL Normal <15.0 C Reactive Protein Quantitativ 3.96 mg/dL High 0.00-0.30 CBC With Differential 03/17/2020 [place] [address] [phone] White Blood Count 3.9 10 Low 4.0-10.0 [...] 36.0-66.0 Lymph % 23.8 % Low 24.0-44.0 [place] % 9.0 % High 0.0-5.0 Eos % 9.5 % High 0.0-3.0 Baso % 2.0 % High 0.0-1.0 Immature Granulocyte % 1.3 % Normal 0-3.0 Nucleated Red Blood Cell % 0.0 % Normal 0-0 Neutrophils # 2.1 10 Normal 1.5-8.5 Lymph # 0.9 10 Low 1.5-5.0 [place] # 0.4 10 Normal 0.0-0.8 Eos # 0.4 10 Normal 0.0-0.5 Baso # 0.1 10 Normal 0.0-0.2 Laboratory test finding 03/17/2020 [place] [address] [phone] Erythrocyte Sedimentation Rate 28 mm/hr Normal 0 -30 Anti-Neutrophil Cytoplasmic AB 03/17/2020 [facility] [place] [id number] [phone] Cytoplasmic Neutrop AB Anca-C <1:20 titer Normal N eg:<1:20 Perinuclear AB Anca-P <1:20 titer Normal Neg:<1:20 2 Anca-Atypical <1:20 titer Normal Neg:<1:20 3 Laboratory test finding 03/17/2020 [place] [address] [phone] Cyclic Citrullinated Peptide 5 units Normal 0-1 9 4 Lyme Disease SCRN With Confirm 03/17/[place] [address] [phone] Lyme Disease IgG/IgM Antibodie <0.91 ISR Normal 0 .00-0.90 5 Lyme Disease IgM Ab Quantitati <0.80 index Normal 0.00-0.79 6 Alaina Titer & Pattern 03/17/2020 [place] [address] [phone] Alaina (Hep2) Negative Normal . 7 Comprehensive Metabolic Profil 03/02/2020 [facility] [phone] Glucose, Fasting 174 mg/dL High 70-100 Blood [...] Ratio 1.2 Normal 1.2-2.2 Hemoglobin A1c 03/02/2020 [facility] [phone] Hemoglobin A1c 6.9 % Normal 9 Estimated Average Glucose 151 mg/dL High 60-110 Microalbumin Random 03/02/2020 [facility] [phone] Creatinine, Urine 220.0 mg/dL Normal Malb Urine Siemens 122.0 mg/L Normal [place]/Creat Ratio 55.4 MCG/MG High 0.0-30.0 10 Lipid Panel 03/02/2020 [facility] [phone] Triglycerides Level 86 mg/dL Normal <150 Cholesterol Level 107 mg/dL Normal <200 HDL Cholesterol 64 mg/dL Normal >40 LDL Cholesterol 26 mg/dL Normal <100 Non-HDL-C 43 mg/dL Normal Cholesterol Risk Ratio 1.671 Normal <5 Laboratory test finding 03/02/2020 [facility] [phone] Thyroid Stimulating Hormone 0.173 uIU/ML Low 0. 358-3.740 1 Units are mL/min/1.73 m2 Chronic Kidney Disease Staging per NKF: Stage I & II GFR >=60 Normal to Mildly Decreased Stage III GFR 30-59 Moderately Decreased Stage IV GFR 15-29 Severely Decreased Stage V GFR <15 Very Little GFR Left ESRD GFR <15 on OSTEOPATHIC MEDICINE TEACHER 2 The presence of positive flu orescence exhibiting P-ANCA or C-ANCA patterns alone is not specific for the diagnosis of Carlito's Granulomatosis (WG) or microscopic polyangiitis. Decisions about treatment should not be based solely on ANCA IFA results. The [employer] ANCA [employer] Consensus recommends follow up testing of positive sera with both AR- 3 and MPO-ANCA enzyme immunoassays. As m [...] 1:80 Positive >1:80 Performed at: - [facility] [address] [id number] General Helper: Ruddy Anguiano MD, Phone: [phone] Performed at: - [facility] [address] [id number] General Helper: Mihaela Madden MD, Phone: [phone] Units are mL/min/1.73 m2 Chronic Kidney Disease Staging per NKF: Stage I & II GFR >=60 Normal to Mildly Decreased Stage III GFR 30-59 Moderately Decreased Stage IV GFR 15-29 Severely Decreased Stage V GFR <15 Very Little GFR Left ESRD GFR <15 on OSTEOPATHIC MEDICINE TEACHER 9 REFERENCE RANGES: <=5.6% NORMAL 5.7-6.4% SUGGESTS IMPAIRED GLUCOSE META BOLISM/PREDIABETIC >= 6.5% ABNORMAL 10 THE [place] DI[employer] ATION STATES THAT MICROALBUMINURIA IS PRESENT IF THE MICROALBUMIN/CREATININE RATIO EXCEEDS 30 MCG/MG. THE THRESHOLD FOR CLINICAL ALBUMINURIA IS REACHED AT 300 MCG/MG. THE CLASSIFICATION OF A PATIENT SHOULD BE BASED UPON AT LEAST 2 OF 3 ABNORMAL RESULTS ON SPECIMENS COLLECTED WITHIN A 3 TO 6 MONTH TIME FRAME. Procedures Date Code Description Status 08/26/2019 [id number] Diabetic Foot Exam Completed Medical Devices Description [...] whom no diagnosis is made Carol Chapa, SHARIAT 02/01/2020 J06.9 Acute upper respiratory infectio n, unspecified Nishi Alcala PA 11/23/2019 J30.9 Allergic rhinitis, unspecified P Nishi erickson PA 11/23/2019 R05 Cough Inge Alcala cia, PA 11/23/2019 R59.0 Localized enlarged lymph nodes P Nishi erickson PA 11/23/2019 Z23 Encounter for immunization Nishi Hopkins PA Plan of Treatment Future Appointment(s):* 03/26/2020 9:00 am - Nishi Alcala PA at Main Office * 09/03/2020 8:15 am - Nishi Alcala PA [...] to Reason for Referral Status Appt Date [facility] Surgery Practice pt is due for screening c olonoscopy Scheduled 03/08/2020 [address] [facility], [address] [place] [address] [phone]
--- OUTSIDE RECORDS SUMMARY | 2020-04-11 06:59 | CCD | Continuity of Care Document ---
Author Author Jane ALCALA PA Organization Unknown Address [address] [place] [address] Phone [phone] Care Team Providers Care Foundation Assistant Name Role Phone Shruthi Warren MD AUTM [phone] Alea Marin MD AUTM [phone] [facility] Surgery [facility] - Surgery AUTM [phone] Problems Description No Information Available Social History [...] Sharon Hearn M.D. 01/04/2019 Relion Pen Needle [id number] Mis 32G X 4 mm Use With Levemir Injection Twice Daily as Directed 200units Ana Amos RPA-C 05/01/2018 Pen [place] 32G X 4 mm Misc to use [...] CPT Code Status Date Vaccine Lot # [id number] Given 03/01/2020 Pneumococcal Vaccine [id number] Given 11/23/2019 Influenza Virus Vaccine, Quadrivalent,age 3 and up,multidose vial [id number] Given 11/06/2017 Influenza Virus Vaccine, Quadrivalent,age 3 and up,multidose vial [id number] Vital Signs Date Vital Result Comment 03/01/2020 2:25pm BP Systolic 151 mmHg BP Diastolic 100 mmHg BP Systolic Recheck 137 mmHg BP Diastolic Recheck 95 mmHg Heart Rate 95 /min Body Temperature 97.4 F Respiratory Rate 16 /min Height 65 inches 5'5" Weight 193.25 lb O2 % BldC Oximetry 98 % Peak Expiratory Flow Rate 364 Estimated Peak Flow Rate [place] Body Weight 125 lb BMI (Body Mass Index) 32.2 kg/m2 02/09/2020 8:32am BP Systolic 136 mmHg BP Diastolic 81 mmHg Heart Rate 75 /min Body Temperature 96.6 F Respiratory Rate 18 /min Height 65 inches 5'5" Weight 189.50 lb O2 % BldC Oximetry 98 % Peak Expiratory Flow Rate 364 Estimated Peak Flow Rate [place] Body Weight 125 lb BMI (Body Mass Index) 31.5 kg/m2 Results Test Acquired Date Facility Test Result H/L Range Note Basic Metabolic Profile 03/17/2020 [place] [address] [phone] Glucose, Fasting 234 mg/dL High 70-100 Blood [...] Laboratory test finding 03/17/2020 [place] [address] [phone] Rheumatoid Factor Quant < 10.0 IU/mL Normal <15.0 C Reactive Protein Quantitativ 3.96 mg/dL High 0.00-0.30 CBC With Differential 03/17/2020 [place] [address] [phone] White Blood Count 3.9 10 Low 4.0-10.0 [...] 36.0-66.0 Lymph % 23.8 % Low 24.0-44.0 [place] % 9.0 % High 0.0-5.0 Eos % 9.5 % High 0.0-3.0 Baso % 2.0 % High 0.0-1.0 Immature Granulocyte % 1.3 % Normal 0-3.0 Nucleated Red Blood Cell % 0.0 % Normal 0-0 Neutrophils # 2.1 10 Normal 1.5-8.5 Lymph # 0.9 10 Low 1.5-5.0 [place] # 0.4 10 Normal 0.0-0.8 Eos # 0.4 10 Normal 0.0-0.5 Baso # 0.1 10 Normal 0.0-0.2 Laboratory test finding 03/17/2020 [place] [address] [phone] Erythrocyte Sedimentation Rate 28 mm/hr Normal 0 -30 Comprehensive Metabolic Profil 03/02/2020 [facility] [phone] Glucose, Fasting 174 mg/dL High 70-100 Blood Urea Nitrogen 13 mg/dL Normal 7-18 Creatinine For GFR 0.72 mg/dL Normal 0.55-1.30 Glomerular Filtration Rate > 60.0 Normal >51 2 Sodium Level 140 mEq/L Normal 136-145 Potassium [...] Ratio 1.2 Normal 1.2-2.2 Hemoglobin A1c 03/02/2020 [facility] [phone] Hemoglobin A1c 6.9 % Normal 3 Estimated Average Glucose 151 mg/dL High 60-110 Microalbumin Random 03/02/2020 [facility] [phone] Creatinine, Urine 220.0 mg/dL Normal Malb Urine Siemens 122.0 mg/L Normal [place]/Creat Ratio 55.4 MCG/MG High 0.0-30.0 4 Lipid Panel 03/02/2020 [facility] [phone] Triglycerides Level 86 mg/dL Normal <150 Cholesterol Level 107 mg/dL Normal <200 HDL Cholesterol 64 mg/dL Normal >40 LDL Cholesterol 26 mg/dL Normal <100 Non-HDL-C 43 mg/dL Normal Cholesterol Risk Ratio 1.671 Normal <5 Laboratory test finding 03/02/2020 [facility] [phone] Thyroid Stimulating Hormone 0.173 uIU/ML Low 0. 358-3.740 1 Units are mL/min/1.73 m2 Chronic Kidney Disease Staging per NKF: Stage I & II GFR >=60 Normal to Mildly Decreased Stage III GFR 30-59 Moderately Decreased Stage IV GFR 15-29 Severely Decreased Stage V GFR <15 Very Little GFR Left ESRD GFR <15 on SPECIAL EDUCATION CASE MANAGER 2 Units are mL/min/1.73 m2 Chronic Kidney Disease Staging per NKF: Stage I & II GFR >=60 Normal to Mildly Decreased Stage III GFR 30-59 Moderately Decreased Stage IV GFR 15-29 Severely Decreased Stage V GFR <15 Very Little GFR Left ESRD GFR <15 on SPECIAL EDUCATION CASE MANAGER 3 REFERENCE RANGES: <=5.6% NORMAL 5.7-6.4% SUGGESTS IMPAIRED GLUCOSE META BOLISM/PREDIABETIC >= 6.5% ABNORMAL 4 THE [place] [employer] ATION STATES THAT MICROALBUMINURIA IS PRESENT IF THE MICROALBUMIN/CREATININE RATIO EXCEEDS 30 MCG/MG. THE THRESHOLD FOR CLINICAL ALBUMINURIA IS REACHED AT 300 MCG/MG. THE CLASSIFICATION OF A PATIENT SHOULD BE BASED UPON AT LEAST 2 OF 3 ABNORMAL RESULTS ON SPECIMENS COLLECTED WITHIN A 3 TO 6 MONTH TIME FRAME. Procedures Date Code Description Status 08/26/2019 [id number] Diabetic Foot Exam Completed Medical Devices Description [...] to Reason for Referral Status Appt Date [facility] Surgery Practice pt is due for screening c olonoscopy Scheduled 03/08/[address] [place] [address], [address] [place] [address] [phone]
[2020-04-11] MEDS ORDERED: NS 1,000 ML IV ONE (07:00)
--- OUTSIDE RECORDS SUMMARY | 2020-04-11 07:00 | CCD ---
Author Author [facility] Organization [facility] Address Unknown Phone Unavailable Care Team Providers Care Tester Regulator Name Role Phone ZEINAB OLSEN Unavailable Unavailable [...] Unavailable Scordo, M Tammy PA Unavailable Unavailable Johnna Verdin PA-C Unavailable Unavailable Johnna Verdin PA-C Unavailable Unavailable Johnna Verdin PA-C Unavailable Unavailable COOK, B DOM FOREST WORKER Unavailable Unavailable COOK, B DOM FOREST WORKER Unavailable Unavailable COOK, B DOM FOREST WORKER Unavailable Unavailable COOK, B DOM FOREST WORKER Unavailable Unavailable COOK, B DOM FOREST WORKER Unavailable Unavailable COOK, B DOM FOREST WORKER Unavailable Unavailable COOK, B DOM FOREST WORKER Unavailable Unavailable COOK, B DOM FOREST WORKER Unavailable Unavailable COOK, B DOM FOREST WORKER Unavailable Unavailable COOK, B DOM FOREST WORKER Unavailable Unavailable COOK, B DOM FOREST WORKER Unavailable Unavailable COOK, B DOM FOREST WORKER Unavailable Unavailable COOK, B DOM FOREST WORKER Unavailable Unavailable COOK, B DOM FOREST WORKER Unavailable Unavailable COOK, B DOM FOREST WORKER Unavailable Unavailable COOK, B DOM FOREST WORKER Unavailable Unavailable COOK, B DOM FOREST WORKER Unavailable Unavailable COOK, B DMO FOREST WORKER Unavailable Unavailable COOK, B DOM FOREST WORKER Unavailable Unavailable COOK, B DOM FOREST WORKER Unavailable Unavailable COOK, B DOM FOREST WORKER Unavailable Unavailable COOK, B DOM FOREST WORKER Unavailable Unavailable COOK, B DOM FOREST WORKER Unavailable Unavailable COOK, B DOM FOREST WORKER Unavailable Unavailable COOK, B DOM FOREST WORKER Unavailable Unavailable COOK, B DOM FOREST WORKER Unavailable Unavailable COOK, B DOM FOREST WORKER Unavailable Unavailable COOK, B DOM FOREST WORKER Unavailable Unavailable COOK, B DOM FOREST WORKER Unavailable Unavailable COOK, B DOM FOREST WORKER Unavailable Unavailable COOK, B DOM FOREST WORKER Unavailable Unavailable COOK, B DOM FOREST WORKER Unavailable Unavailable COOK, B DOM FOREST WORKER Unavailable Unavailable COOK, B DOM FOREST WORKER Unavailable Unavailable COOK, B DOM FOREST WORKER Unavailable Unavailable COOK, B DOM FOREST WORKER Unavailable Unavailable COOK, B DOM FOREST WORKER Unavailable Unavailable COOK, B DOM FOREST WORKER Unavailable Unavailable COOK, B DOM FOREST WORKER Unavailable Unavailable COOK, B DOM FOREST WORKER Unavailable Unavailable COOK, B DOM FOREST WORKER Unavailable Unavailable COOK, B DOM FOREST WORKER Unavailable Unavailable COOK, B DOM FOREST WORKER Unavailable Unavailable COOK, B DOM FOREST WORKER Unavailable Unavailable COOK, B DOM FOREST WORKER Unavailable Unavailable COOK, B DOM FOREST WORKER Unavailable Unavailable COOK, B DOM FOREST WORKER Unavailable Unavailable COOK, B DOM FOREST WORKER Unavailable Unavailable COOK, B DOM FOREST WORKER Unavailable Unavailable COOK, B DOM FOREST WORKER Unavailable Unavailable COOK, B DOM FOREST WORKER Unavailable Unavailable COOK, B DOM FOREST WORKER Unavailable Unavailable COOK, B DOM FOREST WORKER Unavailable Unavailable COOK, B DOM FOREST WORKER Unavailable Unavailable COOK, B DOM FOREST WORKER Unavailable Unavailable COOK, B DOM FOREST WORKER Unavailable Unavailable COOK, B DOM FOREST WORKER Unavailable Unavailable COOK, B DOM FOREST WORKER Unavailable Unavailable COOK, B DOM FOREST WORKER Unavailable Unavailable COOK, B DOM FOREST WORKER Unavailable Unavailable COOK, B DOM FOREST WORKER Unavailable Unavailable COOK, B DOM FOREST WORKER Unavailable Unavailable COOK, B DOM FOREST WORKER Unavailable Unavailable COOK, B DOM FOREST WORKER Unavailable Unavailable Dalton, Palmira FOREST WORKER Unavailable Unavailable Dlaton, Palmira FOREST WORKER Unavailable Unavailable Dalton, Palmira FOREST WORKER Unavailable Unavailable Dalton, Palmira FOREST WORKER Unavailable Unavailable Dalton, Palmira FOREST WORKER Unavailable Unavailable Dalton, Palmira FOREST WORKER Unavailable Unavailable Dalton, Palmira FOREST WORKER Unavailable Unavailable Dalton, Palmira FOREST WORKER Unavailable Unavailable Dalton, Palmira FOREST WORKER Unavailable Unavailable Dalton, Palmira FOREST WORKER Unavailable Unavailable Dalton, Palmira FOREST WORKER Unavailable Unavailable Lupillo Kearney PA Unavailable Unavailable Lupillo Kearney PA Unavailable Unavailable Lupillo Kearney PA Unavailable Unavailable Lupillo Kearney PA Unavailable Unavailable Gratiot, J Angela PA Unavailable Unavailable Gratiot, J Angela PA Unavailable Unavailable Gratiot, J Angela PA Unavailable Unavailable Gratiot, J Angela PA Unavailable Unavailable Gratiot, J Angela PA Unavailable Unavailable Gratiot, J Angela PA Unavailable Unavailable Gratiot, J Angela PA Unavailable Unavailable Gratiot, J Angela PA Unavailable Unavailable Gratiot, J Angela PA Unavailable Unavailable Gratiot, J Angela PA Unavailable Unavailable Gratiot, J Angela PA Unavailable Unavailable Gratiot, J Angela PA Unavailable Unavailable Gratiot, J Angela PA Unavailable Unavailable Gratiot, J Angela PA Unavailable Unavailable Gratiot, J Angela PA Unavailable Unavailable Gratiot, J Angela PA Unavailable Unavailable Gratiot, J Angela PA Unavailable Unavailable Gratiot, J Angela PA Unavailable Unavailable Dhiraj, A Sharon ROTH Unavailable Unavailable Dhiraj, A Sharon ROTH Unavailable Unavailable Dhiraj, Johnna Herrera MD Unavailable Unavailable Dhiraj, Johnna Herrera MD Unavailable Unavailable Dhiraj, Johnna Herrera MD Unavailable Unavailable Dhiraj, Johnna Herrera MD Unavailable Unavailable Dhiraj, Johnna Herrera MD Unavailable Unavailable Dhiraj, Johnna Herrera MD Unavailable Unavailable Dhiraj, Johnna Herrera MD Unavailable Unavailable Dhiraj, Johnna Herrera MD Unavailable Unavailable Dhiraj, Johnna Herrera MD Unavailable Unavailable Dhiraj, Johnna Herrear MD Unavailable Unavailable Dhiraj, Johnna Herrera MD Unavailable Unavailable Dhiraj, Johnna Herrera MD Unavailable Unavailable Dhiraj, Johnna Herrera MD Unavailable Unavailable Dhiraj, Johnna Herrera MD Unavailable Unavailable Dhiraj, Johnna Herrera MD Unavailable Unavailable Dhirja, Johnna Herrera MD Unavailable Unavailable Dhiraj, Johnna Herrera MD Unavailable Unavailable Dhiarj, Johnna Herrera MD Unavailable Unavailable Dhiraj, Johnna Herrera MD Unavailable Unavailable Dhiraj, Johnna Herrera MD Unavailable Unavailable Dhiraj, Johnna Herrera MD Unavailable Unavailable Dhiraj, Johnna Herrera MD Unavailable Unavailable Dhiraj, Johnna Herrera MD Unavailable Unavailable Dhiraj, Johnna Herrera MD Unavailable Unavailable Dhiraj, Johnna Herrera MD Unavailable Unavailable Dhiraj, Johnna Herrera MD Unavailable Unavailable Dhiraj, Johnna Herrera MD Unavailable Unavailable Dhiraj, A Sharon ROTH Unavailable Unavailable Dhiraj, A Sharon ROTH Unavailable Unavailable Dhiraj, A Sharon ROTH Unavailable Unavailable Dhiraj, A Sharon ROTH Unavailable Unavailable Dhiraj, A Sharon ROTH Unavailable Unavailable Dhiraj, A Sharon ROTH Unavailable Unavailable Dhiraj, A Sharon ROTH Unavailable Unavailable Dhiraj, A Sharon ROTH Unavailable Unavailable Dhiraj, Johnna Herrera MD Unavailable Unavailable Dhiraj, A Sharon ROTH Unavailable Unavailable Dhiraj, Johnna Herrera MD Unavailable Unavailable Dhiraj, Johnna Herrera MD Unavailable Unavailable Dhiraj, Johnna Herrera MD Unavailable Unavailable Dhiraj, Johnna Herrera MD Unavailable Unavailable Dhiraj, A Sharon ROTH [...] Unavailable Dhiraj, A Sharon ROTH Unavailable Unavailable ALIASES , DEFAULT / GENERIC [...] GENERIC / UNKNOWN PROVIDER * Unavailable Unavailable Pleskach, Carol DRILLING AND PRODUCTION SUPERINTENDENT Unavailable Unavailable Pleskach, Carol DRILLING AND PRODUCTION SUPERINTENDENT Unavailable Unavailable Pleskach, Carol DRILLING AND PRODUCTION SUPERINTENDENT Unavailable Unavailable Pleskach, Carol DRILLING AND PRODUCTION SUPERINTENDENT Unavailable Unavailable Pleskach, Carol DRILLING AND PRODUCTION SUPERINTENDENT Unavailable Unavailable Pleskach, Carol DRILLING AND PRODUCTION SUPERINTENDENT Unavailable Unavailable Pleskach, Carol DRILLING AND PRODUCTION SUPERINTENDENT Unavailable Unavailable Pleskach, Carol DRILLING AND PRODUCTION SUPERINTENDENT Unavailable Unavailable Pleskach, Carol DRILLING AND PRODUCTION SUPERINTENDENT Unavailable Unavailable Pleskach, Carol DRILLING AND PRODUCTION SUPERINTENDENT Unavailable Unavailable Pleskach, Carol DRILLING AND PRODUCTION SUPERINTENDENT Unavailable Unavailable Pleskach, Carol DRILLING AND PRODUCTION SUPERINTENDENT Unavailable Unavailable Pleskach, Carol DRILLING AND PRODUCTION SUPERINTENDENT Unavailable Unavailable Pleskach, Carol DRILLING AND PRODUCTION SUPERINTENDENT Unavailable Unavailable Pleskach, Carol DRILLING AND PRODUCTION SUPERINTENDENT Unavailable Unavailable Pleskach, Carol DRILLING AND PRODUCTION SUPERINTENDENT Unavailable Unavailable Pleskach, Carol DRILLING AND PRODUCTION SUPERINTENDENT Unavailable Unavailable Pleskach, Carol DRILLING AND PRODUCTION SUPERINTENDENT Unavailable Unavailable Pleskach, Carol DRILLING AND PRODUCTION SUPERINTENDENT Unavailable Unavailable Pleskach, Carol DRILLING AND PRODUCTION SUPERINTENDENT Unavailable Unavailable Pleskach, Carol DRILLING AND PRODUCTION SUPERINTENDENT Unavailable Unavailable Pleskach, Carol DRILLING AND PRODUCTION SUPERINTENDENT Unavailable Unavailable Pleskach, Carol DRILLING AND PRODUCTION SUPERINTENDENT Unavailable Unavailable Pleskach, Carol DRILLING AND PRODUCTION SUPERINTENDENT Unavailable Unavailable Pleskach, Carol DRILLING AND PRODUCTION SUPERINTENDENT Unavailable Unavailable Pleskach, Carol DRILLING AND PRODUCTION SUPERINTENDENT Unavailable Unavailable Pleskach, Carol DRILLING AND PRODUCTION SUPERINTENDENT Unavailable Unavailable Pleskach, Carol DRILLING AND PRODUCTION SUPERINTENDENT Unavailable Unavailable Pleskach, Carol DRILLING AND PRODUCTION SUPERINTENDENT Unavailable Unavailable Pleskach, Carol DRILLING AND PRODUCTION SUPERINTENDENT Unavailable Unavailable Petrancosta, Vernon Nishi PA-C Unavailable Unavailabl e Petrancosta, Vernon Nishi PA-C Unavailable Unavailabl e Petrancosta, Vernon Nishi PA-C Unavailable Unavailabl e Petrancosta, Vernon Nishi PA-C Unavailable Unavailabl e Petrancosta, Vernon Nishi PA-C Unavailable Unavailabl e Petrancosta, Vernon Nishi PA-C Unavailable Unavailabl e Petrancosta, Vernon Nishi PA-C Unavailable Unavailabl e Petrancosta, Vernon Nishi PA-C Unavailable Unavailabl e Petrancosta, Vernon Nishi PA-C Unavailable Unavailabl e Petrancosta, Vernon Nishi PA-C Unavailable Unavailabl e Petrancosta, Vernon Nishi PA-C Unavailable Unavailabl e Petrancosta, Vernon Nishi PA-C Unavailable Unavailabl e Petrancosta, Vernon Nishi PA-C Unavailable Unavailabl e Petrancosta, Vernon Nishi PA-C Unavailable Unavailabl e Petrancosta, Vernon Nishi PA-C Unavailable Unavailabl e Petrancosta, Vernon Nishi PA-C Unavailable Unavailabl e Petrancosta, Vernon Nishi PA-C Unavailable Unavailabl e Petrancosta, Vernon Nishi PA-C Unavailable Unavailabl e Petrancosta, Vernon Nishi PA-C Unavailable Unavailabl e Petrancosta, Vernon Nishi PA-C Unavailable Unavailabl e Petrancosta, Vernon Nishi PA-C Unavailable Unavailabl e Petrancosta, Vernon Nishi PA-C Unavailable Unavailabl e Petrancosta, Vernon Nishi PA-C Unavailable Unavailabl e NEHEMIAH, A JENNY Unavailable Unavailable Kenneth COOK Unavailable Unavailable Kenneth Ross MD Unavailable Unavailable Kenneth Ross MD Unavailable Unavailable Kenneth Ross MD Unavailable Unavailable Kenneth Ross MD Unavailable Unavailable Kenneth Ross MD Unavailable Unavailable Kenneth Ross MD Unavailable Unavailable Kenneth Ross MD Unavailable Unavailable Kenneth Ross MD Unavailable Unavailable eKnneth Ross MD Unavailable Unavailable Kenneth Ross MD [...] Lauren Unavailable Unavailable Puentes, Lauren Unavailable Unavailable Van Dyne-Escalante, Eloina CNM Unavailable Unavailab le Van Dyne-Escalante, Eloina CNM Unavailable Unavailab le Van Dyne-Escalante, Eloina CNM Unavailable Unavailab le Van Dyne-Escalante, Eloina CNM Unavailable Unavailab le Van Dyne-Escalante, Eloina CNM Unavailable Unavailab le Zaki-Escalante, Eloina [...] is protected by Article 27-F of the [facility] Public Health law. If you continue you may have access to information: Regarding HIV / AIDS; Provided by facilities licensed or operated by the [facility] Office of Mental Health; or Provided by the [facility] Office for People With Developmental Disabilities. If such information is present, then the following [facility] mandated warning applies: This information has been [...] law may result in a fine or mcc sentence or both. A general authorization for the release of medical or other information is NOT sufficient authorization for further disc losure. Allergies and Adverse Reactions Type Description Substance Reaction Status Data Source(s ) No known allergies (situation) Substance with penicill in structure and antibacterial mechanism of action (substance) Penicillins Ac tive [facility] ([facility]) Family History Family Member Name Family Member Gender Family Member Status Date o f Status Description Data Source(s) Unknown Male Problem [facility] ([facility] Unknown Unknown Problem [facility] ([facility], [facility]) Encounters Encounter Providers Location Date Indications Data Source(s ) Outpatient Attender: SARAHI OLSEN 01/18/2021 12:00:00 A [facility] Outpatient Attender: Nishi Palacios PA-C Main Office 03/26/2020 08:00:00 AM EST [facility] ([facility] Outpatient Attender: Nishi Palacios PA-C Main Office 03/01/2020 01:15:00 PM EST [facility] ([facility] Outpatient Attender: Carol Chapa [facility] Main Office 02/09/2020 0 7:30:00 AM EST [facility] ([facility] Outpatient Attender: Palmira wooten 02/02/2020 07:00:00 AM EST [facility] ([facility]) Outpatient Attender: Nishi Palacios PA-C Main Office 02/01/2020 02:00:00 PM EST [facility] ([facility] Outpatient Attender: SARAHI HamlinAGrzegorzLLUHSUR 01/20/2020 12:00:00 AM [facility] Outpatient Attender: SARAHI OLSEN 01/06/2020 12:00:00 A [facility] Outpatient Attender: SARAHI OLSEN 01/02/2020 12:00:00 A [facility] Outpatient Attender: SARAHI OLSEN 12/26/2019 12:00:00 A [facility] Outpatient Attender: EPIFANIO Goelender: SARAHI ZaidiLLUHSUMarci 12/07/2019 12:00:00 AM EDT - 12/07/2019 12:49:23 PM EDT Encounter for follow-up examination after completed treatment for conditions other than malignant neoplasm [facility] Encounter for follow-up examination afte r completed treatment for conditions other than malignant neoplasm Outpatient Attender: SARAHI OLSEN 12/06/2019 12:00:00 A M EDT [facility] Outpatient Attender: GEORGEALICEFER LATIFKIANAdmitter: SARAHI LATIF CAMILO [id number] 11/30/2019 12:00:00 AM EDT - 12/03/2019 12:00:00 AM EDT Other specified abdominal hernia without obstruction or gangrene [facility] Other specified abdominal hernia without obstruction or gangrene Patient discharged. Outpatient Attender: Candace Junior nder: Yazmin BRITTCReferrer: SARAHI OLSEN [id number] 11/29/2019 12:00:00 AM EDT pretest [facility] pretest Outpatient Attender: DEFAULT / GENE JOANN / UNKNOWN PROVIDER ALIASES Referrer: SARAHI OLSEN 11/25/2019 12:00:00 AM ED T - 11/26/2019 12:00:00 AM EDT [facility] Outpatient Attender: Nishi Palacios PA-C Main Office 11/23/2019 02:30:00 PM EDT [facility] ([facility] Attender: Eloina CHUA [facility] 11/02/2019 01:50:00 PM EDT - 11/02/2019 01:50:00 PM EDT [facility] ([facility] Outpatient Attender: SARAHI OLSEN [id number] 10/03/2019 12:0 0:00 AM EDT Other specified abdominal hernia without obstruction or gangrene [facility] Other specified abdominal hernia without obstruction or gangrene Outpatient 008 09/17/2019 03:42:00 PM EDT - 09/17/2019 03:42:00 PM EDT Lab test [facility] Lab test Attender: Sharon Main 10:33:00 AM EDT - 09/08/2019 10:33:00 AM EDT [facility] ([facility]) Outpatient Attender: DOM MATTHEWS NP Physical Therapy 09/06/2019 1 0:00:00 AM EDT [facility] ([facility]) Outpatient Attender: Lauren Puentes 09/02/2019 12:00:00 AM ED [facility] Outpatient Attender: JENNY NEHEMIAH 09/02/2019 12:00:00 AM [facility] Outpatient Attender: ADRIANNE CARMONA 09/02/2019 12:00:00 AM [facility] Outpatient Attender: Tammy PARRA Main Office 08/26/2019 07:10:00 AM EDT [facility] Outpatient Attender: Lauren Puentes 05/31/2019 12:00:00 AM [facility] Outpatient Attender: ADRIANNE CARMONA 05/31/2019 12:00:00 AM [facility] OutpatientPREV VISIT, NEW, AGE 40-64 Attender: Angela PARRA PPNCNY [facility] 05/04/2019 04:15:00 PM EDT - 05/04/2019 04:15:00 PM ED T Body mass index (BMI) 30.0-30.9, adultEncounter for oth screening for malignant neoplasm of breastEncntr for gynecological assistant exam (general) (routine) w/o abn findingsEncounter for initial prescription of contraceptive pillsEncounter for oth general cnsl and advice on contraceptionOther sex counselingHigh risk heterosexual behaviorEncntr screen for infections w sexl mode of transmissEncounter for screening for human immunodeficiency virusHuman immunodeficiency virus [HIV] counseling [facility] ([facility]) Body mass index (BMI) 30.0-30.9, adult Encounter for oth screening for malignan t neoplasm of breast Encntr for gynecological assistant exam (general) (routine) w/o abn findings Encounter for initial prescription of co ntraceptive pills Encounter for oth general cnsl and advic e on contraception Other sex counseling High risk heterosexual behavior Encntr screen for infections w sexl mode of transmiss Encounter for screening for human immuno deficiency virus Human immunodeficiency virus [HIV] couns eling Outpatient Attender: ADRIANNE CARMONA 04/15/2019 12:00:00 AM [facility] Outpatient Attender: Lauren Puentes 04/15/2019 12:00:00 AM [facility] Outpatient Attender: Lauren Puentes [id number] 03/08/2019 12:00:00 AM EST - 03/08/2019 11:43:36 AM EST Overweight [facility] Overweight Immunizations Vaccine Date Status Description Data Source(s) [...] 02/02/2020 12:00:00 AM EST RESPIRATORY active [facility] ([facility], [facility]) Prednisone 20 MG Oral Tablet Prednisone 02/02/2020 12:00:00 AM EST active [facility] ([facility], [facility]) Doxycycline Monohydrate 100 MG Oral Capsule Doxycycline [place] hydrate 02/02/2020 12:00:00 AM EST ORAL active M [facility] ([facility]) Magnesium Oxide 400 MG Oral Tablet Magne sium Oxide 400 (241.3 Mg) MG Oral Tablet (MAG-OX) Magnesium Oxide 400 (241.3 Mg) MG Oral Tablet (MAG-OX) 12/04/2019 12:00:00 AM EDT 400 mg Oral active Take 1 t ablet by mouth daily [facility] Caffeine 200 MG Oral Tablet caffeine tablet 200 mg caffeine tablet 200 mg 12/03/2019 09:30:00 AM EDT 200 mg Oral active 200 mg, Oral, Every 4 hours, First dose on 12/03/19 at 0930, For 5 days [facility] Medication administered onsite Caffeine 200 MG Oral Tablet Caffeine 200 MG Oral Tablet 11/16 12:00:00 AM EDT 200 mg Oral active Take 1 tablet by mouth every 4 (four) hours [facility] Bariatric Fusion 12/03/2019 12:00:00 AM EDT [...] 6 ( six) hours for 10 days [facility] 0.5 ML dulaglutide 1.5 MG/ML Auto-Injector [Trulicity] [facility] 12/03/2019 12:00:00 AM EDT active M [facility] ([facility] Basaglar Kwikpen Basaglar Kwikpen 12/03/2019 12:00:00 AM EDT completed [facility] ([facility] Acetaminophen 325 MG Oral Tablet Acetaminophen 325 MG Oral T ablet 12/03/2019 12:00:00 AM EDT 650 mg Oral active Take 2 tablets by mouth every 6 (six) hours for 10 days [facility] Oxycodone Hydrochloride 5 MG Oral Tablet oxyCODONE HCl 5 MG Oral Tablet (ROXICODONE) oxyCODONE HCl 5 MG Oral Tablet (ROXICODONE) 12/03/2019 12:00:00 AM EDT 5 mg Oral active Take 1 t ablet by mouth every 4 (four) hours as needed for Pain for up to 3 days, Max Daily Dose: 30 mg [facility] 0.4 ML Enoxaparin sodium 100 MG/ML Prefi lled Syringe enoxaparin sodium (LOVENOX) injection 40 mg enoxaparin sodium (LOVENOX) injection 40 mg 12/02/2019 09:00:00 PM EDT 40 mg Subcutaneous active 40 mg, Subcutaneous, Daily Standard, First dose on Thu12/02/19 at 2100, For 30 days [facility] Medication administered onsite magnesium sulfate in dextrose 5 % infusion (premix) 1 g [id number] -[id number] 12/02/2019 08:30:00 AM EDT 1 g Intravenous completed 1 g, Intravenous, Administer over 60 Minutes, Every 1 hour, First dose on Thu12/02/19 at 0830, For 3 doses [facility] Medication administered onsite Oxycodone Hydrochloride 5 [...] only) require Pain Service consultation and approval.
[facility] Medication administered onsite Oxycodone Hydrochloride 5 [...] to 10 mg per dose. Higher doses ([facility] only) require Pain Service consultation and approval.
[facility] Medication administered onsite magnesium sulfate in dextrose 5 % infusion (premix) 1 g [id number] -[id number] 12/01/2019 01:15:00 PM EDT 1 g Intravenous completed 1 g, Intravenous, Administer over 60 Minutes, Every 1 hour, First dose on Stacey 12/01/19 at 1315, For 3 doses [facility] Medication administered onsite potassium phosphate 155 MG / Sodium Phos phate, Dibasic 852 MG / Sodium Phosphate, Monobasic 130 MG Oral Tablet phosphorus (K PHOS NEUTRAL) tablet 250 mg phosphorus (K PHOS NEUTRAL) tablet 250 mg 12/01/2019 09:15:00 AM EDT 250 mg Oral active 250 mg, Or al, 2 Times Daily, First dose on Thu12/01/19 at 0915, For 9 doses
Each 250 mg tablet contains: elemental phosphorous 250 mg (8 mmol), sodium 298 mg (12.9 mEq), and potassium 45 mg (1.1 mEq)
[facility] Medication administered onsite Magnesium Oxide 400 MG Oral Tablet Magnesium Oxide (MA G-OX) tablet 400 mg Magnesium Oxide (MAG-OX) tablet 400 mg 12/01/2019 09:15:00 AM EDT 4 00 mg Oral active 400 mg, Oral, D aily Standard, First dose on Stacey 12/01/19 at 0915, For 5 doses [facility] Medication administered onsite potassium chloride (K-DUR) dissolvable tablet 20 mEq [id number] 12/01/2019 09:15:00 AM EDT 20 meq Oral active 20 mEq, Oral, 2 Times Daily, First dose on Stacey 12/01/19 at 0915, For 3 days
May be dissolved in water for patients with a G-Tube or unable to swallow. If concern for clogging G-Tube, may contact Pharmacy to switch formulation to a powder packet.
[facility] Medication administered onsite 0.4 ML Enoxaparin [...] 10-12 hours prior to removing epidural catheter.
[facility] Medication administered onsite Loratadine 10 MG Oral Tablet loratadine (CLARITIN) tab let 10 mg loratadine (CLARITIN) tablet 10 mg 12/01/2019 09:00:00 AM EDT 10 mg Oral active 10 mg, Oral, Every morning, First dose on Stacey 12/01/19 at 0900, For 30 days [facility] Medication administered onsite Losartan Potassium 50 MG Oral Tablet losartan (COZAAR) tablet 50 mg losartan (COZAAR) tablet 50 mg 12/01/2019 09:00:00 AM EDT 50 mg Oral active Hypertension 50 mg, Oral, Every morning, First dose on Stacey 12/01/19 at 0900, For 30 days
Check vital signs before administering
[facility] Hypertension Medication administered onsite pantoprazole 40 MG Delayed Release Oral Tablet pantoprazole (PROTONIX) EC tablet 40 mg pantoprazole (PROTONIX) EC tablet 40 mg 12/01/2019 09:00:00 AM E DT 40 mg Oral active 40 mg, Ora l, Daily Standard, First dose on Stacey 12/01/19 at 0900, For 30 days
Do not crush or chew
[facility] Medication administered onsite atorvastatin 40 MG Oral Tablet atorvastatin (LIPITOR) tablet 40 mg atorvastatin (LIPITOR) tablet 40 mg 12/01/2019 09:00:00 AM EDT 40 mg Oral active 40 mg, Oral, Every morning, First dose on Stacey 12/01/19 at 0900, For 30 days [facility] Medication administered onsite Citalopram 20 MG Oral Tablet citalopram (CELEXA) table t 40 mg citalopram (CELEXA) tablet 40 mg 12/01/2019 09:00:00 AM EDT 40 mg Oral active 40 mg, Oral, Every morning, First dose on Stacey 12/01/19 at 0900, For 30 days [facility] Medication administered onsite Levothyroxine Sodium 0.125 MG Oral Table t levothyroxine (SYNTHROID) tablet 125 mcg levothyroxine (SYNTHROID) tablet 125 mcg 12/01/2019 06:00:00 AM EDT 125 ug Oral active 125 mcg, O ral, Daily at 0600, First dose on Stacey 12/01/19 at 0600, For 30 days [facility] Medication administered onsite Calcium Chloride 0.0014 MEQ/ML / Potassi um Chloride 0.004 MEQ/ML / Sodium Chloride 0.103 MEQ/ML / Sodium Lactate 0.028 MEQ/ML Injectable Solution lactated ringers infusion lactated ringers infusion 12/01/2019 01:45:00 AM EDT 75 mL/h Intravenous aborted at 75 mL /hr, Intravenous, Continuous, Starting Stacey 12/01/19 at 0145, For 30 days [facility] Medication administered onsite Acetaminophen 325 MG Oral Tablet acetaminophen (TYLENO L) tablet 650 mg acetaminophen (TYLENOL) tablet 650 mg 11/30/2019 06:45:00 PM EDT 65 0 mg Oral active 650 mg, Oral, E very 6 hours, First dose on Thu11/30/19 at 1845, For 30 days
Maximum daily dose of acetaminophen is 3,000 mg from all sources in 24 hours.
[facility] Medication administered onsite ondansetron (ZOFRAN) injection 4 mg [id number] 11/30/2019 06:32:3 9 PM EDT 4 mg Intravenous active 4 mg, In travenous, Every 8 hours PRN, Nausea, Vomiting, Starting Thu11/30/19 at 1832, For 30 days [facility] Medication administered onsite albuterol (PROVENTIL HFA) inhaler 2 puff [id number] 11/30/2019 06:32:39 PM EDT 2 {puff} Inhalation active 2 pu ff, Inhalation, Every 6 hours PRN, Wheezing, Starting Thu11/30/19 at 1832, For 4 days
Shake the inhaler well before each spray.
[facility] Medication administered onsite insulin lispro (HumaLOG) injection MEDIU M DOSE EATING INSULIN patients 1-16 Units [id number] 11/30/2019 06:00:00 PM EDT U Subcutaneous active 1-16 Units, Subcutaneous, Three Times Daily-With Meals, First dose on Thu11/30/19 at 1800, For 30 days
Nursing MUST open the 'SQ Insulin Dosing Charts' Sidebar Report, or, the Patient Summary or Summary Report within the ED.
[facility] Medication administered onsite Acetaminophen 10 MG/ML Injectable Soluti on acetaminophen ([facility]) infusion 1,000 mg acetaminophen ([facility]) infusion 1,000 mg 11/30/2019 03:00:00 PM EDT 1000 mg Intravenous completed 1,000 mg , Intravenous, Once, Thu11/30/19 at 1500, For 1 dose
If NPO and has not yet received an acetaminophen product in prior 4 hours.
Recovery [facility] Medication administered onsite dextrose 5 %-0.9 % sodium chloride infusion [id number] 11/30/2019 03:00:00 PM EDT Intravenous aborted at 7 5 mL/hr, Intravenous, Continuous, Starting Thu11/30/19 at 1500, For 30 days [facility] Medication administered onsite HYDROmorphone PF (DILAUDID) 10 mcg/mL, b upivacaine (PF) 0.125 % in sodium chloride 0.9 % 250 mL epidural infusion 11/30/2019 03:00:00 PM EDT Epidural aborted at 6 mL/hr, Ep idural, Continuous, Starting Thu11/30/19 at 1500, For 7 days [facility] Medication administered onsite fentaNYL (SUBLIMAZE) (PF) injection 25 mcg [id number] 11/30/2019 02:48:40 PM EDT 25 ug Intravenous aborted 25 m cg, Intravenous, Every 5 min PRN, Severe Pain (Pain Scale Score 7-10), Starting Thu11/30/19 at 1448, For 10 doses, Recovery [facility] Medication administered onsite Glucose 0.417 MG/MG Oral Gel glucose (GLUTOSE) 40 % or al gel 15 g glucose (GLUTOSE) 40 % oral gel 15 g 11/30/2019 02:35:32 PM EDT 15 g Oral active 15 g, Oral, PRN, Low blood s ugar, for gluose 55-69 mg/dl and able to take PO, Starting Thu11/30/19 at 1435, For 30 days [facility] Medication administered onsite Glucagon 1 MG Injection glucagon (human recombinant) ( GLUCAGEN) injection 1 mg glucagon (human recombinant) (GLUCAGEN) injection 1 mg 11/30/2019 02:35:32 PM EDT 1 mg Intramuscular active 1 mg, Intramuscular, PRN, for glucose <55 without IV access, Starting Thu11/30/19 at 1435, For 30 days [facility] Medication administered onsite dextrose 50 % IV solution 25 mL [id number] 11/30/2019 02:35:32 PM E DT 25 mL Intravenous active 25 mL, Intrav enous, PRN, Other, blood glucose <55, Starting Thu11/30/19 at 1435, For 30 days
Not for midline administration.
[facility] Medication administered onsite 60 ACTUAT Albuterol 0.09 MG/ACTUAT Metered Dose Inhaler Albu terol Sulfate HFA 11/23/2019 12:00:00 AM EDT RESPIRATORY active [facility] ([facility] 24 HR Metformin hydrochloride 500 MG Extended Release Oral Tablet Metformin HCL ER 09/07/2019 12:00:00 AM EDT ORAL active [facility] ([facility]) 0.5 ML dulaglutide 1.5 MG/ML Auto-Injector [Trulicity] [facility] 09/07/2019 12:00:00 AM EDT active M [facility]ENT ([facility]) 24 HR Metformin hydrochloride 500 MG Ext ended Release Oral Tablet metFORMIN HCl ER 500 MG Oral Tablet Extended Release 24 Hour (GLUCOPHAGE-XR) metFORMIN HCl ER 500 MG Oral Tablet Extended Release 24 Hour (GLUCOPHAGE-XR) 09/07/2019 12:00:00 AM EDT 1000 mg Oral active Take 1,000 mg by mouth Two Times Daily [facility] Norethindrone 0.35 MG Oral Tablet Jencycla 0.35 MG Ora l Tablet Jencycla 0.35 MG Oral Tablet 07/18/2019 12:00:00 AM EDT 1 {tbl} Oral activ e Take 1 tablet by mouth every morning [facility] Onetouch Ultra 06/30/2019 12:00:00 AM EDT act ping [facility] ([facility] Ortho Micronor 0.35 mg tablet {28 (norethindrone 0.35 MG Ora l Tablet) } Pack 05/04/2019 12:00:00 AM EDT active Ortho Micronor 28 Day Pack [facility] ([facility]) [place] Delica Plus Lancets Extra Fine 33G 02/15/2019 12:00 :00 AM EST active [facility] ([facility] Onetouch Ultra Blue 02/15/2019 12:00:00 AM EST active [facility] ([facility] Docusate Sodium 100 MG Oral Capsule [DOK] DOK 100 MG capsule DOK 100 MG capsule 12/03/2018 12:00:00 AM EDT 100 mg Oral aborted Take 100 mg by mouth daily with breakfast [facility] Nystatin 100 UNT/MG Topical Powder nystatin (MYCOSTATI N) powder nystatin (MYCOSTATIN) powder 10/11/2018 12:00:00 AM EDT aborted Apply to affected area three times daily as needed. [facility] 3 ML insulin detemir 100 UNT/ML Pen Inje ctor [Levemir] LEVEMIR FLEXTOUCH 100 UNIT/ML pen LEVEMIR FLEXTOUCH 100 UNIT/ML pen 09/17/2018 12:00:00 AM EDT 8 U Subcutaneous aborted Inject 8 Uni ts into the skin Two Times Daily Indications: has at home [facility] tizanidine 4 MG Oral Capsule tizanidine (ZANAFLEX) 4 M G capsule tizanidine (ZANAFLEX) 4 MG capsule 09/17/2018 12:00:00 AM EDT 4 mg Oral aborted Take 4 mg by mouth daily [facility] Insurance Providers Payer name Policy type / Coverage type Policy ID Covered democrat ID Covered democrat's relationship to dowd Policy Dowd Plan Information [facility] [id number] SP [id number] [facility] PLAN [facility] [id number] SP [id number] [facility] I [id number] Self [id number] [facility] I [id number] Self [id number] EXCELLUS C [id number] Self [id number] BS Of [facility] Organization ([facility]) [id number] Self [id number] BCBS [place] [facility] [id number] SP [id number] BS Of [facility] ([facility]) [id number] Self [id number] [place] 302/[id number] SP [id number] [place] P[place] 302/307 [id number] SP [id number] BS Of [facility] Maintenance Organization ([facility]) [id number] Self [id number] BS Of [facility] Organization ([facility]) [id number] Self [id number] BS Of [facility] Organization ([facility]) [id number] Self [id number] EXCELLUS BCBS B [id number] S [id number] BS Of [facility] ([facility]) [id number] Self [id number] [place] O [id number] S [id number] BCBS/[employer] Commercial [id number] Self [id number] [place]BS [place] PPO 302/307 [id number] SP [id number] ANIRUDH [id number] SP [id number] ANIRUDH [id number] SP [id number] [employer] Commercial Self [employer] PLAN SP [id number] [employer] PLAN [id number] SP [id number] EXCELLUS BCBS P [id number] S [id number] HMO BLUE [id number] SP [id number] Problems, Conditions, and Diagnoses Code Display Name Description Problem Type Effective Dates Data Source(s) [id number] Essential hypertension Essential hypertension Problem 09/02/2019 12:00:00 AM EDT [facility] ([facility] ) [id number] Pure hypercholesterolemia Pure hypercholesterolemia Pr oblem 09/02/2019 12:00:00 AM EDT [facility] ([facility] ) [id number] Type 2 diabetes mellitus Type 2 diabetes mellitus Prob kris 09/02/2019 12:00:00 AM EDT [facility] ([facility] ) Z09 Encounter for follow-up exam ination after completed treatment for conditions other than malignant neoplasm Encounter for follow-up examination afte r completed treatment for conditions other than malignant neoplasm Diagnosis 12/07/2019 12:19:15 PM EDT [facility] K45.8 Other specified abdominal hernia without obstruction or gangrene Other specified abdominal hernia without obstruction or gangrene Diagnosis 11/30/2019 09:24:00 AM EDT [facility] Flank hernia Flank hernia Diagnosis 11/30/2019 09:24:00 A M EDT [facility] right flank incisional hernia right flank incisional h ernia Diagnosis 11/30/2019 09:24:00 AM [facility] pretest pretest Diagnosis 11/29/2019 02:49:46 PM ED [facility] fol fol Diagnosis 10/03/2019 02:36:19 PM ED [facility] Z5189 Encounter for other specified aftercare Encounter for other specified aftercare Diagnosis 09/17/2019 03:42:00 PM EDT [facility] E66.3 Overweight Overweight Diagnosis 03/08/2019 10:40:35 AM [facility] Surgeries/Procedures Procedure Description Date Indications Data Source(s) POCT GLUCOSE, DOCKED POCT GLUCOSE, DOCKED Routine 12/03/2019 11:48 AM EDT 12/03/2019 11:48:00 AM [facility] POCT GLUCOSE, DOCKED POCT GLUCOSE, DOCKED Routine 12/03/2019 7:36 AM EDT 12/03/2019 07:36:00 AM [facility] BLOOD COUNT COMPLETE AUTOMATED CBC Routine 12/03/2019 5:06 A M EDT 12/03/2019 05:06:00 AM [facility] PHOSPHORUS INORGANIC PHOSPHORUS LEVEL Routine 12/03/2019 5:06 AM E DT 12/03/2019 05:06:00 AM [facility] MAGNESIUM MAGNESIUM LEVEL Routine 12/03/2019 5:06 AM EDT 12/03/2019 05:06:00 AM [facility] BASIC METABOLIC PANEL CALCIUM TOTAL BASIC METABOLIC PANEL Routi ne 12/03/2019 5:06 AM EDT 12/03/2019 05:06:00 AM EDT [facility] GLUCOSE QUANTITATIVE BLOOD XCPT REAGENT STRIP POCT GLUCOSE, DOC KED Routine 12/02/2019 8:10 PM EDT 12/02/2019 08:10:00 PM [facility] GLUCOSE QUANTITATIVE BLOOD XCPT REAGENT STRIP POCT GLUCOSE, DOC KED Routine 12/02/2019 5:39 PM EDT 12/02/2019 05:39:00 PM [facility] GLUCOSE QUANTITATIVE BLOOD XCPT REAGENT STRIP POCT GLUCOSE, DOC KED Routine 12/02/2019 11:53 AM EDT 12/02/2019 11:53:00 AM [facility] GLUCOSE QUANTITATIVE BLOOD XCPT REAGENT STRIP POCT GLUCOSE, DOC KED Routine 12/02/2019 7:43 AM EDT 12/02/2019 07:43:00 AM [facility] BLOOD COUNT COMPLETE AUTOMATED CBC Routine 12/02/2019 4:13 A M EDT 12/02/2019 04:13:00 AM [facility] PHOSPHORUS INORGANIC PHOSPHORUS LEVEL Routine 12/02/2019 4:13 AM E DT 12/02/2019 04:13:00 AM [facility] MAGNESIUM MAGNESIUM LEVEL Routine 12/02/2019 4:13 AM EDT 12/02/2019 04:13:00 AM [facility] BASIC METABOLIC PANEL CALCIUM TOTAL BASIC METABOLIC PANEL Routi ne 12/02/2019 4:13 AM EDT 12/02/2019 04:13:00 AM EDT [facility] GLUCOSE QUANTITATIVE BLOOD XCPT REAGENT STRIP POCT GLUCOSE, EVIN MORENO Routine 12/02/2019 12:22 AM EDT 12/02/2019 12:22:00 AM [facility] GLUCOSE QUANTITATIVE BLOOD XCPT REAGENT STRIP POCT GLUCOSE, EVIN MORENO Routine 12/01/2019 4:40 PM EDT 12/01/2019 04:40:00 PM [facility] GLUCOSE QUANTITATIVE BLOOD XCPT REAGENT STRIP POCT GLUCOSE, EVIN MORENO Routine 12/01/2019 11:51 AM EDT 12/01/2019 11:51:00 AM [facility] GLUCOSE QUANTITATIVE BLOOD XCPT REAGENT STRIP POCT GLUCOSE, EVIN MORENO Routine 12/01/2019 7:44 AM EDT 12/01/2019 07:44:00 AM [facility] BLOOD COUNT COMPLETE AUTOMATED CBC Routine 12/01/2019 4:51 A M EDT 12/01/2019 04:51:00 AM [facility] PHOSPHORUS INORGANIC PHOSPHORUS LEVEL Routine 12/01/2019 4:51 AM E DT 12/01/2019 04:51:00 AM [facility] MAGNESIUM MAGNESIUM LEVEL Routine 12/01/2019 4:51 AM EDT 12/01/2019 04:51:00 AM [facility] BASIC METABOLIC PANEL CALCIUM TOTAL BASIC METABOLIC PANEL Routi ne 12/01/2019 4:51 AM EDT 12/[facility]LO[facility] XCPT REAGENT STRIP POCT GLUCOSE, EVIN MORENO Routine 11/30/2019 9:31 PM EDT 11/30/2019 09:31:00 PM [facility] GLUCOSE QUANTITATIVE BLOOD XCPT REAGENT STRIP POCT GLUCOSE, EVIN MORENO Routine 11/30/2019 6:08 PM EDT 11/30/2019 06:08:00 PM [facility] GLUCOSE QUANTITATIVE BLOOD XCPT REAGENT STRIP POCT GLUCOSE, EVIN MORENO Routine 11/30/2019 3:46 PM EDT 11/30/2019 03:46:00 PM [facility] BLOOD TYPING ABO TYPE AND SCREEN Routine 11/30/2019 12:58 PM EDT 11/30/2019 12:58:00 PM [facility] REPAIR, INITIAL INCISIONAL/VENTRAL HERNIA REDUCIBLE R EPAIR, INITIAL INCISIONAL/VENTRAL HERNIA REDUCIBLE 11/30/2019 12:07 PM EDT Flank hernia 11/30/2019 12:07:00 PM EDT - 11/30/2019 02:56:00 PM EDT Flank hernia [facility] Flank hernia GLUCOSE QUANTITATIVE BLOOD XCPT REAGENT STRIP POCT GLUCOSE, DOC KED Routine 11/30/2019 9:56 AM EDT 11/30/2019 09:56:00 AM EDT [facility] BLOOD COUNT COMPLETE AUTOMATED CBC Routine 0 3:19 PM EDT Preop testing 11/29/2019 03:19:00 PM EDT Preop testing [facility] Preop testing BASIC METABOLIC PANEL CALCIUM TOTAL BASIC METABOLIC PANEL Routi ne 11/29/2019 3:19 PM EDT Preop testing 11/29/2019 03:19:00 PM EDT Preop testing [facility] Preop testing EKG 12-LEAD - CMAXX REPORT EKG 12-LEAD - CMAXX REPORT 11/29/2019 2:26 PM EDT 11/29/2019 02:26:29 PM EDT U [facility] EKG 12-LEAD EKG 12-LEAD Routine 11/29/2019 2:26 PM EDT 11/29/2019 02:26:29 PM EDT [facility] EKG 12-LEAD EKG 12-LEAD Routine 11/29/2019 2:26 PM EDT Preop testing 11/29/2019 02:26:29 PM EDT Preop testing [facility] Preop testing Diabetic Foot Exam 09/06/2019 12:00:00 AM EDT [facility] ([facility]) Diabetic Foot Exam 08/26/2019 12:00:00 AM EDT [facility] ([facility] Diabetic Foot Exam 08/26/2019 12:00:00 AM EDT [facility] ([facility] Ana, 2016 with Christi Quintana [employer] Tele[employer] Professional.Svc. STI / H 05/04/2019 12:00:00 AM EDT - 05/04/2019 12:00:00 AM EDT [facility] ([facility]) [employer] Telecommunications Professional.Svc. Other 05/04/2019 12:00:00 AM EDT - 2019 12:00:00 AM EDT [facility] ([facility]) CVR Telecommunications Professional.Svc. Contraceptive 05/04/2019 12 :00:00 AM EDT - 05/04/2019 12:00:00 AM EDT [facility] ([facility]) CVR Med.Svc. Height/Weight 05/04/2019 12 :00:00 AM EDT - 05/04/2019 12:00:00 AM EDT [facility] ([facility]) CVR Blood Pressure 05/04/2019 12:00:00 AM EDT - 2019 12:00:00 AM EDT [facility] ([facility]) CVR Med.Svc. Other 05/04/2019 12:00:00 AM EDT - 2019 12:00:00 AM EDT [facility] ([facility]) HCS Without Test 05/04/2019 12:00:00 AM EDT - 05/04/19 20 12:00:00 AM EDT [facility] ([facility]) CYTOPATH, C/V, THIN LAYER 05/04/2019 12: 00:00 AM EDT - 05/04/2019 12:00:00 AM EDT [facility] ([facility]) PREV VISIT, NEW, AGE 40-64 05/04/2019 12 :00:00 AM EDT - 05/04/2019 12:00:00 AM EDT [facility] ([facility]) N.GONORRHOEAE, Pharyngeal 05/04/2019 12: 00:00 AM EDT - 05/04/2019 12:00:00 AM EDT [facility] ([facility]) CHYLMD TRACH, Pharyngeal 05/04/2019 12:0 0:00 AM EDT - 05/04/2019 12:00:00 AM EDT [facility] ([facility]) SYPHILLIS BLOOD SEROLOGY, QUALITATIVE 12:00:00 AM EDT - 05/04/2019 12:00:00 AM EDT [facility] ([facility]) HTLV/HIV CONFIRMATORY TEST 05/04/2019 12 :00:00 AM EDT - 05/04/2019 12:00:00 AM EDT [facility] ([facility]) HEPATITIS C AB TEST 05/04/2019 12:00:00 AM EDT - 05/03 12:00:00 AM EDT [facility] ([facility]) N.GONORRHOEAE, SWAB 05/04/2019 12:00:00 AM EDT - 05/03 12:00:00 AM EDT [facility] ([facility]) CHYLMD TRACH, SWAB 05/04/2019 12:00:00 AM EDT - 2019 12:00:00 AM EDT [facility] ([facility]) ROUTINE VENIPUNCTURE 05/04/2019 12:00:00 AM EDT - 05/04/2019 12:00:00 AM EDT [facility] ([facility]) Results ID Date Data Source [id number] 04/06/2020 10:05:00 AM EST [facility] Name Value Range Interpretation Code Description Data Roxy rce(s) Supporting Document(s) SARS coronavirus 2 RNA Not Detected [facility] [place] This lab was ordered by [facility] and reported by [facility]. ID Date Data Source [id number] 03/17/2020 07:33:00 AM EST [facility] ([facility] Name Value Range Interpretation Code Description Data Roxy rce(s) Supporting Document(s) Kiana (Hep2) Laboratory test result [facility] ([facility] <content>Negative <1:80</content>
<content>Borderline 1:80</content>
<content>Positive >1:80</content>
<content>Performed at: [facility]</content>
<content>[address], [place] [id number]</content>
<content>Film Editor Supervisor: Ruddy Anguiano MD, Phone: [phone]</content>
<content>Performed at: [facility]</content>
<content>[address], [place] [id number]</content>
<content>Film Editor Supervisor: Mihaela Madden MD, Phone: [phone]</content>
<content></content> ID Date Data Source [id number] 03/17/2020 07:33:00 AM EST [facility] ([facility] Name Value Range Interpretation Code Description Data Roxy rce(s) Supporting Document(s) Lyme Disease IgM Ab Quantitati Laboratory test result 0.00-0.79 [facility] ([facility] <content>Negative <0.80</content >
<content>Equivocal 0.80 - 1.19</content>
<content>Positive >1.19</content>
<content>.</content>
<content>IgM levels may peak at 3-6 weeks post infection, then</content>
<content>gradually decline.</content>
<content></content> Lyme Disease IgG/IgM Antibodie Laboratory test result 0.00-0.90 [facility] ([facility] <content>Negative <0.91</content >
<content>Equivocal 0.91 - 1.09</content>
<content>Positive >1.09</content>
<content></content> ID Date Data Source [id number] 03/17/2020 07:33:00 AM EST [facility] ([facility] Name Value Range Interpretation Code Description Data Roxy rce(s) Supporting Document(s) Cyclic citrullinated peptide IgG Ab [Units/volume] in Serum or Plasma 5 units 0-19 [facility] ([facility] <content>Negative <20</con tent>
<content>Weak positive 20 - 39</content>
<content>Moderate positive 40 - 59</content>
<content>Strong positive >59</content>
<content></content> ID Date Data Source [id number] 03/17/2020 07:33:00 AM EST [facility] ([facility] Name Value Range Interpretation Code Description Data Roxy rce(s) Supporting Document(s) Cytoplasmic Neutrop AB Anca-C Laboratory test result [facility] ([facility] Anca-Atypical Laboratory test result [facility] ([facility] The atypical pANCA pattern has been obse rved in a significant percentage of patients with ulcerative colitis, primary sclerosing cholangitis and autoimmune hepatitis. Perinuclear AB Anca-P Laboratory test result [facility] ([facility] The presence of positive fluorescence ex hibiting P-ANCA or C-ANCA patterns alone is not specific for the diagnosis of Carlito's Granulomatosis (WG) or microscopic polyangiitis. Decisions about treatment should not be based solely on ANCA IFA results. The International ANCA Group Consensus recommends follow up testing of positive sera with both CT- 3 and MPO-ANCA enzyme immunoassays. As m any as 5% serum samples are positive only by EIA. Ref. AM J Clin Pathol 1999;111:507-513. ID Date Data Source [id number] 03/17/2020 07:33:00 AM EST [facility] ([facility] Name Value Range Interpretation Code Description Data Roxy rce(s) Supporting Document(s) Erythrocyte sedimentation rate by 2H Westergren method 28 mm/hr 0-3 0 [facility] ([facility] ID Date Data Source [id number] 03/17/2020 07:33:00 AM EST [facility] ([facility] Name Value Range Interpretation Code Description Data Roxy rce(s) Supporting Document(s) White Blood Count 3.9 10 4.0-10.0 [facility] ([facility] Hematocrit 40.6 % 36.0-47.0 [facility] ([facility] Red Blood Count 5.26 10 4.00-5.40 [facility] ([facility] Hemoglobin 12.3 g/dL 12.0-15.5 [facility] Mean Corpuscular Volume 77.2 fl 80.0-96.0 M [facility] ([facility] Mean Corpuscular HGB Conc 30.3 g/dL 32.0-36.5 [facility] ([facility] Mean Corpuscular Hemoglobin 23.4 pg 27.0-33.0 [facility] ([facility] Red Cell Distribution Width 18.8 % 11.5-14.5 [facility] ([facility] Platelet Count, Automated 219 10 150-450 [facility] ([facility] Assumption % 9.0 % 0.0-5.0 [facility] ([facility] Neutrophils % 54.4 % 36.0-66.0 [facility] ([facility] Lymph % 23.8 % 24.0-44.0 [facility] Immature Granulocyte % 1.3 % 0-3.0 [facility] ([facility] Eos % 9.5 % 0.0-3.0 [facility] Baso % 2.0 % 0.0-1.0 [facility] Neutrophils # 2.1 10 1.5-8.5 [facility] ([facility] Nucleated Red Blood Cell % 0.0 % 0-0 MED [facility] ([facility] Lymph # 0.9 10 1.5-5.0 [facility] Eos # 0.4 10 0.0-0.5 [facility] Assumption # 0.4 10 0.0-0.8 [facility] Baso # 0.1 10 0.0-0.2 [facility] ID Date Data Source [id number] 03/17/2020 07:33:00 AM EST [facility] ([facility] Name Value Range Interpretation Code Description Data Roxy rce(s) Supporting Document(s) Rheumatoid factor [Units/volume] in Serum or Plasma Laboratory test result [facility] ([facility] C reactive protein [Mass/volume] in Serum or Plasma by High sensitivity method 3.96 mg/dL 0.00-0.30 [facility] ([facility] ID Date Data Source [id number] 03/17/2020 07:33:00 AM EST [facility] ([facility] Name Value Range Interpretation Code Description Data Roxy rce(s) Supporting Document(s) Blood Urea Nitrogen 17 mg/dL 7-18 [facility] ([facility] Glucose, Fasting 234 mg/dL 70-100 [facility] ([facility] Glomerular Filtration Rate Laboratory test result [facility] ([facility] <content>Units are mL/min/1.73 m2</content>
<content></content>
<content>Chronic Kidney Disease Staging per NKF:</content>
<content></content>
<content>Stage I & II GFR >=60 Normal to Mildly Decreased</content>
<content>Stage III GFR 30- 59 Moderately Decreased</content>
<content>Stage IV GFR 15-29 Severely Decreased</content>
<content>Stage V GFR <15 Very Little GFR Left</content>
<content>ESRD GFR <15 on HAND COPER</content>
<content></content> Creatinine For GFR 0.82 mg/dL 0.55-1.30 [facility] ([facility] Sodium Level 137 meq/L 136-145 [facility] ([facility] Potassium Serum 3.9 meq/L 3.5-5.1 [facility] ([facility] Chloride Level 104 meq/L 98-107 [facility] ([facility] Carbon Dioxide Level 23 meq/L 21-32 [facility] ([facility] Anion Gap 10 meq/L 8-16 [facility] ([facility] Calcium Level 9.2 mg/dL 8.5-10.1 [facility] ([facility] ID Date Data Source [id number] 03/17/2020 07:33:00 AM EST [facility] Name Value Range Interpretation Code Description Data Roxy rce(s) Supporting Document(s) SARS coronavirus 2 RNA [Presence] in Res piratory specimen by ALEJANDRO with probe detection NEGATIVE [facility] This lab was ordered by [facility] a nd reported by [facility]. ID Date Data Source [id number] 03/02/2020 08:51:00 AM EST [facility] ([facility] Name Value Range Interpretation Code Description Data Roxy rce(s) Supporting Document(s) Thyrotropin [Units/volume] in Serum or Plasma 0.173 uIU/ML 0.358-3.74 0 [facility] ([facility] ID Date Data Source [id number] 03/02/2020 08:51:00 AM EST [facility] ([facility] Name Value Range Interpretation Code Description Data Roxy rce(s) Supporting Document(s) Triglycerides Level 86 mg/dL [facility] ([facility] Cholesterol Level 107 mg/dL [facility] ([facility] HDL Cholesterol 64 mg/dL [facility] ([facility] LDL Cholesterol 26 mg/dL [facility] ([facility] Cholesterol Risk Ratio 1.671 [facility] ([facility] Non-HDL-C 43 mg/dL [facility] ([facility] ID Date Data Source [id number] 03/02/2020 08:51:00 AM EST [facility] ([facility] Name Value Range Interpretation Code Description Data [facility] Peninsulae(s) Supporting Document(s) Creatinine, Urine 220.0 mg/dL [facility] ([facility] Malb Urine Siemens 122.0 mg/L [facility] ([facility] Edilson/Creat Ratio 55.4 MCG/MG 0.0-30.0 [facility] ([facility] [employer] STATES THAT MICROALBUMINURIA IS PRESENT IF THE MICROALBUMIN/CREATININE RATIO EXCEEDS 30 MCG/MG. THE THRESHOLD FOR CLINICAL ALBUMINURIA IS REACHED AT 300 MCG/MG. THE CLASSIFICATION OF A PATIENT SHOULD BE BASED UPON AT LEAST 2 OF 3 ABNORMAL RESULTS ON SPECIMENS COLLECTED WITHIN A 3 TO 6 MONTH TIME FRAME. ID Date Data Source [id number] 03/02/2020 08:51:00 AM EST [facility] ([facility] Name Value Range Interpretation Code Description Data Roxy rce(s) Supporting Document(s) Estimated Average Glucose 151 mg/dL 60-110 [facility] ([facility] Hemoglobin A1c/Hemoglobin.total in Blood 6.9 % [facility] ([facility] <content>REFERENCE RANGES:</content><br/ ><content></content>
<content><=5.6% NORMAL</content>
<content>5.7-6.4% SUGGESTS IMPAIRED GLUCOSE METABOLISM/PREDIABETIC</content>
<content>>= 6.5% ABNORMAL</content>
<content></content> ID Date Data Source [id number] 03/02/2020 08:51:00 AM EST [facility] ([facility] Name Value Range Interpretation Code Description Data Roxy rce(s) Supporting Document(s) Glucose, Fasting 174 mg/dL 70-100 [facility] ([facility] Creatinine For GFR 0.72 mg/dL 0.55-1.30 [facility] ([facility] Blood Urea Nitrogen 13 mg/dL 7-18 [facility] ([facility] Glomerular Filtration Rate Laboratory test result [facility] ([facility] <content>Units are mL/min/1.73 m2</content>
<content></content>
<content>Chronic Kidney Disease Staging per NKF:</content>
<content></content>
<content>Stage I & II GFR >=60 Normal to Mildly Decreased</content>
<content>Stage III GFR 30- 59 Moderately Decreased</content>
<content>Stage IV GFR 15-29 Severely Decreased</content>
<content>Stage V GFR <15 Very Little GFR Left</content>
<content>ESRD GFR <15 on HAND COPER</content>
<content></content> Sodium Level 140 meq/L 136-145 [facility] ([facility] Potassium Serum 4.1 meq/L 3.5-5.1 [facility] ([facility] Anion Gap 7 meq/L 8-16 [facility] ([facility] Chloride Level 105 meq/L 98-107 [facility] ([facility] Carbon Dioxide Level 28 meq/L [...] [facility] ID Date Data Source [id number] 02/02/2020 12:00:00 AM EST [facility] Name Value Range Interpretation Code Description Data Roxy rce(s) Supporting Document(s) SARS coronavirus [facility] lab was ordered by [facility] and reported by [facility]. ID Date Data Source [id number] 01/20/2020 10:21:25 AM EST [facility] Name Value Range Interpretation Code Description Data Roxy rce(s) Supporting Document(s) Progress Note [facility] UXYXYi8aAeVFNvMq33/YAVvlAUPpf5WeEIlhAIo8YLbaNUZbZ3MiPPK2pU7zZHA6VKcOJmIrJiAfNgO9 lbm [file] AgICAgICAgICAgICAgICAgICAgICAgICAgICAgICAgICAgICAgICAgICAgICAgICAgICAgICAgICAgIC DcVHCoWVXiLFZgELTvLZClDRPoYX3PWVHbSOIxFKLsVHSoRRKrPEAtCBQhLNQrMMYnCNSwWATgMEOhFI AgICAgICAgICAgICAgICAgICAgICAgICAgICAgICAg SNFqRUNoTCXrMOKuKJHkDSLnFQIcCZMsYOVoXHQjDF6UZUTgJMGeQMIvJQRdPGGpIJZlWPQbKRVtAZMd ICAgICAgICAgICAgICAgICAgICAgICAgICAgICAgICAgICAgICAgICAgICAgICAgICAgICAgICAgICAg JPBwDCMxBDObZTQxCV3WOOVsXBRmQTVgWCGmBKQcQO AgICAgICAgICAgICAgICAgICAgICAgICAgICAgICAgICAgICAgICAgICAgICAgICAgICAgICAgICAgIC TbTVZnUZZtCJZaKYDnNJQeGWRlBXOzZL3NLZZxAMVxYMInFEQzFGVrCDBtLIQdHIVjIXOuHQWaHTKpWP AgICAgICAgICAgICAgICAgICAgICAgICAgICAgICAg VGQmNDCpRCRsXZSvFDBzIMYtVUDiXCInQNIpQMOrOPDdGX9UGTLfNWQjDUXtSZVaKFWdSODoZNTwGVUu ICAgICAgICAgICAgICAgICAgICAgICAgICAgICAgICAgICAgICAgICAgICAgICAgICAgICAgICAgICAg IMMxEOOlSHSvBCAtRLDaBU0JNXYkEVLaKDClWJEiJD AgICAgICAgICAgICAgICAgICAgICAgICAgICAgICAgICAgICAgICAgICAgICAgICAgICAgICAgICAgIC RfHESrRRMrMZDrITAmTWBeIGBxRQJaGDJoFZ2RZOKyCTCxJKHgSVZdWWLbPVMfAIAiTFQgSSQqJIDgWV AgICAgICAgICAgICAgICAgICAgICAgICAgICAgICAg KIDyPDPcTVHsDSHgJZUjNCVpFJZxQKOnIYDsLLSlTNVsAHObGA6BDIHpISLkGKYtKWOkIGTsVPWkRANb ICAgICAgICAgICAgICAgICAgICAgICAgICAgICAgICAgICAgICAgICAgICAgICAgICAgICAgICAgICAg WIAaEXAyOBLnFUQiNUJrDEZcJW7OMYZgVHUjZUAoYC AgICAgICAgICAgICAgICAgICAgICAgICAgICAgICAgICAgICAgICAgICAgICAgICAgICAgICAgICAgIC IyWIYoRCXmWKFkBYIkQMYkRNFkLIFtHNWbHUGnLS4YCE66zMZtd4V6VFIcWE2dwfy/Yh5MCVpwvcSseC AcPR6RMpFyBT7xoh7KOuZmIK1wvg3IUQbHJzPxS7U6 iVPbLNTaXTPLUcGlQ06eXWseSx08TFliVWRlPbHvVWx6Jl9FMgQoP9ozDOUzAgE5YFRxAtUaJOiaMP7K q0GvxYKjONk+Og9HET1sj6VxOSnwPmIsVY8lyh3TWVaLWxKeD2DqdmW0GSBiTXVcLz2GAIRrJLLzqCTm ZdDmZZGJMpByK3QcqZ15YBYOWb6+DQplbmRvYmoNCj ObUZNgo2SqMKy3EO6QVFBfURy6nMLwLPNwN8Zyv6OsSk03ILYdEtpeDN49u6FvXtIaWU0lPWuzn1Csah waSAWfZJZiPVDrSH4pXTDpZWP4XcX6OMEDAL8AYDJhHGZhgAOeRWIvSVWZBX9PXAgkBCT0FIYzuwIsnL JoQDuaCD0WSPSvmoKhUmYlJHYHKPy+Xx4ISR3xt6Ch BRgtJEZnDV4cps2JXZkIBuZrX0R4ePHpI7D0ZNkzHd9ONTYoPDPzHsHhZOPHJDqdPE4QWY8uqcC5PR4I lFCyYSOgTFVocNOoXGk6S39uySJzMVekHA3AGUG+Elisabeth+Bc0EGVVaRIZeRWOrYuCkXMDNMnEqU1PjL8YS n2TvA6IsFX67tTdydlOtYGzpQY2HEG5sYOLuHSUDHB 0QvDSugS1jalRnLxRoGLFWZvGtQ90puTTfUTJiIYMnTEGqWt9SIGMdQ5HohjIbtWuobbIeFYEcFGEGYA 1EXLfotrGirTSccYekHI26oPqqIB0VOw0RRiAmDH0wnc6SjONyQk1UYJOmVH7RCQGgTZMhEWEjUBH7PH AyEhVuYHtjUVSyHZJgXXT3FBBiMNWwOI5IUlJeVYKb QHy1YTvdEADxQATgur4AHYSyMSBkGTO4UjXbACKuLRQtIOcpXBZiROJgCNE8EFIxCALmWF1SSnUtUOLy HSP6NrKjONIxGCIaeh9ERRPbUCOlAhK4IyIgGLYqCWRsUCrdFZTgEAF8TAG6UXXkRDJdTD3OIjCoJDWc KDPcBkXjTSSdDEHnfa2KRXJiLOPxLIZeJICwTROfVU AiCHplQFMrSRH2SWI4QOZlFBXyEX6XTwAnATZbIRS3OjMjAGTvJCFryp3RIUFxRKDaVQq9DBQhDHScWU UjZOmmSQHsLZL7ZxHiNWPcICOwLV8XBwNrXARkPYt4NtjzPZRkPGOwmx0EXGEhPDSxPfxdFQUaXTDwPC ShVYmoQDWmYPN0LLl5CEIdXSMoPL3VJzEgVGSuVKby KuWqUHNvKYRrcu3TJXYxOSFiANK8MxGkOYSlCUUrCFelHUNoYIL2UgU0BORsQYWtLL6EBdAcZTOuXXg5 CgLnSIAeEJZsfe8REKHeEXIzSUp6IpLgBLUnNFMfQIgbMXQeIRAtZixkEBHdHNDqKY7LWsFcMGBhTaCk HzYaYTSkARFlod5QRUAeWRPjSQMmFMSkHVZyMQIcDM r3niIdlUCyCNl5MX1GH3MresYhIkMEXr8Ws863FYE7DNIkJv1CH5chAx2bQJCmSKAUHr8LJEp1HuTbZa T8DuHoFUy8SnX8GSG1CBXeCGBhHFD7EDO5L3L+GUc3IEQeUOt3IPS2KDKzRjy4VJIwSpAxUpJgOpW2YV sjCC5sRYEQZs6+MTaenXAbmLvdPUSPUtKjHmV6IYhnBYMNKn8E ID Date Data Source [id number] 12/07/2019 04:23:10 PM EDT [facility] Name Value Range Interpretation Code Description Data Roxy rce(s) Supporting Document(s) Progress Note [facility] LAHOCl8uApBCYdWr91/KZEpnYJSmv3YfBJasPAc5PLevJOTxW7IbDKZ4fS5qHLE9YQzVJpCoGjVoWZAx lbm [file] ICAgICAgICAgICAgICAgICAgICAgICAgICAgICAgICAgICAgICAgICAgICAgICAgICAgICAgICAgICAg ICAgICAgICAgICAgICANCiAgICAgICAgICAgICAgICAgICAgICAgICAgICAgICAgICAgICAgICAgICAg ICAgICAgICAgICAgICAgICAgICAgICAgICAgICAgIC AgICAgICAgICAgICAgICAgICAgICAgICANCiAgICAgICAgICAgICAgICAgICAgICAgICAgICAgICAgIC AgICAgICAgICAgICAgICAgICAgICAgICAgICAgICAgICAgICAgICAgICAgICAgICAgICAgICAgICAgIC AgICAgICANCiAgICAgICAgICAgICAgICAgICAgICAg ICAgICAgICAgICAgICAgICAgICAgICAgICAgICAgICAgICAgICAgICAgICAgICAgICAgICAgICAgICAg ICAgICAgICAgICAgICAgICANCiAgICAgICAgICAgICAgICAgICAgICAgICAgICAgICAgICAgICAgICAg ICAgICAgICAgICAgICAgICAgICAgICAgICAgICAgIC AgICAgICAgICAgICAgICAgICAgICAgICAgICANCiAgICAgICAgICAgICAgICAgICAgICAgICAgICAgIC AgICAgICAgICAgICAgICAgICAgICAgICAgICAgICAgICAgICAgICAgICAgICAgICAgICAgICAgICAgIC AgICAgICAgICANCiAgICAgICAgICAgICAgICAgICAg ICAgICAgICAgICAgICAgICAgICAgICAgICAgICAgICAgICAgICAgICAgICAgICAgICAgICAgICAgICAg ICAgICAgICAgICAgICAgICAgICANCiAgICAgICAgICAgICAgICAgICAgICAgICAgICAgICAgICAgICAg ICAgICAgICAgICAgICAgICAgICAgICAgICAgICAgIC AgICAgICAgICAgICAgICAgICAgICAgICAgICAgICANCiAgICAgICAgICAgICAgICAgICAgICAgICAgIC AgICAgICAgICAgICAgICAgICAgICAgICAgICAgICAgICAgICAgICAgICAgICAgICAgICAgICAgICAgIC AgICAgICAgICAgICANCiAgICAgICAgICAgICAgICAg ICAgICAgICAgICAgICAgICAgICAgICAgICAgICAgICAgICAgICAgICAgICAgICAgICAgICAgICAgICAg ICAgICAgICAgICAgICAgICAgICAgICANCjw/mQLfU9gkfAMsrqI9O8rbAx4RMb9OGQ7fr2XbNTYyOCtj ddYzAveUHePiFPNqCabIBpf5BZddRA7PfHCqB2KiQ1 KmKCyqIV6IUGErXWYapZAlQPInMDQeDoA1WQOxCUtnNS6GqUBbEQfzGKGvAMYxPS2NHXQaM997jmAnVG 9IPj7NNfHyWW7vik0KPXobYIQpEpvFZgz0AQrfBV5IcIHrzWKsITQfRUJDSbZlJ7nzr4ZgQbGsGLAQRD xsFI7Za2MtfQVrZQs+Na1POC2of1RdCUuqGGCtFE7l nv5RRKaJKlXvU4UajJlzLYVvw6gwFUIrIZ2pjKOnDSC1YFMoXWdxPPRITErblLYzMZJPZjSrgETrHX1v FX9zUDXxUKAjSxNxFDQLVY5KRPUnKGIepYSqVVNuVBQLOQ4LKWlpFTY5UWEswkUwaNZuIGteDC9RDBFi bnQgMTkgMCBSDQo+Oj9PBM8ow3SzNIlwWZMpGY1hxa 4BVXrNOiLiT4Q6fMHmM4Z3OHtnGd8FAYZvXTOuHNbhBECPHCjiYS6DEP4fosU2FT7UrIZmCHSuZHPzjA PqLYe2W24jhNVvJPhdEH0YRJB+Elisabeth+Ef7VOYGmIMMlUYNcRqCwJGCWSaLrM4EsJ4FHy6UtU7WrOW66wG twnaBsNZudQM2YTW5gTJCnNMOYFZ5CbVUcxR8ltqQy NDZnHZDBLxVzW47reKKkSUSoJJC8YFDbGa6MSTVlJ0YnaeQdxCgzecIpKUYaNOKHNO3KDBsibbAfkPMd rGieFR78bWbaHJ5CXk4BQaBuAD0tsr3QoIChEa4DFGAiHl2UNVFtTEYfNQHfTTB4QGBqQnTfFSwiCDCi STZvMEO7ZVDvSFJrIL8YUpAdJGNhBEt1AHxaWGSbVE Nxhh0ACNYrATSsQNNsWbSiJAGcILBqCDvwDDTzFESaWJM6OKKuQQIqSC6USjMxPXZmZNZnYuPtAVXhKH Hwbq4HSJAhYRVsEgZxLJQtOSVbBZKuRQbzMCUtKLYaIUs4GGPiGTMdGK9RUnAlIRKeXYC8VXBsKHDcKY Cruk0DDJHgQPVqMsf5PnDqVHMnJSShMIxcVFXoXUK9 AGDmHTToVGLmTQ6TNgSdSGWbNZKjYyTvUKDjHHXobf3JUNLgXMFqOXQqKLOeFWBqTXXbHIwvSSTiPNA2 HFC8OKVaABSvFF1SGuBiNGSvCJX1QGXgUNKsXLHkov1KSBGmBFUyKlX5CGDkNZBmKWSzSQpvIVPmDMJ9 BrXxJSOsYKBzRE6DTdJvREGwYDx1GmQaWIZhYVDjtd 6OQBSlTJWqJok3UgYeOKGeONZfYKhsWHIuQTX1EvN2AGSqQFBeWL2RLbBdLSFmSMsbPGLqPYIwCBZvjm 5QHOTmWWAvYGLuDFSwALLkTDUzESs2twHoqOByTZi3CR6GE3RnnoTbYjLSVu8Tp999IKOpCZQqTs1JD8 rgVe6nHHPwAWYEXa4CDCr7V0M6YiM6HSn0RVOxYfK7 BfYkWzM7EQU7CMB4TjsqTMu+EYlhFeAoYrZ7NKgaSBGfUobrLCLgNWEaZLMhFTVwMUC4Xg6oOQIXMt8+ NSmfpLLspQkcHYCOSmW9Ppn7LYkbMCDRUg3K ID Date Data Source [id number] 12/03/2019 08:43:53 PM EDT [facility] Name Value Range Interpretation Code Description Data Roxy rce(s) Supporting Document(s) Discharge Summary [facility] AVZUYs0fSvYDPoCz79/WFSxcILBar2KxBIxfDKl1OOzdIUNpC7GmCNW4pE2hDOK7LCtJEnHwEyWqOLN8 lbm [file] AgICAgICAgICAgICAgICAgICAgICAgICAgICAgICAg ICAgICAgICAgICAgICAgICAgICAgICAgICAgICAgICAgICAgICAgICAgICAgICAgICAgICAgICAgICAg ICAgICAgDQogICAgICAgICAgICAgICAgICAgICAgICAgICAgICAgICAgICAgICAgICAgICAgICAgICAg ICAgICAgICAgICAgICAgICAgICAgICAgICAgICAgIC AgICAgICAgICAgICAgICAgDQogICAgICAgICAgICAgICAgICAgICAgICAgICAgICAgICAgICAgICAgIC AgICAgICAgICAgICAgICAgICAgICAgICAgICAgICAgICAgICAgICAgICAgICAgICAgICAgICAgICAgDQ ogICAgICAgICAgICAgICAgICAgICAgICAgICAgICAg ICAgICAgICAgICAgICAgICAgICAgICAgICAgICAgICAgICAgICAgICAgICAgICAgICAgICAgICAgICAg ICAgICAgICAgDQogICAgICAgICAgICAgICAgICAgICAgICAgICAgICAgICAgICAgICAgICAgICAgICAg ICAgICAgICAgICAgICAgICAgICAgICAgICAgICAgIC AgICAgICAgICAgICAgICAgICAgDQogICAgICAgICAgICAgICAgICAgICAgICAgICAgICAgICAgICAgIC AgICAgICAgICAgICAgICAgICAgICAgICAgICAgICAgICAgICAgICAgICAgICAgICAgICAgICAgICAgIC AgDQogICAgICAgICAgICAgICAgICAgICAgICAgICAg ICAgICAgICAgICAgICAgICAgICAgICAgICAgICAgICAgICAgICAgICAgICAgICAgICAgICAgICAgICAg ICAgICAgICAgICAgDQogICAgICAgICAgICAgICAgICAgICAgICAgICAgICAgICAgICAgICAgICAgICAg ICAgICAgICAgICAgICAgICAgICAgICAgICAgICAgIC AgICAgICAgICAgICAgICAgICAgICAgDQogICAgICAgICAgICAgICAgICAgICAgICAgICAgICAgICAgIC AgICAgICAgICAgICAgICAgICAgICAgICAgICAgICAgICAgICAgICAgICAgICAgICAgICAgICAgICAgIC AgICAgDQogICAgICAgICAgICAgICAgICAgICAgICAg ICAgICAgICAgICAgICAgICAgICAgICAgICAgICAgICAgICAgICAgICAgICAgICAgICAgICAgICAgICAg GLZkZRDtXIFoIKNmWMEbZBq8T3mtINCgBQYtHF0vWMe2Dn1+QTePGuKfWQF7quAdzJ5GZP3is5FvSHvu JIYxk1AhVFs2VG9YOLQtMOglGK9SSUtftd8ZNOYrLR PzoMZQl3nsNlUoXNX6ETPeIyxaEC3IAUWuY2bgbnSjVXNtOQGCKGzxORRLXFoqUSHAII2TReUiD7WdoZ 61HTMKJv5+YYhfteZjQfqCXhE2IRMnr3UyCFw6HE0OUUWoVdavt9KzAjOvVAZYPDobFG4HTIT8CTDoCL RpFj7NOCPlN501uiJaOF3UXq2DAtFeKA8xrl6ZJvXw YIJuHiuRUea1KNeoHR7IkDHwRRkFzRDavEIhB0WrC6UabPVurDResOMKcRYkEIEbugH0HQIxHO4FHMY2 KFXsFnV1LsObNhRcMMY2TDphFZ9mUXmoXR6YNME1RGqeXRGfCJXkX6uUZbJzCDGjFUVqoCszTR1HNrJl X9HtjiVfrFQcLDMhDBROXm8+DQplbmRvYmoNCjMxID Eqo7CmQTi0LE6SJLSvJXiaCD4UEZBijX7bUWkpCQ9QHyWfEoUoOBWCDaOuM19gcWIoNJr6R8VhUeQhLP VkRmlsZXMgPDwvTmFtZXMgWyBdDQogID4+ID4+BYddHL4LDFcysuQfOWBmTz6MRWUtDAAkRL7wEHDgKY VdH1R0gRqcERJFAwVnV4bynmojAJ7fTNXoD986hZgj olIjWYF9AYBlJx4FGJJuRDS3UJSgxWWxAzixFGRXIGszYW2DtBFiKQL4hZ2gQYpeNMBkZMVyH1yKWqSm uAhzVO52aSqwzmAkcYCyGFs+Ar5GVV4lp7JjHXx7bnFeABryBAFmSXjlYNOcSHUbUEZuYTO9SLA7PZPX PvMrZCPoMOYdPAlcEFLbHPHtod7HUYIcDRBkHTw3MR EvIUHzBYWoZMaqRXSwHLPeZbTiAXTsQGYuJM6SXiGlMOFhTGEkGLxrVPBeORAfar9NBYOcXIVkCwYzBm PeSWChDHJgZFiiXSUfBMOpYSH0XAFrATZlJU4NSlJePATqMZxqNLBsMYHiZJVovy4SNUVsCGMkFoU8JK HnIUVxKZVrNXgbTLWzEZDkCZA8PTDtPFXyJY8REuNv SPZuWZYxGJJcUKEzKPWlxa3SNTXeOZUnKeU7KmDzUVXyTZIlLQgrDAXrABNbCOrjSTGtZTOmRD6LEeJa AKGyGUQ2WJQhVBFlMPAeic0QSPOtCHTuFtJhHiVjBSDvXQMbAGbvODUrQEOjQCY8URZxAYFnMY6PKjOd CAXcBHDlHBBeMMPwTKUnqc0WXCFoOZLcOGi1XdWhFW TlUORgFZanKKYoKMD9VOG2MEPlKEIgQT3RYsTcVWRqAXFeDWDdXHFmBDCxht1OFJTwZCKoRvntAtTfKC FcZUEaMTdyKHHoKHU0LXM5GKTuEIEpFI9PLiNeOTNhUbscOCJxFMLnKIExyv5BZDOoOHXcAoE5RmQmFH CcUNCpITkcITZlRAS6DcI9GGAcUMIsVZ8GNyTvOAIn Qmt8AJGlIHBbYPEysm2PCGZiQYOyGOe7JLRcMXEfXUFlNSxxAVIaQMM1QFU2JVFgJPRiNF1TMqLyIGZt LdwaSDOeCRUuXIGeno8BMAIqUQJsMWbkWpHfSHQnQOOwNRnfLTLnBFKsKGJlBORnXPBgKE7QCjGuNZHg GwByEUJpWSUlQDAvyg0XnZJcfMjgvy0PVCeLKc5TkS qyOMBaZKhwCg7ebPEhKGPkIPCWJm3JxeLgYSZvOWCDHCauGINeAAX8UEs3NME8QASoXWlwXpJvGaSjEW V4HgQtUVi4WCBdOoO1IxE3AZf0YYw4UGUeKSTzXgCkDJLhUIAhY5G1AIj7UbX+JM3hYLi+Jc2Bn0Lcai H4hvIiWNpyMSE1UN3QPIMCP0TUVu== ID Date Data Source [id number] [facility] Code Description Data Roxy rce(s) Supporting Document(s) Glucose [Mass/volume] in Capillary blood by Glucometer 133 mg/dL 70- 140 [facility] ID Date Data Source [id number] 12/03/2019 07:55:[address] [facility] Value Range Interpretation Code Description Data Roxy rce(s) Supporting Document(s) Glucose [Mass/volume] in Capillary blood by Glucometer 127 mg/dL 70- 140 [facility] ID Date Data Source [id number] 12/03/2019 06:28:[address] [facility] Value Range Interpretation Code Description Data Roxy rce(s) Supporting Document(s) Leukocytes [#/volume] in Blood by Automated count 8.5 10*3/uL 4-10 [facility] Erythrocytes [#/volume] in Blood by Automated count 3.82 10*6/uL 4.1- 5.3 L [facility] Hemoglobin [Mass/volume] in Blood 8.5 g/dL 11.5-15.5 [facility] Hematocrit [Volume Fraction] of Blood by Automated count 26.7 % 3 6-45 L [facility] Erythrocyte mean corpuscular volume [Entitic volume] by Auto mated count 70.1 fL 80-96 L [facility] Erythrocyte mean corpuscular hemoglobin [Entitic mass] by Automated count 22.1 pg 27-33 L [facility] Erythrocyte mean corpuscular hemoglobin concentration [Mass/volume] by Automated count 31.6 g/dL 32[facility]0-[facility] width [Ratio] by Automated count 16.7 % 11.5-14.5 H [facility] Platelets [#/volume] in Blood by Automated count 361 10*3/uL 150-400 [facility] ID Date Data Source [id number] 12/03/2019 06:46:28 AM EDT [facility] Name Value Range Interpretation Code Description Data Roxy rce(s) Supporting Document(s) Bicarbonate [Moles/volume] in Serum 27 mmol/L 22-29 [facility] Chloride [Moles/volume] in Serum or Plasma 103 mmol/L 98-107 [facility] Creatinine [Mass/volume] in Serum or Plasma 0.48 mg/dL 0.50-0.90 [facility] Glucose [Mass/volume] in Serum or Plasma 118 mg/dL 70-140 [facility] Potassium [Moles/volume] in Serum or Plasma 4.6 mmol/L 3.4-5.1 [facility] Sodium [Moles/volume] in Serum or Plasma 137 mmol/L 136-145 [facility] Urea nitrogen [Mass/volume] in Serum or Plasma 6 mg/dL 6-20 [facility] Anion gap 3 in Serum or Plasma 7 mmol/L 8-15 [facility] Osmolality of Serum or Plasma by calculation 283 mosm/kg 275-300 [facility] Creatinine/Urea nitrogen [Mass Ratio] in Serum or Plasma 13 [facility] Calcium [Mass/volume] in Serum or Plasma 8.5 mg/dL 8.6-10.0 [facility] Glomerular filtration rate/1.73 sq M pre dicted among non-blacks [Volume Rate/Area] in Serum or Plasma by Creatinine-based formula (MDRD) >6 0 [facility] Glomerular filtration rate/1.73 sq M pre dicted among blacks [Volume Rate/Area] in Serum or Plasma by Creatinine-based formula (MDRD) >60 [facility] ID Date Data Source [id number] 12/03/2019 06:46:[address] [facility] Value Range Interpretation Code Description Data Roxy rce(s) Supporting Document(s) Magnesium [Mass/volume] in Serum or Plasma 1.6 mg/dL 1.6-2.6 [facility] ID Date Data Source [id number] 12/03/2019 06:46:[address] [facility] Value Range Interpretation Code Description Data Roxy rce(s) Supporting Document(s) Phosphate [Mass/volume] in Serum or Plasma 3.4 mg/dL 2.5-4.5 [facility] ID Date Data Source [id number] 12/02/2019 08:28:[address] [facility] Value Range Interpretation Code Description Data Roxy rce(s) Supporting Document(s) Glucose [Mass/volume] in Capillary blood by Glucometer 173 mg/dL 70- 140 H [facility] ID Date Data Source [id number] 12/02/2019 05:41:[address] [facility] Value Range Interpretation Code Description Data Roxy rce(s) Supporting Document(s) Glucose [Mass/volume] in Capillary blood by Glucometer 179 mg/dL 70- 140 H [facility] ID Date Data Source [id number] 12/02/2019 12:05:[address] [facility] Value Range Interpretation Code Description Data Roxy rce(s) Supporting Document(s) Glucose [Mass/volume] in Capillary blood by Glucometer 151 mg/dL 70- [address] [facility] ID Date Data Source [id number] 12/02/2019 07:53:[address] [facility] Value Range Interpretation Code Description Data Roxy rce(s) Supporting Document(s) Glucose [Mass/volume] in Capillary blood by Glucometer 112 mg/dL 70- 140 [facility] ID Date Data Source [id number] 12/02/2019 05:27:[address] [facility] Value Range Interpretation Code Description Data Roxy rce(s) Supporting Document(s) Bicarbonate [Moles/volume] in Serum 25 mmol/L 22-29 [facility] Chloride [Moles/volume] in Serum or Plasma 105 mmol/L 98-107 [facility] Creatinine [Mass/volume] in Serum or Plasma 0.53 mg/dL 0.50-0.90 [facility] Glucose [Mass/volume] in Serum or Plasma 139 mg/dL 70-140 [facility] Potassium [Moles/volume] in Serum or Plasma 4.1 mmol/L 3.4-5.1 [facility] Sodium [Moles/volume] in Serum or Plasma 135 mmol/L 136-145 L [facility] Urea nitrogen [Mass/volume] in Serum or Plasma 7 mg/dL 6-20 [facility] Anion gap 3 in Serum or Plasma 5 mmol/L 8-15 L [facility] Osmolality of Serum or Plasma by calculation 280 mosm/kg 275-300 [facility] Creatinine/Urea nitrogen [Mass Ratio] in Serum or Plasma 13 [facility] Calcium [Mass/volume] in Serum or Plasma 7.9 mg/dL 8.6-10.0 L [facility] Glomerular filtration rate/1.73 sq M pre dicted among non-blacks [Volume Rate/Area] in Serum or Plasma by Creatinine-based formula (MDRD) >6 0 [facility] Glomerular filtration rate/1.73 sq M pre dicted among blacks [Volume Rate/Area] in Serum or Plasma by Creatinine-based formula (MDRD) >60 [facility] ID Date Data Source [id number] 12/02/2019 05:27:51 AM [facility] Name Value Range Interpretation Code Description Data Roxy rce(s) Supporting Document(s) Magnesium [Mass/volume] in Serum or Plasma 1.5 mg/dL 1.6-2.6 [facility] ID Date Data Source [id number] 12/02/2019 05:27:51 AM [facility] Name Value Range Interpretation Code Description Data Roxy rce(s) Supporting Document(s) Phosphate [Mass/volume] in Serum or Plasma 3.1 mg/dL 2.5-4.5 [facility] ID Date Data Source [id number] 12/02/2019 05:37:[address] [facility] Value Range Interpretation Code Description Data Roxy rce(s) Supporting Document(s) Leukocytes [#/volume] in Blood by Automated count 8.7 10*3/uL 4-10 [facility] Erythrocytes [#/volume] in Blood by Automated count 3.53 10*6/uL 4.1- 5.3 [facility] Hemoglobin [Mass/volume] in Blood 7.9 g/dL 11.5-15.5 [facility] Hematocrit [Volume Fraction] of Blood by Automated count 24.8 % 3 6-45 [facility] Erythrocyte mean corpuscular volume [Entitic volume] by Auto mated count 70.4 fL 80-96 L [facility] Erythrocyte mean corpuscular hemoglobin [Entitic mass] by Automated count 22.4 pg 27-33 [facility] Erythrocyte mean corpuscular hemoglobin concentration [Mass/volume] by Automated count 31.9 g/dL 32.0-[facility] width [Ratio] by Automated count 17.0 % 11.5-14.5 [facility] Platelets [#/volume] in Blood by Automated count 312 10*3/uL 150-400 [facility] ID Date Data Source [id number] 12/02/2019 12:23:[address] [facility] Value Range Interpretation Code Description Data Roxy rce(s) Supporting Document(s) Glucose [Mass/volume] in Capillary blood by Glucometer 144 mg/dL 70- [address] [facility] ID Date Data Source [id number] 12/01/2019 04:42:[address] [facility] Value Range Interpretation Code Description Data Roxy rce(s) Supporting Document(s) Glucose [Mass/volume] in Capillary blood by Glucometer 109 mg/dL 70- 140 [facility] ID Date Data Source [id number] 12/01/2019 11:57:[address] [facility] Value Range Interpretation Code Description Data Roxy rce(s) Supporting Document(s) Glucose [Mass/volume] in Capillary blood by Glucometer 162 mg/dL 70- [address] [facility] ID Date Data Source [id number] 12/01/2019 07:55:[address] [facility] Value Range Interpretation Code Description Data Roxy rce(s) Supporting Document(s) Glucose [Mass/volume] in Capillary blood by Glucometer 159 mg/dL 70- [address] [facility] ID Date Data Source [id number] 12/01/2019 06:14:[address] [facility] Value Range Interpretation Code Description Data Roxy rce(s) Supporting Document(s) Leukocytes [#/volume] in Blood by Automated count 12.6 10*3/uL 4-10 H [facility] Erythrocytes [#/volume] in Blood by Automated count 3.78 10*6/uL 4.1- 5.3 [facility] Hemoglobin [Mass/volume] in Blood 8.3 g/dL 11.5-15.5 [facility] Hematocrit [Volume Fraction] of Blood by Automated count 26.5 % 3 6-45 L [facility] Erythrocyte mean corpuscular volume [Entitic volume] by Auto mated count 70.0 fL 80-96 [facility] Erythrocyte mean corpuscular hemoglobin [Entitic mass] by Automated count 21.9 pg 27-33 [facility] Erythrocyte mean corpuscular hemoglobin concentration [Mass/volume] by Automated count 31.2 g/dL [facility].0[facility] width [Ratio] by Automated count 16.6 % 11.5-14.5 [facility] Platelets [#/volume] in Blood by Automated count 364 10*3/uL 150-400 [facility] ID Date Data Source [id number] 12/01/2019 06:34:45 AM EDT [facility] Name Value Range Interpretation Code Description Data Roxy rce(s) Supporting Document(s) Bicarbonate [Moles/volume] in Serum 26 mmol/L 22-29 [facility] Chloride [Moles/volume] in Serum or Plasma 105 mmol/L 98-107 [facility] Creatinine [Mass/volume] in Serum or Plasma 0.55 mg/dL 0.50-0.90 [facility] Glucose [Mass/volume] in Serum or Plasma 173 mg/dL 70-140 H [facility] Potassium [Moles/volume] in Serum or Plasma 3.8 mmol/L 3.4-5.1 [facility] Sodium [Moles/volume] in Serum or Plasma 137 mmol/L 136-145 [facility] Urea nitrogen [Mass/volume] in Serum or Plasma 10 mg/dL 6-20 [facility] Anion gap 3 in Serum or Plasma 6 mmol/L 8-15 [facility] Osmolality of Serum or Plasma by calculation 287 mosm/kg 275-300 [facility] Creatinine/Urea nitrogen [Mass Ratio] in Serum or Plasma 18 [facility] Calcium [Mass/volume] in Serum or Plasma 7.9 mg/dL 8.6-10.0 [facility] Glomerular filtration rate/1.73 sq M pre dicted among non-blacks [Volume Rate/Area] in Serum or Plasma by Creatinine-based formula (MDRD) >6 0 [facility] Glomerular filtration rate/1.73 sq M pre dicted among blacks [Volume Rate/Area] in Serum or Plasma by Creatinine-based formula (MDRD) >60 [facility] ID Date Data Source [id number] 12/01/2019 06:34:[address] [facility] Value Range Interpretation Code Description Data Roxy rce(s) Supporting Document(s) Phosphate [Mass/volume] in Serum or Plasma 2.8 mg/dL 2.5-4.5 [facility] ID Date Data Source [id number] 12/01/2019 06:34:[address] [facility] Value Range Interpretation Code Description Data Roxy rce(s) Supporting Document(s) Magnesium [Mass/volume] in Serum or Plasma 1.4 mg/dL 1.6-2.6 L [facility] ID Date Data Source [id number] 11/30/2019 09:35:[address] [facility] Value Range Interpretation Code Description Data Roxy rce(s) Supporting Document(s) Glucose [Mass/volume] in Capillary blood by Glucometer 342 mg/dL 70- 140 H [facility] ID Date Data Source [id number] 11/30/2019 06:50:[address] [facility] Value Range Interpretation Code Description Data Roxy rce(s) Supporting Document(s) Glucose [Mass/volume] in Capillary blood by Glucometer 195 mg/dL 70- 140 H [facility] ID Date Data Source [id number] 11/30/2019 04:06:[address] [facility] Value Range Interpretation Code Description Data Roxy rce(s) Supporting Document(s) Glucose [Mass/volume] in Capillary blood by Glucometer 172 mg/dL 70- 140 H [facility] ID Date Data Source [id number] 11/30/2019 02:28:[address] [facility] Value Range Interpretation Code Description Data Roxy rce(s) Supporting Document(s) Operative Note [facility] WFSPWg5aUcYEVtPm43/IANcoFFFcp6JuJRceQGq3VNweMDLbU5MbWNJ6lY1dSRS4WBbQNcLwTeAsAWN4 lbm [file] AgICAgICAgICAgICAgICAgICAgICAgICAgICAgICAgICAgICAgICAgICAgICAgICAgICAgICAgICAgIC AgICAgICAgICAgICAgICAgICAgICAgICAgICAgDQog ICAgICAgICAgICAgICAgICAgICAgICAgICAgICAgICAgICAgICAgICAgICAgICAgICAgICAgICAgICAg ICAgICAgICAgICAgICAgICAgICAgICAgICAgICAgICAgICAgICAgDQogICAgICAgICAgICAgICAgICAg ICAgICAgICAgICAgICAgICAgICAgICAgICAgICAgIC AgICAgICAgICAgICAgICAgICAgICAgICAgICAgICAgICAgICAgICAgICAgICAgICAgDQogICAgICAgIC AgICAgICAgICAgICAgICAgICAgICAgICAgICAgICAgICAgICAgICAgICAgICAgICAgICAgICAgICAgIC AgICAgICAgICAgICAgICAgICAgICAgICAgICAgICAg DQogICAgICAgICAgICAgICAgICAgICAgICAgICAgICAgICAgICAgICAgICAgICAgICAgICAgICAgICAg ICAgICAgICAgICAgICAgICAgICAgICAgICAgICAgICAgICAgICAgICAgDQogICAgICAgICAgICAgICAg ICAgICAgICAgICAgICAgICAgICAgICAgICAgICAgIC AgICAgICAgICAgICAgICAgICAgICAgICAgICAgICAgICAgICAgICAgICAgICAgICAgICAgDQogICAgIC AgICAgICAgICAgICAgICAgICAgICAgICAgICAgICAgICAgICAgICAgICAgICAgICAgICAgICAgICAgIC AgICAgICAgICAgICAgICAgICAgICAgICAgICAgICAg ICAgDQogICAgICAgICAgICAgICAgICAgICAgICAgICAgICAgICAgICAgICAgICAgICAgICAgICAgICAg ICAgICAgICAgICAgICAgICAgICAgICAgICAgICAgICAgICAgICAgICAgICAgDQogICAgICAgICAgICAg ICAgICAgICAgICAgICAgICAgICAgICAgICAgICAgIC AgICAgICAgICAgICAgICAgICAgICAgICAgICAgICAgICAgICAgICAgICAgICAgICAgICAgICAgDQogIC AgICAgICAgICAgICAgICAgICAgICAgICAgICAgICAgICAgICAgICAgICAgICAgICAgICAgICAgICAgIC AgICAgICAgICAgICAgICAgICAgICAgICAgICAgICAg MYPpTBVeMCm2M0ulDOPjFYEnKC4vXPb2Yh8+IPkSPbEfIQG9lePsuS3XJK4rc1WqCWepRWDwy4DbAEo1 JK7YXBOjNYrtCR5HLLyfzb1DLDDjKFFwnYMUm2rqEuPvORP3ILJjJjfkIE8KNHKoA4lwcuHrPXCcBKLW HGbrZYSFRMgoMDHTZR2ETdXnZ3PaaI11DCOBTm1+DQ eejwQuLkbYDrEkSBHkj1IlXAi0LR6UNIHvKatfs7XfEmTzGGAWSQfgWR3GJKP8MADdPTOcUs0KKCDwZ1 13fuWqGH6XXr0FXiAxWX7cdq3OBmNnVSZkZaeGVhl0IGryMO2XgHSkNSpYuZYkVWNaotGtWj93QNGrpP YHt2MrrCNeSUTBz92eZBZmq6JnKHLNUPMszAXgCW3g AM0xVYOpKJIrBzLjKSXTGZ6IUOPmKDNgaNFsFCGoTFLORH8DBGkyEBI8VPGkaqBgfECiFFqkFA5NUKNh bnQgMjEgMCBSDQo+Bt7KDH0cf1JjVDspTyTyCN0bvz4SONlLEvDeS3H1uUQyP2F1WWuaCh2ECHYaLPUy EJebATFHDWfvOL6VLL8rdsO8QU5UjNKhWVJoOBEayU DaTGu4G72vsQNwMKzlGE3XRXS+Elisabeth+Tp7BCTRxTKIkHFDjKmAyAMBWUdPaY2CgP6TMr5EoP7HhHI76tO ulqcNkPZvxNR5EPK2oLZMcBZGMKQ9FfSMjxL0xklNrZMAcVGMRSwZsZ60giYVaNVAbTVBmJJRxOq5TOZ BcU7UgoyGwdYsksoJfNGScMDWAJP3PSLxlprHscZYy jFtdML92rEtbOQ5IZa9GHgIsRC9blp5RcHZzCs0KFIJuVS4AMUJhLWPwDXOsKNC7FTZdFvQhKKptQNWs FOOhMUV0TKZcABSwWX1UTzAeCWWnMVH9WcOiLFEeUMOgqg6IGVPpAUFhRCVnQISfZOWfBWDzAOnuYRLj WOSsASN1CSEyBKKpUH2SWpRnVSWtGRN3AWnlSQNhIE Lzbg5JQGAwNLOoEkO1EaKnHYFbJAZcMDlrZCCdBRI9ZgD3WSWbEKEfAW7RHzHmSHSgIFl2DlejNZAlTC Snuy1GPBDcQHOhVHH7THLnEEAvLLRsNBwkBRQdACD8Ehx2CZGhIEWqDN2ONvJyULMqZQDsTFAlUXXiLJ Jbsf2KYUKmXZDmSGD2YTWiISSlXYIrWSfaHPAzLRIq BdU5AJVuHXAbDT4RTyOjLRPbOZU4GNKnZJRfYEBjjh3AZYZbGYOnJHs0WOCrJTVbDOKgIUtrBIOzCQKz HQlwOVYiMPMnIY1XHkFeFDHlAVJcVOZvNCAoCYXkdw6GFUSaQRZrGzU3XkRkWCOvSIOdHYrkAYRhRGIw XHT9XGMnJHDtIA7CQcLdUTVuNZD3UkOcGVAiDHSjga 1UEGNjLSPhKOCjVTVdJOKdADSyVTkfVMZwJHH4ZofeLIExJHFhAK5APtZxZRAqZPG0MrXrRLWdKHDphg 3KhWWooAlseh3ZGWiTWz2MoQeuGTO6RZtrFk1bqOJzWjBfWCJIZx0YkhLtAELlRCYVKBztZWBrWYMpMK J0FWTvIFLwBbxcNBDvMFW9TCHxDHHkB9ChVWUhXoK9 WdRfQCt4GJM8XbA4G4QhWZJkCPk1EkO4XBAoTRNeLBG+VN3uYJz+Qk2Vm2WehlD4xvLcXPqyDYx1XM1K RLYIS3HIUb== ID Date Data Source [id number] 11/30/2019 01:51:16 PM EDT [facility] Name Value Range Interpretation Code Description Data Roxy rce(s) Supporting Document(s) ABO and Rh group [Type] in Blood [facility] Blood group antibody screen [Presence] in Serum or Plasma [facility] Performed at [facility], [facility] , Patty Vivas Type Confirmed ID Date Data Source [id number] 11/30/2019 10:56:24 AM EDT [facility] Name Value Range Interpretation Code Description Data Roxy rce(s) Supporting Document(s) History and Physical [facility] KBBGKy3pYzPXUsAd95/JBNktZTFgt6ZmSGinEDb7XCtyCHPhZ2GmJWL3bZ9wBPI5SKcNFqBePgUvLQN4 lbm [file] ICAgICAgICAgICAgICAgICAgICAgICAgICAgICAgIC AgICAgICAgICAgICANCiAgICAgICAgICAgICAgICAgICAgICAgICAgICAgICAgICAgICAgICAgICAgIC AgICAgICAgICAgICAgICAgICAgICAgICAgICAgICAgICAgICAgICAgICAgICAgICAgICAgICANCiAgIC AgICAgICAgICAgICAgICAgICAgICAgICAgICAgICAg ICAgICAgICAgICAgICAgICAgICAgICAgICAgICAgICAgICAgICAgICAgICAgICAgICAgICAgICAgICAg ICAgICANCiAgICAgICAgICAgICAgICAgICAgICAgICAgICAgICAgICAgICAgICAgICAgICAgICAgICAg ICAgICAgICAgICAgICAgICAgICAgICAgICAgICAgIC AgICAgICAgICAgICAgICANCiAgICAgICAgICAgICAgICAgICAgICAgICAgICAgICAgICAgICAgICAgIC AgICAgICAgICAgICAgICAgICAgICAgICAgICAgICAgICAgICAgICAgICAgICAgICAgICAgICAgICANCi AgICAgICAgICAgICAgICAgICAgICAgICAgICAgICAg ICAgICAgICAgICAgICAgICAgICAgICAgICAgICAgICAgICAgICAgICAgICAgICAgICAgICAgICAgICAg ICAgICAgICANCiAgICAgICAgICAgICAgICAgICAgICAgICAgICAgICAgICAgICAgICAgICAgICAgICAg ICAgICAgICAgICAgICAgICAgICAgICAgICAgICAgIC AgICAgICAgICAgICAgICAgICANCiAgICAgICAgICAgICAgICAgICAgICAgICAgICAgICAgICAgICAgIC AgICAgICAgICAgICAgICAgICAgICAgICAgICAgICAgICAgICAgICAgICAgICAgICAgICAgICAgICAgIC ANCiAgICAgICAgICAgICAgICAgICAgICAgICAgICAg ICAgICAgICAgICAgICAgICAgICAgICAgICAgICAgICAgICAgICAgICAgICAgICAgICAgICAgICAgICAg ICAgICAgICAgICANCiAgICAgICAgICAgICAgICAgICAgICAgICAgICAgICAgICAgICAgICAgICAgICAg ICAgICAgICAgICAgICAgICAgICAgICAgICAgICAgIC AgICAgICAgICAgICAgICAgICAgICANCjw/tFWrO5jkgFNytiD4V4ckSy9GSi4FYY2xn2JcSGMbRJdbex SkLzsPAcRbUHKeNmdDLky8XBnpEO0CnLPtR1DgR5ImUZmoKI0LNAGqPHHjdTKiUKHpLFAcOuP9CCTuOH lsAY5CrTZpBGmiLTKuBRAkDuSsRINvAEMhRAIaRAGy UVOMTY1OEgDxU2BfrI19BSTIYc5+BZasukBmRjeVFqJkGJZjk2DvVKf7QM5VVHMqMavcw1FcHrJkKNIA NLebNA0PZNE8NIO9DDUlKp2XJHQdM272gjFiYP5VKm3KFuCtUI2kmx9RHjSoJMRmQuyMLwr1XJngKB0H hPBnHDjYMsRkIyyiSH34s7ElLsFdOB2nSKevu5Vqsg icGQZyBGLtHJOeBPWzOdMwBERhROt2IEGPAOtQThFuM2Ony2CpRgX4TMWrYpLhXObuNYFyTfO0NN03bB qzMM3VHPJjTEYoHA97VNEnYMFwLu7TQl3QVcOiSM3qvd1DEjHkDHCeQtfYFof7XMfeDC1UwVMgF3NjvQ Esk4pRUcCcI3XLGUViKBBpAi6CIBCnOwTfUIUrHPto UJ3hPQHmGZALzUphmvG6VJ2BKW9mebMuOR2DRbSiCw8oWm7GAgBnD7XlZ7IeVGUaKNWDRStqBB6CUFsw EU3fSF9Tq7LMcZKdqP5yew1ZLCKoQNBfLmholq2SCryvX9A1kFvmFFBnGgTeUHRCMOhdTH3RFQNdETI9 LQAuByTjOGFOCwJzO54sLC9PG9Byq99iQoH2ZZTcCy AqLGfzAU28jGrtpsGjhWBfyYmcZN1VPc0+DQplbmRvYmoNCnhyZWYNCjAgMzYNCjAwMDAwMDAwMDAgNj S0MbWsGm0KFHJbVJXpJSPyStGyBXMuJXUhSCcfGXDtFNPuWZi3CCWjFNNxII0XLpWuRMLeLUO8UJmrNE EzPFQwtk5ELLPqBKCuIHS9KdDgXQQnLSGyZFuqEVDm GUPwMNa9PUIoEURiNN9SJcHwIDCgFWInXPOtPDOcHPXgii9DVNLyMYBsSab8VUEsIWMtNKNlLSwvINEy UHS5CZU4SOSpSSJuBR1BHaJaQFXmGBNmJcEuLSWhKUVlih0KPQLcTAZsYEIcWXWcIWPtYRNzWMveHDFi WFZeGPN2PTOtUYYpDZ9SRgPvOSOiEQN6XOInPNXjZX Mzvo9UCTOcQTHxOgF9AVQfYVCmPTIyRGbtJERaUICmFsE9QUMpCGJpST9GBcBuVKUlJVR9FTZfREVvPL Pftr0JVTHuOZIjLWquCSYlGUWzIQGpEPuyQIHzEXI5BJLuGAGyYQQnIK8XVbQeLOBoOOIqUJqdRQUcFS Myoi7LNKIzBZZaVwJ9WIXlBNKhKDHtQOitJSYsOGP2 POG6HSRgCYMzPF5SPlVkMUWnLKA2GramCDDtTJQhxj1TUEDxCLEiQWr3WNMnVWGfWTKfAJymUYVlNQC2 DPmhUFDeDCAdHB7OGkQcNSZrJlwtVGCwXNPvSJJdiz6OCCAhCODoSEQtBDIiADNzMGXgUZmeYDYlPAT5 Nij5DQKoQGNvZJ3OJrPaIYQuHOXiHpViHYEaTGPuhm 1HNJUtFJU2TRA3LnNuIDLeWSZkYVllPBNmPUPvZkkwQQJgXROtJZ5YSxKdFQViSPN6GmChIAAuMMWpvi 3DNAZmRVX2DpZ0RvZdXEToUFPbXYaiBNGmYBZxQKE2EILgJNAhIB1UEeYoBYIbZSI1NnQrVXPwYBEakf 8KBQFwQSO9VGXwBySrHCKxSLVvQRnxASCmQMC4IVoi OTEwLFGmMB8EBiZbRUepWWNOHwc3DDloR1x1JDLlAa8XI0Xbs4WuPyXmQXIZVBtySZ7gxqWnKPNwFy4J P8kTArffArGvJRPxPFAcGJRrWuX4TVZhCUa9UMZqNdG7RWPxYl6vDQQtMjZ4BXWaNxEmOGYlKZaqUeJ3 AFe8RsL9Ljd1SGXfEuVqZH9LUv1XCiJ8SBF2rYVzOv0JQMD4JpOTBcTbDT9BWCh= ID Date Data Source [id number] 11/30/2019 09:57:25 AM EDT [facility] Name Value Range Interpretation Code Description Data Roxy rce(s) Supporting Document(s) Glucose [Mass/volume] in Capillary blood by Glucometer 130 mg/dL 70- 140 [facility] ID Date Data Source [id number] 12/05/2019 04:57:00 PM EDT [facility] Surgical Pathology ReportName: Aundrea FREEMANMRN: [id number] Number: [id number] Date: 11/30/2019 00:00Received Date: 12/01/2019 09:05Physician(s): SARAHI OLSEN MD HASSAN, MOUSTAFA AOM, MDSpecimen(s) ReceivedA: Hernial sacClinical HistoryRight flank incisional hernia. DiagnosisSKIN AND SOFT TISSUE, HERNIA SAC, EXCISION: SKIN WITH UNDERLYING DENSEFIBROUS TISSUE CONSISTENT WITH HERNIA./pmw Electronically Signed By Maximiliano Walls M.D., Attending Ivkjifklgnh46/19/2020 16:57:09 Unless 'gross-only' is specified, the final diagnosis is based on amicroscopic examination of contact representative sections of tissue.Gross DescriptionThe specimen is received in formalin labeled with the patient's name"Johanna Freeman" and "hernia sac". It consists of a skin ellipse alslhjnkl61.1 x 6.0 cm overlying 0.5 cm of fat and fibrous hernia sac. Alsoincluded in the specimen are two fragments of the fibrous hernia sactissue measuring 2.5 x 8.9 x 4.6 cm in aggregate. The hernia sac tissueis pink-white, firm and rubbery. There are no apparent lesions or defectsnoted in the specimen. [employer] sections are submitted as follows:A1 -includes cross section of skinA2 -cross section of fibrous hernia sac tissueJB/pmwThis report may include one or more immunohistochemical stain results thatuse analyte specific reagents. All positive and negative controls havebeen reviewed by the attending pathologist and are satisfactory. The testswere developed and their performance characteristics determined by [facility] Pathology department. They have not been cleared or approved by the [facility] [place] and Drug Administration. The FDA has determined that such clearanceor approval is not necessary. Name Value Range Interpretation Code Description Data Roxy rce(s) Supporting Document(s) ID Date Data Source [id number] 11/29/2019 03:42:18 PM [facility] Name Value Range Interpretation Code Description Data [facility] Peninsulae(s) Supporting Document(s) [facility] ULFFVv8jYhGJDrFjo0MgNjWbRIIlRC1ayuq0F1R0eGOmM6LvaMAyh3eaF0IrA4PpOYNvQVQQQF1PhLEn jb2 [file] 7V9/YF9r72ajE+2hi/4Fd9G+k17FqbwgN5Rl5j70w1 uODt3JowcEp0Lm3bDQNqWAoaJ9A83osFZ5OL2k7p5v4F7k23cPT/dlaS7Qp4jpXQ9N68s0+D5M6nZjz/ A9vt6lg+CSS6vpc2Z+49f8zPfbd4JT0Vzr1PNDI8Q8uj0UD+1/qIen8riIY9HjnH+vVfDb3+jaHXvzFU pI3UO7Al8kwdMpxBX4r//zovo96h5i/HU6z7y6nNrm t4q29t0jv/KC6w41p37OwxB8/y5lj6f3g40AqN/tzv+F6fi8YKc/x5hP/K4zdH3+p5inuKu/g1ySP2i8 x3BL/T91m1tkZFhmtn1ks67/RFN7CkfumFIwUe8sgwc35/iq1MirCa40xHcdSw5ilL3sgZR8hji3r9vJ Jd0XwL4e8iDuCt9ndq7QpIA1H+Bn0N+ts6FZ6N2El+ lc8dv+8oH+/N2poqXT41uo729p6JcmcqQ+lX03Gg9mGhpIn/M2U15Fn/qGADp7xgni8qe/2O9+vQN/xX Z501wn+Vz3c/dDjeb/Jh8ovoA+r1ax+xbUu2YacLbhWLsxd3x51n0b03oyUWlLpvg/ycdzthSfdWM6K/ N2kl6VyJblXqhR+D3ffbxfse81X1uIt/E/15Qt/gV9 LukuxIb2V/Xnc/fCz66aF5J04i3HgPm3/0Hb+568ETCpzrxBMJfJ+Z0ex8oE+qK7OgpC+iu4Wiw73dll cJ/13x0oKJV/g3efuJ/u659Zh6zMWqwhaTMutO/D420Xo9ep66l8HCS/r2SI/4vt0ivXT7ixvuq2CorB 3QN/jDtbwJ72+k5AjRPBxkP9m0/Cjll1UBRV5aF07k 8CsDvzLwKwO/BlexVU1cw//U0K0p8EtObgYEAn8+s03t055Oj9q96IpT/1xxhmC9xbl+I4LmdcGyAXiu KlMfejFKxmC8MieG8/aUou77zqsIKxTMozZfgZR3dJad89g7nHkZ54qipC4IpF8EpL8DjB2G1B9wpHoy ANOL6WiIkjR477CX7O7k+77Bbr1OD2Uu3ehyhN8xy2 +W2Rrvo8tn+2zvbw6/xouXT9L4/uQmQwQ5cu6e/aqvVKkA2Ls6ioa8TiAnYV/8tjP0s683iMNCcFKq42 0UMDT117ldc747sAbu6Lwvva5w3mrJJx9Tw+fuRD9mR7g/7JQaQaC9/CptcvhV+IJRZB93Xz9W3ms7/B xWn3agoSxkk2Mrpk9h5+6TaHGcVIIx9oeN/ivD+ +++Misha/8rgvzKcvzLD+CWUP4B7AVylC7NekqTWT9o3wfC+OlYGME3D65MyqoTJYxkThoHBqrQu HViYDIs55CQv66b/fRVpNiZd6GS9G7tG+bR6WBjsPaD7mI6Ar5JJqXJk2I1o0edS+4OG/UHD/bSgy6Vp Y5e5w8HZ+p8gI3Ws9lsaUz39OS70jr9mTS/WsS7d13 73baI/S8xImdEt3/PE/LwwPy+834X3i/1Bw/6gLfRn+V4gPL6n510w928NeBIUA9p71rqyRjGg8ZFaH+ dP1JufS+rJS2l4ehpx0J/cshXyxT30+xL+q3zuSL/+A7mEX0sdO3d+/ebpudHo9twyU2wodJ4+DP+V7c ufDfuDFvzqcCTH/qDn/uA6z5c/O/fRh7hfvz0kxpaP 8P99sDTX4pWSd0a6nZkIL2Aq8s41zgjnD5qgv+l8gqqkM5zy/RWZwd1sMyXs2xRQMO+5dPz+jl/H/qDL RF6GbDFlki3VS6F+An2xP+to4J6P1+T2Tg6eEu+Mkpu9UHJnDZz+2pF+5yvXOz+4RcOrwspWmh8UQ8A+ iverC+nQV+/78mocb44IH5KN5xYc9Kbg46/e0Z/Df/ U8I93w+7ve9+4So0CIaW+Us1D+QvpG+l3/OvxXDv+Vw3/l8F/4hLvwEE1W47xB84N7D47+u3y7dGo+D3 3hv/LgVyuff+oTtJXgbW9cU+mXT/v15375+NXzbM+k3OQi2mpwW2IA6OWH7/M71zNlR6ke55ZEuWgy4K C0kvxGA2EzCJvZgG7CF+l3/PhpZp6w6rqZ486J5+3P M9Lv+ViP8+6dexQg0U05lzj72uj2l+2M8+3rz8HxKG3vhcO21+3Br1Y+3/cV/Re8Ipdhe+D10ny8pVh2 e4c839tuLrwUCj7a6ThWyfHkzdlvvkwym9dpDselNXlqMNwEuo9y/Mpx/spx/spx/spx/spx/srn5ZO+ Mg282MxVs7XeYcw/cpy/cvArx/6gY3/Qcf7KF/TF/q Ssb7BaS+gL+qJ6rrB7vN/ou/D9Xfj+7ssnPfnV+F15pPXe+p33Wx6osrpJe7qkD2f0Ot1p02Q6f2LM0+ 3N6U5m18qDqB288biVpXi8N37R8/r9gv6CgTz/yPf1b/jG92jf/ltyM3SaclHWdIWoE8HCA21LENvBBT esNMfjiSrNcXqCSt/nOJ+Bddkfjt2X/qvZLn+sofia/a K52ryzeZoKg+PrGkebb/hJL+PUddx7+UoyCQy8SI5idITWuyB+557yn3/c70X/V/Alr4cYtNQ19BQ09I D04ZSB/4/eUbE/qxhyXnAq2GDBBxG+lL0Yrck/bBzbS4ncF4WE6KbpgGnu05qtidU71ic0yI3j46EE2V feg5eU2+Azalea/1jdyijR/+DCSv9lJi/zV8b/00+wI5 [file] 6FoVpfLLQ2Xp4RncQsAGJwEOWGYz8Jt633UYBiFCQLOlo+PmnvfAVsmNenJYEMNlL1UKQDNKHCD1Q= ID Date Data Source [id number] 11/29/2019 06:55:38 PM EDT [facility] Name Value Range Interpretation Code Description Data Roxy rce(s) Supporting Document(s) Leukocytes [#/volume] in Blood by Automated count 10.7 10*3/uL 4-10 H [facility] Erythrocytes [#/volume] in Blood by Automated count 4.45 10*6/uL 4.1- 5.3 [facility] Hemoglobin [Mass/volume] in Blood 10.0 g/dL 11.5-15.5 [facility] Hematocrit [Volume Fraction] of Blood by Automated count 31.3 % 3 6-45 L [facility] Erythrocyte mean corpuscular volume [Entitic volume] by Auto mated count 70.5 fL 80-96 L [facility] Erythrocyte mean corpuscular hemoglobin [Entitic mass] by Automated count 22.5 pg 27-33 L [facility] Erythrocyte mean corpuscular hemoglobin concentration [Mass/volume] by Automated count 31.9 g/dL [facility].0[facility] width [Ratio] by Automated count 17.1 % 11.5-14.5 H [facility] Platelets [#/volume] in Blood by Automated count 381 10*3/uL 150-400 [facility] ID Date Data Source [id number] 11/29/2019 07:20:26 PM EDT [facility] Name Value Range Interpretation Code Description Data Roxy rce(s) Supporting Document(s) Bicarbonate [Moles/volume] in Serum 21 mmol/L 22-29 L [facility] Chloride [Moles/volume] in Serum or Plasma 105 mmol/L 98-107 [facility] Creatinine [Mass/volume] in Serum or Plasma 0.62 mg/dL 0.50-0.90 [facility] Glucose [Mass/volume] in Serum or Plasma 186 mg/dL 70-140 H [facility] Potassium [Moles/volume] in Serum or Plasma 3.7 mmol/L 3.4-5.1 [facility] Sodium [Moles/volume] in Serum or Plasma 137 mmol/L 136-145 [facility] Urea nitrogen [Mass/volume] in Serum or Plasma 12 mg/dL 6-20 [facility] Anion gap 3 in Serum or Plasma 11 mmol/L 8-15 [facility] Osmolality of Serum or Plasma by calculation 289 mosm/kg 275-300 [facility] Creatinine/Urea nitrogen [Mass Ratio] in Serum or Plasma 19 [facility] Calcium [Mass/volume] in Serum or Plasma 8.4 mg/dL 8.6-10.0 L [facility] Glomerular filtration rate/1.73 sq M pre dicted among non-blacks [Volume Rate/Area] in Serum or Plasma by Creatinine-based formula (MDRD) >6 0 [facility] Glomerular filtration rate/1.73 sq M pre dicted among blacks [Volume Rate/Area] in Serum or Plasma by Creatinine-based formula (MDRD) >60 [facility] ID Date Data Source [id number] 11/26/2019 11:08:54 AM [facility] Name Value Range Interpretation Code Description Data Roxy rce(s) Supporting Document(s) Specimen source [Identifier] of Unspecified specimen [facility] SARS-CoV-2 RNA 2018 nCoV Real-Time RT-PCR: NOT DETECTED [facility] Assay Performed [facility] Patients first test for [facility] Patient employed in healthcare setting [facility] Patient has symptoms related to [facility] When did you start to experience these symptoms [Date and time] [Phen X] [facility] Patient was hospitalized because of this condition [facility] patient was admitted to ICU for condition [facility] Patient resides in a congregate care setting [facility] status [facility] ID Date Data Source [id number] 11/25/2019 03:10:00 PM EDT [facility] Name Value Range Interpretation Code Description Data Roxy rce(s) Supporting Document(s) SARS-CoV-[address] [facility] This lab was ordered by [facility] and reported by [facility] ID Date Data Source [id number] 10/03/2019 03:40:55 PM EDT [facility] Name Value Range Interpretation Code Description Data Roxy rce(s) Supporting Document(s) Progress Note [facility] NHXUNv9dGfIKTrFw93/VBSaaRVXsy4SbYZrsOEt0YPttVZYlT7KzRJF6vM0sRZV5ZIwVOrCmXuYrVSH3 lbm SbYltCOdIdVZHaFrtVIfEiLDphEkdpsNNsPD6OqDV6ARYnX52hMRJtDIKmV0LuICW1UXM+Bt1BTGBhsF HfQW3XZjeL5G0mo3gWYe9+dN7VGT81sJQiw8v6sFBW0Rdy0PGw99T3r9z2StFii38swKFmUupx3nckbX oFH4Xjv9kggXXNfDW4pKkTsB93fS5yXtr4Wm5ZbeT7 dpjy3c2h0hl4iH27S6S2P2vOca4YgRQefSashdSO6H/jvv/OJnW326uGKON4aVbbEakd3FVL5GEtKRt6 8nZ2c/AqjMhqo3coabChPz6Od8KUfUx73x1HD3yQL+tDKN4mXhzqXD44VnpciMpRIsNuA7sMySgnPC5I rPAKF3mA0b287MKl7V6AlDifN0RzoFSei8sGBh4OeM 7MnWv06ULBqzJsC5qspyi7msYnXqUEhkU+VvhCowv+HtPGQLYAywR1hnd0mBoH7/ZWRsehX+VqvWN6M2 N98Uf4EQYvQJgcPitnPbgBxXPV5OHe2zOQsA/XW6U3glS9Hsr/1OnRLivo6fQtXUm2RPKZBbDXbbtxzA Grb+eLwjShOsxua0R7A6MM8kgn4YRUB748E6fw2v9X gNxOMwlqLw8nwz3K11WMj0hk6iT8zVwv7GBZ+0uemkY4Dm0NrmNr7ASvExHTcykupxlTwKj75JiI5BhV zq+Pdn0NNOmamX4oJJFwX6x7Z6cJ7p8rO4Cud8qjbQH2Dkj7UNl/lSQxuyaVDRMPeZCYJ9gHT6Hwcr4D RmbHdTMl/+Chloe+f6ulrwmJyWacOQHs1M5ltAfGFgdk [file] [id number]== ID Date Data Source [id number] 09/16/2019 10:00:00 AM EDT [facility] ([facility] ) Name Value Range Interpretation Code Description Data Roxy rce(s) Supporting Document(s) Blood Urea Nitrogen Laboratory test result 7-18 [facility] ([facility] ) Glucose, Fasting Laboratory test result [facility] ([facility]) SEE SEPARATE REPORT Testing performed at reference lab . Report copy to follow on a separate form. 12/05/19 REF LAB#:[id number] Glomerular Filtration Rate Laboratory test result [facility] ([facility] ) Sodium Level Laboratory test result 136-145 [facility] ([facility] ) Creatinine For GFR Laboratory test result 0.55-1.30 [facility] ([facility] ) Potassium Serum Laboratory test result 3.5-5.1 [facility] ([facility] ) Chloride Level Laboratory test result 98-107 [facility] ([facility] ) Carbon Dioxide Level Laboratory test result 20-29 [facility] ([facility] ) Calcium Level Laboratory test result 8.5-10.1 [facility] ([facility] ) Anion Gap Laboratory test result 8-16 [facility] ([facility] ) Ast/Sgot Laboratory test result [facility] ([facility]) Alt/SGPT Laboratory test result 0-32 [facility] ([facility]) Alkaline Phosphatase Laboratory test result 45-117 [facility] ([facility]) Bilirubin,Total Laboratory test result 0.2-1.0 [facility] ([facility]) Albumin Laboratory test result 3.2-5.2 ME DENT ([facility]) Albumin/Globulin Ratio Laboratory test result 1.2-2.2 [facility] ([facility]) Total Protein Laboratory test result 6.4-8.2 [facility] ([facility]) ID Date Data Source [id number] 09/16/2019 10:00:00 AM EDT [facility] ([facility]) Name Value Range Interpretation Code Description Data Roxy rce(s) Supporting Document(s) Triglycerides Level Laboratory test result [facility] ([facility]) LDL [facility] Cholesterol Level [facility] HDL Cholesterol Laboratory test result [facility] ([facility]) Cholesterol Risk Ratio [facility] Non-HDL-C Laboratory test result [facility] ([facility]) ID Date Data Source [id number] 09/16/2019 10:00:00 AM EDT [facility] Name Value Range Interpretation Code Description Data Roxy rce(s) Supporting Document(s) Cholesterol [Mass/volume] in Serum or Plasma 93 mg/dL [facility] Triglyceride [Mass/volume] in Serum or Plasma 80 mg/dL [facility] Cholesterol in HDL [Mass/volume] in Serum or Plasma 54 mg/dL [facility] Cholesterol in LDL [Mass/volume] in Serum or Plasma by calculation 23 mg/dL [facility] CHOL/HDL 1.72 [facility] l \\BLDo\\INTERPRE TATION\\BLDx\\ REFERENCE RANGES [...] mg/dL VERY HIGH ID Date Data Source [id number] 09/16/2019 10:00:00 AM EDT [facility] Name Value Range Interpretation Code Description Data Roxy rce(s) Supporting Document(s) COMPREHENSIVE CHEM PROFILE [facility] COMPREHENSIVE METABOLIC PANEL Sodium [Moles/volume] in Serum or Plasma 138 mEq/L 136 - 145 [facility] Potassium [Moles/volume] in Serum or Plasma 4.7 mEq/L 3.5 - 5.1 [facility] Chloride [Moles/volume] in Serum or Plasma 103 mEq/L 98 - 107 [facility] Carbon dioxide, total [Moles/volume] in Serum or Plasma 25.3 mEq /L 21.0 - 32.0 [facility] Glucose [Mass/volume] in Serum or Plasma 218 mg/dL 70 - 100 Above high normal [facility] Urea nitrogen [Mass/volume] in Serum or Plasma 19 mg/dL 7 - 18 Above high normal [facility] CREATININE SERUM 0.86 mg/dL 0.70 - 1.30 [facility] AGE 49 yrs [facility] HEIGHT NA [facility] l eGFR NON-AFR AMR >60 [facility] eGFR AFR AMR >60 [facility] ital BUN/CREAT 22 6 - 25 [facility] Protein [Mass/volume] in Serum or Plasma 6.7 g/dL 6.0 - 8.3 [facility] Albumin [Mass/volume] in Serum or Plasma 3.6 g/dL 3.8 - 5.4 Below low normal [facility] GLOBULIN 3.1 g/dL 2.0 - 4.0 [facility] l A/G RATIO 1.2 0.8 - 2.0 [facility] Calcium [Mass/volume] in Serum or Plasma 8.7 mg/dL 8.8 - 10.2 Below low normal [facility] Bilirubin.total [Mass/volume] in Serum or Plasma 0.2 mg/dL 0.2 - 1.0 [facility] Bilirubin.direct [Mass/volume] in Serum or Plasma 0.1 mg/dL 0.0 - 0. 2 [facility] INDIRECT BILI 0.1 mg/dL 0.0 - 1.1 [facility] pital ALK PHOSPHATASE 72 U/L 40 - 129 [facility] Aspartate aminotransferase [Enzymatic ac tivity/volume] in Serum or Plasma by With P-5'-P 13 IU/L 7 - 37 [facility] Alanine aminotransferase [Enzymatic acti vity/volume] in Serum or Plasma by With P-5'-P 11 IU/L 12 - 78 [facility] ANION GAP 10 7 - 15 [facility] Estimated GFR referenc e range: >60ml/min/1.73m >18 years: Calculated using IDMS traceable Study Equation <18 years: Calculated using IDMS tracable Bedside Schartz Equation ID Date Data Source [id number] 09/06/2019 10:13:00 AM EDT [facility] ([facility]) Name Value Range Interpretation Code Description Data Roxy rce(s) Supporting Document(s) Hemoglobin A1c/Hemoglobin.total in Blood 8.0 [facility] ([facility]) Glucose [Mass/volume] in Serum or Plasma 268 [facility] ([facility]) ID Date Data Source [id number] 06/24/2019 09:30:00 AM EDT [facility] ([facility]) Name Value Range Interpretation Code Description Data Roxy rce(s) Supporting Document(s) Hemoglobin A1c/Hemoglobin.total in Blood 8.5 % [facility] ([facility]) REFERENCE RANGES: 4.5-5.6% NORMAL 5.7-6.4% SUGGESTS IMPAIRED GLUCOSE META BOLISM >= 6.5% ABNORMAL Estimated Average Glucose 197 mg/dL 60-110 [facility] ([facility]) ID Date Data Source [id number] 06/24/2019 09:30:00 AM EDT [facility] ([facility] Name Value Range Interpretation Code Description Data Roxy rce(s) Supporting Document(s) Hemoglobin A1c 8.5 % [facility] ([facility] REFERENCE RANGES: 4.5-5.6% NORMAL 5.7-6.4% SUGGESTS IMPAIRED GLUCOSE META BOLISM >= 6.5% ABNORMAL Estimated Average Glucose 197 mg/dL 60-110 [facility] ([facility] ID Date Data Source [id number] 03/18/2019 03:51:54 PM [facility] Name Value Range Interpretation Code Description Data Roxy rce(s) Supporting Document(s) Progress Note [facility] ODGCUa5rLiAADwNh69/JTXmwKCKvm4MqMXeyYAp5HZxsRQOeL9AeQII9uS4vALR5IQjNSsHjYiVdSNYc lbm [file] 04qX+Legal File Clerk/BRutwmA06m7rtdLDaNntP8pdKo24v+1jsyVozlE7EHt9Djfm4k3pranbsJmGK5b0LnE0OCG [file] AgICAgICAgICAgICAgICAgICAgICAgICAgICAgICAg ICAgICAgICAgICAgICAgICAgICAgICAgICAgICAgICAgICAgICAgICAgICAgICAgICAgICAgICAgICAg ICANCiAgICAgICAgICAgICAgICAgICAgICAgICAgICAgICAgICAgICAgICAgICAgICAgICAgICAgICAg ICAgICAgICAgICAgICAgICAgICAgICAgICAgICAgIC AgICAgICAgICAgICANCiAgICAgICAgICAgICAgICAgICAgICAgICAgICAgICAgICAgICAgICAgICAgIC AgICAgICAgICAgICAgICAgICAgICAgICAgICAgICAgICAgICAgICAgICAgICAgICAgICAgICANCiAgIC AgICAgICAgICAgICAgICAgICAgICAgICAgICAgICAg ICAgICAgICAgICAgICAgICAgICAgICAgICAgICAgICAgICAgICAgICAgICAgICAgICAgICAgICAgICAg ICAgICANCiAgICAgICAgICAgICAgICAgICAgICAgICAgICAgICAgICAgICAgICAgICAgICAgICAgICAg ICAgICAgICAgICAgICAgICAgICAgICAgICAgICAgIC AgICAgICAgICAgICAgICANCiAgICAgICAgICAgICAgICAgICAgICAgICAgICAgICAgICAgICAgICAgIC AgICAgICAgICAgICAgICAgICAgICAgICAgICAgICAgICAgICAgICAgICAgICAgICAgICAgICAgICANCi AgICAgICAgICAgICAgICAgICAgICAgICAgICAgICAg ICAgICAgICAgICAgICAgICAgICAgICAgICAgICAgICAgICAgICAgICAgICAgICAgICAgICAgICAgICAg ICAgICAgICANCiAgICAgICAgICAgICAgICAgICAgICAgICAgICAgICAgICAgICAgICAgICAgICAgICAg ICAgICAgICAgICAgICAgICAgICAgICAgICAgICAgIC AgICAgICAgICAgICAgICAgICANCiAgICAgICAgICAgICAgICAgICAgICAgICAgICAgICAgICAgICAgIC AgICAgICAgICAgICAgICAgICAgICAgICAgICAgICAgICAgICAgICAgICAgICAgICAgICAgICAgICAgIC ANCiAgICAgICAgICAgICAgICAgICAgICAgICAgICAg ICAgICAgICAgICAgICAgICAgICAgICAgICAgICAgICAgICAgICAgICAgICAgICAgICAgICAgICAgICAg ICAgICAgICAgICANCjw/yOXkX2vznNDhysD2E1jkVt5PJa5LMS3ph5EzRVFdFGhucuHqGvuGGjCvJFGa RqgZZgn9QAkgJJ9NmZXcA3DaI8FdHGjbVZ2BXQYiQP TwsDKrJWTgITNqMcY5NCBuMNesMM3CrHNvKIhiADKnTYCuReKhZNReTXClMKQwNEKoJVVCJZTfKQXqXf OaXZdsFG4Vm0ZenRE3XJv+Ms5NCC5vc2VxHKavUfDmDY7qzh4ZHAfNVeVnB1YdauO7ESR4FWCoHh8NDU AhTJFyqZKxROKzOZIWHtYpO4DzjQ27KPMWXv2+DQpl zhMlWllQNbG5ROPzu5SjUFg9IA5OLMTlZWg2iLQxGCQsO3Jvj6HvTa23KUVwXrloRxgatcwkDYLrY021 pcoqGQUiLVRxXZ0kST1sQKQrNCAqSrLiIOSJSC4PZFDwSTNigXBfHOBcNILQNQ2XFXrhEEZ2CMXudzKv gGJkYKjhVU6SNTSibbJeWkWrGKYTZCv+Bh3FJH2yr0 PpGEypZSMlBM3shu6FEOaJMlSoR6B8mCOaA5A2KRxcLn7YBDHlBRYfJvQmARCDTGuuZN4ULI8ucyT0NO 0GsEXpSPYxVVSpaHRuPJq8B45xkPPnGHguZG0NLQD+Elisabeth+Xq6IOJCpLLWrPFXjMdSdJIURPmQiC8QpT2 OLa5HyI4QnYQ46tHaotkMgFJggPD9OLE1hXWLgFXLN UY2NqRCqwX0hifLsVaUeBFZCIaKvJ00jcRIfLNXbRDFiQPHsDq0WXUYhB6JwyjQjpBxvybZpUHWbFEGV ZU5BXZkepcLluJJvaTknXX00mQhqHL5GWh4LIlSxDN1epy3AhOCiOf0KFRCuAz7OHMUnNEFvODFqFQO9 QWQbEqJbFUsuUYQuPVEwLAT8YCNoWAEjBP6YGcAuID NoPCNmBuMnIEJgDQYrvh8XFDGcXZI9Zad9TtKlHLEpTVEhBNyiMUMyFKYzXXE6YMXeQYVsEY2YOvErMV KtJKF5VRtdHLYlWSMyca7PTROpEAEwVKKcKsNfJIYhDTNaOZroOGZcQKK2HZAbJKFfOJQfDL5OWwNqKM RhWHt9PQffNZAjLIWfdq9NBCQkQNYrJTEnZETgNSTx TTWjHCdvPYBjWLTlOjD7DHLqNUQgSB4VDwEdKJYnMBK8IQioUEGuELIlpn1UKGTsAXJuNkLmIdQoMBWg IKXcOYjzSZToLUQ8Isv2IMJjYBHuAY1WJiXpJZCdDEV0TMPpSHEtADJdso6EXZGbIQBhGaQ9GFYcFXWc BZVcREgxCRHuKGN8DgY2QACaOEXiJY1OFaVuPWGqWC X8ZtPdYUVxZEUxro9GUASkGHRxIfv4QMSfMXDpKJZxRUyuSNFzJIN8FGvtMTMqHIUoTS2QQdEaWJCyNY reYslzEAXeFPUflw7PEMIhSAV0NXD3JOFwKWAwQAZdPNmmKIBrHWAtSHp3GVOhJBFqHV0ZNyLjKONrGW NzRMjuRUZoEEJwpp7VRBKrXMN9VuM0WYAaKGRaKMUp XZkxIKSmJMRbPfm7RRKfWALwGU6OVdIgCBEeZOArOVOaQCZyHIVbvl3JTKCaJMM4EbBcDpTlDVSlSYBj AOgbSJFpWQLoLipcSYHtJKTnNX5BMxSdQVHqKPJ4OoykKUZuFIItkt8HSAFcUVA4OFmzDBXiPUHeULBb VYdzBARvWTM6LXZqQIGeBAZcIN1MKsVfROChLJZ5Ao NxEIYnVSItnf8ANZKqOLO8FxhvWVFtQYIzSSMkJYicJYNxGNW4BIjoJICiDBXbQI7FNuYeKYKfATvfWN wvZVOxMVHfsh4UeEQhbArxhy3VHAnIHp8HwCbvTBM7MYjoQw9ilAUgLFBlFXADHd5PawCfUHMmDMZRNI swSTSlRPOnGCO3UOIhOBStEUI7JtK9JBStJfRpGvE6 TDa3PATfEhM0Z0KlYvM7GzV3CWS2VltrEeAaUvOyHPQyOuh9QEE6ZLC+WB4mEUg+Rs0Ex5BtdfH5grIq WZa6HbO2Sa4PKIYGI4RUBh== Procedure Social History Code Duration Value Status Description Data Source(s ) Smoking 03/01/2020 12:00:00 AM EST - 02/16/1987 12:00:00 AM EST Patient is a former smoker completed Patient is a former smoker [facility] ([facility] Smoking 02/02/2020 12:00:00 AM EST Patient has never smoked co mpleted Patient has never smoked [facility] ([facility]) Alcohol intake 01/20/2020 12:00:00 AM EST Current non-d mary of alcohol (finding) completed Current non-drinker of alcohol (finding) [facility] Tobacco use and exposure 01/20/2020 12:00:00 AM EST Never used co mpleted Never used [facility] Cigarette pack-years 01/20/2020 12:00:00 AM EST UNK completed [facility] Cigarettes smoked current (pack per day) - Reported 01/20/20 12:00:00 AM EST UNK completed [facility] Smoking 01/20/2020 12:00:00 AM EST Former smoker completed Former smoker [facility] Alcohol intake 12/07/2019 12:00:00 AM EDT Current non-d mary of alcohol (finding) completed Current non-drinker of alcohol (finding) [facility] Alcohol intake 11/30/2019 12:00:00 AM EDT Current non-d mary of alcohol (finding) completed Current non-drinker of alcohol (finding) [facility] Alcohol intake 11/25/2019 12:00:00 AM EDT Current non-d mary of alcohol (finding) completed Current non-drinker of alcohol (finding) [facility] Alcohol intake 10/03/2019 12:00:00 AM EDT Current non-d mary of alcohol (finding) completed Current non-drinker of alcohol (finding) [facility] Smoking 09/08/2019 12:00:00 AM EDT Never smoker completed Never s moker [facility] ([facility]) Alcohol intake 03/08/2019 12:00:00 AM EST Current non-d mary of alcohol (finding) completed Current non-drinker of alcohol (finding) [facility] Cigarette pack-years 03/08/2019 12:00:00 AM EST UNK completed [facility] Cigarettes smoked current (pack per day) - Reported 03/08/19 12:00:00 AM EST UNK completed [facility] Smoking 03/08/2019 12:00:00 AM EST Former smoker completed Former smoker [facility] Vital Signs ID Date Data Source UNK Name Value Range Interpretation Code Description Data Source(s) Body surface area Derived from formula 1.94 m2 1.94 m2 [facility] ([facility] ) Body weight 89.359 kg 89.359 kg [facility] ([facility] [place] body weight 120 [lb_av] 120 [lb_av] [facility] T ([facility]) Body mass index (BMI) [Ratio] 33.8 kg/m2 33.8 k g/m2 [facility] ([facility]) Body weight 197.00 [lb_av] 197.00 [lb_av] [facility] T ([facility]) Body height 64 [in_i] 64 [in_i] [facility] ([facility]) 5'4" Diastolic blood pressure 73 mm[Hg] 73 mm[Hg] [facility] ([facility]) Systolic blood pressure 113 mm[Hg] 113 mm[Hg] [facility] ([facility]) Body mass index (BMI) [Ratio] 32.2 kg/m2 32.2 k g/m2 [facility] ([facility] [place] body weight 125 [lb_av] 125 [lb_av] [facility] [...] [facility] Heart rate 95 /min 95 /min [facility] ([facility] Diastolic blood pressure 95 mm[Hg] 95 mm[Hg] [facility] ([facility] Systolic blood pressure 137 mm[Hg] 137 mm[Hg] [facility] Diastolic blood pressure 100 mm[Hg] 100 mm[Hg] [facility] ([facility] Systolic blood pressure 151 mm[Hg] 151 mm[Hg] M [facility] ([facility] Body temperature 96.6 [degF] 96.6 [degF] [facility] ([facility] Heart rate 75 /min 75 /min [facility] ([facility] Diastolic blood pressure 81 mm[Hg] 81 mm[Hg] [facility] ([facility] Systolic blood pressure 136 mm[Hg] 136 mm[Hg] [facility] Body mass index (BMI) [Ratio] 31.5 kg/m2 31.5 k g/m2 [facility] ([facility] [place] body weight 125 [lb_av] 125 [lb_av] MEDEN [...] /min [facility] ( [facility] Oxygen saturation in Arterial blood by Pulse oximetry 98 % 98 % [facility] ([facility], [facility]) Respiratory rate 13 /min 13 /min [facility] ( [facility], [facility]) Heart rate 92 /min 92 /min [facility] ([facility], [facility]) Diastolic blood pressure 76 mm[Hg] 76 mm[Hg] [facility] ([facility]) Systolic blood pressure 126 mm[Hg] 126 mm[Hg] M EDENT ([facility]) Body mass index (BMI) [Ratio] 32.6 kg/m2 32.6 k g/m2 [facility] ([facility]) Body height 64 [in_i] 64 [in_i] [facility] ([facility]) 5'4" Body weight 190.00 [lb_av] 190.00 [lb_av] MED[facility] T ([facility]) Body temperature 98.4 [degF] 98.4 [degF] [facility] ([facility]) Body mass index (BMI) [Ratio] 30.0 kg/m2 30.0 k g/m2 [facility] ([facility] [place] body weight 125 [lb_av] 125 [lb_av] MEDEN [...] Systolic blood pressure 145 mm[Hg] 145 mm[Hg] [facility] ([facility] Diastolic blood pressure 89 mm[Hg] 89 mm[Hg] [facility] ([facility] Systolic blood pressure 148 mm[Hg] 148 mm[Hg] M [facility] ([facility] Oxygen saturation in Arterial blood by Pulse oximetry 98 % 98 % [facility] ([facility]) Body mass index (BMI) [Ratio] 32.8 kg/m2 32.8 k g/m2 [facility] ([facility]) Body weight 197.12 [lb_av] 197.12 [lb_av] [facility] T ([facility]) Body height 65 [in_i] 65 [in_i] [facility] ([facility]) 5'5" Heart rate 78 /min 78 /min [facility] ([facility]) Diastolic blood pressure 76 mm[Hg] 76 mm[Hg] [facility] ([facility]) Systolic blood pressure 122 mm[Hg] 122 mm[Hg] M EDENT ([facility]) Body mass index (BMI) [Ratio] 31.5 kg/m2 31.5 k g/m2 [facility] ([facility] [place] body weight 125 [lb_av] 125 [lb_av] MEDEN [...] 30.38 kg/m2 [facility] ([facility]) Diastolic blood pressure 85 mm[Hg] 85 mm[Hg] [facility] ([facility]) Systolic blood pressure 137 mm[Hg] 137 mm[Hg] [facility] ([facility]) Body weight 80.286 kg 80.286 kg [facility] ([facility] Body height 162.56 cm 162.56 cm [facility] ([facility]) ID Date Data Source [id number] 12/05/2019 04:58:58 PM EDT [facility] Name Value Range Interpretation Code Description Data Source(s) WEIGHT RECORDED 184 lb 184 lb [facility] Body height Measured 64 in 64 in [facility] WEIGHT RECORDED 184.56 lb 184.56 lb [facility] ID Date Data Source [id number] 11/29/2019 07:20:[address] [facility] Value Range Interpretation Code Description Data Source(s) WEIGHT RECORDED 184.08 lb 184.08 lb [facility] Body height Measured 63.39 in 63.39 in [facility] ID Date Data Source [id number] 10/03/2019 03:27:[address] [facility] Value Range Interpretation Code Description Data Source(s) WEIGHT RECORDED 191.8 lb 191.8 lb [facility] Body height Measured 64 in 64 in [facility] ID Date Data Source [id number] 03/18/2019 03:51:54 PM EST [facility] Name Value Range Interpretation Code Description Data Source(s) WEIGHT RECORDED 178.1 lb 178.1 lb [facility] Body height Measured 64 in 64 in [facility] Patient Treatment Plan of Care Planned Activity Planned Date Details Description Data Source (s) Magnesium Oxide 400 MG Oral Tablet 12/04/2019 12:00:00 AM [facility] Caffeine 200 MG Oral Tablet 12/03/2019 12:00:00 AM [facility] Ibuprofen 200 MG Oral Tablet 12/03/2019 12:00:00 AM [facility] Acetaminophen 325 MG Oral Tablet 12/03/2019 12:00:00 AM [facility] Oxycodone Hydrochloride 5 MG Oral Tablet 12/03/2019 12:00:00 AM [facility] albuterol (PROVENTIL HFA) inhaler 2 puff 11/30/2019 06:32:39 PM [facility] dextrose 50 % IV solution 25 mL 11/30/2019 02:35:32 PM [facility] Glucagon 1 MG Injection 11/30/2019 02:35:32 PM [facility] Glucose 0.417 MG/MG Oral Gel 11/30/2019 02:35:32 PM [facility] 24 HR Metformin hydrochloride 500 MG Extended Release Oral Tablet 09/07/2019 12:00:00 AM [facility] Norethindrone 0.35 MG Oral Tablet 07/18/2019 12:00:00 AM [facility] Ortho Micronor 0.35 mg tablet 05/04/2019 12:00:00 AM [facility] Docusate Sodium 100 MG Oral Capsule [DOK] 12/03/2018 12:00:00 AM [facility] Nystatin 100 UNT/MG Topical Powder 10/11/2018 12:00:00 AM [facility] tizanidine 4 MG Oral Capsule 09/17/2018 12:00:00 AM [facility] 3 ML insulin detemir 100 UNT/ML Pen Injector [Levemir] 09/17/2018 12:00:00 AM [facility]
--- NOTE | 2020-04-11 07:54 | ROOR ---
Patient Name: Jane Freeman Procedure Date: 04/11/2020 7:22 AM Date of : 1970 Age: 49 Room: [facility] Gender: Female Note Status: Finalized Procedure: Colonoscopy Indications: Screening for colorectal malignant neoplasm Providers: Festus Cat MD Referring MD: Sharon Hearn MD Requesting Provider: Medicines: Monitored Anesthesia Care Complications: No immediate complications. Procedure: Pre-Anesthesia Assessment: - Prior to the procedure, a History and Physical was performed, and patient medications and allergies were reviewed. The patient is competent. The risks and benefits of the procedure and the sedation options and risks were discussed with the patient. All questions were answered and informed consent was obtained. Patient identification and proposed procedure were verified by the physician, the nurse and the stem shaper in the endoscopy suite. Mental Status Examination: alert and oriented. Airway Examination: normal oropharyngeal airway and neck mobility. Respiratory Examination: clear to auscultation. CV Examination: normal. Prophylactic Antibiotics: The patient does not require prophylactic antibiotics. Prior Anticoagulants: The patient has taken no previous anticoagulant or antiplatelet agents. ASA Grade Assessment: II - A patient with mild systemic disease. After reviewing the risks and benefits, the patient was deemed in satisfactory condition to undergo the procedure. The anesthesia plan was to use monitored anesthesia care (MAC). Immediately prior to administration of medications, the patient was re-assessed for adequacy to receive sedatives. The heart rate, respiratory rate, oxygen saturations, blood pressure, adequacy of pulmonary ventilation, and response to care were monitored throughout the procedure. The physical status of the patient was re-assessed after the procedure. The Colonoscope was introduced through the anus and advanced to the cecum, identified by appendiceal orifice and ileocecal valve. The colonoscopy was somewhat difficult due to a tortuous colon. The patient tolerated the procedure well. The quality of the bowel preparation was excellent. Findings: Skin tags were found on perianal exam. The colon (entire examined portion) appeared normal. There is no endoscopic evidence of inflammation, mass or polyps in the entire colon. Non-bleeding hemorrhoids were found during retroflexion. The hemorrhoids were small. Impression: - Perianal skin tags found on perianal exam. - The entire examined colon is normal. - Non-bleeding hemorrhoids. - No specimens collected. Recommendation: - Repeat colonoscopy in 10 years for screening purposes. Procedure Code(s): --- Professional --- 36000, Colonoscopy, flexible; diagnostic, including collection of specimen(s) by brushing or washing, when performed (separate procedure) Diagnosis Code(s): --- Professional --- Z12.11, Encounter for screening for malignant neoplasm of colon K64.9, Unspecified hemorrhoids K64.4, Residual hemorrhoidal skin tags CPT copyright 2019 [employer]. All rights reserved. The codes documented in this report are preliminary and upon software systems architect review may be revised to meet current compliance requirements. Festus Cat MD Festus Cat MD 04/11/2020 7:54:30 AM Electronically signed by Festus Cat MD Number of Addenda: 0 Note Initiated On: 04/11/2020 7:22 AM Estimated Blood Loss: Estimated blood loss: none.
[2020-04-11 10:59] VITALS: BP 125/84
== END 2020-04-11 08:15 | disposition home or self-care (01) ==
LOC: M OPP 06:53
PROVIDERS: ATTEND Surgery
DX: Z12.11 Encounter for screening for malignant neoplasm of colon (principal); K64.4 Residual hemorrhoidal skin tags; I10 Essential (primary) hypertension; E11.9 Type 2 diabetes mellitus without complications; E03.9 Hypothyroidism, unspecified; M19.90 Unspecified osteoarthritis, unspecified site; F41.9 Anxiety disorder, unspecified; F32.9 Major depressive disorder, single episode, unspecified; Z87.891 Personal history of nicotine dependence; Z88.0 Allergy status to penicillin; Z79.84 Long term (current) use of oral hypoglycemic drugs; Z79.899 Other long term (current) drug therapy

== ENCOUNTER → 2020-07-26 | Outpatient (CLI) | payer OTHER ==
[~2020-07-26] MED LIST changes: -LIDOCAINE 2% 100MG/5ML SDV (FOR ANES.) As Ordered ONE; -propofoL 200 MG/20 ML VIAL As Ordered ONE
[2020-07-26 16:06] LABS: FREE T4 1.18 NG/DL (0.76-1.46); THYROID STIMULATING HORMONE 0.148 uIU/ML (0.358-3.740)
== END ==
LOC: M WUC 08:51
PROVIDERS: ATTEND Physician Assistant Medical
DX: E03.9 Hypothyroidism, unspecified (principal)

== ENCOUNTER → 2020-09-04 | Outpatient (CLI) | payer OTHER ==
[2020-09-04 17:56] LABS: HEMOGLOBIN A1c 7.9 %
== END ==
LOC: M WUC 14:38
PROVIDERS: ATTEND Family Medicine
DX: E11.22 Type 2 diabetes mellitus with diabetic chronic kidney disease (principal)

== ENCOUNTER → 2020-09-05 | Outpatient (CLI) | payer OTHER ==
--- NOTE | 2020-09-05 16:01 | REPMRS ---
Patient History The patient states she has not had a clinical breast exam in over a year. Family history of breast cancer in maternal grandmother, colorectal cancer in maternal grandfather, colorectal cancer in paternal grandfather. Taking hormonal contraceptives for 2 years. Patient states no breast complaints today. Patient has signed MRS History Sheet. Digital Woman Screen Mammo: September 05, 2020 - Exam #: [id number] Bilateral CC and MLO view(s) were taken. Technologist: Mare Martinez Technologist Prior study comparison: May 15, 2020, left breast digital mammo diagnostic unilateral, performed at [facility]. May 15, 2020, left breast ultrasound, performed at [facility]. May 06, 2017, bilateral digital mammo screening bilat, performed at [facility]. FINDINGS: There are scattered fibroglandular densities. The Volpara volumetric breast density category is:B. There has been no change in the appearance of the mammogram from the prior studies. There is a mild amount of scattered fibroglandular density which is fairly symmetric. There is no interval development of dominant mass, architectural distortion, or grouped microcalcification suggestive of malignancy. 3-D tomosynthesis shows no additional findings. Assessment: BI-RADS/ACR category 1 mammogram. Negative Mammogram. Recommendation Routine screening mammogram of both breasts in 1 year (for women over age 40). This patient's [facility] Lifetime Breast Cancer Risk is estimated at 12.0 %. This mammogram was interpreted with the aid of an FDA-approved computer-aided dectection system. Electronically Signed By: Vasyl Calabrese MD 09/05/20 [id number]
== END ==
LOC: M WHC 15:18
PROVIDERS: ATTEND Physician Assistant Medical
DX: Z12.31 Encounter for screening mammogram for malignant neoplasm of breast (principal); Z80.3 Family history of malignant neoplasm of breast; Z80.0 Family history of malignant neoplasm of digestive organs

== ENCOUNTER → 2020-11-08 | Outpatient (REF) | payer OTHER | LOC: M LAB REF 17:26 | PROVIDERS: ATTEND Nurse Practitioner Family | DX: E11.65 Type 2 diabetes mellitus with hyperglycemia (principal) ==

== ENCOUNTER → 2021-02-28 | Outpatient (CLI) | payer OTHER ==
[~2021-02-28] MED LIST changes: -CITA40TA4 PO; +CITA40TA7 PO; +LOSA50TA28 PO; -LOSA50TA88 PO
[2021-02-28 10:53] LABS: BASO # 0.1 10^3/uL (0.0-0.2); BASO % 1.3 % (0.0-1.0); EOS # 0.4 10^3/uL (0.0-0.5); EOS % 3.9 % (0.0-3.0); HEMATOCRIT 40.7 % (36.0-47.0); HEMOGLOBIN 12.7 g/dl (12.0-15.5); LYMPH # 2.7 10^3/uL (1.5-5.0); LYMPH % 28.4 % (24.0-44.0); MEAN CORPUSCULAR HEMOGLOBIN 26.1 pg (27.0-33.0); MEAN CORPUSCULAR HGB CONC 31.2 g/dl (32.0-36.5); MEAN CORPUSCULAR VOLUME 83.6 fl (80.0-96.0); MONO # 0.7 10^3/uL (0.0-0.8); MONO % 7.2 % (2.0-8.0); NEUTROPHILS # 5.6 10^3/uL (1.5-8.5); NEUTROPHILS % 58.6 % (36.0-66.0); PLATELET COUNT, AUTOMATED 373 10^3/uL (150-450); RED BLOOD COUNT 4.87 10^6/uL (4.00-5.40); WHITE BLOOD COUNT 9.5 10^3/uL (4.0-10.0)
[2021-02-28 10:59] LABS: HEMOGLOBIN A1c 7.7 %
[2021-02-28 11:20] LABS: ALT/SGPT 29 U/L (12-78); BILIRUBIN,TOTAL 0.7 MG/DL (0.2-1.0); BLOOD UREA NITROGEN 15 MG/DL (7-18); CALCIUM LEVEL 9.6 MG/DL (8.5-10.1); CARBON DIOXIDE LEVEL 27 MEQ/L (21-32); CHLORIDE LEVEL 106 MEQ/L (98-107); CHOLESTEROL LEVEL 125 MG/DL (<200); CHOLESTEROL RISK RATIO 1.736 (<5); CREATININE FOR GFR 0.73 MG/DL (0.55-1.30); FREE T4 1.29 NG/DL (0.76-1.46); GLOMERULAR FILTRATION RATE > 60.0 (>51); GLUCOSE, FASTING 148 MG/DL (70-100); HDL CHOLESTEROL 72 MG/DL (>40); LDL CHOLESTEROL 29 MG/DL (<100); NON-HDL-C 53 MG/DL; SODIUM LEVEL 139 MEQ/L (136-145); THYROID STIMULATING HORMONE 0.229 uIU/ML (0.358-3.740); TOTAL PROTEIN 7.4 GM/DL (6.4-8.2); TRIGLYCERIDES LEVEL 121 MG/DL (<150)
[2021-02-28 12:03] LABS: MAU/CREAT RATIO 226.4 MCG/MG (0.0-30.0)
== END ==
LOC: M WUC 08:11
PROVIDERS: ATTEND Family Medicine
DX: Z00.00 Encounter for general adult medical examination without abnormal findings (principal); E11.22 Type 2 diabetes mellitus with diabetic chronic kidney disease; E03.9 Hypothyroidism, unspecified; I12.9 Hypertensive chronic kidney disease with stage 1 through stage 4 chronic kidney disease, or unspecified chronic kidney disease; N18.9 Chronic kidney disease, unspecified

== ENCOUNTER → 2021-05-22 | Outpatient (REF) ==
[~2021-05-22] MED LIST changes: +OMEP-173 PO; -OMEP-218 PO
== END ==
LOC: M LAB 12:19
PROVIDERS: ATTEND Nurse Practitioner Adult Health
DX: Z00.00 Encounter for general adult medical examination without abnormal findings (principal)

== ENCOUNTER → 2021-06-28 | Outpatient (CLI) | payer OTHER ==
[2021-06-28 17:38] LABS: HEMOGLOBIN A1c 8.1 %
== END ==
LOC: M WUC 11:57
PROVIDERS: ATTEND Nurse Practitioner Family
DX: E11.22 Type 2 diabetes mellitus with diabetic chronic kidney disease (principal)

== ENCOUNTER → 2021-08-23 | Outpatient (REF) | payer OTHER ==
[2021-08-23 13:09] LABS: BLOOD UREA NITROGEN 13 MG/DL (7-18); CALCIUM LEVEL 9.5 MG/DL (8.5-10.1); CARBON DIOXIDE LEVEL 23 MEQ/L (21-32); CHLORIDE LEVEL 106 MEQ/L (98-107); CREATININE FOR GFR 0.86 MG/DL (0.55-1.30); GLOMERULAR FILTRATION RATE > 60.0 (>51); GLUCOSE, FASTING 264 MG/DL (70-100); SODIUM LEVEL 139 MEQ/L (136-145)
== END ==
LOC: M LABWUC 12:04
PROVIDERS: ATTEND Nurse Practitioner Family
DX: E11.65 Type 2 diabetes mellitus with hyperglycemia (principal)

== ENCOUNTER → 2021-09-04 | Outpatient (CLI) | payer OTHER ==
[2021-09-04 13:26] LABS: BASO # 0.1 10^3/uL (0.0-0.2); BASO % 1.3 % (0.0-1.0); EOS # 0.6 10^3/uL (0.0-0.5); EOS % 5.3 % (0.0-3.0); HEMATOCRIT 45.9 % (36.0-47.0); HEMOGLOBIN 14.6 g/dl (12.0-15.5); LYMPH # 2.3 10^3/uL (1.5-5.0); LYMPH % 21.4 % (24.0-44.0); MEAN CORPUSCULAR HEMOGLOBIN 26.8 pg (27.0-33.0); MEAN CORPUSCULAR HGB CONC 31.8 g/dl (32.0-36.5); MEAN CORPUSCULAR VOLUME 84.4 fl (80.0-96.0); MONO # 0.7 10^3/uL (0.0-0.8); MONO % 6.4 % (2.0-8.0); NEUTROPHILS # 6.9 10^3/uL (1.5-8.5); PLATELET COUNT, AUTOMATED 367 10^3/uL (150-450); RED BLOOD COUNT 5.44 10^6/uL (4.00-5.40); WHITE BLOOD COUNT 10.6 10^3/uL (4.0-10.0)
[2021-09-04 14:15] LABS: ALBUMIN 4.4 GM/DL (3.2-5.2); ALT/SGPT 36 U/L (12-78); BILIRUBIN,TOTAL 0.6 MG/DL (0.2-1.0); BLOOD UREA NITROGEN 23 MG/DL (7-18); CALCIUM LEVEL 11.2 MG/DL (8.5-10.1); CARBON DIOXIDE LEVEL 21 MEQ/L (21-32); CHLORIDE LEVEL 108 MEQ/L (98-107); CREATININE FOR GFR 0.85 MG/DL (0.55-1.30); FREE T4 1.13 NG/DL (0.76-1.46); GLOMERULAR FILTRATION RATE > 60.0 (>51); GLUCOSE, FASTING 251 MG/DL (70-100); POTASSIUM SERUM 3.9 MEQ/L (3.5-5.1); SODIUM LEVEL 139 MEQ/L (136-145); THYROID STIMULATING HORMONE 0.121 uIU/ML (0.358-3.740); TOTAL PROTEIN 7.9 GM/DL (6.4-8.2)
[2021-09-04 14:43] LABS: VITAMIN B12 LEVEL 512 PG/ML
[2021-09-04 14:44] LABS: FOLATE > 24.0 NG/ML
== END ==
LOC: M WUC 09:13
PROVIDERS: ATTEND Nurse Practitioner Family
DX: E03.9 Hypothyroidism, unspecified (principal); R53.83 Other fatigue

== ENCOUNTER → 2021-10-24 | Outpatient (CLI) | payer OTHER ==
[2021-10-24 12:03] LABS: ALBUMIN 3.7 GM/DL (3.2-5.2); ALT/SGPT 33 U/L (12-78); BILIRUBIN,TOTAL 0.7 MG/DL (0.2-1.0); BLOOD UREA NITROGEN 17 MG/DL (7-18); CALCIUM LEVEL 10.1 MG/DL (8.5-10.1); CARBON DIOXIDE LEVEL 22 MEQ/L (21-32); CHLORIDE LEVEL 107 MEQ/L (98-107); CREATININE FOR GFR 0.71 MG/DL (0.55-1.30); FREE T4 1.26 NG/DL (0.76-1.46); GLOMERULAR FILTRATION RATE > 60.0 (>51); GLUCOSE, FASTING 214 MG/DL (70-100); POTASSIUM SERUM 4.4 MEQ/L (3.5-5.1); SODIUM LEVEL 137 MEQ/L (136-145); THYROID STIMULATING HORMONE 0.217 uIU/ML (0.358-3.740); TOTAL PROTEIN 7.1 GM/DL (6.4-8.2)
== END ==
LOC: M WUC 08:12
PROVIDERS: ATTEND Nurse Practitioner Family
DX: E83.52 Hypercalcemia (principal); E03.9 Hypothyroidism, unspecified

== ENCOUNTER → 2021-10-28 | Outpatient (CLI) | payer OTHER | LOC: M WHC 09:36 | PROVIDERS: ATTEND Nurse Practitioner Family | DX: Z12.31 Encounter for screening mammogram for malignant neoplasm of breast (principal) ==

== ENCOUNTER → 2022-12-09 | Outpatient (REF) | payer BC, OTHER ==
[~2022-12-09] MED LIST changes: +LORA-1041 PO; -LORA-674 PO
[2022-12-09 18:40] LABS: ALBUMIN 3.8 G/DL (3.2-5.2); ALKALINE PHOSPHATASE 89 U/L (46-116); ALT/SGPT 40 U/L (7.0-40); AST/SGOT 25 U/L (<34); BILIRUBIN,TOTAL 0.5 MG/DL (0.3-1.2); BLOOD UREA NITROGEN 12 MG/DL (9-23); CALCIUM LEVEL 9.1 MG/DL (8.5-10.1); CARBON DIOXIDE LEVEL 30 MMOL/L (20-31); CHLORIDE LEVEL 101 MMOL/L (98-107); CREATININE FOR GFR 0.47 MG/DL (0.55-1.30); GLOMERULAR FILTRATION RATE > 60.0 (>51); GLUCOSE, FASTING 201 MG/DL (60-100); MAGNESIUM LEVEL 1.2 MG/DL (1.8-2.4); SODIUM LEVEL 137 MMOL/L (136-145)
[2022-12-09 18:42] LABS: FREE T4 1.08 NG/DL (0.89-1.76); THYROID STIMULATING HORMONE 0.568 uIU/ML (0.55-4.78)
== END ==
LOC: M LABWUC 16:37
PROVIDERS: ATTEND Registered Nurse
DX: E03.9 Hypothyroidism, unspecified (principal); R53.83 Other fatigue; I10 Essential (primary) hypertension

== ENCOUNTER → 2023-02-11 | Outpatient (CLI) | payer BC, OTHER | LOC: M WHC 09:36 | PROVIDERS: ATTEND Registered Nurse | DX: Z12.31 Encounter for screening mammogram for malignant neoplasm of breast (principal) ==

== ENCOUNTER → 2023-03-06 | Outpatient (CLI) | payer BC | LOC: M RAD 11:56 | PROVIDERS: ATTEND Registered Nurse | DX: M71.21 Synovial cyst of popliteal space [Baker], right knee (principal); M25.561 Pain in right knee ==

== ENCOUNTER → 2023-08-31 | Outpatient (CLI) | payer BC ==
[2023-08-31 15:28] LABS: HEMOGLOBIN 13.2 g/dl (12.0-15.5); MEAN CORPUSCULAR HEMOGLOBIN 26.8 pg (27.0-33.0); MEAN CORPUSCULAR HGB CONC 32.2 g/dl (32.0-36.5); MEAN CORPUSCULAR VOLUME 83.2 fl (80.0-96.0); PLATELET COUNT, AUTOMATED 287 10^3/uL (150-450); RED BLOOD COUNT 4.93 10^6/uL (4.00-5.40); WHITE BLOOD COUNT 6.5 10^3/uL (4.0-10.0)
[2023-08-31 15:55] LABS: ALBUMIN 3.6 G/DL (3.2-5.2); ALKALINE PHOSPHATASE 123 U/L (46-116); ALT/SGPT 33 U/L (7.0-40); AST/SGOT 14 U/L (<34); BILIRUBIN,TOTAL 0.3 MG/DL (0.3-1.2); BLOOD UREA NITROGEN 17 MG/DL (9-23); CALCIUM LEVEL 9.6 MG/DL (8.5-10.1); CARBON DIOXIDE LEVEL 26 MMOL/L (20-31); CHLORIDE LEVEL 106 MMOL/L (98-107); CREATININE FOR GFR 0.49 MG/DL (0.55-1.30); GLOMERULAR FILTRATION RATE > 60.0 (>51); GLUCOSE, FASTING 297 MG/DL (60-100); MAGNESIUM LEVEL 1.6 MG/DL (1.8-2.4); POTASSIUM SERUM 4.4 MMOL/L (3.5-5.1); SODIUM LEVEL 138 MMOL/L (136-145); TOTAL PROTEIN 6.7 G/DL (5.7-8.2)
[2023-08-31 15:58] LABS: FOLATE > 24.00 NG/ML (>5.4)
== END ==
LOC: M LAB 14:19
PROVIDERS: ATTEND Nurse Practitioner Psychiatric/Mental Health
DX: F43.20 Adjustment disorder, unspecified (principal)

== ENCOUNTER → 2024-02-06 | Outpatient (CLI) | payer BC ==
[2024-02-06 10:39] LABS: URIC ACID 7.5 MG/DL (3.1-7.8)
[2024-02-06 10:42] LABS: C REACTIVE PROTEIN QUANTITATIV 0.69 MG/DL (<1.0)
[2024-02-06 10:43] LABS: ALBUMIN 3.5 G/DL (3.2-5.2); ALKALINE PHOSPHATASE 132 U/L (35-104); ALT/SGPT 43 U/L (7.0-40); AST/SGOT 24 U/L (<34); BILIRUBIN,TOTAL 0.4 MG/DL (0.3-1.2); BLOOD UREA NITROGEN 27 MG/DL (9-23); CALCIUM LEVEL 10.1 MG/DL (8.5-10.1); CARBON DIOXIDE LEVEL 31 MMOL/L (20-31); CHLORIDE LEVEL 100 MMOL/L (98-107); CHOLESTEROL LEVEL 175 MG/DL (<200); CHOLESTEROL RISK RATIO 3.27 (<5); CREATININE FOR GFR 0.68 MG/DL (0.55-1.30); GLOMERULAR FILTRATION RATE > 60.0 (>51); GLUCOSE, FASTING 172 MG/DL (60-100); HDL CHOLESTEROL 53.4 MG/DL (>40); LDL CHOLESTEROL 97.4 MG/DL (<100); MAGNESIUM LEVEL 1.5 MG/DL (1.8-2.4); NON-HDL-C 121.6 MG/DL; POTASSIUM SERUM 3.7 MMOL/L (3.5-5.1); RHEUMATOID FACTOR QUANT 5.4 IU/ML (<14); SODIUM LEVEL 140 MMOL/L (136-145); TOTAL PROTEIN 7.2 G/DL (5.7-8.2); TRIGLYCERIDES LEVEL 121 MG/DL (<150)
[2024-02-06 10:44] LABS: FREE T4 1.37 NG/DL (0.89-1.76); THYROGLOBULIN ANTIBODY < 15.0 U/ML (<60.0)
[2024-02-08 10:51] LABS: ANA SCREEN, IFA NEGATIVE (NEGATIVE)
[2024-02-08 23:18] LABS: CYCLIC CITRULLINATED PEPTIDE < 16 UNITS (<20)
== END ==
LOC: M LAB 09:44
PROVIDERS: ATTEND Registered Nurse
DX: E83.42 Hypomagnesemia (principal); E03.9 Hypothyroidism, unspecified; I10 Essential (primary) hypertension; M25.549 Pain in joints of unspecified hand

== ENCOUNTER → 2024-05-03 | Outpatient (CLI) | payer BC ==
[2024-05-03 16:08] LABS: ALBUMIN 3.6 G/DL (3.2-5.2); ALKALINE PHOSPHATASE 73 U/L (35-104); ALT/SGPT 28 U/L (7.0-40); AST/SGOT 20 U/L (<34); BILIRUBIN,TOTAL 0.3 MG/DL (0.3-1.2); BLOOD UREA NITROGEN 25 MG/DL (9-23); CALCIUM LEVEL 10.2 MG/DL (8.5-10.1); CARBON DIOXIDE LEVEL 32 MMOL/L (20-31); CHLORIDE LEVEL 98 MMOL/L (98-107); CREATININE FOR GFR 0.65 MG/DL (0.55-1.30); GLOMERULAR FILTRATION RATE > 60.0 (>51); GLUCOSE, FASTING 117 MG/DL (60-100); MAGNESIUM LEVEL 1.2 MG/DL (1.8-2.4); POTASSIUM SERUM 3.7 MMOL/L (3.5-5.1); SODIUM LEVEL 138 MMOL/L (136-145)
[2024-05-03 16:54] LABS: HEMOGLOBIN A1c 7.3 % (4.0-6.0)
== END ==
LOC: M WUC 11:18
PROVIDERS: ATTEND Registered Nurse
DX: E83.42 Hypomagnesemia (principal); E11.69 Type 2 diabetes mellitus with other specified complication

== ENCOUNTER → 2024-05-10 | Outpatient (CLI) | payer BC ==
[2024-05-10 14:21] LABS: CREATININE, URINE 150.6 MG/DL; MAU/CREAT RATIO 9.9 MCG/MG (0.0-30.0)
[2024-05-10 14:35] LABS: ALBUMIN 3.6 G/DL (3.2-5.2); ALKALINE PHOSPHATASE 76 U/L (35-104); ALT/SGPT 31 U/L (7.0-40); AST/SGOT 19 U/L (<34); BILIRUBIN,TOTAL 0.3 MG/DL (0.3-1.2); BLOOD UREA NITROGEN 22 MG/DL (9-23); CALCIUM LEVEL 10.2 MG/DL (8.5-10.1); CARBON DIOXIDE LEVEL 32 MMOL/L (20-31); CHLORIDE LEVEL 98 MMOL/L (98-107); CHOLESTEROL LEVEL 207 MG/DL (<200); CHOLESTEROL RISK RATIO 3.85 (<5); CREATININE FOR GFR 0.72 MG/DL (0.55-1.30); GLOMERULAR FILTRATION RATE > 60.0 (>51); GLUCOSE, FASTING 137 MG/DL (60-100); HDL CHOLESTEROL 53.7 MG/DL (>40); LDL CHOLESTEROL 116.9 MG/DL (<100); NON-HDL-C 153.3 MG/DL; SODIUM LEVEL 140 MMOL/L (136-145); TOTAL PROTEIN 6.9 G/DL (5.7-8.2); TRIGLYCERIDES LEVEL 182 MG/DL (<150)
[2024-05-10 14:36] LABS: TOTAL 25(OH) VITAMIN D 21.1 NG/ML (20.0-100.0)
== END ==
LOC: M WUC 08:16
PROVIDERS: ATTEND Nurse Practitioner Family
DX: E11.65 Type 2 diabetes mellitus with hyperglycemia (principal); E78.2 Mixed hyperlipidemia; E83.52 Hypercalcemia

== ENCOUNTER → 2024-08-18 | Outpatient (CLI) | payer BC ==
[2024-08-18 17:59] LABS: ALT/SGPT 36 U/L (7.0-40); AST/SGOT 31 U/L (<34); CALCIUM LEVEL 10.5 MG/DL (8.5-10.1); CARBON DIOXIDE LEVEL 29 MMOL/L (20-31); CHLORIDE LEVEL 100 MMOL/L (98-107); CREATININE FOR GFR 0.66 MG/DL (0.55-1.30); GLOMERULAR FILTRATION RATE > 90.0 (>51); MAGNESIUM LEVEL 1.3 MG/DL (1.8-2.4); POTASSIUM SERUM 3.7 MMOL/L (3.5-5.1); SODIUM LEVEL 140 MMOL/L (136-145)
== END ==
LOC: M WUC 11:55
PROVIDERS: ATTEND Registered Nurse
DX: E83.42 Hypomagnesemia (principal); I10 Essential (primary) hypertension